=== PATIENT | male | born 1955 | race Caucasian/White ===

== ENCOUNTER → 2017-01-22 | Outpatient (CLI) | payer OTHER ==
[~2017-01-22] MED LIST: ALUMCHW2 PO; CARB200T PO; FEXO1TAB58 PO; MISC1CAP PO; MISC1CAP60 PO; MULTTAB58 PO; TRIF5TAB PO; VITATAB11 PO
[2017-01-22 17:24] LABS: BASO % 0.5 %; BASO ABS # 0.04 K/uL (0-0.2); COMPLETE YES; EOS % 1.6 %; HEMATOCRIT 39.9 % (42-52); IG% 0.5 %; LYMPH % 38.7 %; MEAN CELL VOLUME 95.7 fL (80-100); MEAN CORPUSCULAR HEMOGLOBIN 32.4 pg (25-34); MEAN CORPUSCULAR HGB CONC 33.8 g/dl (32-36); MEAN PLATELET VOLUME 8.5 fL (7.4-10.4); MONO % 6.9 %; NEUT % 51.8 %; PLATELET COUNT 330 K/uL (130-400); RED BLOOD COUNT 4.17 M/uL (4.7-6.1); WHITE BLOOD COUNT 7.49 K/uL (4.8-10.8)
[2017-01-22 17:42] LABS: ALB/GLOB RATIO 1.3 (0.9-2); ALKALINE PHOSPHATASE 91 U/L (45-117); ALT/SGPT 29 U/L (12-78); AST/SGOT 11 U/L (15-37); BLOOD UREA NITROGEN 21 mg/dl (7-18); BUN/CREATININE RATIO 20.5 (10-20); CALCIUM 8.8 mg/dl (8.5-10.1); CARBON DIOXIDE 28 mmol/L (21-32); CHLORIDE 99 mmol/L (98-107); GLUCOSE 98 mg/dl (70-99); POTASSIUM 4.6 mmol/L (3.5-5.1); SODIUM 134 mmol/L (136-145)
== END | disposition home or self-care (01) ==
LOC: C.LABBFT 12:47
PROVIDERS: ATTEND Psychiatry & Neurology Psychiatry
DX: F20.0 Paranoid schizophrenia (principal)

== ENCOUNTER → 2017-07-03 | Day surgery (SDC) | payer OTHER ==
[2017-05-21 12:28] VITALS: Ht 177.8 cm; Wt 119.5 kg
[~2017-07-03] VITALS: Ht 177.8 cm; Wt 119.5 kg
[~2017-07-03] MED LIST changes: +500ML BSS 0.3ML EPI 1:1000PF IRRIG ONE; +ACETAMINOPHEN 325 MG TAB PO PRN; +AMVISC PLUS 0.8ML SYRINGE INT OCU ONE; +ATROPINE SULFATE 0.1 MG/ML 5ML SYR IV PRN; +BSS FLUSH ONE; +CYCLOPENTOLATE HCL 1% OP SOLN PER DROP CHARGE OPL SCH; +EpHEDrine SULFATE INJ 50 MG/ML AMP IV PRN; +EpINEphrine INJ 1MG/ML AMP 1 MG/ML AMP ONE; +FENTANYL CITRATE INJ 50 MCG/1 ML 2 ML VIAL IV PRN; +GATIFLOXACIN OP SOLN PER DROP CHARGE OPL SCH; +KETOROLAC 0.5% OP SOLN PER DROP CHARGE OPL SCH; +LACTATED RINGER'S 1000ML 500 ML IV SCH; +LIDOCAINE 3.5% OPH GEL PER APPLICATION CHARGE ONE; +LIDOCAINE HCL 1% MPF 2 ML VIAL ONE; +MIDAZOLAM HCL 1 MG/ML 2ML VIAL ONE; +OCUCOAT 1 ML SOLN IO ONE; +ONDANSETRON INJ 2 MG/ML 2 ML VIAL IV PRN; +PHENYLEPHRINE HCL 2.5% OP SOLN PER DROP CHARGE OPL SCH; +POVIDONE-IODINE OP SOLN 30 ML BTL ONE; +PROPARACAINE 0.5% OP SOLN PER DROP CHARGE OPL SCH; +TOBRAMYCIN/DEXAMETHASONE OPH OINT PER APPLN CHARGE ONE; +TROPICAMIDE 1% OP SOLN PER DROP CHARGE OPL SCH
[2017-07-03] MEDS: PHENYLEPHRINE HCL 2.5% OP SOLN PER DROP CHARGE OPL SCH ×2 (07:07→07:12)
[2017-07-03] MEDS: TROPICAMIDE 1% OP SOLN PER DROP CHARGE OPL SCH ×2 (07:08→07:13)
[2017-07-03] MEDS: CYCLOPENTOLATE HCL 1% OP SOLN PER DROP CHARGE OPL SCH ×2 (07:09→07:14)
[2017-07-03] MEDS: KETOROLAC 0.5% OP SOLN PER DROP CHARGE OPL SCH ×2 (07:10→07:15)
[2017-07-03] MEDS: GATIFLOXACIN OP SOLN PER DROP CHARGE OPL SCH ×2 (07:11→07:25)
--- NOTE | 2017-07-03 07:28 | History & Physical Bridge - [place] ---
H&P Re-Evaluation Bridge Note: I have examined the patient, reviewed the History & Physical and in the interval since the performance of the History & Physical I have noted the following changes of clinical significance: Diagnosis: Left Cataract Procedure: Left Cataract Removal with Lens Implant No changes noted
--- NOTE | 2017-07-03 08:13 | Discharge Instructions-SurgCtr ---
Discharge Instructions Date of Service Jul 03, 2017. Visit Reason for Visit: Left Cataract Discharge Discharge Diagnosis / Problem: cataract Discharge Goals Goal(s): Improve function Activity Recommendations Activity Limitations: per Instructions/Follow-up section Anesthesia . Post Anesthesia Instructions: If you have had General Anesthesia or IV Sedation: * Do not drive today. * Resume driving when surgeon permits. * Do not make important decisions or sign legal documents today. * Call surgeon for: 1. Temperature elevations greater than 101 degrees F. 2. Uncontrollable pain. 3. Excessive bleeding. 4. Persistent nausea and vomiting. 5. Medication intolerance (nausea, vomiting or rash). * For nausea and vomiting use only clear liquids such as: tea, soda, bouillon until nausea subsides, then gradually increase diet as tolerated. * If you have any concerns or questions, call your surgeon's office. If physician is unavailable and it is an emergency, call 911 or go to the nearest emergency room. . Diet Recommendations Home Diet: resume previous diet Procedures Procedures Performed: Left Cataract Phacoemulsification With Intraocular Lens Implant Pending Studies Studies pending at discharge: no Medical Emergencies . Who to Call and When: Medical Emergencies: If at any time you feel your situation is an emergency, please call 911 immediately. . Non-Emergent Contact Non-Emergency issues call your: [employer] . . "Provider Documentation" section prepared by Mustapha Galeas. .
--- NOTE | 2017-07-03 08:14 | [facility] Operative Report ---
Operative Report Date of Service Jul 03, 2017. Operative Report 1. PREOPERATIVE DIAGNOSIS: Cataract of the left eye. 2. POSTOPERATIVE DIAGNOSIS: Same. 3. PROCEDURE: Phacoemulsification with intraocular lens implantation of the left eye. SURGEON: Dr. Mustapha Galeas. ANESTHESIA: Topical Lidocaine gel, 1% Non- Preserved intracameral Lidocaine, and monitored intravenous sedation. INDICATIONS FOR THE PROCEDURE: The patient is a 61 - year-old male with a history of cataract of the left eye causing significant visual impairment. The details of the proposed procedure were explained to the patient who asked appropriate questions and following discussion of all risks, benefits and alternatives agreed to have the procedure done. 4. OPERATION AND FINDINGS: DESCRIPTION OF PROCEDURE: After informed consent was obtained, the patient was brought to the Operating Room at the [facility]. The patient was placed in a supine position and then the left eye was prepped and draped in the usual sterile fashion for intraocular surgery. A drop of topical Lidocaine gel was placed in the operative eye. A wire lid speculum was then placed in the fornices. A corneal paracentesis was then created temporally. The Non-Preserved Lidocaine was then instilled into the anterior chamber. The anterior chamber was then pressurized with viscoelastic. A 2.0 mm clear corneal incision was then created temporally. A cystotome was inserted into the anterior chamber and used to create a tear in the anterior lens capsule. This capsular tear was then used to create a small flap and the flap was dragged in a counterclockwise direction in order to create a continuous curvilinear capsulorrhexis. Hydrodissection was accomplished with balanced salt solution. Phacoemulsification of the lens nucleus was then performed in a standard [id number] technique. The phaco time was 57 seconds with an average power of 30 %. The remaining cortical material was removed using irrigation aspiration. The capsular bag was then filled with viscoelastic. A B[employer]ch [employer] Lomb MI60L +21.0 diopters lens was then loaded into the injector and injected into the capsular bag. The remaining viscoelastic was removed with the irrigation aspiration handpiece. The wound was hydrated and then checked and found to be watertight. The intraocular pressure was checked and found to be adequate. The wire lid speculum was removed and the patient's face was cleaned and dried. TobraDex ointment was placed in the inferior fornix. The patient was discharged to the Recovery Room having tolerated the procedure well. There were no complications. The patient will be seen tomorrow in the office for follow-up. I attest to the content of the Intraoperative Record and any orders documented therein. Any exceptions are noted below.
[2017-07-03 08:15] VITALS: TEMP 36.5
[2017-07-03 08:39] VITALS: BP 172/90; PULSE 64; O2SAT 95
--- NOTE | 2017-07-03 08:42 | Anesthesia Progress Nt - [facility] ---
Anesthesia Post Op Note Date & Time Jul 03, 2017 at 08:42 Vital Signs Pain Intensity: 0 Vital Signs Past 12 Hours Date Time Temp Pulse Resp B/P (MAP) Pulse Ox O2 Delivery O2 Flow Rate FiO2 07/03/17 08:39 64 16 172/90 (117) 95 Room Air 07/03/17 08:15 36.5 63 20 174/82 (112) 94 Room Air 07/03/17 06:53 37 68 16 165/91 (115) 95 Room Air Notes Mental Status: alert / awake / arousable, participated in evaluation Pt Amnestic to Procedure: Yes Nausea / Vomiting: adequately controlled Pain: adequately controlled Airway Patency, RR, SpO2: stable & adequate BP & HR: stable & adequate Hydration State: stable & adequate Anesthetic Complications: no major complications apparent
== END | disposition home or self-care (01) ==
LOC: X.SURG 06:25
PROVIDERS: ATTEND Ophthalmology
DX: H26.9 Unspecified cataract (principal); E78.5 Hyperlipidemia, unspecified; J45.909 Unspecified asthma, uncomplicated; D64.9 Anemia, unspecified; Z79.899 Other long term (current) drug therapy

== ENCOUNTER → 2017-09-04 | Day surgery (SDC) | payer OTHER ==
[2017-08-07 12:18] VITALS: Ht 177.8 cm; Wt 119.5 kg
[~2017-09-04] VITALS: Ht 177.8 cm; Wt 119.5 kg
[~2017-09-04] MED LIST changes: -CYCLOPENTOLATE HCL 1% OP SOLN PER DROP CHARGE OPL SCH; -FENTANYL CITRATE INJ 50 MCG/1 ML 2 ML VIAL IV PRN; -GATIFLOXACIN OP SOLN PER DROP CHARGE OPL SCH; -KETOROLAC 0.5% OP SOLN PER DROP CHARGE OPL SCH; -ONDANSETRON INJ 2 MG/ML 2 ML VIAL IV PRN; +PHENYLEPHRINE HCL 10% OP SOLN PER DROP CHARGE OPR SCH; -PHENYLEPHRINE HCL 2.5% OP SOLN PER DROP CHARGE OPL SCH; -PROPARACAINE 0.5% OP SOLN PER DROP CHARGE OPL SCH; +PROPARACAINE 0.5% OP SOLN PER DROP CHARGE OPR SCH; -TROPICAMIDE 1% OP SOLN PER DROP CHARGE OPL SCH; +TRYPAN BLUE 0.15% FOR SURGI CENTER ONLY OP ONE
[2017-09-04] MEDS: PHENYLEPHRINE HCL 2.5% OP SOLN PER DROP CHARGE OPR SCH ×2 (08:10→08:15)
[2017-09-04] MEDS: TROPICAMIDE 1% OP SOLN PER DROP CHARGE OPR SCH ×2 (08:11→08:16)
[2017-09-04] MEDS: CYCLOPENTOLATE HCL 1% OP SOLN PER DROP CHARGE OPR SCH ×2 (08:12→08:17)
[2017-09-04] MEDS: KETOROLAC 0.5% OP SOLN PER DROP CHARGE OPR SCH ×2 (08:13→08:18)
[2017-09-04] MEDS: GATIFLOXACIN OP SOLN PER DROP CHARGE OPR SCH ×2 (08:14→08:24)
--- NOTE | 2017-09-04 08:44 | History & Physical Bridge - [place] ---
H&P Re-Evaluation Bridge Note: I have examined the patient, reviewed the History & Physical and in the interval since the performance of the History & Physical I have noted the following changes of clinical significance: No changes noted
--- NOTE | 2017-09-04 09:17 | Discharge Instructions-SurgCtr ---
Discharge Instructions Date of Service Sep 04, 2017. Visit Reason for Visit: Cataract Right Eye Discharge Discharge Diagnosis / Problem: cataract Discharge Goals Goal(s): Improve function Activity Recommendations Activity Limitations: per Instructions/Follow-up section Anesthesia . Post Anesthesia Instructions: If you have had General Anesthesia or IV Sedation: * Do not drive today. * Resume driving when surgeon permits. * Do not make important decisions or sign legal documents today. * Call surgeon for: 1. Temperature elevations greater than 101 degrees F. 2. Uncontrollable pain. 3. Excessive bleeding. 4. Persistent nausea and vomiting. 5. Medication intolerance (nausea, vomiting or rash). * For nausea and vomiting use only clear liquids such as: tea, soda, bouillon until nausea subsides, then gradually increase diet as tolerated. * If you have any concerns or questions, call your surgeon's office. If physician is unavailable and it is an emergency, call 911 or go to the nearest emergency room. . Diet Recommendations Home Diet: resume previous diet Procedures Procedures Performed: Right Cataract Phacoemulsification With Intraocular Lens Implant Pending Studies Studies pending at discharge: no Medical Emergencies . Who to Call and When: Medical Emergencies: If at any time you feel your situation is an emergency, please call 911 immediately. . Non-Emergent Contact Non-Emergency issues call your: [employer] . . "Provider Documentation" section prepared by Mustapha Galeas. .
[2017-09-04 09:18] VITALS: TEMP 36.9
--- NOTE | 2017-09-04 09:18 | [facility] Operative Report ---
Operative Report Date of Service Sep 04, 2017. Operative Report 1. PREOPERATIVE DIAGNOSIS: Cataract of the right eye. 2. POSTOPERATIVE DIAGNOSIS: Same. 3. PROCEDURE: Phacoemulsification with intraocular lens implantation of the right eye. SURGEON: Dr. Mustapha Galeas. ANESTHESIA: Topical Lidocaine gel, 1% Non- Preserved intracameral Lidocaine, and monitored intravenous sedation. INDICATIONS FOR THE PROCEDURE: The patient is a 61 - year-old male with a history of cataract of the right eye causing significant visual impairment. The details of the proposed procedure were explained to the patient who asked appropriate questions and following discussion of all risks, benefits and alternatives agreed to have the procedure done. 4. OPERATION AND FINDINGS: DESCRIPTION OF PROCEDURE: After informed consent was obtained, the patient was brought to the Operating Room at the [facility]. The patient was placed in a supine position and then the right eye was prepped and draped in the usual sterile fashion for intraocular surgery. A drop of topical Lidocaine gel was placed in the operative eye. A wire lid speculum was then placed in the fornices. A corneal paracentesis was then created temporally. The Non-Preserved Lidocaine was then instilled into the anterior chamber. The anterior chamber was then pressurized with viscoelastic. A 2.0 mm clear corneal incision was then created temporally. A cystotome was inserted into the anterior chamber and used to create a tear in the anterior lens capsule. This capsular tear was then used to create a small flap and the flap was dragged in a counterclockwise direction in order to create a continuous curvilinear capsulorrhexis. Hydrodissection was accomplished with balanced salt solution. Phacoemulsification of the lens nucleus was then performed in a standard [id number] technique. The phaco time was 34 seconds with an average power of 17 %. The remaining cortical material was removed using irrigation aspiration. The capsular bag was then filled with viscoelastic. A Bausch [employer] Lomb MI60L +22.0 diopters lens was then loaded into the injector and injected into the capsular bag. The remaining viscoelastic was removed with the irrigation aspiration handpiece. The wound was hydrated and then checked and found to be watertight. The intraocular pressure was checked and found to be adequate. The wire lid speculum was removed and the patient's face was cleaned and dried. TobraDex ointment was placed in the inferior fornix. The patient was discharged to the Recovery Room having tolerated the procedure well. There were no complications. The patient will be seen tomorrow in the office for follow-up. I attest to the content of the Intraoperative Record and any orders documented therein. Any exceptions are noted below.
--- NOTE | 2017-09-04 09:40 | Anesthesia Progress Nt - [facility] ---
Anesthesia Post Op Note Date & Time Sep 04, 2017 at 09:40 Vital Signs Pain Intensity: 0 Vital Signs Past 12 Hours Date Time Temp Pulse Resp B/P (MAP) Pulse Ox O2 Delivery O2 Flow Rate FiO2 09/04/17 09:18 36.9 64 18 178/97 (124) 97 Room Air 09/04/17 08:06 36.4 68 16 153/78 (103) 95 Room Air Notes Mental Status: alert / awake / arousable, participated in evaluation Pt Amnestic to Procedure: Yes Nausea / Vomiting: adequately controlled Pain: adequately controlled Airway Patency, RR, SpO2: stable & adequate BP & HR: stable & adequate Hydration State: stable & adequate Anesthetic Complications: no major complications apparent
[2017-09-04 09:46] VITALS: BP 181/88; PULSE 66; O2SAT 100
== END | disposition home or self-care (01) ==
LOC: X.SURG 07:22
PROVIDERS: ATTEND Ophthalmology
DX: H26.9 Unspecified cataract (principal); F20.9 Schizophrenia, unspecified; J44.9 Chronic obstructive pulmonary disease, unspecified; E66.9 Obesity, unspecified; K21.9 Gastro-esophageal reflux disease without esophagitis; N18.9 Chronic kidney disease, unspecified; I25.10 Atherosclerotic heart disease of native coronary artery without angina pectoris; I50.9 Heart failure, unspecified; I25.2 Old myocardial infarction

== ENCOUNTER → 2017-10-17 | Outpatient (CLI) | payer OTHER ==
[~2017-10-17] MED LIST changes: -500ML BSS 0.3ML EPI 1:1000PF IRRIG ONE; -ACETAMINOPHEN 325 MG TAB PO PRN; -AMVISC PLUS 0.8ML SYRINGE INT OCU ONE; -ATROPINE SULFATE 0.1 MG/ML 5ML SYR IV PRN; -BSS FLUSH ONE; -EpHEDrine SULFATE INJ 50 MG/ML AMP IV PRN; -EpINEphrine INJ 1MG/ML AMP 1 MG/ML AMP ONE; -LACTATED RINGER'S 1000ML 500 ML IV SCH; -LIDOCAINE 3.5% OPH GEL PER APPLICATION CHARGE ONE; -LIDOCAINE HCL 1% MPF 2 ML VIAL ONE; -MIDAZOLAM HCL 1 MG/ML 2ML VIAL ONE; -OCUCOAT 1 ML SOLN IO ONE; -PHENYLEPHRINE HCL 10% OP SOLN PER DROP CHARGE OPR SCH; -POVIDONE-IODINE OP SOLN 30 ML BTL ONE; -PROPARACAINE 0.5% OP SOLN PER DROP CHARGE OPR SCH; -TOBRAMYCIN/DEXAMETHASONE OPH OINT PER APPLN CHARGE ONE; -TRYPAN BLUE 0.15% FOR SURGI CENTER ONLY OP ONE
[2017-10-17 17:38] LABS: BASO % 0.8 %; BASO ABS # 0.06 K/uL (0-0.2); EOS % 2.6 %; EOS ABS # 0.19 K/uL (0-0.5); HEMATOCRIT 38.9 % (42-52); HEMOGLOBIN 13.5 g/dL (14.0-18.0); IG# 0.03 K/uL (0.00-0.02); LYMPH % 41.7 %; LYMPH ABS # 3.07 K/uL (1.2-3.4); MEAN CELL VOLUME 94.6 fL (80-100); MEAN CORPUSCULAR HEMOGLOBIN 32.8 pg (25-34); MEAN CORPUSCULAR HGB CONC 34.7 g/dl (32-36); MEAN PLATELET VOLUME 8.8 fL (7.4-10.4); MONO % 7.1 %; MONO ABS # 0.52 K/uL (0.11-0.59); NEUT % 47.4 %; NEUT ABS # 3.49 K/uL (1.4-6.5); PLATELET COUNT 313 K/uL (130-400); RED CELL DISTRIBUTION WIDTH CV 12.8 % (11.5-14.5); RED CELL DISTRIBUTION WIDTH SD 44.5 fL (36.4-46.3); WHITE BLOOD COUNT 7.36 K/uL (4.8-10.8)
[2017-10-17 17:59] LABS: ALBUMIN 3.7 gm/dl (3.4-5.0); ALKALINE PHOSPHATASE 87 U/L (45-117); ALT/SGPT 42 U/L (12-78); AST/SGOT 20 U/L (15-37); BLOOD UREA NITROGEN 16 mg/dl (7-18); CALCIUM 8.6 mg/dl (8.5-10.1); CARBON DIOXIDE 28 mmol/L (21-32); CREATININE 0.94 mg/dl (0.60-1.40); GLUCOSE 95 mg/dl (70-99); POTASSIUM 4.6 mmol/L (3.5-5.1); SODIUM 126 mmol/L (136-145); TOTAL PROTEIN 7.5 gm/dl (6.4-8.2)
[2017-10-17 18:06] LABS: CHOLESTEROL 153 mg/dl (0-200); LDL CHOLESTEROL CALCULATED 70 mg/dl
== END | disposition home or self-care (01) ==
LOC: C.LABBFT 13:27
PROVIDERS: ATTEND Internal Medicine
DX: Z11.59 Encounter for screening for other viral diseases (principal); E78.5 Hyperlipidemia, unspecified; D64.9 Anemia, unspecified; Z12.5 Encounter for screening for malignant neoplasm of prostate

== ENCOUNTER 2022-07-09 08:54 | Inpatient (IN) ==
[2022-07-09] MEDS ORDERED: PROPOFOL BOLUS FROM BAG IV PRN (09:09)
[2022-07-09] MEDS ORDERED: STAT IV Infusion **Titration per Protocol STA ×2 (09:09→14:10)
[2022-07-09] MEDS ORDERED: PROPOFOL IV EMULSION 10 MG/ML 100 ML VIAL IV ONE (09:11)
--- NOTE | 2022-07-09 09:12 | Emergency Department Note ---
Impression & Plan Acute respiratory failure with hypoxia and hypercapnia, Multifocal pneumonia, Obtundation, Acute hyponatremia, Severe sepsis ED Provider Note Name: JULI JEFFERSON Age: 66 Sex: M Arrives Via: Ambulance Informant: EMS ED Provider: Isak Collazo MD Chief Complaint: Respiratory distress Impression: As per impressions above Medical Decision Makin-year-old gentleman with vague past medical history appears to have hyperlipidemia and an unknown reason for being on carbamazepine. Arrives in respiratory failure and obtunded with poor respiratory effort. Patient unable to protect airway thus was intubated emergently. No difficulty with intubation and I will note there is no emesis in airway other than just a lot of secretions. Septic work-up initiated. He was sent for CT of the head which reveals no acute intracranial hemorrhage. He did get a CT of the chest which does show diffuse multifocal pneumonia. Sats mostly stable did drop slightly b efore coming back up. He did have an episode of hypotension which resolved with a small bolus of fluid. He was not given further fluids given the concern that he is actually fluid overloaded on examination. Labs returned with elevated white blood cell count, hyponatremia, hypochloremia. Does have an elevated troponin consistent with his severe hypoxia and respiratory failure prior to arrival. EKG without STEMI morphology. Neurologically he was obtunded on arrival. He had no focal neurologic deficits. He was not having any seizure activity on arrival. With the findings multifocal pneumonia I suspect he is septic due to this rather than other etiology at this time. I do not think get ting an LP would be indicated. He has a soft abdomen wall he was obtunded no clear evidence of intra-abdominal infection at this time. He was given cefepime IV empirically. His weight and concerns for fluid overload will get out MRSA swab rather than emergently starting Vanco. Hospitalist consulted for further management. Prior Medical Record and Triage/Nursing Notes reviewed by Me Additional history obtained from chart & EMS Differentials:Infection, hypoglycemia, electrolyte abnormalities, overdose, toxicologic, cardiac sources, intracerebral event, neurologic, trauma, as well as other pathologies. Sepsis Management: Patient with sepsis secondary to multifocal pneumonia. Episode of hypotension noted. He was given a 500 mL bolus IV fluids. He is in pulmonary edema thus further fluids were held in the setting of concern for congestive heart failure. Thus he was not given a 30/kg NSS fluid bolus. Repeat volume status exam. Performed by me. 11:15 AM on 07/09/22. Patient is well-hydrated his vital signs have stabilized with blood pressure 116/53, heart rate of 78 and an O2 sat of 97% on mechanical ventilation. He has good cap refill. At this time pressors are not indicated. 12:25pm 07/09/22. Evaluation of patient he has heart rate 71, SPO2 98% on ventilator and he has a blood pressure of 90/44. This is slowly trended down over the last half hour or so. He was given another 500 mL bolus of fluid. BP improving and bed available at ICU. Vital Signs: reviewed and remarkable for hypoxia on RA Interventions: NSS bolus 500mL IV, Cefepime 2gm IV, RSI meds, Propofol Labs:Reviewed and remarkable for elevated wbc, low sodium Imaging:CT of the head no acute findings as per radiologist. CT chest mul tifocal pneumonia. Chest x-ray ET tube in place bilateral congestive failure versus infiltrates. EKG:Per My Interpretation: Indication AMS/SOB: NSR with 1st av block 92 bpm, qtc 442. Nonspecific intraventricular block. Mild ST depressions anterior and nonspecific st abnormalities throughout. No Ectopy. No Ischemia. No previous fo comparison. Cardiac/Tele Monitoring: Cardiac Monitoring: An Order was placed for continuous cardiac monitoring. The monitor shows a rate of 90 with a normal sinus rhythm. Consults:Dr Tiffani RAMIREZ Hospitalist Plan: Disposition:Hospitalization. Condition: Poor History of Present Illness:66-year-old male arrives for evaluation of altered mental status. Patient with unclear past medical history though apparently is disabled and lives alone. He was found by his neighbors altered and unresponsive this morning. EMS was called. Oxygen saturation 60% on room air he had emesis/secretions all over his face and his chest. He was grunting to questions/commands. He was brought into the ER emergently. No medications prior to arrival. Unknown history. ROS: Unable to obtain due to altered mental status Past Medical History:Per chart review appears patient has history of hyper lipidemia, and is on carbamazepine unclear reason why Past Surgical History: Unable to obtain due to altered mental status Family History:Unable to obtain due to altered mental status Social History: unable to obtain due to altered mental status. Per chart he is a smoker. He is and he lives alone. Home Medications:unclear, in chart Carbamazepine Allergies:aspirin, penicillin per chart Vitals:Blood Pressure: 174/63, Pulse 95, RR 12, T 37.1C, O2 96% on NRB Physical Exam: GENERAL: Patient is severely unwell appearing and obtunded. EYES: No scleral icterus, unremarkable pupils. ENT: Large amount of secretions in oropharynx, mucous membranes moist, no nasal congestion. NECK: No masses appreciated, nomeningismus, trachea is midline. RESPIRATORY: Poor respiratory effort, gurgling respirations, poor breath sounds throughout CARDIOVASCULAR: Regular rate and rhythm.No murmurs, rubs, gallops appreciated. GASTROINTESTINAL: Abdomen soft, non-tender, no peritonitis.Bowel sounds positive.No masses appreciated. BACK: No midline tenderness, no CVA tenderness EXTREMITIES: Normal motion all extremities, no cyanosis, no edema. NEUROLOGIC: Obtunded, periodically looking vaguely around the room, grunts to questions, weakly moves arms no clear movement of legs. SKIN: Pale, mottled, cool skin GCS: 8 ED Course: Times/Reassessments: Many repeat evaluations throughout the patient's stay and prolonged bedside management Endotracheal Intubation Indication: respiratory failure The patient was being bagged by respiratory with BVM. Suction, airway equipment, RSI drugs, respiratory equipment, and appropriate personnel were prepared prior to the initiation of the procedure. A time out was taken. Induction was performed with etomidate/succinylcholine. After observing the clinical benefit of the medications, the airway was easily visualized utilizing a GlideScope #3 blade. A 7.5 size ETT tube was placed atraumatically to 25 cm using standard technique. The cuff inflated without signs of malfunction. There were bilateral breath sounds, positive colormetric change, no gastric sounds, a good capnography waveform, and post procedure pulse oximetry was 96%. Post intu bation sedation and paralysis was administered using propofol. There were no complications. Critical Care: I have personally spent 45 minutes of critical care time in the direct management of this patient. Acute respiratory failure requiring intubation & resuscitation. This was a life/limb threatening event. This 45 minutes is in excess of all separately billable procedures. Isak Collazo MD Past Med/Surg History Medical History (Updated 07/09/22 @ 17:41 by Isak Collazo MD) Hyperlipidemia Hypotension (arterial) Morbid obesity due to excess calories Surgical History S/P tooth extraction Family History Father Prostate cancer Mother Dementia Denies family history of Ovarian cancer Myocardial infarction Breast cancer Colorectal cancer Social History Smoking Status: Current every day smoker Age Started Using Tobacco: 25; packs per day: 0.5; Years Smoked: 39; Cigarettes Per Day: 6; Second Hand Exposure: No; Hx Alcohol Use: No Hx Substance Use: No Preferred Language: Luxembourgish Communication Ability: Effective Visual Impairment: No Limitations Hearing Ability: Normal 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 Beliefs That Will Affect Care: None marital status: / Current Living Situation: Alone Current Living Situation Comment: [facility] in [facility] current occupational status: disabled Feels Safe at Home: Yes Childhood Exposure to Second-Hand Smoke: Yes Dental Care, Regularly: No Physical Activity Frequency: Daily Physical Activity Frequency Comment: walks 60 minutes Seatbelt Use: always Sunscreen Use: No Assistive Devices: None Allergies Allergies Allergy/AdvReac Type Severity Reaction Status Date / Time aspirin Allergy Verified 11/05/20 13:55 Penicillins Allergy Verified 11/05/20 13:55 Home Meds Home Medications Medication Instructions Recorded Confirmed carbamazepine 200 mg tablet 200 mg PO BID 10/12/19 07/09/22 trifluoperazine 5 mg tablet 5 mg PO DAILY 10/12/19 07/09/22 glucosamine-chondroitin [Osteo PO 10/31/19 11/05/20 Bi-Flex] saw palmetto PO BID 10/31/19 11/05/20 coenzyme Q10 10 mg capsule (Co 10 mg PO BID 11/05/20 11/05/20 Q-10) dorzolamide 22.3 mg-timolol 6.8 07/09/22 mg/mL eye drops latanoprost 0.005 % eye drops drp 07/09/22 Previous Rx's Medication Instructions Recorded mupirocin 2 % topical ointment 1 appln topical .COMPLEX #30 grams 01/26/20 Results & Data (ED) Vital Signs Vital Signs - 24 hr 07/09/22 09:00 07/09/22 09:00 07/09/22 09:38 Pulse Rate 92 H Pulse Rate [Apical] 84 Respiratory Rate 13 18 Respiratory Effort / Characteristics Gasping/Agonal Gasping/Agonal Mechanically Ventilated Respiratory Depth Respiratory Pattern Blood Pressure 174/63 H Blood Pressure [Right Arm] Blood Pressure Mean 100 Blood Pressure Mean [Right Arm] Blood Pressure Position Lying Blood Pressure Position [Right Arm] Pulse Oximetry 97 86 L Oxygen Delivery Method Non-rebreather Mechanical Vent Oxygen Flow Rate 15 Fraction of Inspired Oxygen 70 SaO2/FiO2 Ratio 122 Sepsis Recent Fever Within 48 Hours No Sepsis New/Unexplained Change in Mental Status No Sepsis Action Taken by Nursing No Action Required End-Tidal CO2 07/09/22 09:45 07/09/22 10:19 07/09/22 10:16 Pulse Rate 104 H Pulse Rate [Apical] 75 Respiratory Rate 26 H 23 Respiratory Effort / Characteristics Mechanically Ventilated Respiratory Depth Respiratory Pattern Regular Blood Pressure Blood Pressure [Right Arm] 78/33 L 107/45 L Blood Pressure Mean Blood Pressure Mean [Right Arm] 48 65 Blood Pressure Position Blood Pressure Position [Right Arm] Lying Lying Pulse Oximetry 96 98 Oxygen Delivery Method Mechanical Vent Oxygen Flow Rate Fraction of Inspired Oxygen 70 70 SaO2/FiO2 Ratio 140 Sepsis Recent Fever Within 48 Hours Sepsis New/Unexplained Change in Mental Status Sepsis Action Taken by Nursing End-Tidal CO2 61 07/09/22 10:31 07/09/22 11:01 Pulse Rate Pulse Rate [Apical] 77 82 Respiratory Rate 23 24 Respiratory Effort / Characteristics Mechanically Ventilated Mechanically Ventilated Respiratory Depth Normal Respiratory Pattern Blood Pressure Blood Pressure [Right Arm] 117/46 L 116/53 L Blood Pressure Mean Blood Pressure Mean [Right Arm] 69 74 Blood Pressure Position Blood Pressure Position [Right Arm] Pulse Oximetry 98 99 Oxygen Delivery Method Mechanical Vent Mechanical Vent Oxygen Flow Rate Fraction of Inspired Oxygen 70 SaO2/FiO2 Ratio 140 Sepsis Recent Fever Within 48 Hours Sepsis New/Unexplained Change in Mental Status Sepsis Action Taken by Nursing End-Tidal CO2 Laboratory Data Result diagrams: 07/09/22 09:05 07/09/22 15:06 Lab Results 07/09/22 07/09/22 07/09/22 Range/Units 09:05 09:05 09:05 WBC 22.20 H (4.8-10.8) K/ul RBC 4.66 (4.63-6.08) M/uL Hgb 14.8 (14.0-18.0) g/dl Hct 41.1 (40.1-51.0) % MCV 88.2 (80.0-100.0) fL MCH 31.8 (25.0-34.0) pg MCHC 36.0 (32.0-36.0) g/dL RDW Std Deviation 42.4 (36.4-46.3) fL RDW Coeff of Pascual 13.1 (11.5-14.5) % Plt Count 302 (130-400) K/uL MPV 8.5 L (9.4-12.4) fL Immature Gran % (Auto) 1.0 % Neut % (Auto) 82.1 % Lymph % (Auto) 7.1 % [place] % (Auto) 9.3 % Eos % (Auto) 0.2 % Baso % (Auto) 0.3 % Neut # (Auto) 18.22 H (1.4-6.5) K/uL Lymph # (Auto) 1.58 (1.2-3.4) K/uL [place] # (Auto) 2.06 H (0.24-0.82) K/uL Eos # (Auto) 0.05 (0-0.50) K/uL Baso # (Auto) 0.06 (0-0.2) K/uL Immature Gran # (Auto) 0.23 H (0.00-0.02) K/uL PT 12.2 H (9.0-12.0) Seconds INR 1.2 H (0.9-1.1) Sodium 119 L* (136-145) mmol/L Potassium 3.7 (3.5-5.1) mmol/L Chloride 80 L (98-107) mmol/L Carbon Dioxide 31 (21-32) mmol/L Anion Gap 8 (3-11) BUN 20 (6-23) mg/dl Creatinine 1.39 (0.6-1.4) mg/dl Est Cr Clr Drug Dosing Not Reportable Est GFR ( Amer) 60.4 ml/min Est GFR (Non-Af Amer) 52.1 ml/min BUN/Creatinine Ratio 14.4 (10-20) Glucose 119 H (70-99(Fasting)) mg/dl Lactate (0.4-2.0) mmol/L Calcium 9.1 (8.5-10.1) mg/dl Magnesium 2.0 (1.7-2.4) mg/dl Total Bilirubin 1.1 H (0.2-1.0) mg/dl Direct Bilirubin 0.4 H (0-0.2) mg/dl AST 35 (13-39) U/L ALT 31 (7-52) U/L Alkaline Phosphatase 98 (34-104) U/L Troponin I High Sens 64.6 H* (0-20) pg/ml Total Protein 7.7 (6.0-8.3) gm/dl Albumin 4.1 (3.4-5.0) gm/dl Lipase 9 L (11-82) U/L Procalcitonin (0-0.5) ng/ml Urine Color Urine Appearance (Clear) Urine pH (4.5-7.5) Ur Specific [place] (1.000-1.030) Urine Protein (Negative) Urine Glucose (UA) (Negative) Urine Ketones (Negative) Urine Blood (Negative) Urine Nitrite (Negative) Urine Bilirubin (Negative) Urine Urobilinogen (Negative) Ur Leukocyte Esterase (Negative) Urine WBC (Auto) (0-5) /hpf Urine RBC (Auto) (0-4) /hpf U Hyaline Cast (Auto) (0-5) /lpf U Epithel Cells (Auto) (0-5) /lpf Urine Bacteria (Auto) (Negative) Urine Osmolality (500-800) mOsm/kg Ur Random Sodium mmol/L Nasal Screen MRSA (PCR) (Negative) Adenovirus (PCR) (NotDetected) B. pertussis DNA (PCR) (NotDetected) B.parapertussis DNA PCR (NotDetected) C. pneumoniae DNA (PCR) (NotDetected) Coronavirus OC43 (PCR) (NotDetected) Coronavirus HKU1 (PCR) (NotDetected) Coronavirus 229E (PCR) (NotDetected) SARS-CoV-2 (PCR) (NotDetected) Coronavirus NL63 (PCR) (NotDetected) Human Metapneumovir PCR (NotDetected) Influenza Type A (PCR) (NotDetected) Influenza Type B (PCR) (NotDetected) M. pneumoniae (PCR) (NotDetected) Parainfluenza 1 (PCR) (NotDetected) Parainfluenza 2 (PCR) (NotDetected) Parainfluenza 3 (PCR) (NotDetected) Parainfluenza 4 (PCR) (NotDetected) RSV (PCR) (NotDetected) Entero/Rhino (PCR) (NotDetected) 07/09/22 07/09/22 07/09/22 Range/Units 09:05 09:13 09:13 WBC (4.8-10.8) K/ul RBC (4.63-6.08) M/uL Hgb (14.0-18.0) g/dl Hct (40.1-51.0) % MCV (80.0-100.0) fL MCH (25.0-34.0) pg MCHC (32.0-36.0) g/dL RDW Std Deviation (36.4-46.3) fL RDW Coeff of Pascual (11.5-14.5) % Plt Count (130-400) K/uL MPV (9.4-12.4) fL Immature Gran % (Auto) % Neut % (Auto) % Lymph % (Auto) % [place] % (Auto) % Eos % (Auto) % Baso % (Auto) % Neut # (Auto) (1.4-6.5) K/uL Lymph # (Auto) (1.2-3.4) K/uL [place] # (Auto) (0.24-0.82) K/uL Eos # (Auto) (0-0.50) K/uL Baso # (Auto) (0-0.2) K/uL Immature Gran # (Auto) (0.00-0.02) K/uL PT (9.0-12.0) Seconds INR (0.9-1.1) Sodium (136-145) mmol/L Potassium (3.5-5.1) mmol/L Chloride (98-107) mmol/L Carbon Dioxide (21-32) mmol/L Anion Gap (3-11) BUN (6-23) mg/dl Creatinine (0.6-1.4) mg/dl Est Cr Clr Drug Dosing Est GFR ( Amer) ml/min Est GFR (Non-Af Amer) ml/min BUN/Creatinine Ratio (10-20) Glucose (70-99(Fasting)) mg/dl Lactate (0.4-2.0) mmol/L Calcium (8.5-10.1) mg/dl Magnesium (1.7-2.4) mg/dl Total Bilirubin (0.2-1.0) mg/dl Direct Bilirubin (0-0.2) mg/dl AST (13-39) U/L ALT (7-52) U/L Alkaline Phosphatase (34-104) U/L Troponin I High Sens (0-20) pg/ml Total Protein (6.0-8.3) gm/dl Albumin (3.4-5.0) gm/dl Lipase (11-82) U/L Procalcitonin 0.50 (0-0.5) ng/ml Urine Color Dark Yellow Urine Appearance Clear (Clear) Urine pH 6.5 (4.5-7.5) Ur Specific [place] 1.019 (1.000-1.030) Urine Protein 3+ H (Negative) Urine Glucose (UA) Trace H (Negative) Urine Ketones Trace H (Negative) Urine Blood Negative (Negative) Urine Nitrite Negative (Negative) Urine Bilirubin Negative (Negative) Urine Urobilinogen Positive H (Negative) Ur Leukocyte Esterase Negative (Negative) Urine WBC (Auto) 0 (0-5) /hpf Urine RBC (Auto) 0-4 (0-4) /hpf U Hyaline Cast (Auto) 1-5 (0-5) /lpf U Epithel Cells (Auto) 0-5 (0-5) /lpf Urine Bacteria (Auto) Negative (Negative) Urine Osmolality 518 (500-800) mOsm/kg Ur Random Sodium mmol/L Nasal Screen MRSA (PCR) (Negative) Adenovirus (PCR) (NotDetected) B. pertussis DNA (PCR) (NotDetected) B.parapertussis DNA PCR (NotDetected) C. pneumoniae DNA (PCR) (NotDetected) Coronavirus OC43 (PCR) (NotDetected) Coronavirus HKU1 (PCR) (NotDetected) Coronavirus 229E (PCR) (NotDetected) SARS-CoV-2 (PCR) (NotDetected) Coronavirus NL63 (PCR) (NotDetected) Human Metapneumovir PCR (NotDetected) Influenza Type A (PCR) (NotDetected) Influenza Type B (PCR) (NotDetected) M. pneumoniae (PCR) (NotDetected) Parainfluenza 1 (PCR) (NotDetected) Parainfluenza 2 (PCR) (NotDetected) Parainfluenza 3 (PCR) (NotDetected) Parainfluenza 4 (PCR) (NotDetected) RSV (PCR) (NotDetected) Entero/Rhino (PCR) (NotDetected) 07/09/22 07/09/22 07/09/22 Range/Units 09:13 09:36 10:20 WBC (4.8-10.8) K/ul RBC (4.63-6.08) M/uL Hgb (14.0-18.0) g/dl Hct (40.1-51.0) % MCV (80.0-100.0) fL MCH (25.0-34.0) pg MCHC (32.0-36.0) g/dL RDW Std Deviation (36.4-46.3) fL RDW Coeff of Pascual (11.5-14.5) % Plt Count (130-400) K/uL MPV (9.4-12.4) fL Immature Gran % (Auto) % Neut % (Auto) % Lymph % (Auto) % [place] % (Auto) % Eos % (Auto) % Baso % (Auto) % Neut # (Auto) (1.4-6.5) K/uL Lymph # (Auto) (1.2-3.4) K/uL [place] # (Auto) (0.24-0.82) K/uL Eos # (Auto) (0-0.50) K/uL Baso # (Auto) (0-0.2) K/uL Immature Gran # (Auto) (0.00-0.02) K/uL PT (9.0-12.0) Seconds INR (0.9-1.1) Sodium (136-145) mmol/L Potassium (3.5-5.1) mmol/L Chloride (98-107) mmol/L Carbon Dioxide (21-32) mmol/L Anion Gap (3-11) BUN (6-23) mg/dl Creatinine (0.6-1.4) mg/dl Est Cr Clr Drug Dosing Est GFR ( Amer) ml/min Est GFR (Non-Af Amer) ml/min BUN/Creatinine Ratio (10-20) Glucose (70-99(Fasting)) mg/dl Lactate 0.6 (0.4-2.0) mmol/L Calcium (8.5-10.1) mg/dl Magnesium (1.7-2.4) mg/dl Total Bilirubin (0.2-1.0) mg/dl Direct Bilirubin (0-0.2) mg/dl AST (13-39) U/L ALT (7-52) U/L Alkaline Phosphatase (34-104) U/L Troponin I High Sens (0-20) pg/ml Total Protein (6.0-8.3) gm/dl Albumin (3.4-5.0) gm/dl Lipase (11-82) U/L Procalcitonin (0-0.5) ng/ml Urine Color Urine Appearance (Clear) Urine pH (4.5-7.5) Ur Specific [place] (1.000-1.030) Urine Protein (Negative) Urine Glucose (UA) (Negative) Urine Ketones (Negative) Urine Blood (Negative) Urine Nitrite (Negative) Urine Bilirubin (Negative) Urine Urobilinogen (Negative) Ur Leukocyte Esterase (Negative) Urine WBC (Auto) (0-5) /hpf Urine RBC (Auto) (0-4) /hpf U Hyaline Cast (Auto) (0-5) /lpf U Epithel Cells (Auto) (0-5) /lpf Urine Bacteria (Auto) (Negative) Urine Osmolality (500-800) mOsm/kg Ur Random Sodium 26 mmol/L Nasal Screen MRSA (PCR) (Negative) Adenovirus (PCR) Not Detected (NotDetected) B. pertussis DNA (PCR) Not Detected (NotDetected) B.parapertussis DNA PCR Not Detected (NotDetected) C. pneumoniae DNA (PCR) Not Detected (NotDetected) Coronavirus OC43 (PCR) Not Detected (NotDetected) Coronavirus HKU1 (PCR) Not Detected (NotDetected) Coronavirus 229E (PCR) Not Detected (NotDetected) SARS-CoV-2 (PCR) Not Detected (NotDetected) Coronavirus NL63 (PCR) Not Detected (NotDetected) Human Metapneumovir PCR Not Detected (NotDetected) Influenza Type A (PCR) Not Detected (NotDetected) Influenza Type B (PCR) Not Detected (NotDetected) M. pneumoniae (PCR) Not Detected (NotDetected) Parainfluenza 1 (PCR) Not Detected (NotDetected) Parainfluenza 2 (PCR) Not Detected (NotDetected) Parainfluenza 3 (PCR) Not Detected (NotDetected) Parainfluenza 4 (PCR) Not Detected (NotDetected) RSV (PCR) Not Detected (NotDetected) Entero/Rhino (PCR) Not Detected (NotDetected) 07/09/22 Range/Units 10:25 WBC (4.8-10.8) K/ul RBC (4.63-6.08) M/uL Hgb (14.0-18.0) g/dl Hct (40.1-51.0) % MCV (80.0-100.0) fL MCH (25.0-34.0) pg MCHC (32.0-36.0) g/dL RDW Std Deviation (36.4-46.3) fL RDW Coeff of Pascual (11.5-14.5) % Plt Count (130-400) K/uL MPV (9.4-12.4) fL Immature Gran % (Auto) % Neut % (Auto) % Lymph % (Auto) % [place] % (Auto) % Eos % (Auto) % Baso % (Auto) % Neut # (Auto) (1.4-6.5) K/uL Lymph # (Auto) (1.2-3.4) K/uL [place] # (Auto) (0.24-0.82) K/uL Eos # (Auto) (0-0.50) K/uL Baso # (Auto) (0-0.2) K/uL Immature Gran # (Auto) (0.00-0.02) K/uL PT (9.0-12.0) Seconds INR (0.9-1.1) Sodium (136-145) mmol/L Potassium (3.5-5.1) mmol/L Chloride (98-107) mmol/L Carbon Dioxide (21-32) mmol/L Anion Gap (3-11) BUN (6-23) mg/dl Creatinine (0.6-1.4) mg/dl Est Cr Clr Drug Dosing Est GFR ( Amer) ml/min Est GFR (Non-Af Amer) ml/min BUN/Creatinine Ratio (10-20) Glucose (70-99(Fasting)) mg/dl Lactate (0.4-2.0) mmol/L Calcium (8.5-10.1) mg/dl Magnesium (1.7-2.4) mg/dl Total Bilirubin (0.2-1.0) mg/dl Direct Bilirubin (0-0.2) mg/dl AST (13-39) U/L ALT (7-52) U/L Alkaline Phosphatase (34-104) U/L Troponin I High Sens (0-20) pg/ml Total Protein (6.0-8.3) gm/dl Albumin (3.4-5.0) gm/dl Lipase (11-82) U/L Procalcitonin (0-0.5) ng/ml Urine Color Urine Appearance (Clear) Urine pH (4.5-7.5) Ur Specific [place] (1.000-1.030) Urine Protein (Negative) Urine Glucose (UA) (Negative) Urine Ketones (Negative) Urine Blood (Negative) Urine Nitrite (Negative) Urine Bilirubin (Negative) Urine Urobilinogen (Negative) Ur Leukocyte Esterase (Negative) Urine WBC (Auto) (0-5) /hpf Urine RBC (Auto) (0-4) /hpf U Hyaline Cast (Auto) (0-5) /lpf U Epithel Cells (Auto) (0-5) /lpf Urine Bacteria (Auto) (Negative) Urine Osmolality (500-800) mOsm/kg Ur Random Sodium mmol/L Nasal Screen MRSA (PCR) Negative (Negative) Adenovirus (PCR) (NotDetected) B. pertussis DNA (PCR) (NotDetected) B.parapertussis DNA PCR (NotDetected) C. pneumoniae DNA (PCR) (NotDetected) Coronavirus OC43 (PCR) (NotDetected) Coronavirus HKU1 (PCR) (NotDetected) Coronavirus 229E (PCR) (NotDetected) SARS-CoV-2 (PCR) (NotDetected) Coronavirus NL63 (PCR) (NotDetected) Human Metapneumovir PCR (NotDetected) Influenza Type A (PCR) (NotDetected) Influenza Type B (PCR) (NotDetected) M. pneumoniae (PCR) (NotDetected) Parainfluenza 1 (PCR) (NotDetected) Parainfluenza 2 (PCR) (NotDetected) Parainfluenza 3 (PCR) (NotDetected) Parainfluenza 4 (PCR) (NotDetected) RSV (PCR) (NotDetected) Entero/Rhino (PCR) (NotDetected) Administered Medications Enoxaparin Sodium (Enoxaparin Inj 40 Mg/0.4 Ml Syr) 40 mg SQ Q24H [facility] Stop: 08/08/22 13:44 Last Admin: 07/09/22 15:36 Dose: 40 mg Documented By: LEONIDAS Propofol (Diprivan) 1,000 mg in 100 mls @ 21.3 mls/hr IV .Q4H42M [facility]; Protocol Stop: 07/12/22 09:14 Last Admin: 07/09/22 13:15 Dose: 25 mcg/kg/min, 21.3 mls/hr Documented By: LEONIDAS Co-signed By: MEL Titration: 07/09/22 13:15 Dose: 20 mcg/kg/min, 17 mls/hr Documented By: LEONIDAS Co-signed By: MEL Admin: 07/09/22 09:14 Dose: 20 mcg/kg/min, 17 mls/hr Documented By: NA Co-signed By: WALLY Ceftriaxone Sodium 2,000 mg/ (Dextrose) 70 mls @ 100 mls/hr IV Q24H [facility]; Pr otocol Stop: 07/16/22 13:44 Last Infusion: 07/09/22 15:34 Dose: 0 mls/hr Documented By: Admin: 07/09/22 14:15 Dose: 100 mls/hr Documented By: LEONIDAS Midazolam HCl (Versed) 125 mg in 250 mls @ 2 mls/hr IV .Q96H [facility]; Protocol Stop: 08/08/22 14:14 Last Admin: 07/09/22 15:35 Dose: 1 mg/hr, 2 mls/hr Documented By: LEONIDAS Co-signed By: LIVE Fentanyl Citrate (Fentanyl Citrate) 2,500 mcg in 250 mls @ 2.5 mls/hr IV .Q96H [facility]; Protocol Stop: 07/23/22 14:14 Last Admin: 07/09/22 15:36 Dose: 25 mcg/hr, 2.5 mls/hr Documented By: LEONIDAS Co-signed By: LIVE Azithromycin 500 mg/ Sodium (Chloride) 255 mls @ 125 mls/hr IV TODAY@1545 ONE Stop: 07/09/22 17:47 Last Admin: 07/09/22 16:15 Dose: 125 mls/hr Documented By: LEONIDAS Lansoprazole (Lansoprazole 30 Mg Soltab) 30 mg NG QAM [facility] Stop: 08/08/22 13:44 Last Admin: 07/09/22 16:17 Dose: 30 mg Documented By: LEONIDAS Discontinued Medications Carbamazepine (Carbamazepine 200 Mg Tablet) 200 mg PO BID [facility] Stop: 08/08/22 13:44 Last Admin: 07/09/22 15:43 Dose: Not Given Documented By: LEONIDAS Sodium Chloride (Nss 1000ml) 500 mls @ 999 mls/hr IV .Q31M ONE Stop: 07/09/22 10:14 Last Infusion: 07/09/22 11:00 Dose: 0 mls/hr Documented By: Admin: 07/09/22 09:45 Dose: 999 mls/hr Documented By: DAVID Cefepime HCl (Maxipime) 2,000 mg in 20 mls @ 5 mls/min IV NOW STA Stop: 07/09/22 09:47 Last Admin: 07/09/22 10:14 Dose: 5 mls/min Documented By: DAVID Sodium Chloride (Nss 1000ml) 500 mls @ 999 mls/hr IV .Q31M ONE Stop: 07/09/22 12:53 Last Admin: 07/09/22 15:33 Dose: Not Given Documented By: LEONIDAS Azithromycin 500 mg/ Dextrose 255 mls @ 125 mls/hr IV ONE ONE Stop: 07/09/22 15:47 Last Admin: 07/09/22 14:15 Dose: 125 mls/hr Documented By: LEONIDAS Sodium Chloride (Hypertonic Saline 3%) 100 mls @ 600 mls/hr IV .Q10M ONE; Pr otocol Stop: 07/09/22 13:30 Last Infusion: 07/09/22 15:43 Dose: 0 mls/hr Documented By: LEONIDAS Co-signed By: DIANA Admin: 07/09/22 15:17 Dose: 600 mls/hr Documented By: LEONIDAS Co-signed By: LIVE Ioversol (Optiray 320 500ml) 120 ml IV ONCE ONE Stop: 07/09/22 10:01 Last Admin: 07/09/22 10:10 Dose: 120 ml Documented By: YUSEF Saavedra (Stat Iv Infusion Titration Per Protocol) 1 each N/A NOW STA Stop: 07/09/22 09:10 Last Admin: 07/09/22 10:14 Dose: Not Given Documented By: DAVID Saavedra (Patient's Height &/Or Weight Needed) 1 each N/A Q2H ELIZABETH Stop: 08/08/22 09:14 Last Admin: 07/09/22 11:50 Dose: Not Given Documented By: Admin: 07/09/22 09:16 Dose: 1 each Documented By: ADAN Propofol (Propofol Bolus From Bag) 20 mg IV Q5M PRN PRN Reason: Sedation Stop: 07/12/22 09:08 Last Admin: 07/09/22 09:20 Dose: 20 mg Documented By: DAVID Co-signed By: WALLY Propofol (Propofol Iv Emulsion 10 Mg/Ml 100 Ml Vial) Confirm Administered Dose 1,000 mg IV .STK-MED ONE Stop: 07/09/22 09:12 Last Admin: 07/09/22 09:14 Dose: 1,000 mg Documented By: ADAN Co-signed By: FALLON Imaging Data Radiologist's Impression: Head CT 07/09/22 09:09 CT head/brain wo con CLINICAL HISTORY: 66 years-old Male with AMS. Acutely altered mental status TECHNIQUE: Multiple axial CT images of the head were obtained without contrast. A dose lowering technique was utilized adhering to the principles of ALARA. COMPARISON: None. FINDINGS: No acute intracranial hemorrhage, midline shift, intracranial mass, hydrocephalus, territorial ischemia or abnormal extra-axial collection. Involutional changes. White matter hypodensities suggestive of chronic microvascular ischemic disease. Mildly motion degraded exam. The calvarium is intact. Mastoid air cells are clear. Secretions are noted within the nasal turbinates and nasopharyngeal airway with endotracheal tube. Unremarkable soft tissues. Prior bilateral lens repair. The paranasal sinuses, mastoid air cells, and middle ear cavities are clear. IMPRESSION: No acute intracranial abnormality. ACT 112: Negative or not required by law. The above report was generated using voice recognition software. It may contain grammatical, syntax or spelling errors. Electronically signed by: Lauri Galeana M.D. 07/09/2022 10:06 AM Chest X-Ray 07/09/22 09:10 XR chest 1V portable HISTORY: 66 years-old Male ams, intubation acutely altered mental status COMPARISON: 02/28/2011 TECHNIQUE: AP view of the chest FINDINGS: Endotracheal tube overlies the midline, 2.9 cm superior to the rocky. No pneumothorax. The heart is enlarged. Pulmonary vascular congestion with interstitial coarsening. Probable trace pleural effusions. Degenerative changes of the shoulders and spine. IMPRESSION: 1. Endotracheal tube overlies the midline, 2.9 cm superior to the rocky. 2. Cardiomegaly with pulmonary vascular congestion and interstitial coarsening suggestive of pulmonary edema versus interstitial pneumonitis. ACT 112: Negative or not required by law. The above report was generated using voice recognition software. It may contain grammatical, syntax or spelling errors. Electronically signed by: Lauri Galeana M.D. 07/09/2022 9:[address] 07/09/22 09:[address] WITH CONTRAST CT DOSE: 2494.39 mGy.cm HISTORY: Acutely altered mental status with respiratory failure AMS, respiratory failure TECHNIQUE: Multiaxial CT images of the chest were performed following the IV administration of 120 cc of Optiray. A dose lowering technique was utilized adhering to the principles of ALARA. COMPARISON: None. FINDINGS: Unremarkable thyroid. Endotracheal tube terminates 2.8 cm superior to the rocky. Heart is moderately enlarged. No pericardial effusion. Moderate coronary artery calcifications. Atherosclerosis of the aorta without aneurysm or dissection. Unremarkable pulmonary artery. Mediastinal and hilar adenopathy includes a 2.5 x 1.3 cm right paratracheal lymph node on image 86 and a 2.4 x 1.9 cm subcarinal lymph node. 1.5 cm right hilar lymph node. No pneumothorax, pleural effusion or overt pulmonary edema. Bronchial wall thickening with multifocal mucus plugging. Patchy multilobar distribution of groundglass and consolidative opacities with bronchovascular distribution of micronodules. No acute process of the imaged upper abdomen. Indeterminate 3.1 cm intermediate attenuating lesion of the superior pole left kidney with Hounsfield unit of 46. Indeterminate 1.9 cm hypodense lesion of the right hepatic lobe. Unremarkable soft tissues. No acute fracture. Degenerative changes of the s houlders and spine. IMPRESSION: 1. Endotracheal tube terminates 2.8 cm superior to the rocky. 2. Bronchial wall thickening with tracheobronchial secretions and mucous plugging. 3. Multilobar bibasilar predominant opacities are suggestive of multifocal pneumonia. Aspiration pneumonitis could appear similarly. 4. Mediastinal and hilar lymphadenopathy, likely reactive. 5. Partially imaged indeterminate lesion of the superior pole left kidney measuring 3.1 cm. Correlation with a nonemergent follow-up renal ultrasound recommended. ACT 112: Negative or not required by law. Electronically signed by: Lauri Galeana M.D. 07/09/2022 10:37 AM Discharge Plan Visit Data Chief Complaint: Respiratory Distress Stated Complaint: HYPOXIA, AMS, ED Provider: Isak Collazo Discharge Problem: Acute respiratory failure with hypoxia and hypercapnia, Multifocal pneumonia, Obtundation, Acute hyponatremia, Severe sepsis Patient Disposition: Admitted As Inpatient Discharge Instructions Interventions: ED Discharge Assessment Last Done: 07/09/22 13:02
[2022-07-09] MEDS: propofoL 1,000 MG/100 ML VIAL IV SCH ×3 (09:14→19:39)
[2022-07-09] MEDS: Patient's HEIGHT &/or WEIGHT Needed SCH ×4 (09:16→19:07)
[2022-07-09 09:25] LABS: Basophils # (auto) 0.06 K/uL (0-0.2); Basophils % (auto) 0.3 %; Eosinophils # (auto) 0.05 K/uL (0-0.50); Eosinophils % (auto) 0.2 %; Hematocrit (blood only) 41.1 % (40.1-51.0); Hemoglobin 14.8 g/dl (14.0-18.0); Immature Granulocytes # (auto) 0.23 K/uL (0.00-0.02); Lymphocytes # (auto) 1.58 K/uL (1.2-3.4); Lymphocytes % (auto) 7.1 %; Mean Corpuscular Hemoglobin 31.8 pg (25.0-34.0); Mean Corpuscular Volume 88.2 fL (80.0-100.0); Mean Platelet Volume 8.5 fL (9.4-12.4); Monocytes # (auto) 2.06 K/uL (0.24-0.82); Monocytes % (auto) 9.3 %; Neutrophils # (auto) 18.22 K/uL (1.4-6.5); Neutrophils % (auto) 82.1 %; Platelet Count 302 K/uL (130-400); RDW Coefficient of Variation 13.1 % (11.5-14.5); RDW Standard Deviation 42.4 fL (36.4-46.3); Red Blood Count 4.66 M/uL (4.63-6.08)
[2022-07-09 09:40] LABS: INR 1.2 (0.9-1.1); Prothrombin Time 12.2 Seconds (9.0-12.0)
[2022-07-09] MEDS ORDERED: CEFEPIME 2,000 MG/20 ML VIAL IV STA (09:44)
[2022-07-09] MEDS ORDERED: SODIUM CHLORIDE 0.9% 1000ML 500 ML IV ONE ×2 (09:44→12:23)
--- NOTE | 2022-07-09 09:45 | XRay Report ---
XR chest 1V portable HISTORY: 66 years-old Male ams, intubation acutely altered mental status COMPARISON: 02/28/2011 TECHNIQUE: AP view of the chest FINDINGS: Endotracheal tube overlies the midline, 2.9 cm superior to the rocky. No pneumothorax. The heart is enlarged. Pulmonary vascular congestion with interstitial coarsening. Probable trace pleural effusion s. Degenerative changes of the shoulders and spine. IMPRESSION: 1. Endotracheal tube overlies the midline, 2.9 cm superior to the rocky. 2. Cardiomegaly with pulmonary vascular congestion and interstitial coarsening suggestive of pulmonar y edema versus interstitial pneumonitis. ACT 112: Negative or not required by law. The above report was generated using voice recognition software. It may contain grammatical, syntax o r spelling errors. Electronically signed by: Lauri Galeana M.D. 07/09/2022 9:43 AM
[2022-07-09 09:48] LABS: Appearance Urine Clear (Clear); Bacteria Urine Automated Negative (Negative); Bilirubin Urine Negative (Negative); Blood Urine Negative (Negative); Color Urine Dark Yellow; Epithelial Cell Urine Auto 0-5 /lpf (0-5); Glucose Urine UA Trace (Negative); Ketones Urine Trace (Negative); Leukocyte Esterase Urine Negative (Negative); Nitrite Urine Negative (Negative); Protein Urine 3+ (Negative); RBC Urine Automated 0-4 /hpf (0-4); Specific Gravity Urine 1.019 (1.000-1.030); Urobilinogen Urine Positive (Negative); WBC Urine Automated 0 /hpf (0-5); pH Urine 6.5 (4.5-7.5)
[2022-07-09 09:52] LABS: Alanine Aminotransferase 31 U/L (7-52); Albumin Level 4.1 gm/dl (3.4-5.0); Alkaline Phosphatase 98 U/L (34-104); Anion Gap 8 (3-11); Aspartate Aminotransferase 35 U/L (13-39); BUN Creatinine Ratio 14.4 (10-20); Bilirubin Direct 0.4 mg/dl (0-0.2); Bilirubin,Total 1.1 mg/dl (0.2-1.0); Blood Urea Nitrogen 20 mg/dl (6-23); Calcium 9.1 mg/dl (8.5-10.1); Carbon Dioxide 31 mmol/L (21-32); Chloride 80 mmol/L (98-107); Est GFR (African American) 60.4 ml/min; Est GFR (Non-African American) 52.1 ml/min; Glucose 119 mg/dl (70-99(Fasting)); Lipase 9 U/L (11-82); Potassium 3.7 mmol/L (3.5-5.1); Sodium 119 mmol/L (136-145); Total Protein 7.7 gm/dl (6.0-8.3); Troponin I High Sensitivity 64.6 pg/ml (0-20)
[2022-07-09] MEDS ORDERED: OPTIRAY 320 500ml IV ONE (10:00)
--- NOTE | 2022-07-09 10:14 | CT Scan Report ---
CT head/brain wo con CLINICAL HISTORY: 66 years-old Male with AMS. Acutely altered mental status TECHNIQUE: Multiple axial CT images of the head were obtained without contrast. A dose lowering tech nique was utilized adhering to the principles of ALARA. COMPARISON: None. FINDINGS: No acute intracranial hemorrhage, midline shift, intracranial mass, hydrocephalus, territorial ischem ia or abnormal extra-axial collection. Involutional changes. White matter hypodensities suggestive of chronic microvascular ischemic disease. Mildly motion degraded exam. The calvarium is intact. Mastoid air cells are clear. Secretions are noted within the nasal turbinate s and nasopharyngeal airway with endotracheal tube. Unremarkable soft tissues. Prior bilateral lens r epair. The paranasal sinuses, mastoid air cells, and middle ear cavities are clear. IMPRESSION: No acute intracranial abnormality. ACT 112: Negative or not required by law. The above report was generated using voice recognition software. It may contain grammatical, syntax o r spelling errors. Electronically signed by: Lauri Galeana M.D. 07/09/2022 10:06 AM
--- NOTE | 2022-07-09 10:40 | CT Scan Report ---
CHEST CT WITH CONTRAST CT DOSE: 2494.39 mGy.cm HISTORY: Acutely altered mental status with respiratory failure AMS, respiratory failure TECHNIQUE: Multiaxial CT images of the chest were performed following the IV administration of 120 cc of Optiray. A dose lowering technique was utilized adhering to the principles of ALARA. COMPARISON: None. FINDINGS: Unremarkable thyroid. Endotracheal tube terminates 2.8 cm superior to the rocky. Heart is moderately enlarged. No pericardial effusion. Moderate coronary artery calcifications. Atherosclerosi s of the aorta without aneurysm or dissection. Unremarkable pulmonary artery. Mediastinal and hilar a denopathy includes a 2.5 x 1.3 cm right paratracheal lymph node on image 86 and a 2.4 x 1.9 cm subcar inal lymph node. 1.5 cm right hilar lymph node. No pneumothorax, pleural effusion or overt pulmonary edema. Bronchial wall thickening with multifocal mucus plugging. Patchy multilobar distribution of groundglass and consolidative opacities with bronc hovascular distribution of micronodules. No acute process of the imaged upper abdomen. Indeterminate 3.1 cm intermediate attenuating lesion of the superior pole left kidney with Hounsfield unit of 46. I ndeterminate 1.9 cm hypodense lesion of the right hepatic lobe. Unremarkable soft tissues. No acute f racture. Degenerative changes of the shoulders and spine. IMPRESSION: 1. Endotracheal tube terminates 2.8 cm superior to the rocky. 2. Bronchial wall thickening with tracheobronchial secretions and mucous plugging. 3. Multilobar bibasilar predominant opacities are suggestive of multifocal pneumonia. Aspiration pneu monitis could appear similarly. 4. Mediastinal and hilar lymphadenopathy, likely reactive. 5. Partially imaged indeterminate lesion of the superior pole left kidney measuring 3.1 cm. Correlati on with a nonemergent follow-up renal ultrasound recommended. ACT 112: Negative or not required by law. Electronically signed by: Lauri Galeana M.D. 07/09/2022 10:37 AM
[2022-07-09 11:25] LABS: Adenovirus PCR Not Detected (NotDetected); Bordetella parapertussis PCR Not Detected (NotDetected); Bordetella pertussis PCR Not Detected (NotDetected); Chlamydia pneumoniae PCR Not Detected (NotDetected); Coronavirus 229E PCR Not Detected (NotDetected); Coronavirus CoV-2 (COVID19)PCR Not Detected (NotDetected); Coronavirus HKU1 PCR Not Detected (NotDetected); Coronavirus NL63 PCR Not Detected (NotDetected); Coronavirus OC43PCR Not Detected (NotDetected); Human Metapneumovirus PCR Not Detected (NotDetected); Influenza A PCR Not Detected (NotDetected); Influenza B PCR Not Detected (NotDetected); Mycoplasma pneumoniae PCR Not Detected (NotDetected); Parainfluenza Virus 1 PCR Not Detected (NotDetected); Parainfluenza Virus 2 PCR Not Detected (NotDetected); Parainfluenza Virus 3 PCR Not Detected (NotDetected); Parainfluenza Virus 4 PCR Not Detected (NotDetected); Respiratory Syncytial VirusPCR Not Detected (NotDetected); Rhinovirus/Enterovirus PCR Not Detected (NotDetected)
--- NOTE | 2022-07-09 11:35 | History & Physical Report ---
Date of Service July 09, 2022 Assessment & Plan (1) Acute respiratory failure with hypoxia and hypercapnia: Plan: Patient was intubated in the emergency department and remains on assist control rate of 24 tidal volume 450+8 of PEEP and 70% FiO2 repeat ABG will be undertaken and hopefully we can do reduce his rate a little bit Patient has a smoking history he will be placed on DuoNeb inhaled medication Critical care pulmonary will be consulted (2) Multifocal pneumonia: Plan: Evidence of multifocal pneumonia seen on chest x-ray and CT scan. Patient will be placed on community-acquired pneumonia antibiotics of ceftriaxone and azithromycin his hyponatremia may imply this is an atypical infection. Sputum cultures and blood cultures are obtained Initial procalcitonin is negative we are awaiting the Sendoid results (3) Acute hyponatremia: Plan: Patient has a history of previous hyponatremia his current sodium is 119. He will be given a hypertonic saline bolus with repeat in 6 hours urine sodium and serum and urine osmolalities will be checked (4) Elevated troponin: Plan: Patient has troponin of 64.6. There is no acute ST or T wave changes on EKG. This is likely demand ischemia versus respiratory failure. We will trend his troponins. Plan Patient is on Tegretol and Stelazine antipsychotic. Is unclear whether the Tegretol was used for mood stabilization versus an antiseizure medications there is no notation in outpatient office visits that he has a seizure history subsequently we will check a Tegretol level and continue his Tegretol via his NG OG tube DVT prevention is Lovenox Attempt to call his family contact which is Dawood Lawton a message was left at [phone] on 07/19/2022 History of Present Illness Primary Care Provider: Benoit Anglin MD This is a 66-year-old male was brought to the emergency department for respiratory distress in the emergency department he initially was not in respiratory failure and required intubation due to hypercapnia and lethargy. When I saw the patient he was sedated with propofol, he was ventilated in assist-control rate of 24 volume of 450 PEEP of +8, 70% FiO2 Imaging suggests multifocal pneumonia currently bio fire is pending significant lab abnormalities include leukocytosis of 22 with a leftward shift and a sodium of 119. In addition he does have an elevated troponin Due to concerns for pulmonary vascular congestion on initial chest x-ray patient is not given typical volume resuscitation for sepsis was only given 500 mL of normal saline this is also likely beneficial given the patient's hyponatremia Allergies Allergy/AdvReac Type Severity Reaction Status Date / Time aspirin Allergy Verified 11/05/20 13:55 Penicillins Allergy Verified 11/05/20 13:55 Home Medications Medication Instructions Recorded Confirmed Type carbamazepine 200 mg tablet 200 mg PO BID 10/12/19 07/09/22 History trifluoperazine 5 mg tablet 5 mg PO DAILY 10/12/19 07/09/22 History glucosamine-chondroitin [Osteo PO 10/31/19 11/05/20 History Bi-Flex] saw palmetto PO BID 10/31/19 11/05/20 History mupirocin 2 % topical ointment 1 appln topical .COMPLEX #30 grams 01/26/20 11/05/20 Rx coenzyme Q10 10 mg capsule (Co 10 mg PO BID 11/05/20 11/05/20 History Q-10) dorzolamide 22.3 mg-timolol 6.8 07/09/22 History mg/mL eye drops latanoprost 0.005 % eye drops drp 07/09/22 History Past Med/Surg History Medical History Hyperlipidemia Surgical History S/P tooth extraction Family History Father Prostate cancer Mother Dementia Denies family history of Ovarian cancer Myocardial infarction Breast cancer Colorectal cancer Social History Smoking Status: Unknown if ever smoked Age Started Using Tobacco: 25; packs per day: 0.5; Years Smoked: 39; Cigarettes Per Day: 6; Second Hand Exposure: Yes; Hx Alcohol Use: No Hx Substance Use: No Visual Impairment: No Limitations Hearing Ability: Normal marital status: / Current Living Situation: Alone current occupational status: disabled Feels Safe at Home: Yes Childhood Exposure to Second-Hand Smoke: Yes Dental Care, Regularly: No Physical Activity Frequency: Daily Physical Activity Frequency Comment: walks 60 minutes Seatbelt Use: always Sunscreen Use: No Review of Systems Review of Systems: Unobtainable due to cognitive status Physical Exam Physical Exam: The patient appeared well nourished and normally developed. Reportedly the patient lives alone Vital signs as documented. Head exam is normocephalic atraumatic Neck is without JVD, thyromegaly, or carotid bruits. Lungs are clear to auscultation, equal breath sounds well ventilated Cardiac exam, Rhythm is regular.. No murmurs, rubs or gallops. Abdominal exam reveals normal bowel sounds, soft non tender, no masses Extremities are nonedematous and both pedal pulses are present Neurologic exam is sedate with propofol Skin is without bruises or rashes onychomycosis to toenails Psychologically patient is typically prescribed a daily antipsychotic is unknown known his baseline psychological state when conscious Results & Data Results & Data ([facility]) Vital Signs (Past 12 Hours) Vital Signs Pulse Pulse Resp BP BP Pulse Ox O2 Del Method 07/09/22 11:01 82 24 116/53 L 99 Mechanical Vent 07/09/22 10:31 77 23 117/46 L 98 Mechanical Vent 07/09/22 10:16 75 23 107/45 L 98 Mechanical Vent 07/09/22 10:19 104 H 26 H 96 07/09/22 09:45 78/33 L 07/09/22 09:38 84 18 86 L Mechanical Vent 07/09/22 09:00 92 H 13 174/63 H 97 Non-rebreather O2 Flow Rate FiO2 07/09/22 11:01 07/09/22 10:31 70 07/09/22 10:16 70 07/09/22 10:19 70 07/09/22 09:45 07/09/22 09:38 70 07/09/22 09:00 [address] 07/09/22 09:09 CT head/brain wo con CLINICAL HISTORY: 66 years-old Male with AMS. Acutely altered mental status TECHNIQUE: Multiple axial CT images of the head were obtained without contrast. A dose lowering technique was utilized adhering to the principles of ALARA. COMPARISON: None. FINDINGS: No acute intracranial hemorrhage, midline shift, intracranial mass, hydrocephalus, territorial ischemia or abnormal extra-axial collection. Involutional changes. White matter hypodensities suggestive of chronic microvascular ischemic disease. Mildly motion degraded exam. The calvarium is intact. Mastoid air cells are clear. Secretions are noted within the nasal turbinates and nasopharyngeal airway with endotracheal tube. Unremarkable soft tissues. Prior bilateral lens repair. The paranasal sinuses, mastoid air cells, and middle ear cavities are clear. IMPRESSION: No acute intracranial abnormality. ACT 112: Negative or not required by law. The above report was generated using voice recognition software. It may contain grammatical, syntax or spelling errors. Electronically signed by: Lauri Galeana M.D. 07/09/2022 10:06 AM Chest X-Ray 07/09/22 09:10 XR chest 1V portable HISTORY: 66 years-old Male ams, intubation acutely altered mental status COMPARISON: 02/28/2011 TECHNIQUE: AP view of the chest FINDINGS: Endotracheal tube overlies the midline, 2.9 cm superior to the rocky. No pneumothorax. The heart is enlarged. Pulmonary vascular congestion with interstitial coarsening. Probable trace pleural effusions. Degenerative changes of the shoulders and spine. IMPRESSION: 1. Endotracheal tube overlies the midline, 2.9 cm superior to the rocky. 2. Cardiomegaly with pulmonary vascular congestion and interstitial coarsening suggestive of pulmonary edema versus interstitial pneumonitis. ACT 112: Negative or not required by law. The above report was generated using voice recognition software. It may contain grammatical, syntax or spelling errors. Electronically signed by: Lauri Galeana M.D. 07/09/2022 9:[address] 07/09/22 09:[address] WITH CONTRAST CT DOSE: 2494.39 mGy.cm HISTORY: Acutely altered mental status with respiratory failure AMS, respiratory failure TECHNIQUE: Multiaxial CT images of the chest were performed following the IV administration of 120 cc of Optiray. A dose lowering technique was utilized adhering to the principles of ALARA. COMPARISON: None. FINDINGS: Unremarkable thyroid. Endotracheal tube terminates 2.8 cm superior to the rocky. Heart is moderately enlarged. No pericardial effusion. Moderate coronary artery calcifications. Atherosclerosis of the aorta without aneurysm or dissection. Unremarkable pulmonary artery. Mediastinal and hilar adenopathy includes a 2.5 x 1.3 cm right paratracheal lymph node on image 86 and a 2.4 x 1.9 cm subcarinal lymph node. 1.5 cm right hilar lymph node. No pneumothorax, pleural effusion or overt pulmonary edema. Bronchial wall thickening with multifocal mucus plugging. Patchy multilobar distribution of groundglass and consolidative opacities with bronchovascular distribution of micronodules. No acute process of the imaged upper abdomen. Indeterminate 3.1 cm intermediate attenuating lesion of the superior pole left kidney with Hounsfield unit of 46. Indeterminate 1.9 cm hypodense lesion of the right hepatic lobe. Unremarkable soft tissues. No acute fracture. Degenerative changes of the shoulders and spine. IMPRESSION: 1. Endotracheal tube terminates 2.8 cm superior to the rocky. 2. Bronchial wall thickening with tracheobronchial secretions and mucous plugging. 3. Multilobar bibasilar predominant opacities are suggestive of multifocal pneumonia. Aspiration pneumonitis could appear similarly. 4. Mediastinal and hilar lymphadenopathy, likely reactive. 5. Partially imaged indeterminate lesion of the superior pole left kidney measuring 3.1 cm. Correlation with a nonemergent follow-up renal ultrasound recommended. ACT 112: Negative or not required by law. Electronically signed by: Lauri Galeana M.D. 07/09/2022 10:37 AM Code Status & VTE Plan VTE Prophylaxis Plan VTE Prophylaxis will be ordered: Yes PG Care Time/CCT Total # of Minutes Spent Total Time Spent with Patient: Total time spent is greater than 50% in coordination of care (as documented) at patient's floor/unit and/or counseling patient: Coding Level of Care Code 44635 Initial Inpt Care Lvl 3 Diagnoses Acute respiratory failure with hypoxia and hypercapnia J96.01; J96.02 Multifocal pneumonia J18.9 Acute hyponatremia E87.1 Elevated troponin R77.8
[2022-07-09] MEDS ORDERED: ETOMIDATE 2 MG/ML 20 ML VIAL IV ONE (12:45)
[2022-07-09] MEDS ORDERED: SUCCINYLCHOLINE CHLORIDE 20 MG/ML 10 ML VIAL IV ONE (12:45)
[2022-07-09 13:19] LABS: iSTAT Allen Test Pass; iSTAT Art Bld Gas pCO2 Correct 50 mmHg (35-46); iSTAT Art Bld Gas pH Corrected 7.344 (7.35-7.45); iSTAT Arterial Blood Gas HCO3 27 meg/L (19-24); iSTAT Arterial Blood Gas pCO2 50 mmHg (35-46); iSTAT Arterial Blood Gas pH 7.34 (7.35-7.45); iSTAT Arterial Blood Gas pO2 64 mmHg (80-95); iSTAT Arterial Blood Gas pO2 C 64; iSTAT Carbon Dioxide 29 mmol/L (24-31); iSTAT FiO2 50 %; iSTAT Hematocrit 39 % (42-52); iSTAT Hemoglobin 13.3 g/dl (14.0-18.0); iSTAT Potassium 3.1 mmol/L (3.3-5.0); iSTAT Site L Radial; iSTAT Sodium 118 mmol/L (135-144)
[2022-07-09] MEDS ORDERED: SODIUM CHLORIDE 3 % 100 ML IV ONE (13:21)
[2022-07-09] MEDS ORDERED: ICU Protocol for HYPERglycemia PRN (13:21)
[2022-07-09] MEDS ORDERED: POLYETHYLENE (MIRALAX) 17 GM PACK PO PRN (13:21)
[2022-07-09] MEDS ORDERED: STAT IV STA (13:21)
--- NOTE | 2022-07-09 13:32 | Critical Care Consultation ---
Date of Consultation July 09, 2022 Assessment & Plan (1) Acute respiratory failure with hypoxia and hypercapnia: (2) Multifocal pneumonia: (3) Acute hyponatremia: (4) Morbid obesity due to excess calories: (5) Hypotension (arterial): Plan Neurologic: AMS likely secondary to acute hypercapnic respiratory failure. Will reassess tomorrow with a spontaneous awakening trial. Acute hyponatremia may also be playing a role. We will hold carbamazepine as this can cause hyponatremia. CT head without acute findings. Pulmonary: Presenting chest x-ray with signs of pulmonary edema. Subsequent CT chest with evidence of aspiration pneumonitis/pneumonia. Broad-spectrum antibiotics as above. Patient likely with acute on chronic hypoxemic and hypercapnic respiratory failure likely from MARIAJOSE and OHS. Continue lung protective ventilation strategy. SBT tomorrow. Would favor extubating patient to BiPAP. Cardiovascular: [id number] ultrasound reveals intact left ventricular function, likely diastolic dysfunction, no evidence of pericardial effusion. Minimal respiratory variation in the IVC. Troponin is mildly elevated we will continue to trend. EKG without signs of ischemic changes. Possible element of cor pulmonale given the MARIAJOSE/OHS picture. He is very sensitive to medications that negatively impact inotropy. We will transition sedation from propofol to Versed and fentanyl. I suspect the hypotension is likely sedation related and not necessarily from sep sis. Formal echo interpretation is pending. BNP pending as well. Gastrointestinal: NPO. OG tube in place. Continue PPI. T bili and direct bilirubin mildly elevated. Check ammonia level. Renal: Hold carbamazepine as noted above is also can cause hyponatremia. Patient receiving 3% hypertonic saline had a bolus of 100 mL. Recheck sodium. Aim to increase sodium levels 6 to 8 mEq in 24 hours. Patient likely has a mixed picture from SIADH related to medications/pneumonia and possibly an element of hypervolemic hyponatremia. Lactate on arrival was negative. We will repeat. Infectious disease: Urinalysis with signs of possible UTI. Treat empirically with cefepime and azithromycin. CT chest with findings of aspiration pneumonitis/pneumonia. Hematologic: No significant concerns. Endocrine: Hyperglycemia protocol per ICU pharmacist. TSH pending. F/E/N: Minimize free water intake. Lines and tubes: [address] and Baer catheter. ET tube placed 07/09/2022. VTE prophylaxis: Lovenox CODE STATUS: Full code Family at bedside: Not available at bedside Disposition: Remain in ICU I have personally spent 63 minutes of critical care time in the direct managemen t of this patient. This is a life/limb threatening event. This includes time spent evaluating patient, direct bedside care, chart review, placing orders, interpretation of diagnostic studies, discussion with consultants, patient, and family members, as well as other required patient management activities. This time is exclusive of all separately billable procedures, and teaching time and separate from and in addition to any other critical care service time. Thank you for allowing us to participate in the care of this patient. History of Present Illness Reason for Consultation: Acute hypercapnic respiratory failure Attending Physician: Fady Nixon MD History of Present Illness History is unobtainable from the patient as he is currently intubated and sedated. History is obtained from chart review and discussion with the hospitalist. Patient was brought to the ER due to increasing shortness of breath and required intubation for hypoxemia and hypercapnia. He had a chest x- ray which was completed and revealed bilateral interstitial infiltrates consistent with CHF. CT chest was obtained which demonstrated multifocal nodular opacities consistent with aspiration pneumonia/pneumonitis. Admitting labs and imaging were concerning for an elevated white count of 22,000, sodium of 119 and high-sensitivity troponin of 64.6. Procalcitonin was 0.50. The patient is currently on propofol, Rocephin, azithromycin and as needed albuterol. Repeat ABG demonstrates significant improvement in the hypercapnic respiratory failure as outlined in the medical record. Allergies Allergy/AdvReac Type Severity Reaction Status Date / Time aspirin Allergy Verified 11/05/20 13:55 Penicillins Allergy Verified 11/05/20 13:55 Home Medications Medication Instructions Recorded Confirmed Type carbamazepine 200 mg tablet 200 mg PO BID 10/12/19 07/09/22 History trifluoperazine 5 mg tablet 5 mg PO DAILY 10/12/19 07/09/22 History glucosamine-chondroitin [Osteo PO 10/31/19 11/05/20 History Bi-Flex] saw palmetto PO BID 10/31/19 11/05/20 History mupirocin 2 % topical ointment 1 appln topical .COMPLEX #30 grams 01/26/20 11/05/20 Rx coenzyme Q10 10 mg capsule (Co 10 mg PO BID 11/05/20 11/05/20 History Q-10) dorzolamide 22.3 mg-timolol 6.8 07/09/22 History mg/mL eye drops latanoprost 0.005 % eye drops drp 07/09/22 History Patient History Medical History (Updated 07/09/22 @ 14:22 by Antonio Lutz MD) Hyperlipidemia Hypotension (arterial) Morbid obesity due to excess calories Surgical History S/P tooth extraction Family History Father Prostate cancer Mother Dementia Denies family history of Ovarian cancer Myocardial infarction Breast cancer Colorectal cancer Social History Smoking Status: Unknown if ever smoked Age Started Using Tobacco: 25; packs per day: 0.5; Years Smoked: 39; Cigarettes Per Day: 6; Second Hand Exposure: Yes; Hx Alcohol Use: No Hx Substance Use: No Visual Impairment: No Limitations Hearing Ability: Normal marital status: / Current Living Situation: Alone current occupational status: disabled Feels Safe at Home: Yes Childhood Exposure to Second-Hand Smoke: Yes Dental Care, Regularly: No Physical Activity Frequency: Daily Physical Activity Frequency Comment: walks 60 minutes Seatbelt Use: always Sunscreen Use: No Review of Systems Review of Systems: Unobtainable due to endotracheal tube Physical Exam Physical Exam: Constitutional: Morbidly obese appearing male who is currently intubated and sedated. Eyes: Pupils are equal round and reactive to light. Conjunctivae are normal. Anicteric sclera. Ears nose, mouth and throat: Endotracheal tube in place. Neck: Trachea is midline. Visual inspection is normal. Respiratory: Coarse breath sounds on the ventilator. No wheeze. Cardiovascular: Regular rate and rhythm. No murmurs. No edema. Gastrointestinal: Normal bowel sounds, soft, nontender and nondistended. No hepatosplenomegaly noted. Musculoskeletal: All extremities intact. Unable to fully assess. Skin: No rashes, warm dry and intact. Neurologic: Unable to fully assess due to sedation Psychiatric: Unable to assess Results & Data Results & Data ([facility]) Vital Signs (Past 12 Hours) Vital Signs Temp Pulse Pulse Resp BP BP Pulse Ox 07/09/22 13:02 89/54 L 07/09/22 12:06 37.1 C 07/09/22 12:00 74 24 113/53 L 98 07/09/22 11:01 82 24 116/53 L 99 07/09/22 10:31 77 23 117/46 L 98 07/09/22 10:16 75 23 107/45 L 98 07/09/22 10:19 104 H 26 H 96 07/09/22 09:45 78/33 L 07/09/22 09:38 84 18 86 L 07/09/22 09:00 92 H 13 174/63 H 97 O2 Del Method O2 Flow Rate FiO2 07/09/22 13:02 Mechanical Vent 07/09/22 12:06 07/09/22 12:00 Mechanical Vent 60 07/09/22 11:01 Mechanical Vent 07/09/22 10:31 Mechanical Vent 70 07/09/22 10:16 Mechanical Vent 70 07/09/22 10:19 70 07/09/22 09:45 07/09/22 09:38 Mechanical Vent 70 07/09/22 09:00 Non-rebreather 15 Coding Level of Care Code Critical Care 1st 30-74 mins Diagnoses Acute respiratory failure with hypoxia and hypercapnia J96.01; J96.02 Multifocal pneumonia J18.9 Acute hyponatremia E87.1 Morbid obesity due to excess calories E66.01 Hypotension (arterial) I95.9
[2022-07-09] MEDS ORDERED: cefTRIAXone SODIUM 2,000 MG in DEXTROSE 5% 50 ML IV SCH (13:45)
[2022-07-09] MEDS ORDERED: carBAMazepine 200 MG TABLET PO SCH (13:45)
[2022-07-09] MEDS ORDERED: AZITHROMYCIN 500 MG in DEXTROSE 5% 250 ML IV ONE (13:45)
[2022-07-09] MEDS ORDERED: MIDAZOLAM HCL 125 MG/250 ML BAG IV SCH (14:15)
--- NOTE | 2022-07-09 15:01 | XCELERA ---
[id number]
[2022-07-09] MEDS: ENOXAPARIN INJ 40 MG/0.4 ML SYR SQ SCH (15:36)
[2022-07-09] MEDS: fentaNYL citrate 2,500 MCG/250 ML BAG IV SCH (15:36)
[2022-07-09] MEDS ORDERED: AZITHROMYCIN 500 MG in SODIUM CHLORIDE 0.9% 250 ML IV ONE (15:45)
[2022-07-09 15:56] LABS: Anion Gap 8 (3-11); BUN Creatinine Ratio 17.5 (10-20); Blood Urea Nitrogen 25 mg/dl (6-23); Carbon Dioxide 27 mmol/L (21-32); Chloride 84 mmol/L (98-107); Est GFR (African American) 58.3 ml/min; Est GFR (Non-African American) 50.3 ml/min; Glucose 100 mg/dl (70-99(Fasting)); Potassium 3.3 mmol/L (3.5-5.1); Sodium 119 mmol/L (136-145)
--- NOTE | 2022-07-09 16:01 | XRay Report ---
XR KUB/Abdomen 1 view CLINICAL HISTORY: OG tube placement TECHNIQUE: 1 view of the abdomen was obtained. Comparison: None available at the time of this dictation. FINDINGS: Enteric tube side-port and tip lies below the diaphragm. Degenerative changes are seen in the visuali zed skeleton. Partial visualization of gas distended loops of colon. IMPRESSION: Satisfactory position of enteric tube. ACT 112: Negative or not required by law. Electronically signed by: Titi Hampton M.D. 07/09/2022 4:00 PM
[2022-07-09] MEDS: LANSOPRAZOLE 30 MG SOLTAB NG SCH (16:17)
[2022-07-09] MEDS ORDERED: POTASSIUM CHLORIDE 20 MEQ/15 ML UDC PO STA (17:15)
[2022-07-09] MEDS ORDERED: ACETAMINOPHEN 325 MG TAB PO ONE (17:20)
[2022-07-09] MEDS ORDERED: Nursing to Pharmacy Communication SCH (19:30)
[2022-07-09] MEDS ORDERED: LACTATED RINGER'S 500 ML IV ONE (22:34)
[2022-07-09 22:53] LABS: A calco-baum cmplx NotReported Not Detected (NotDetected); Bact fragilis Not Reported Not Detected (NotDetected); C auris Not Reported Not Detected (NotDetected); Calbicans Not Reported Not Detected (NotDetected); Candida glabrata Not Reported Not Detected (NotDetected); Candida krusei Not Reported Not Detected (NotDetected); Cneoformans/gatti Not Reported Not Detected (NotDetected); Cparapsilosis Not Reported Not Detected (NotDetected); Ctropicalis Not Reported Not Detected (NotDetected); E cloacae compx Not Reported Not Detected (NotDetected); Efaecalis Not Reported Not Detected (NotDetected); Efaecium Not Reported Not Detected (NotDetected); Enterobacterales Not Reported Not Detected (NotDetected); Escherichia coli Not Reported Not Detected (NotDetected); H influenzae Not Reported Not Detected (NotDetected); K aerogenes Not Reported Not Detected (NotDetected); Koxytoca Not Reported Not Detected (NotDetected); Kpneumoniae grp Not Reported Not Detected (NotDetected); Lmonocyt Not Reported Not Detected (NotDetected); N meningitidis Not Reported Not Detected (NotDetected); P aeruginosa Not Reported Not Detected (NotDetected); Proteus spp Not Reported Not Detected (NotDetected); Salmonella spp Not Reported Not Detected (NotDetected); Smarcescens Not Reported Not Detected (NotDetected); Staph lugdunensis Not Reported Not Detected (NotDetected); Staphaureus Not Reported Not Detected (NotDetected); Staphepi Not Reported DETECTED (NotDetected); Staphylococcus epidermidis DETECTED (NotDetected); Staphylococcus spp. DETECTED (NotDetected); Stenmaltophilia Not Reported Not Detected (NotDetected); Strep agal(GrpB) Not Reported Not Detected (NotDetected); Strep pneum Not Reported Not Detected (NotDetected); Strep pyog (GrpA) Not Reported Not Detected (NotDetected); Strep spp Not Reported Not Detected (NotDetected); mecAC Resistant Gene Not Detected (NotDetected)
[2022-07-09 22:58] LABS: Staph spp. Not Reported DETECTED (NotDetected)
[2022-07-10 01:14] LABS: Troponin I High Sensitivity 55.5 pg/ml (0-20)
[2022-07-10 01:15] LABS: BUN Creatinine Ratio 18.3 (10-20); Calcium 8.3 mg/dl (8.5-10.1); Creatinine Clr Calc Pharmacy 71.8 ml/min; Est GFR (African American) 58.8 ml/min; Est GFR (Non-African American) 50.7 ml/min; Potassium 3.5 mmol/L (3.5-5.1)
[2022-07-10 05:55] LABS: Basophils # (auto) 0.06 K/uL (0-0.2); Basophils % (auto) 0.4 %; Eosinophils # (auto) 0.04 K/uL (0-0.50); Eosinophils % (auto) 0.3 %; Hematocrit (blood only) 37.9 % (40.1-51.0); Hemoglobin 13.7 g/dl (14.0-18.0); Immature Granulocytes # (auto) 0.21 K/uL (0.00-0.02); Immature Granulocytes % (auto) 1.4 %; Lymphocytes # (auto) 1.69 K/uL (1.2-3.4); Lymphocytes % (auto) 11.5 %; Mean Corpuscular Hemoglobin 31.6 pg (25.0-34.0); Mean Corpuscular Hgb Conc 36.1 g/dL (32.0-36.0); Mean Corpuscular Volume 87.5 fL (80.0-100.0); Mean Platelet Volume 8.8 fL (9.4-12.4); Monocytes # (auto) 1.42 K/uL (0.24-0.82); Monocytes % (auto) 9.7 %; Neutrophils # (auto) 11.26 K/uL (1.4-6.5); Neutrophils % (auto) 76.7 %; Platelet Count 256 K/uL (130-400); RDW Coefficient of Variation 13.1 % (11.5-14.5); RDW Standard Deviation 42.3 fL (36.4-46.3); Red Blood Count 4.33 M/uL (4.63-6.08); White Blood Count 14.68 K/ul (4.8-10.8)
[2022-07-10 06:29] LABS: Magnesium 1.9 mg/dl (1.7-2.4); Phosphorus 2.2 mg/dl (2.5-4.9)
[2022-07-10 07:03] LABS: BUN Creatinine Ratio 16.9 (10-20); Calcium 8.6 mg/dl (8.5-10.1); Creatinine Clr Calc Pharmacy 66.2 ml/min; Est GFR (African American) 53.3 ml/min; Potassium 3.4 mmol/L (3.5-5.1)
[2022-07-10] MEDS ORDERED: POTASSIUM CHLORIDE CRTAB 20 MEQ TABCR PO STA (07:24)
[2022-07-10] MEDS ORDERED: POTASSIUM CHLORIDE 20 MEQ/15 ML UDC PO STA (07:36)
--- NOTE | 2022-07-10 08:07 | Electrocardiogram Report ---
Test Reason : Blood Pressure : / mmHG Vent. Rate : 071 BPM Atrial Rate : 071 BPM P-R Int : 226 ms QRS Dur : 090 ms QT Int : 440 ms P-R-T Axes : 066 012 077 degrees QTc Int : 478 ms Sinus rhythm with 1st degree A-V block Otherwise normal ECG No previous ECGs available Confirmed by Tobi Davila ([id number]) on 07/10/2022 8:06:40 AM Referred By: REFERRED SELF Confirmed By:Tobi Davila
--- NOTE | 2022-07-10 08:15 | Electrocardiogram Report ---
Test Reason : Blood Pressure : / mmHG Vent. Rate : 073 BPM Atrial Rate : 073 BPM P-R Int : 218 ms QRS Dur : 092 ms QT Int : 430 ms P-R-T Axes : 067 -02 069 degrees QTc Int : 473 ms Poor data quality, interpretation may be adversely affected Sinus rhythm with 1st degree A-V block Incomplete right bundle branch block Minor Nonspecific ST abnormality Anterolateral leads Abnormal ECG When compared with ECG of 09-JUL-2022 19:56, Incomplete right bundle branch block now present Nonspecific ST abnormality Anterolateral leads now present Confirmed by Tobi Davila ([id number]) on 07/10/2022 8:15:10 AM Referred By: REFERRED SELF Confirmed By:Tobi Davila
[2022-07-10] MEDS: LANSOPRAZOLE 30 MG SOLTAB NG SCH (08:28)
[2022-07-10] MEDS: AZITHROMYCIN 500 MG in SODIUM CHLORIDE 0.9% 250 ML IV SCH (08:28)
[2022-07-10] MEDS ORDERED: AZITHROMYCIN 500 MG in DEXTROSE 5% 250 ML IV SCH (09:00)
[2022-07-10] MEDS: fentaNYL BOLUS from BAG IV PRN ×2 (09:22→13:30)
--- NOTE | 2022-07-10 09:34 | XRay Report ---
XR chest 1V portable HISTORY: Respiratory failure. intubation COMPARISON: Chest 07/09/2022. FINDINGS: Endotracheal tube terminates approximately 1.5 cm from the rocky. Nasogastric tube termina richa below the diaphragm. The tip is difficult to identify. No pneumothorax. There are low lung volume s. The heart remains enlarged. There is moderate to severe pulmonary edema, small bilateral pleural e ffusions, bibasilar densities. This has progressed in the interval. IMPRESSION: 1. The endotracheal tube terminates 1.5 cm from the rocky. 2. Moderate to severe pulmonary edema with bilateral pleural effusions/densities. This has progressed in the interval. ACT 112: Negative or not required by law. Electronically signed by: Dov Soliz M.D. 07/10/2022 9:32 AM
[2022-07-10] MEDS ORDERED: SODIUM PHOSPHATE 3 MMOL/1 ML INFUSION IV STA (10:33)
[2022-07-10] MEDS ORDERED: SODIUM PHOSPHATE 24 MMOL in SODIUM CHLORIDE 0.9% 500 ML IV ONE (10:45)
--- NOTE | 2022-07-10 11:19 | Critical Care Progress Note ---
Date of Service July 10, 2022 Assessment & Plan (1) Acute respiratory failure with hypoxia and hypercapnia: (2) Multifocal pneumonia: (3) Acute hyponatremia: (4) Morbid obesity due to excess calories: (5) Hypotension (arterial): Plan Neurologic: Patient is appropriate on spontaneous awakening trial and follows commands. Ammonia within normal limits. Pulmonary: Presenting chest x-ray with signs of pulmonary edema. Subsequent CT chest with evidence of aspiration pneumonitis/pneumonia. Continue broad-spectrum antibiotics. We will give a dose of Lasix given concern of pulmonary edema. Failed spontaneous breathing trial as RSBI was very high. Cardiovascular: Suspect an element of cor pulmonale. Echo reviewed. Hypertrophy of the left ventricle noted. LVEF adequate. IVC is mildly dilated. We will give a dose of 40 mg IV Lasix. BNP was elevated. Gastrointestinal: OG tube in place we will start tube feeds. Continue PPI. Repeat LFTs. Renal: Hold carbamazepine as noted above is also can cause hyponatremia. Patient receiving 3% hypertonic saline had a bolus of 100 mL. Recheck sodium. Aim to increase sodium levels 6 to 8 mEq in 24 hours. Patient likely has a mixed picture from SIADH related to medications/pneumonia and possibly an element of hypervolemic hyponatremia. Lactate on arrival was negative. We will repeat. Infectious disease: Urinalysis not indicative of infection. Blood cultures likely contaminated. Repeat blood cultures pending. Sputum cultures pending as well, but gram stain is negative. Suspect an element of aspiration pneumonitis. Continue empiric antibiotics. Hematologic: No significant concerns. Endocrine: Hyperglycemia protocol per ICU pharmacist. TSH normal. F/E/N: Minimize free water intake. Lines and tubes: [address] and Baer catheter. ET tube placed 07/09/2022. VTE prophylaxis: Lovenox CODE STATUS: Full code Family at bedside: Not available at bedside Disposition: Remain in ICU I have personally spent 52 minutes of critical care time in the direct management of this patient. This is a life/limb threatening event. This includes time spent evaluating patient, direct bedside care, chart review, placing orders, interpretation of diagnostic studies, discussion with consultants, patient, and family members, as well as other required patient management activities. This time is exclusive of all separately billable procedures, and teaching time and separate from and in addition to any other critical care service time. Thank you for allowing us to participate in the care of this patient. Admission and Anticipated Discharge Date Admission Date: July 09, 2022 Subjective Patient seen and examined. He is following commands off of sedation, however, he failed his spontaneous breathing trial as he was breathing rapidly and very shallow breathing. He is currently requiring minimal vent settings with an FiO2 of 30% and a PEEP of 5. Hemodynamics are adequate and he is not requiring vasopressors. Review of Systems Review of Systems: Unobtainable due to endotracheal tube Physical Exam Physical Exam: Constitutional: Morbidly obese appearing male who is currently intubated and sedated. Eyes: Pupils are equal round and reactive to light. Conjunctivae are normal. Anicteric sclera. Ears nose, mouth and throat: Endotracheal tube in place. Neck: Trachea is midline. Visual inspection is normal. Respiratory: Coarse breath sounds on the ventilator. No wheeze. Cardiovascular: Regular rate and rhythm. No murmurs. No edema. Gastrointestinal: Normal bowel sounds, soft, nontender and nondistended. No hepatosplenomegaly noted. Musculoskeletal: All extremities intact. Unable to fully assess. Skin: No rashes, warm dry and intact. Neurologic: Unable to fully assess due to sedation Psychiatric: Unable to assess Results & Data Results & Data ([facility]) Vital Signs (Past 12 Hours) Vital Signs Temp Pulse Resp BP Pulse Ox Pulse Ox O2 Del Method 07/10/22 09:00 37.2 C 07/10/22 10:00 37.3 C 71 18 98 07/10/22 10:00 150/69 H 07/10/22 09:00 37.2 C 72 36 H 95 07/10/22 09:00 140/69 07/10/22 08:00 37.2 C 70 21 95 07/10/22 08:00 128/67 07/10/22 07:00 37.3 C 69 18 96 07/10/22 07:00 122/71 07/10/22 10:29 Mechanical Vent 07/10/22 08:00 98 07/10/22 10:00 37.3 C 07/10/22 07:00 37.3 C 07/10/22 08:00 07/10/22 08:00 Mechanical Vent 07/10/22 08:11 70 20 95 07/10/22 07:00 70 07/10/22 03:30 76 23 96 07/10/22 04:10 07/10/22 02:00 37.7 C H 76 16 137/67 98 07/10/22 01:00 37.6 C H 77 16 146/75 H 98 07/10/22 00:00 07/10/22 00:00 71 07/10/22 00:00 37.6 C H 72 16 116/57 L 96 O2 Del Method FiO2 07/10/22 09:00 07/10/22 10:00 07/10/22 10:00 07/10/22 09:00 07/10/22 09:00 07/10/22 08:00 07/10/22 08:00 07/10/22 07:00 07/10/22 07:00 07/10/22 10:29 40 07/10/22 08:00 Mechanical Vent 07/10/22 10:00 07/10/22 07:00 07/10/22 08:00 40 07/10/22 08:00 07/10/22 08:11 40 07/10/22 07:00 07/10/22 03:30 40 07/10/22 04:10 40 07/10/22 02:00 07/10/22 01:00 07/10/22 00:00 40 07/10/22 00:00 07/10/22 00:00 Coding Level of Care Code Critical Care 1st 30-74 mins Diagnoses Acute respiratory failure with hypoxia and hypercapnia J96.01; J96.02 Multifocal pneumonia J18.9 Acute hyponatremia E87.1 Morbid obesity due to excess calories E66.01 Hypotension (arterial) I95.9 Time Spent (min) 53
[2022-07-10] MEDS ORDERED: FUROSEMIDE 40 MG/4 ML VIAL IV ONE (11:21)
[2022-07-10 11:48] LABS: iSTAT Arterial Blood Gas pCO2 104 mmHg (35-46); iSTAT Arterial Blood Gas pH 7.11 (7.35-7.45); iSTAT Arterial Blood Gas pO2 134 mmHg (80-95)
[2022-07-10 11:51] LABS: iSTAT Arterial Blood Gas HCO3 33 meg/L (19-24); iSTAT Carbon Dioxide 36 mmol/L (24-31); iSTAT Sample Type Arterial
[2022-07-10] MEDS: ALBUT/IPRATROP 3MG/0.5MG NEB 3 ML VIAL INH PRN (11:52)
[2022-07-10] MEDS: ENOXAPARIN INJ 40 MG/0.4 ML SYR SQ SCH (12:04)
[2022-07-10 12:26] LABS: iSTAT Allen Test Pass; iSTAT Art Bld Gas pCO2 Correct 42 mmHg (35-46); iSTAT Arterial Blood Gas HCO3 27 meg/L (19-24); iSTAT Arterial Blood Gas pCO2 41 mmHg (35-46); iSTAT Arterial Blood Gas pH 7.42 (7.35-7.45); iSTAT Arterial Blood Gas pO2 56 mmHg (80-95); iSTAT Arterial Blood Gas pO2 C 57; iSTAT Carbon Dioxide 28 mmol/L (24-31); iSTAT FiO2 30 %; iSTAT Hematocrit 39 % (42-52); iSTAT Hemoglobin 13.3 g/dl (14.0-18.0); iSTAT Potassium 3.7 mmol/L (3.3-5.0); iSTAT Site L Radial; iSTAT Sodium 123 mmol/L (135-144)
[2022-07-10 13:11] LABS: Albumin Level 3.2 gm/dl (3.4-5.0); Bilirubin Direct 0.3 mg/dl (0-0.2); Bilirubin,Total 0.8 mg/dl (0.2-1.0); Total Protein 6.2 gm/dl (6.0-8.3)
[2022-07-10] MEDS: TUBE FEEDING WATER FLUSH OG SCH ×3 (13:20→22:06)
--- NOTE | 2022-07-10 13:23 | Hospitalist Progress Note ---
Date of Service July 10, 2022 Assessment & Plan (1) Acute respiratory failure with hypoxia and hypercapnia: Plan: Appreciate ongoing critical care management of ventilator (2) Multifocal pneumonia: Plan: Evidence of multifocal pneumonia seen on chest x-ray and CT scan. Patient will be placed on community-acquired pneumonia antibiotics of ceftriaxone and azithromycin his hyponatremia may imply this is an atypical infection. Blood cultures as above Sputum culture - light normal [place]ol[place] Consider bronchoscopy Procalcitonin negative Biofire negative Coag neg staph in blood 1/2 (staph epidermidis on PCR) - unclear contaminant, repeat cultures pending (3) Acute hyponatremia: Plan: Appreciate ongoing critical care management of this Holding carbamazepine Suspected SIADH, appears to be hypervolemic and serial measurements being taken with Lasix 40mg IV given today TTE with mildly dilated IVC, otherwise quite unremakrable (4) Elevated troponin: Plan: Secondary to demand ischemia, ACS not suspected TTE relatively unremarkable with LVEF 65-70% and no regional wall abnormalities (5) Pulmonary edema: Plan: Suspect some of his CXR changes are pulmonary edema Monitor with Lasix given today TTE unremarkable as above UA with 3+ protein - will consider Protein/Cr ratio once patient off ventilator (6) Hepatitis C antibody test positive: Plan: Preliminary positive HCV RNA negative Plan Patient is on Tegretol and Stelazine antipsychotic. Is unclear whether the Tegretol was used for mood stabilization versus an antiseizure medications there is no notation in outpatient office visits that he has a seizure history. Carbamazepine level undetectable. VTE Prophylaxis - Lovenox 40mg SQ daily Admission and Anticipated Discharge Date Admission Date: July 09, 2022 Subjective Patient intubated therefore unable to get a good history. However not sedated and able to shake his head whether he is any pain. Tried using paper and pen to communicate but could only write the number 5 and unable to make out any other scribbles he did. Review of Systems Review of Systems: Unobtainable due to endotracheal tube Physical Exam Constitutional: well developed, well nourished and + mechanically ventilated; no acute distress Eyes: PERRL, conjunctivae normal, anicteric sclerae Respiratory: normal respiratory effort Auscultation: + rhonchi (bilateral anteriorly); breath sounds present (anteriorly), no diminished lung sounds and no wheezes Cardiovascular: Rate/Rhythm: regular rate and regular rhythm Heart Sounds: no murmur Extremities: normal capillary refill and + pedal edema (1+ b/l LE); no calf tenderness Gastrointestinal (Abdomen): Inspection/Auscultation: + hypoactive bowel sounds; abdomen not distended Percussion/Palpation: abdomen soft; abdomen nontender, no guarding and abdomen not rigid Skin: no rashes, warm and dry Neurologic: moves all extremities (reduced strength in b/l LE), awake and + confused Motor/Sensory: no pronator drift Psychiatric: Orientation: alert; + not oriented x 3 (unable to assess due to ventilated) Genitourinary: no CVA tenderness Results & Data Results & Data ([facility]) Vital Signs (Past 12 Hours) Vital Signs Temp Pulse Resp BP Pulse Ox Pulse Ox O2 Del Method 07/10/22 11:00 37.4 C 76 18 98 07/10/22 11:00 145/75 H 07/10/22 11:03 78 18 99 07/10/22 11:00 37.4 C 07/10/22 09:00 37.2 C 07/10/22 10:00 37.3 C 71 18 98 07/10/22 10:00 150/69 H 07/10/22 09:00 37.2 C 72 36 H 95 07/10/22 09:00 140/69 07/10/22 08:00 37.2 C 70 21 95 07/10/22 08:00 128/67 07/10/22 07:00 37.3 C 69 18 96 07/10/22 07:00 122/71 07/10/22 10:29 Mechanical Vent 07/10/22 08:00 98 07/10/22 10:00 37.3 C 07/10/22 07:00 37.3 C 07/10/22 08:00 07/10/22 08:00 Mechanical Vent 07/10/22 08:11 70 20 95 07/10/22 07:00 70 07/10/22 03:30 76 23 96 07/10/22 04:10 07/10/22 02:00 37.7 C H 76 16 137/67 98 O2 Del Method FiO2 07/10/22 11:00 07/10/22 11:00 07/10/22 11:03 40 07/10/22 11:00 07/10/22 09:00 07/10/22 10:00 07/10/22 10:00 07/10/22 09:00 07/10/22 09:00 07/10/22 08:00 07/10/22 08:00 07/10/22 07:00 07/10/22 07:00 07/10/22 10:29 40 07/10/22 08:00 Mechanical Vent 07/10/22 10:00 07/10/22 07:00 07/10/22 08:00 40 07/10/22 08:00 07/10/22 08:11 40 07/10/22 07:00 07/10/22 03:30 40 07/10/22 04:10 40 07/10/22 02:00 PG Care Time/CCT Total # of Minutes Spent Total Time Spent with Patient: Total time spent is greater than 50% in coordination of care (as documented) at patient's floor/unit and/or counseling patient: Coding Level of Care Code 64521 Subseq Hosp Care Lvl 3 Diagnoses Acute respiratory failure with hypoxia and hypercapnia J96.01; J96.02 Multifocal pneumonia J18.9 Acute hyponatremia E87.1 Elevated troponin R77.8 Pulmonary edema J81.1 Hepatitis C antibody test positive R76.8
[2022-07-10] MEDS: NOVASOURCE RENAL 2.0 CAL 1000ML BAG OG SCH (16:07)
[2022-07-11] MEDS: TUBE FEEDING WATER FLUSH OG SCH ×7 (01:54→23:50)
[2022-07-11] MEDS: ALBUT/IPRATROP 3MG/0.5MG NEB 3 ML VIAL INH PRN ×2 (05:44→11:41)
[2022-07-11 06:05] LABS: Basophils # (auto) 0.07 K/uL (0-0.2); Basophils % (auto) 0.5 %; Eosinophils # (auto) 0.21 K/uL (0-0.50); Eosinophils % (auto) 1.6 %; Hematocrit (blood only) 36.4 % (40.1-51.0); Immature Granulocytes # (auto) 0.33 K/uL (0.00-0.02); Immature Granulocytes % (auto) 2.5 %; Lymphocytes # (auto) 1.78 K/uL (1.2-3.4); Lymphocytes % (auto) 13.5 %; Mean Corpuscular Hemoglobin 31.6 pg (25.0-34.0); Mean Corpuscular Hgb Conc 35.7 g/dL (32.0-36.0); Mean Corpuscular Volume 88.3 fL (80.0-100.0); Mean Platelet Volume 8.8 fL (9.4-12.4); Monocytes % (auto) 7.6 %; Neutrophils % (auto) 74.3 %; Platelet Count 269 K/uL (130-400); RDW Coefficient of Variation 13.5 % (11.5-14.5); RDW Standard Deviation 43.8 fL (36.4-46.3); Red Blood Count 4.12 M/uL (4.63-6.08); White Blood Count 13.19 K/ul (4.8-10.8)
[2022-07-11 06:14] LABS: BUN Creatinine Ratio 22.7 (10-20); Calcium 8.5 mg/dl (8.5-10.1); Creatinine Clr Calc Pharmacy 78.9 ml/min; Est GFR (African American) 66.7 ml/min; Est GFR (Non-African American) 57.5 ml/min; Magnesium 1.9 mg/dl (1.7-2.4); Phosphorus 3.4 mg/dl (2.5-4.9); Potassium 3.8 mmol/L (3.5-5.1)
[2022-07-11] MEDS ORDERED: FUROSEMIDE 40 MG/4 ML VIAL IV ONE (07:33)
[2022-07-11] MEDS ORDERED: POTASSIUM CHLORIDE 20 MEQ/15 ML UDC PO STA (07:35)
--- NOTE | 2022-07-11 07:43 | Hospitalist Progress Note ---
Date of Service July 11, 2022 Assessment & Plan (1) Acute respiratory failure with hypoxia and hypercapnia: Plan: Appreciate ongoing critical care management of ventilator due to tachypnea we will wait another day to extubate. Low-grade temperature detected on 06/1822 (2) Multifocal pneumonia: Plan: Evidence of multifocal pneumonia seen on chest x-ray and CT scan. Patient will be placed on community-acquired pneumonia antibiotics of ceftriaxone and azithromycin his hyponatremia may imply this is an atypical infection. Sputum culture - light normal carolina Procalcitonin negative Biofire negative Coag neg staph in blood 09/25 (staph epidermidis on PCR) - unclear contaminant, repeat cultures negative to date (3) Acute hyponatremia: Plan: Appreciate ongoing critical care management of this this is overall improving towards his baseline Holding carbamazepine Suspected SIADH, appears to be hypervolemic and serial measurements being taken with Lasix 40mg IV given today TTE with mildly dilated IVC, otherwise quite unremakrable (4) Elevated troponin: Plan: Secondary to demand ischemia, ACS not suspected TTE relatively unremarkable with LVEF 65-70% and no regional wall abnormalities (5) Pulmonary edema: Plan: Suspect some of his CXR changes are pulmonary edema Monitor with Lasix administration TTE unremarkable as above UA with 3+ protein - will consider Protein/Cr ratio once patient off ventilator (6) Hepatitis C antibody test positive: Plan: Preliminary positive HCV RNA negative Plan Patient is on Tegretol and Stelazine antipsychotic. Is unclear whether the Tegretol was used for mood stabilization versus an antiseizure medications there is no notation in outpatient office visits that he has a seizure history. Carbamazepine level undetectable. carbamazepine held due to hyponatremia VTE Prophylaxis - Lovenox 40mg SQ daily Admission and Anticipated Discharge Date Admission Date: July 09, 2022 Subjective Patient alert and responsive although intubated he seems comfortable. He was tachypneic throughout the day and pulmonary critical care decided to reconsider extubation. He later in the afternoon had a low-grade temperature of 100.0 Review of Systems Review of Systems: Unobtainable due to endotracheal tube Patient seems comfortable but cannot participate in a in-depth review of systems however he shakes his head yes or no but having pain he does want the tube out he does not feel short of breath despite his tachypnea Physical Exam Physical Exam: The patient appeared comfortable though intubated and alert Vital signs as documented. Head exam is normocephalic atraumatic Neck is without JVD, thyromegaly, or carotid bruits. Lungs are coarse bilateral breath sounds and tachypnea Cardiac exam, Rhythm is regular.. Systolic ejection murmur is heard Abdominal exam reveals normal bowel sounds, soft non tender, no masses Extremities are nonedematous and both pedal pulses are present Neurologic exam is alert and oriented, no focal loss of strength or sensation Skin is without bruises or rashes Results & Data Results & Data ([facility]) Vital Signs (Past 12 Hours) Vital Signs Temp Pulse Resp BP Pulse Ox O2 Del Method FiO2 07/11/22 07:00 99.3 F 77 22 07/11/22 07:00 118/55 L 07/11/22 06:00 99.5 F 81 26 H 114/57 L 90 07/11/22 05:01 99.3 F 70 18 114/57 L 93 07/11/22 05:00 99.3 F 70 18 104/48 L 07/11/22 04:00 99.1 F 70 18 114/51 L 07/11/22 03:00 99.1 F 72 18 101/49 L 07/11/22 02:00 99.1 F 71 18 109/51 L 07/11/22 01:00 99.3 F 72 18 120/50 L 07/11/22 00:01 99.3 F 71 18 94 07/11/22 00:00 99.3 F 72 18 104/50 L 07/11/22 05:45 82 22 90 40 07/11/22 04:00 30 07/11/22 02:43 73 22 93 30 07/11/22 00:00 30 07/11/22 00:00 75 07/10/22 23:00 99.3 F 79 19 96 07/10/22 22:00 99.3 F 74 18 114/53 L 07/10/22 22:45 73 19 94 30 07/10/22 22:46 Mechanical Vent 30 07/10/22 21:00 99.0 F 70 18 121/55 L 07/10/22 20:00 99.1 F 75 19 113/53 L 92 07/10/22 20:50 30 07/10/22 19:44 75 25 H 93 30 PG Care Time/CCT Total # of Minutes Spent Total Time Spent with Patient: Total time spent is greater than 50% in coordination of care (as documented) at patient's floor/unit and/or counseling patient: Coding Level of Care Code 64613 Subseq Hosp Care Lvl 3 Diagnoses Acute respiratory failure with hypoxia and hypercapnia J96.01; J96.02 Multifocal pneumonia J18.9 Acute hyponatremia E87.1 Elevated troponin R77.8 Pulmonary edema J81.1 Hepatitis C antibody test positive R76.8
--- NOTE | 2022-07-11 08:00 | Critical Care Progress Note ---
Date of Service July 11, 2022 Assessment & Plan (1) Acute respiratory failure with hypoxia and hypercapnia: (2) Multifocal pneumonia: (3) Acute hyponatremia: (4) Morbid obesity due to excess calories: (5) Hypotension (arterial): (6) Acute diastolic CHF (congestive heart failure): Plan Neurologic: Off sedation. Follows commands. Pulmonary: Chest x-ray findings with persistent pulmonary edema. Likely an element of aspiration pneumonitis as well. Currently on spontaneous breathing trial, but respiratory rate remains high. We will give an additional 40 mg IV Lasix. Cardiovascular: Suspect an element of cor pulmonale. Echo reviewed. Hypertrophy of the left ventricle noted. LVEF adequate. IVC is mildly dilated. BNP was elevated. As needed IV diuresis. Likely acute diastolic CHF component. Gastrointestinal: Tube feeds currently on hold due to SVT. Continue PPI. LFTs unremarkable. Renal: Sodium levels improving. 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 Creatinine improved. Infectious disease: Initial blood cultures were positive for coag negative staph likely contaminant. Repeat blood cultures are negative thus far. Sputum cultures unremarkable. Urinalysis was unremarkable. Suspect an element of aspiration pneumonitis versus pneumonia. Hematologic: No significant concerns. Endocrine: Hyperglycemia protocol per ICU pharmacist. TSH normal. F/E/N: Minimize free water intake. Lines and tubes: [address] and Baer catheter. ET tube placed 07/09/2022. VTE prophylaxis: Lovenox CODE STATUS: Full code Family at bedside: Not available at bedside Disposition: Remain in ICU I have personally spent 46 minutes of critical care time in the direct management of this patient. This is a life/limb threatening event. This includes time spent evaluating patient, direct bedside care, chart review, placing orders , interpretation of diagnostic studies, discussion with consultants, patient, and family members, as well as other required patient management activities. This time is exclusive of all separately billable procedures, and teaching time and separate from and in addition to any other critical care service time. Thank you for allowing us to participate in the care of this patient. Admission and Anticipated Discharge Date Admission Date: July 09, 2022 Subjective Patient currently off sedation and tolerating spontaneous breathing trial. Respiratory rate still remains high in the mid to high 30s. Review of Systems Review of Systems: All systems reviewed & are unremarkable except as noted in HPI & below Physical Exam Constitutional: well developed, well nourished and + mechanically ventilated; no acute distress Eyes: PERRL, conjunctivae normal, anicteric sclerae Respiratory: normal respiratory effort Auscultation: + rhonchi (bilateral anteriorly); breath sounds present (anteriorly), no diminished lung sounds and no wheezes Cardiovascular: Rate/Rhythm: regular rate and regular rhythm Heart Sounds: no murmur Extremities: normal capillary refill and + pedal edema (1+ b/l LE); no calf tenderness Gastrointestinal (Abdomen): Inspection/Auscultation: + hypoactive bowel sounds; abdomen not distended Percussion/Palpation: abdomen soft; abdomen nontender, no guarding and abdomen not rigid Skin: no rashes, warm and dry Neurologic: moves all extremities (reduced strength in b/l LE) and awake Motor/Sensory: no pronator drift Psychiatric: Alert. Does not appear anxious. Genitourinary: no CVA tenderness Results & Data Results & Data ([facility]) Vital Signs (Past 12 Hours) Vital Signs Temp Pulse Resp BP Pulse Ox O2 Del Method FiO2 07/11/22 07:00 37.4 C 77 22 07/11/22 07:00 118/55 L 07/11/22 06:00 37.5 C 81 26 H 114/57 L 90 07/11/22 05:01 37.4 C 70 18 114/57 L 93 07/11/22 05:00 37.4 C 70 18 104/48 L 07/11/22 04:00 37.3 C 70 18 114/51 L 07/11/22 03:00 37.3 C 72 18 101/49 L 07/11/22 02:00 37.3 C 71 18 109/51 L 07/11/22 01:00 37.4 C 72 18 120/50 L 07/11/22 00:01 37.4 C 71 18 94 07/11/22 00:00 37.4 C 72 18 104/50 L 07/11/22 05:45 82 22 90 40 07/11/22 04:00 30 07/11/22 02:43 73 22 93 30 07/11/22 00:00 30 07/11/22 00:00 75 07/10/22 23:00 37.4 C 79 19 96 07/10/22 22:00 37.4 C 74 18 114/53 L 07/10/22 22:45 73 19 94 30 07/10/22 22:46 Mechanical Vent 30 07/10/22 21:00 37.2 C 70 18 121/55 L 07/10/22 20:00 37.3 C 75 19 113/53 L 92 07/10/22 20:50 30 Coding Level of Care Code Critical Care 1st 30-74 mins Diagnoses Acute respiratory failure with hypoxia and hypercapnia J96.01; J96.02 Multifocal pneumonia J18.9 Acute hyponatremia E87.1 Morbid obesity due to excess calories E66.01 Hypotension (arterial) I95.9 Acute diastolic CHF (congestive heart failure) I50.31 Time Spent (min) 46
[2022-07-11] MEDS: AZITHROMYCIN 500 MG in SODIUM CHLORIDE 0.9% 250 ML IV SCH (08:01)
[2022-07-11] MEDS: LANSOPRAZOLE 30 MG SOLTAB NG SCH (08:02)
--- NOTE | 2022-07-11 09:49 | XRay Report ---
XR chest 1V portable CLINICAL HISTORY: intubation TECHNIQUE: Single frontal radiograph of the chest was obtained. Comparison: Comparison is made to chest radiograph 07/10/2022 FINDINGS: Exam is limited by underpenetration. Lines and tubes are stable. Cardiomegaly is noted. There is prom inence and cephalization of the vasculature with Tamiko B lines seen. Redemonstration of bilateral pl eural effusions and likely lower lung predominant densities. IMPRESSION: Stable appearance of lines and tubes. Redemonstration of cardiomegaly, pulmonary edema bilateral effu sions, and bibasilar airspace opacities. ACT 112: Negative or not required by law. Electronically signed by: Titi Hampton M.D. 07/11/2022 9:48 AM
[2022-07-11] MEDS: fentaNYL BOLUS from BAG IV PRN ×2 (19:42→21:20)
[2022-07-11] MEDS: DORZOLAMIDE/TIMOLOL 22.3/6.8MG/ML 10 ML BTL OP SCH (20:53)
[2022-07-11] MEDS: LATANOPROST 0.005% OP SOLN 2.5 ML BTL OP SCH (20:53)
[2022-07-11] MEDS: NOVASOURCE RENAL 2.0 CAL 1000ML BAG OG SCH (20:54)
[2022-07-11] MEDS: ENOXAPARIN INJ 40 MG/0.4 ML SYR SQ SCH ×2 (20:54→21:17)
[2022-07-11] MEDS: fentaNYL citrate 2,500 MCG/250 ML BAG IV SCH (21:20)
[2022-07-12] MEDS: TUBE FEEDING WATER FLUSH OG SCH ×5 (04:52→20:26)
[2022-07-12 06:24] LABS: Basophils # (auto) 0.11 K/uL (0-0.2); Basophils % (auto) 1.1 %; Eosinophils # (auto) 0.28 K/uL (0-0.50); Eosinophils % (auto) 2.8 %; Hematocrit (blood only) 35.2 % (40.1-51.0); Hemoglobin 12.7 g/dl (14.0-18.0); Immature Granulocytes # (auto) 0.46 K/uL (0.00-0.02); Immature Granulocytes % (auto) 4.6 %; Lymphocytes # (auto) 1.48 K/uL (1.2-3.4); Lymphocytes % (auto) 14.9 %; Mean Corpuscular Hgb Conc 36.1 g/dL (32.0-36.0); Mean Corpuscular Volume 88.7 fL (80.0-100.0); Monocytes # (auto) 1.04 K/uL (0.24-0.82); Monocytes % (auto) 10.5 %; Neutrophils # (auto) 6.56 K/uL (1.4-6.5); Neutrophils % (auto) 66.1 %; Platelet Count 268 K/uL (130-400); RDW Coefficient of Variation 13.6 % (11.5-14.5); RDW Standard Deviation 44.2 fL (36.4-46.3); Red Blood Count 3.97 M/uL (4.63-6.08); White Blood Count 9.93 K/ul (4.8-10.8)
[2022-07-12 06:51] LABS: BUN Creatinine Ratio 28.2 (10-20); Calcium 8.5 mg/dl (8.5-10.1); Est GFR (African American) 74.3 ml/min; Est GFR (Non-African American) 64.1 ml/min; Potassium 3.7 mmol/L (3.5-5.1)
[2022-07-12] MEDS ORDERED: FUROSEMIDE 40 MG/4 ML VIAL IV ONE (09:06)
--- NOTE | 2022-07-12 09:06 | Critical Care Progress Note ---
Date of Service July 12, 2022 Assessment & Plan (1) Acute respiratory failure with hypoxia and hypercapnia: (2) Multifocal pneumonia: (3) Acute hyponatremia: (4) Morbid obesity due to excess calories: (5) Hypotension (arterial): (6) Acute diastolic CHF (congestive heart failure): Plan Neurologic: Off sedation. Follows commands. Pulmonary: Chest x-ray findings with persistent pulmonary edema. Likely an element of aspiration pneumonitis as well. We will proceed with bronchoscopy to help clear airways. Hopefully will be able to perform SBT and extubate today. Cardiovascular: Suspect an element of cor pulmonale. Echo reviewed. Hypertrophy of the left ventricle noted. LVEF adequate. IVC is mildly dilated. BNP was elevated. As needed IV diuresis. Likely acute diastolic CHF component. Gastrointestinal: Continue PPI. Renal: Sodium levels improving. 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 Creatinine improved. Infectious disease: Initial blood cultures were positive for coag negative staph likely contaminant. Repeat blood cultures are negative thus far. Sputum cultures growing Aspergillus species which is likely a colonizer. Urinalysis was unremarkable. Suspect an element of aspiration pneumonitis versus pneumonia. Hematologic: No significant concerns. Endocrine: Hyperglycemia protocol per ICU pharmacist. TSH normal. F/E/N: Minimize free water intake. Lines and tubes: [address] and Baer catheter. ET tube placed 07/09/2022. VTE prophylaxis: Lovenox CODE STATUS: Full code Family at bedside: Not available at bedside. Cousin updated over the phone and consent obtained regarding bronchoscopy. Disposition: Remain in ICU I have personally spent 44 minutes of critical care time in the direct management of this patient. This is a life/limb threatening event. This includes time spent evaluating patient, direct bedside care, chart review, placing orders, interpretation of diagnostic studies, discussion with consultants, patient, and family members, as well as other required patient management act ivities. This time is exclusive of all separately billable procedures, and teaching time and separate from and in addition to any other critical care service time. Thank you for allowing us to participate in the care of this patient. Admission and Anticipated Discharge Date Admission Date: July 09, 2022 Subjective No significant events overnight. Patient continues to have thick secretions which are being suctioned by RT. Discussed bronchoscopy with the patient's cousin over the phone. Understands the risks and benefits of bronchoscopy to help clear impacted mucus. We will proceed with bronchoscopy this morning with family members consent. Otherwise patient is hemodynamically stable. Currently on minimal vent settings. Review of Systems Review of Systems: All systems reviewed & are unremarkable except as noted in HPI & below Physical Exam Physical Exam: Constitutional: Morbidly obese appearing male who is currently intubated. Alert and following commands. Eyes: Pupils are equal round and reactive to light. Conjunctivae are normal. Anicteric sclera. Ears nose, mouth and throat: Endotracheal tube in place. Neck: Trachea is midline. Visual inspection is normal. Respiratory: Coarse breath sounds on the ventilator. No wheeze. Cardiovascular: Regular rate and rhythm. No murmurs. No edema. Gastrointestinal: Normal bowel sounds, soft, nontender and nondistended. No hepatosplenomegaly noted. Musculoskeletal: All extremities intact. Unable to fully assess. Skin: No rashes, warm dry and intact. Neurologic: No focal issues. Psychiatric: Alert and awake Results & Data Results & Data ([facility]) Vital Signs (Past 12 Hours) Vital Signs Temp Pulse Resp BP Pulse Ox O2 Del Method FiO2 07/12/22 07:15 65 18 93 30 07/12/22 06:00 37.2 C 63 18 126/72 93 Mechanical Vent 30 07/12/22 05:00 37.3 C 66 18 107/61 91 Mechanical Vent 30 07/12/22 04:00 37.3 C 67 18 153/91 H 95 Mechanical Vent 30 07/12/22 03:00 37.4 C 66 18 132/79 95 Mechanical Vent 30 07/12/22 04:00 30 07/12/22 03:20 66 18 95 30 07/12/22 02:00 37.5 C 65 18 137/78 94 Mechanical Vent 30 07/12/22 01:00 37.4 C 65 18 128/75 94 Mechanical Vent 30 07/12/22 00:01 37.4 C 68 16 140/78 96 07/11/22 23:00 37.3 C 62 16 142/78 H 94 07/11/22 22:00 130/72 07/12/22 00:00 30 07/11/22 23:35 60 07/11/22 23:01 61 18 96 30 07/11/22 22:00 37.3 C 63 16 130/72 95 Mechanical Vent 30 Coding Level of Care Code Critical Care 1st 30-74 mins Diagnoses Acute respiratory failure with hypoxia and hypercapnia J96.01; J96.02 Multifocal pneumonia J18.9 Acute hyponatremia E87.1 Morbid obesity due to excess calories E66.01 Hypotension (arterial) I95.9 Acute diastolic CHF (congestive heart failure) I50.31 Time Spent (min) 44
[2022-07-12] MEDS: fentaNYL BOLUS from BAG IV PRN ×3 (09:10→20:30)
--- NOTE | 2022-07-12 09:27 | Procedure Note ---
Supervising Physician Co-Signing Physician Notes PREOPERATIVE DIAGNOSIS: Aspiration pneumonia POSTOPERATIVE DIAGNOSIS: Aspiration pneumonia PROCEDURE PERFORMED: Flexible fiberoptic bronchoscopy with bronchial washings COMPLICATIONS: None. INDICATION: Clear out secretions and evaluate pneumonia further PROCEDURE: Unable to obtain consent from patient as he is currently sedated and on the ventilator. Consent was obtained from the patient's family member over the phone. Timeout performed prior to the procedure. Patient was hyperoxygenated while in the ventilator with 100% FiO2. Bronchoscope was inserted via endotracheal tube adapter. ET tube was observed approximately 3 cm above the rocky. Rocky appeared sharp. There were thick white secretions emanating from the left and right mainstem bronchus. Bilateral tracheobronchial tree inspection was performed with no obvious lesions seen. Washings were performed of the left mainstem bronchus with 20 mL of saline and approximately 40 mL of fluid was aspirated back. I then performed airway clearance of the bilateral bronchial tree. Patient tolerated the procedure w ell. The scope was withdrawn to the level of the rocky and no significant bleeding was seen. Scope was then completely withdrawn. Recommendations: Follow AFB cultures, fungal cultures, Aspergillus antigen, beta glucan and cell counts. [facility] [place] Procedure Codes (Charges) Pulmonary/Thoracic Procedure 1: Pulmonary and Thoracic: 72282 Dx bronchoscopy/wash
[2022-07-12 10:59] LABS: Eosinophil Body Fluid Man 0 %; Fluid Mono/Macrophage 4 %; Lymphocyte Body Fluid Man 6 %; Neutrophil Body Fluid Man 90 %
[2022-07-12] MEDS: ENOXAPARIN INJ 40 MG/0.4 ML SYR SQ SCH ×2 (11:04→20:26)
[2022-07-12] MEDS: LANSOPRAZOLE 30 MG SOLTAB NG SCH (11:04)
[2022-07-12] MEDS: AZITHROMYCIN 500 MG in SODIUM CHLORIDE 0.9% 250 ML IV SCH (11:05)
[2022-07-12] MEDS: DORZOLAMIDE/TIMOLOL 22.3/6.8MG/ML 10 ML BTL OP SCH ×2 (11:05→20:26)
[2022-07-12] MEDS: MIDAZOLAM BOLUS FROM BAG IV PRN (11:08)
[2022-07-12] MEDS: fentaNYL citrate 2,500 MCG/250 ML BAG IV SCH (11:24)
[2022-07-12] MEDS: NOVASOURCE RENAL 2.0 CAL 1000ML BAG OG SCH (17:49)
--- NOTE | 2022-07-12 18:41 | Hospitalist Progress Note ---
Date of Service July 12, 2022 Assessment & Plan (1) Acute respiratory failure with hypoxia and hypercapnia: Plan: Appreciate ongoing critical care management of ventilator low grade temp 07/11, fungus identified maybe felt to be contaminant improved after removal of copious secretions s (2) Multifocal pneumonia: Plan: Evidence of multifocal pneumonia seen on chest x-ray and CT scan. Patient remains on community-acquired pneumonia antibiotics of ceftriaxone and azithromycin his hyponatremia may imply this is an atypical infection. Sputum culture - light normal [place], light aspergillus at this point on endo suctioning felt to be contaminant Procalcitonin negative Biofire negative Coag neg staph in blood 09/25 (staph epidermidis on PCR) - unclear contaminant, repeat cultures negative to date (3) Acute hyponatremia: Plan: Appreciate ongoing critical care management of this this is overall improving towards his baseline Holding carbamazepine Suspected SIADH, appears to be hypervolemic and serial measurements being taken with Lasix 40mg IV given today TTE with mildly dilated IVC, otherwise quite unremakrable (4) Elevated troponin: Plan: Secondary to demand ischemia, ACS not suspected TTE relatively unremarkable with LVEF 65-70% and no regional wall abnormalities (5) Pulmonary edema: Plan: Suspect some of his CXR changes are pulmonary edema Monitor with Lasix administration TTE unremarkable as above UA with 3+ protein - will consider Protein/Cr ratio once patient off ventilator (6) Hepatitis C antibody test positive: Plan: Preliminary positive HCV RNA negative Plan Patient is on Tegretol and Stelazine antipsychotic. Is unclear whether the Tegretol was used for mood stabilization versus an antiseizure medications there is no notation in outpatient office visits that he has a seizure history. Carbamazepine level undetectable. carbamazepine held due to hyponatremia VTE Prophylaxis - Lovenox 40mg SQ daily Admission and Anticipated Discharge Date Admission Date: July 09, 2022 Subjective No significant events overnight. bronchoscopy helped clear impacted mucus. some concern for fungal presence on previous trach suction 07/09 aspergillus species Otherwise patient is hemodynamically stable. Currently on minimal vent settings., remains intubated Review of Systems Review of Systems: Patient seems comfortable but cannot participate in a in- depth review of systems due to sedation Physical Exam Physical Exam: The patient appeared comfortable though intubated Vital signs as documented. Head exam is normocephalic atraumatic Neck is without JVD, thyromegaly, or carotid bruits. Lungs are coarse bilateral breath sounds improved after bronchoscopy, less tachypneic Cardiac exam, Rhythm is regular.. Systolic ejection murmur is heard Abdominal exam reveals normal bowel sounds, soft non tender, no masses Extremities are nonedematous and both pedal pulses are present Neurologic exam is alert and oriented, no focal loss of strength or sensation Skin is without bruises or rashes Results & Data Results & Data ([facility]) Vital Signs (Past 12 Hours) Vital Signs Temp Pulse Resp BP Pulse Ox Pulse Ox O2 Del Method 07/12/22 18:00 98.8 F 70 32 H 167/85 H 95 Mechanical Vent 07/12/22 17:00 98.8 F 67 31 H 167/76 H 95 Mechanical Vent 07/12/22 16:00 98.8 F 69 32 H 145/75 H 94 Mechanical Vent 07/12/22 15:00 98.8 F 71 36 H 138/73 93 Mechanical Vent 07/12/22 14:00 98.8 F 73 30 H 165/83 H 96 Mechanical Vent 07/12/22 16:00 68 07/12/22 15:10 70 32 H 93 07/12/22 13:00 98.6 F 67 18 132/78 94 Mechanical Vent 07/12/22 12:30 98.8 F 68 18 138/80 94 07/12/22 13:10 94 07/12/22 12:00 98.6 F 69 18 136/75 93 Mechanical Vent 07/12/22 11:30 98.6 F 68 18 151/82 H 94 Mechanical Vent 07/12/22 11:00 98.4 F 67 18 134/72 93 Mechanical Vent 07/12/22 10:30 98.4 F 72 13 132/88 90 Mechanical Vent 07/12/22 10:00 98.6 F 72 18 115/69 93 Mechanical Vent 07/12/22 09:30 98.8 F 76 18 112/66 98 Mechanical Vent 07/12/22 09:20 99.0 F 76 18 143/85 H 94 Mechanical Vent 07/12/22 09:15 98.8 F 68 18 141/75 H 100 Mechanical Vent 07/12/22 09:14 98.8 F 68 18 100 Mechanical Vent 07/12/22 09:00 99.0 F 70 18 139/78 91 Mechanical Vent 07/12/22 08:00 99.1 F 65 18 123/68 93 Mechanical Vent 07/12/22 07:00 99.0 F 64 18 133/71 93 Mechanical Vent 07/12/22 06:45 99.0 F 66 18 120/68 93 Mechanical Vent 07/12/22 12:20 Mechanical Vent 07/12/22 12:00 07/12/22 08:00 07/12/22 10:14 64 07/12/22 10:03 73 18 93 07/12/22 07:15 65 18 93 O2 Del Method FiO2 07/12/22 18:00 40 07/12/22 17:00 40 07/12/22 16:00 40 07/12/22 15:00 40 07/12/22 14:00 40 07/12/22 16:00 07/12/22 15:10 40 07/12/22 13:00 40 07/12/22 12:30 07/12/22 13:10 Mechanical Vent 07/12/22 12:00 40 07/12/22 11:30 40 07/12/22 11:00 40 07/12/22 10:30 50 07/12/22 10:00 50 07/12/22 09:30 100 07/12/22 09:20 100 07/12/22 09:15 100 07/12/22 09:14 100 07/12/22 09:00 30 07/12/22 08:00 30 07/12/22 07:00 30 07/12/22 06:45 30 07/12/22 12:20 40 07/12/22 12:00 40 07/12/22 08:00 30 07/12/22 10:14 07/12/22 10:03 50 07/12/22 07:15 30 PG Care Time/CCT Total # of Minutes Spent Total Time Spent with Patient: Total time spent is greater than 50% in coordination of care (as documented) at patient's floor/unit and/or counseling patient: Coding Level of Care Code 04645 Subseq Hosp Care Lvl 3 Diagnoses Acute respiratory failure with hypoxia and hypercapnia J96.01; J96.02 Multifocal pneumonia J18.9 Acute hyponatremia E87.1 Elevated troponin R77.8 Pulmonary edema J81.1 Hepatitis C antibody test positive R76.8
[2022-07-12] MEDS: LATANOPROST 0.005% OP SOLN 2.5 ML BTL OP SCH (20:26)
[2022-07-13] MEDS: fentaNYL BOLUS from BAG IV PRN ×4 (01:30→06:00)
[2022-07-13] MEDS: MIDAZOLAM BOLUS FROM BAG IV PRN ×2 (01:30→03:00)
[2022-07-13] MEDS: TUBE FEEDING WATER FLUSH OG SCH ×3 (03:22→08:18)
[2022-07-13 06:27] LABS: BUN Creatinine Ratio 30.9 (10-20); Calcium 8.9 mg/dl (8.5-10.1); Creatinine Clr Calc Pharmacy 91.4 ml/min; Est GFR (African American) 80.1 ml/min; Est GFR (Non-African American) 69.1 ml/min; Potassium 3.7 mmol/L (3.5-5.1)
[2022-07-13] MEDS: LANSOPRAZOLE 30 MG SOLTAB NG SCH (08:19)
[2022-07-13] MEDS: ENOXAPARIN INJ 40 MG/0.4 ML SYR SQ SCH ×2 (08:46→20:59)
[2022-07-13] MEDS: DORZOLAMIDE/TIMOLOL 22.3/6.8MG/ML 10 ML BTL OP SCH ×2 (08:47→20:53)
[2022-07-13] MEDS: AZITHROMYCIN 500 MG in SODIUM CHLORIDE 0.9% 250 ML IV SCH (08:48)
[2022-07-13] MEDS ORDERED: hydrALAZINE HCL 20 MG/ML VIAL IV PRN (09:39)
[2022-07-13] MEDS ORDERED: FUROSEMIDE 40 MG TAB PO ONE (09:47)
--- NOTE | 2022-07-13 10:30 | Critical Care Progress Note ---
Date of Service July 13, 2022 Assessment & Plan (1) Acute respiratory failure with hypoxia and hypercapnia: (2) Multifocal pneumonia: (3) Acute hyponatremia: (4) Morbid obesity due to excess calories: (5) Hypotension (arterial): (6) Acute diastolic CHF (congestive heart failure): Plan Neurologic: No issues. Pulmonary: Sputum cultures with Aspergillus and haemophilus influenza. Patient responding well to antibiotics and diuresis. Status post bronchoscopy 07/12/2022. Patient extubated and tolerating nasal cannula. Cardiovascular: Suspect an element of cor pulmonale. Echo reviewed. Hypertrophy of the left ventricle noted. LVEF adequate. IVC is mildly dilated. BNP was elevated. As needed IV diuresis. Likely acute diastolic CHF component. Gastrointestinal: Continue PPI. Speech therapy. Renal: Sodium levels improving. 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 Creatinine improved. Infectious disease: Initial blood cultures were positive for coag negative staph likely contaminant. Repeat blood cultures are negative thus far. Sputum cultures growing Aspergillus species which is likely a colonizer. Urinalysis was unremarkable. Suspect an element of aspiration pneumonitis versus pneumonia. Hematologic: No significant concerns. Endocrine: Hyperglycemia protocol per ICU pharmacist. TSH normal. F/E/N: Minimize free water intake. Lines and tubes: [address] and Baer catheter. ET tube placed 07/09/2022. VTE prophylaxis: Lovenox CODE STATUS: Full code Family at bedside: Not available at bedside. Disposition: Patient can be downgraded to PCU status later today. Admission and Anticipated Discharge Date Admission Date: July 09, 2022 Subjective Patient passed a spontaneous breathing trial today and was extubated. He denies any complaint at present. Hemodynamically stable and actually admitted hypertensive. Oxygen saturations in the low 90s on 2 L. Review of Systems Review of Systems: All systems reviewed & are unremarkable except as noted in HPI & below Physical Exam Physical Exam: The patient appeared comfortable though intubated Vital signs as documented. Head exam is normocephalic atraumatic Neck is without JVD, thyromegaly, or carotid bruits. Lungs are coarse bilateral breath sounds improved after bronchoscopy, less tachypneic Cardiac exam, Rhythm is regular.. Systolic ejection murmur is heard Abdominal exam reveals normal bowel sounds, soft non tender, no masses Extremities are nonedematous and both pedal pulses are present Neurologic exam is alert and oriented, no focal loss of strength or sensation Skin is without bruises or rashes Results & Data Results & Data ([facility]) Vital Signs (Past 12 Hours) Vital Signs Temp Pulse Resp BP Pulse Ox O2 Del Method O2 Flow Rate 07/13/22 08:00 Mechanical Vent 07/13/22 08:39 36.8 C 77 36 H 91 Nasal Cannula 2 07/13/22 08:39 188/96 H 07/13/22 08:09 191/94 H 07/13/22 08:09 36.9 C 78 26 H 94 Oxymask 2 07/13/22 08:00 36.9 C 76 28 H 93 Mechanical Vent 07/13/22 07:00 36.9 C 66 18 96 07/13/22 08:31 77 27 H 95 07/13/22 07:52 73 07/13/22 06:00 37.0 C 73 22 149/92 H 98 Mechanical Vent 07/13/22 05:00 37.2 C 67 18 129/78 93 Mechanical Vent 07/13/22 04:00 37.2 C 63 18 142/78 H 96 Mechanical Vent 07/13/22 04:00 07/13/22 03:34 66 22 97 07/13/22 03:05 37.3 C 69 18 151/90 H 97 Mechanical Vent 07/13/22 02:00 37.2 C 63 18 127/79 96 Mechanical Vent 07/13/22 01:00 37.4 C 71 18 136/87 95 Mechanical Vent 07/13/22 00:00 37.5 C 71 19 140/81 97 Mechanical Vent 07/12/22 23:00 37.3 C 64 18 141/81 H 97 Mechanical Vent 07/13/22 00:00 07/13/22 00:00 68 07/12/22 23:12 65 18 97 FiO2 07/13/22 08:00 30 07/13/22 08:39 07/13/22 08:39 07/13/22 08:09 07/13/22 08:09 07/13/22 08:00 30 07/13/22 07:00 07/13/22 08:31 30 07/13/22 07:52 07/13/22 06:00 40 07/13/22 05:00 40 07/13/22 04:00 40 07/13/22 04:00 40 07/13/22 03:34 40 07/13/22 03:05 40 07/13/22 02:00 40 07/13/22 01:00 40 07/13/22 00:00 40 07/12/22 23:00 40 07/13/22 00:00 40 07/13/22 00:00 07/12/22 23:12 40 Coding Level of Care Code 57263 Subseq Hosp Care Lvl 3 Diagnoses Acute respiratory failure with hypoxia and hypercapnia J96.01; J96.02 Multifocal pneumonia J18.9 Acute hyponatremia E87.1 Morbid obesity due to excess calories E66.01 Hypotension (arterial) I95.9 Acute diastolic CHF (congestive heart failure) I50.31
[2022-07-13] MEDS: ACETAMINOPHEN 500 MG TAB PO PRN ×2 (12:19→20:51)
[2022-07-13] MEDS ORDERED: LABETALOL HCL IV 5 MG/ML 20ML IV STA (12:23)
[2022-07-13] MEDS ORDERED: carvediloL 6.25 MG TAB PO ONE (16:04)
--- NOTE | 2022-07-13 17:04 | Hospitalist Progress Note ---
Date of Service July 13, 2022 Assessment & Plan (1) Acute respiratory failure with hypoxia and hypercapnia: Plan: extubated and on tapering oxygen low grade temp 10/18, fungus identified maybe felt to be contaminant improved after removal of copious secretions s (2) Multifocal pneumonia: Plan: Evidence of multifocal pneumonia seen on chest x-ray and CT scan. Patient remains on community-acquired pneumonia antibiotics of ceftriaxone and azithromycin his hyponatremia may imply this is an atypical infection. Sputum culture - light normal [place], light aspergillus at this point on endo suctioning felt to be contaminant Procalcitonin negative Biofire negative Coag neg staph in blood 09/25 (staph epidermidis on PCR) - unclear contaminant, repeat cultures negative to date (3) Acute hyponatremia: Plan: Appreciate ongoing critical care management of this this is overall improving towards his baseline Holding carbamazepine Suspected SIADH, appears to be hypervolemic and serial measurements being taken with Lasix 40mg ordered daily TTE with mildly dilated IVC, otherwise quite unremarkable (4) Elevated troponin: Plan: Secondary to demand ischemia, ACS not suspected TTE relatively unremarkable with LVEF 65-70% and no regional wall abnormalities (5) Pulmonary edema: Plan: Suspect some of his CXR changes are pulmonary edema Monitor with Lasix administration TTE unremarkable as above UA with 3+ protein - will consider Protein/Cr ratio once patient off ventilator (6) Hepatitis C antibody test positive: Plan: Preliminary positive HCV RNA negative Plan Patient is on Tegretol and Stelazine antipsychotic. VTE Prophylaxis - Lovenox 40mg SQ daily Admission and Anticipated Discharge Date Admission Date: July 09, 2022 Subjective pt is extubated and doing well, shallow respirations, cough, and very deconditioined Review of Systems Review of Systems: Mild distress and fatigue no headache, no visual changes no speech or swallowing issues no chest pain, pressure or palpitations still with some shortness of breath, loose cough no abdominal pain, nausea or vomiting, diarrhea or constipation no dysuria, hematuria or frequency no focal joint pain or swelling no back pain, CVA tenderness or radicular pain no bruising, bleeding or rashes no focal signs of weakness or numbness or altered sensation Pt has unusual affect Physical Exam Physical Exam: The patient appeared comfortable though intubated Vital signs as documented. Head exam is normocephalic atraumatic Neck is without JVD, thyromegaly, or carotid bruits. Lungs are coarse bilateral breath sounds improved after bronchoscopy, less tachypneic Cardiac exam, Rhythm is regular.. Systolic ejection murmur is heard Abdominal exam reveals normal bowel sounds, soft non tender, no masses Extremities are nonedematous and both pedal pulses are present Neurologic exam is alert and oriented, no focal loss of strength or sensation Skin is without bruises or rashes Results & Data Results & Data ([facility] [place]) Vital Signs (Past 12 Hours) Vital Signs Temp Pulse Resp BP Pulse Ox Pulse Ox O2 Del Method 07/13/22 16:05 77 18 95 07/13/22 16:05 162/78 H 07/13/22 16:00 75 24 95 07/13/22 16:00 77 07/13/22 15:00 77 29 H 94 Nasal Cannula 07/13/22 15:00 148/76 H 07/13/22 14:00 78 29 H 07/13/22 14:00 179/85 H 07/13/22 13:00 97.7 F 75 35 H 94 Nasal Cannula 07/13/22 13:00 179/88 H 07/13/22 12:23 97.9 F 81 23 94 07/13/22 12:23 208/97 H 07/13/22 12:14 97.9 F 80 28 H 93 07/13/22 12:14 190/99 H 07/13/22 13:00 93 07/13/22 12:00 98.1 F 82 34 H 190/99 H 93 07/13/22 11:00 98.1 F 78 35 H 169/89 H 95 07/13/22 10:00 98.1 F 76 34 H 167/91 H 96 07/13/22 09:20 98.1 F 76 37 H 95 07/13/22 09:20 179/91 H 07/13/22 09:00 98.2 F 78 32 H 91 07/13/22 08:00 Mechanical Vent 07/13/22 08:39 98.2 F 77 36 H 91 Nasal Cannula 07/13/22 08:39 188/96 H 07/13/22 08:09 191/94 H 07/13/22 08:09 98.4 F 78 26 H 94 Oxymask 07/13/22 08:00 98.4 F 76 28 H 93 Mechanical Vent 10/20/22 07:00 98.4 F 66 18 96 07/13/22 08:31 77 27 H 95 07/13/22 07:52 73 07/13/22 06:00 98.6 F 73 22 149/92 H 98 Mechanical Vent O2 Del Method O2 Flow Rate FiO2 07/13/22 16:05 07/13/22 16:05 07/13/22 16:00 07/13/22 16:00 07/13/22 15:00 4 07/13/22 15:00 07/13/22 14:00 07/13/22 14:00 07/13/22 13:00 4 07/13/22 13:00 07/13/22 12:23 07/13/22 12:23 07/13/22 12:14 07/13/22 12:14 07/13/22 13:00 Nasal Cannula 07/13/22 12:00 07/13/22 11:00 07/13/22 10:00 07/13/22 09:20 07/13/22 09:20 07/13/22 09:00 07/13/22 08:00 30 07/13/22 08:39 2 07/13/22 08:39 07/13/22 08:09 07/13/22 08:09 2 07/13/22 08:00 30 07/13/22 07:00 07/13/22 08:31 30 07/13/22 07:52 07/13/22 06:00 40 PG Care Time/CCT Total # of Minutes Spent Total Time Spent with Patient: Total time spent is greater than 50% in coordination of care (as documented) at patient's floor/unit and/or counseling patient: Coding Level of Care Code 78142 Subseq Hosp Care Lvl 3 Diagnoses Acute respiratory failure with hypoxia and hypercapnia J96.01; J96.02 Multifocal pneumonia J18.9 Acute hyponatremia E87.1 Elevated troponin R77.8 Pulmonary edema J81.1 Hepatitis C antibody test positive R76.8
[2022-07-13] MEDS: LATANOPROST 0.005% OP SOLN 2.5 ML BTL OP SCH (20:52)
[2022-07-13] MEDS: carvediloL 6.25 MG TAB PO SCH (20:55)
[2022-07-14 08:19] LABS: Hematocrit (blood only) 38.9 % (40.1-51.0); Hemoglobin 13.3 g/dl (14.0-18.0); Mean Corpuscular Hgb Conc 34.2 g/dL (32.0-36.0); Mean Corpuscular Volume 90.7 fL (80.0-100.0); Mean Platelet Volume 8.7 fL (9.4-12.4); Platelet Count 274 K/uL (130-400); RDW Coefficient of Variation 13.6 % (11.5-14.5); RDW Standard Deviation 45.3 fL (36.4-46.3); Red Blood Count 4.29 M/uL (4.63-6.08); White Blood Count 11.37 K/ul (4.8-10.8)
[2022-07-14] MEDS: AZITHROMYCIN 500 MG in SODIUM CHLORIDE 0.9% 250 ML IV SCH (08:45)
[2022-07-14] MEDS ORDERED: ALUMINUM/MAGNESIUM SUSP 30 ML UDC PO PRN (08:54)
[2022-07-14 08:58] LABS: BUN Creatinine Ratio 30.2 (10-20); Creatinine Clr Calc Pharmacy 103.5 ml/min; Est GFR (African American) 94.4 ml/min; Est GFR (Non-African American) 81.5 ml/min; Potassium 3.8 mmol/L (3.5-5.1)
[2022-07-14] MEDS: FUROSEMIDE 40 MG TAB PO SCH (09:36)
[2022-07-14] MEDS: carvediloL 6.25 MG TAB PO SCH ×2 (09:36→21:18)
[2022-07-14] MEDS: FAMOTIDINE 20 MG TAB PO SCH ×2 (09:36→21:18)
[2022-07-14] MEDS: guaiFENesin 600 MG TABCR PO SCH ×2 (09:37→21:18)
[2022-07-14] MEDS: ENOXAPARIN INJ 40 MG/0.4 ML SYR SQ SCH ×2 (10:34→21:19)
[2022-07-14] MEDS: DORZOLAMIDE/TIMOLOL 22.3/6.8MG/ML 10 ML BTL OP SCH ×2 (10:35→21:17)
[2022-07-14] MEDS: TRIFLUOPERAZINE HCL 5 MG TABLET PO SCH (10:51)
--- NOTE | 2022-07-14 15:50 | Hospitalist Progress Note ---
Date of Service July 14, 2022 Assessment & Plan (1) Acute respiratory failure with hypoxia and hypercapnia: Plan: Still with some pneumonia symptoms remain on tapering oxygen No temperature since 1018 fungus identified maybe felt to be contaminant continue on Rocephin and azithromycin for community-acquired pneumonia complete 7 days Rocephin 5 days of Zithromax improved after removal of copious secretions at bronchoscopy Mucinex added (2) Multifocal pneumonia: Plan: Evidence of multifocal pneumonia seen on chest x-ray and CT scan. Patient remains on community-acquired pneumonia antibiotics of ceftriaxone and azithromycin his hyponatremia may imply this is an atypical infection. Sputum culture - light normal [place], light aspergillus at this point on endo suctioning felt to be contaminant Procalcitonin negative Biofire negative Coag neg staph in blood / (staph epidermidis on PCR) - unclear contaminant, repeat cultures negative to date (3) Acute hyponatremia: Plan: Suspected SIADH, appears to be hypervolemic and serial measurements being taken with Lasix 40mg ordered daily TTE with mildly dilated IVC, otherwise quite unremarkable (4) Elevated troponin: Plan: Secondary to demand ischemia, ACS not suspected TTE relatively unremarkable with LVEF 65-70% and no regional wall abnormalities Patient with some hypertension in the hospital started on carvedilol and scheduled furosemide blood pressures are more favorable at this time (5) Pulmonary edema: Plan: Suspect some of his CXR changes are pulmonary edema Monitor with Lasix administration TTE unremarkable as above UA with 3+ protein - (6) Hepatitis C antibody test positive: Plan: Preliminary positive HCV RNA negative Plan Patient is on Tegretol and Stelazine antipsychotic. VTE Prophylaxis - Lovenox 40mg SQ daily Admission and Anticipated Discharge Date Admission Date: July 09, 2022 Subjective Patient is doing well cleared for speech therapy diet. He does still have some minor shortness of breath and coughing. He is deconditioned and still requiring oxygen at 3 to 4 L nasal cannula Review of Systems 2 Review of Systems: Mild distress and fatigue no headache, no visual changes no speech or swallowing issues no chest pain, pressure or palpitations still with some shortness of breath, loose cough no abdominal pain, nausea or vomiting, diarrhea or constipation no dysuria, hematuria or frequency no focal joint pain or swelling no back pain, CVA tenderness or radicular pain no bruising, bleeding or rashes no focal signs of weakness or numbness or altered sensation Pt has unusual affect Physical Exam Physical Exam: The patient appeared comfortable though intubated Vital signs as documented. Head exam is normocephalic atraumatic Neck is without JVD, thyromegaly, or carotid bruits. Lungs are coarse bilateral breath sounds improved after bronchoscopy, less tachypneic Cardiac exam, Rhythm is regular.. Systolic ejection murmur is heard Abdominal exam reveals normal bowel sounds, soft non tender, no masses Extremities are nonedematous and both pedal pulses are present Neurologic exam is alert and oriented, no focal loss of strength or sensation Skin is without bruises or rashes Results & Data Results & Data ([facility]) Vital Signs (Past 12 Hours) Vital Signs Temp Pulse Pulse Resp BP BP Pulse Ox 07/14/22 15:24 64 07/14/22 12:00 98.2 F 79 18 139/77 98 07/14/22 08:19 98.2 F 76 18 149/67 H 07/14/22 07:42 68 07/14/22 04:08 97.7 F 67 20 159/82 H 98 O2 Del Method O2 Flow Rate 07/14/22 15:24 07/14/22 12:00 07/14/22 08:19 07/14/22 07:42 07/14/22 04:08 Nasal Cannula 3.5 PG Care Time/CCT Total # of Minutes Spent Total Time Spent with Patient: Total time spent is greater than 50% in coordination of care (as documented) at patient's floor/unit and/or counseling patient: Coding Level of Care Code 95586 Subseq Hosp Care Lvl 2 Diagnoses Acute respiratory failure with hypoxia and hypercapnia J96.01; J96.02 Multifocal pneumonia J18.9 Acute hyponatremia E87.1 Elevated troponin R77.8 Pulmonary edema J81.1 Hepatitis C antibody test positive R76.8
[2022-07-14] MEDS: LATANOPROST 0.005% OP SOLN 2.5 ML BTL OP SCH (21:17)
[2022-07-14] MEDS: ACETAMINOPHEN 500 MG TAB PO PRN (21:20)
[2022-07-15] MEDS: ENOXAPARIN INJ 40 MG/0.4 ML SYR SQ SCH ×2 (09:03→21:44)
[2022-07-15] MEDS: ACETAMINOPHEN 500 MG TAB PO PRN ×3 (09:13→21:47)
[2022-07-15] MEDS: carvediloL 6.25 MG TAB PO SCH (09:14)
[2022-07-15] MEDS: FUROSEMIDE 40 MG TAB PO SCH (09:14)
[2022-07-15] MEDS: guaiFENesin 600 MG TABCR PO SCH ×2 (09:14→21:44)
[2022-07-15] MEDS: FAMOTIDINE 20 MG TAB PO SCH ×2 (09:14→21:45)
[2022-07-15] MEDS: TRIFLUOPERAZINE HCL 5 MG TABLET PO SCH (09:14)
[2022-07-15] MEDS: DORZOLAMIDE/TIMOLOL 22.3/6.8MG/ML 10 ML BTL OP SCH ×2 (09:15→21:45)
[2022-07-15] MEDS: AZITHROMYCIN 500 MG in SODIUM CHLORIDE 0.9% 250 ML IV SCH (09:44)
--- NOTE | 2022-07-15 13:25 | Hospitalist Progress Note ---
Date of Service July 15, 2022 Assessment & Plan (1) Acute respiratory failure with hypoxia and hypercapnia: Plan: tapering oxygen fungus identified maybe felt to be contaminant continue on Rocephin and azithromycin for community-acquired pneumonia complete 7 days Rocephin 5 days of Zithromax improved after removal of copious secretions at bronchoscopy Mucinex added (2) Multifocal pneumonia: Plan: Evidence of multifocal pneumonia seen on chest x-ray and CT scan. Patient remains on community-acquired pneumonia antibiotics of ceftriaxone and azithromycin his hyponatremia may imply this is an atypical infection. Sputum culture - light normal [place], light aspergillus at this point on endo suctioning felt to be contaminant Procalcitonin negative Biofire negative Coag neg staph in blood / (staph epidermidis on PCR) - unclear contaminant, repeat cultures negative to date (3) Acute hyponatremia: Plan: Suspected SIADH, appears to be hypervolemic and serial measurements being taken with Lasix ordered daily as a new med, dose reduced 07/14 with lower bp TTE with mildly dilated IVC, otherwise quite unremarkable (4) Elevated troponin: Plan: Secondary to demand ischemia, ACS not suspected TTE relatively unremarkable with LVEF 65-70% and no regional wall abnormalities Patient with some hypertension in the hospital started on carvedilol and scheduled furosemide blood pressures are more favorable at this time (5) Hepatitis C antibody test positive: Plan: Preliminary positive HCV RNA negative Plan Patient is on Tegretol and Stelazine antipsychotic. VTE Prophylaxis - Lovenox 40mg SQ daily Pt is significantly deconditioned, max 2 person assist may need subacute rehab Admission and Anticipated Discharge Date Admission Date: July 09, 2022 Subjective Patient is doing well/ He is still requiring supplemental oxygen and has not been ambulatory. He does still have some minor shortness of breath and coughing. He is deconditioned. Review of Systems Review of Systems: Mild distress and fatigue no headache, no visual changes no speech or swallowing issues no chest pain, pressure or palpitations shortness of breath, loose cough no abdominal pain, nausea or vomiting, diarrhea or constipation no dysuria, hematuria or frequency no focal joint pain or swelling no back pain, CVA tenderness or radicular pain no bruising, bleeding or rashes no focal signs of weakness or numbness or altered sensation Pt has unusual affect Physical Exam Physical Exam: The patient appeared comfortable though intubated Vital signs as documented. Head exam is normocephalic atraumatic Neck is without JVD, thyromegaly, or carotid bruits. Lungs are coarse bilateral breath sounds improved after bronchoscopy, less tachypneic Cardiac exam, Rhythm is regular.. Systolic ejection murmur is heard Abdominal exam reveals normal bowel sounds, soft non tender, no masses Extremities are nonedematous and both pedal pulses are present Neurologic exam is alert and oriented, no focal loss of strength or sensation Skin is without bruises or rashes Results & Data Results & Data ([facility]) Vital Signs (Past 12 Hours) Vital Signs Temp Pulse Pulse Resp BP BP Pulse Ox 07/15/22 12:39 97.7 F 60 24 90/56 L 96 07/15/22 10:11 07/15/22 06:51 98.1 F 76 22 144/80 H 100 07/15/22 03:35 98.4 F 68 18 150/94 H 97 O2 Del Method O2 Flow Rate 07/15/22 12:39 07/15/22 10:11 Nasal Cannula 4 07/15/22 06:51 07/15/22 03:35 Nasal Cannula 4 PG Care Time/CCT Total # of Minutes Spent Total Time Spent with Patient: Total time spent is greater than 50% in coordination of care (as documented) at patient's floor/unit and/or counseling patient: Coding Level of Care Code 82262 Subseq Hosp Care Lvl 2 Diagnoses Acute respiratory failure with hypoxia and hypercapnia J96.01; J96.02 Multifocal pneumonia J18.9 Acute hyponatremia E87.1 Elevated troponin R77.8 Hepatitis C antibody test positive R76.8
[2022-07-15] MEDS: LATANOPROST 0.005% OP SOLN 2.5 ML BTL OP SCH (21:45)
[2022-07-16] MEDS: ACETAMINOPHEN 500 MG TAB PO PRN ×2 (06:26→14:59)
[2022-07-16] MEDS: AZITHROMYCIN 500 MG in SODIUM CHLORIDE 0.9% 250 ML IV SCH (09:14)
[2022-07-16] MEDS: FUROSEMIDE 20 MG TAB PO SCH (09:14)
[2022-07-16] MEDS: FAMOTIDINE 20 MG TAB PO SCH ×2 (09:14→19:33)
[2022-07-16] MEDS: ENOXAPARIN INJ 40 MG/0.4 ML SYR SQ SCH ×2 (09:14→19:37)
[2022-07-16] MEDS: TRIFLUOPERAZINE HCL 5 MG TABLET PO SCH (09:15)
[2022-07-16] MEDS: DORZOLAMIDE/TIMOLOL 22.3/6.8MG/ML 10 ML BTL OP SCH ×2 (09:15→19:34)
[2022-07-16] MEDS: guaiFENesin 600 MG TABCR PO SCH ×2 (09:15→19:33)
--- NOTE | 2022-07-16 13:33 | Hospitalist Progress Note ---
Date of Service July 16, 2022 Assessment & Plan (1) Acute respiratory failure with hypoxia and hypercapnia: Plan: tapering oxygen has been a challenge fungus identified maybe felt to be contaminant continue on Rocephin and azithromycin for community-acquired pneumonia complete 7 days Rocephin 5 days of Zithromax improved after removal of copious secretions at bronchoscopy Mucinex added (2) Multifocal pneumonia: Plan: Evidence of multifocal pneumonia seen on chest x-ray and CT scan. Patient remains on community-acquired pneumonia antibiotics of ceftriaxone and azithromycin his hyponatremia may imply this is an atypical infection. Sputum culture - light normal [place], light aspergillus at this point on endo suctioning felt to be contaminant Procalcitonin negative Biofire negative Coag neg staph in blood 09/25 (staph epidermidis on PCR) - unclear contaminant, repeat cultures negative to date (3) Acute hyponatremia: Plan: Suspected SIADH, appears to be hypervolemic and serial measurements being taken with Lasix ordered daily as a new med, dose reduced 07/14 with lower bp TTE with mildly dilated IVC, otherwise quite unremarkable (4) Elevated troponin: Plan: Secondary to demand ischemia, ACS not suspected TTE relatively unremarkable with LVEF 65-70% and no regional wall abnormalities Patient with some hypertension in the hospital started on carvedilol and scheduled furosemide blood pressures became low, carvedilol stopped pt improved (5) Hepatitis C antibody test positive: Plan: Preliminary positive HCV RNA negative Plan Patient is on Tegretol and Stelazine antipsychotic. VTE Prophylaxis - Lovenox 40mg SQ daily Pt is significantly deconditioned, max 2 person assist may need subacute rehab Admission and Anticipated Discharge Date Admission Date: July 09, 2022 Subjective Patient is doing well/ He is still requiring supplemental oxygen and has not been ambulatory. PT [email or web address] has him with a max assist. He does still have some minor shortness of breath and coughing. He is deconditioned. Review of Systems Review of Systems: Mild distress and fatigue no headache, no visual changes no speech or swallowing issues no chest pain, pressure or palpitations shortness of breath, loose cough no abdominal pain, nausea or vomiting, diarrhea or constipation no dysuria, hematuria or frequency no focal joint pain or swelling no back pain, CVA tenderness or radicular pain no bruising, bleeding or rashes no focal signs of weakness or numbness or altered sensation Pt has unusual affect Physical Exam Physical Exam: The patient appeared comfortable though intubated Vital signs as documented. Head exam is normocephalic atraumatic Neck is without JVD, thyromegaly, or carotid bruits. Lungs are coarse bilateral breath sounds improved after bronchoscopy, less tachypneic Cardiac exam, Rhythm is regular.. Systolic ejection murmur is heard Abdominal exam reveals normal bowel sounds, soft non tender, no masses Extremities are nonedematous and both pedal pulses are present Neurologic exam is alert and oriented, no focal loss of strength or sensation Skin is without bruises or rashes Results & Data Results & Data ([facility]) Vital Signs (Past 12 Hours) Vital Signs Temp Pulse Resp BP Pulse Ox O2 Del Method O2 Flow Rate 07/16/22 12:18 97.5 F L 71 20 144/78 H 99 07/16/22 08:00 Nasal Cannula 5 07/16/22 08:00 66 07/16/22 07:07 98.2 F 70 20 149/48 H 99 07/16/22 03:22 98.6 F 67 22 166/86 H 98 PG Care Time/CCT Total # of Minutes Spent Total Time Spent with Patient: Total time spent is greater than 50% in coordination of care (as documented) at patient's floor/unit and/or counseling patient: Coding Level of Care Code 55422 Subseq Hosp Care Lvl 2 Diagnoses Acute respiratory failure with hypoxia and hypercapnia J96.01; J96.02 Multifocal pneumonia J18.9 Acute hyponatremia E87.1 Elevated troponin R77.8 Hepatitis C antibody test positive R76.8
[2022-07-16] MEDS: LATANOPROST 0.005% OP SOLN 2.5 ML BTL OP SCH (19:47)
[2022-07-17] MEDS: ACETAMINOPHEN 500 MG TAB PO PRN ×2 (05:14→18:51)
[2022-07-17] MEDS: guaiFENesin 600 MG TABCR PO SCH ×2 (08:05→20:12)
[2022-07-17] MEDS: FUROSEMIDE 20 MG TAB PO SCH (08:06)
[2022-07-17] MEDS: TRIFLUOPERAZINE HCL 5 MG TABLET PO SCH (08:06)
[2022-07-17] MEDS: DORZOLAMIDE/TIMOLOL 22.3/6.8MG/ML 10 ML BTL OP SCH ×2 (08:06→20:12)
[2022-07-17] MEDS: FAMOTIDINE 20 MG TAB PO SCH ×2 (08:06→20:11)
[2022-07-17] MEDS: ENOXAPARIN INJ 40 MG/0.4 ML SYR SQ SCH ×2 (08:06→20:16)
--- NOTE | 2022-07-17 16:19 | Hospitalist Progress Note ---
Date of Service July 17, 2022 Assessment & Plan (1) Acute respiratory failure with hypoxia and hypercapnia: Plan: tapering oxygen has been a challenge fungus identified maybe felt to be contaminant continue on Rocephin and azithromycin for community-acquired pneumonia complete 7 days Rocephin 5 days of Zithromax improved after removal of copious secretions at bronchoscopy Mucinex added (2) Multifocal pneumonia: Plan: Evidence of multifocal pneumonia seen on chest x-ray and CT scan. Patient remains on community-acquired pneumonia antibiotics of ceftriaxone and azithromycin his hyponatremia may imply this is an atypical infection. Sputum culture - light normal [place], light aspergillus at this point on endo suctioning felt to be contaminant Procalcitonin negative Biofire negative Coag neg staph in blood 09/25 (staph epidermidis on PCR) - unclear contaminant, repeat cultures negative to date (3) Acute hyponatremia: Plan: Suspected SIADH, appears to be hypervolemic and serial measurements being taken with Lasix ordered daily as a new med, dose reduced 07/14 with lower bp TTE with mildly dilated IVC, otherwise quite unremarkable (4) Elevated troponin: Plan: Secondary to demand ischemia, ACS not suspected TTE relatively unremarkable with LVEF 65-70% and no regional wall abnormalities Patient with some hypertension in the hospital metoprolol and furosemide (5) Hepatitis C antibody test positive: Plan: Preliminary positive HCV RNA negative Plan Patient is on Tegretol and Stelazine antipsychotic. VTE Prophylaxis - Lovenox 40mg SQ daily Pt is significantly deconditioned, max 2 person assist may need subacute rehab Admission and Anticipated Discharge Date Admission Date: July 09, 2022 Subjective pt is stable with regard to pulmonary status but is still requiring oxygen. He is deconditioned and will need rehab of some kind, overall very anxious about his rent being paid Review of Systems Review of Systems: Mild distress and fatigue no headache, no visual changes no speech or swallowing issues no chest pain, pressure or palpitations shortness of breath, loose cough no abdominal pain, nausea or vomiting, diarrhea or constipation no dysuria, hematuria or frequency no focal joint pain or swelling no back pain, CVA tenderness or radicular pain no bruising, bleeding or rashes no focal signs of weakness or numbness or altered sensation Pt has unusual affect Physical Exam Physical Exam: The patient appeared comfortable though intubated Vital signs as documented. Head exam is normocephalic atraumatic Neck is without JVD, thyromegaly, or carotid bruits. Lungs are coarse bilateral breath sounds improved after bronchoscopy, less tachypneic Cardiac exam, Rhythm is regular.. Systolic ejection murmur is heard Abdominal exam reveals normal bowel sounds, soft non tender, no masses Extremities are nonedematous and both pedal pulses are present Neurologic exam is alert and oriented, no focal loss of strength or sensation Skin is without bruises or rashes Results & Data Results & Data ([facility]) Vital Signs (Past 12 Hours) Vital Signs Temp Pulse Resp BP Pulse Ox O2 Del Method O2 Flow Rate 07/17/22 15:06 75 07/17/22 12:27 98.6 F 62 18 183/86 H 97 07/17/22 09:41 Nasal Cannula 3 07/17/22 08:00 67 07/17/22 07:18 98.1 F 65 20 171/60 H 96 PG Care Time/CCT Total # of Minutes Spent Total Time Spent with Patient: Total time spent is greater than 50% in coordination of care (as documented) at patient's floor/unit and/or counseling patient: Coding Level of Care Code 74494 Subseq Hosp Care Lvl 2 Diagnoses Acute respiratory failure with hypoxia and hypercapnia J96.01; J96.02 Multifocal pneumonia J18.9 Acute hyponatremia E87.1 Elevated troponin R77.8 Hepatitis C antibody test positive R76.8
[2022-07-17] MEDS: LATANOPROST 0.005% OP SOLN 2.5 ML BTL OP SCH (20:13)
[2022-07-18] MEDS: ACETAMINOPHEN 500 MG TAB PO PRN ×3 (08:16→23:10)
[2022-07-18] MEDS: FUROSEMIDE 20 MG TAB PO SCH (08:18)
[2022-07-18] MEDS: FAMOTIDINE 20 MG TAB PO SCH ×2 (08:18→22:09)
[2022-07-18] MEDS: guaiFENesin 600 MG TABCR PO SCH ×2 (08:19→22:08)
[2022-07-18] MEDS: DORZOLAMIDE/TIMOLOL 22.3/6.8MG/ML 10 ML BTL OP SCH ×2 (08:22→22:09)
[2022-07-18 09:48] LABS: Basophils # (auto) 0.06 K/uL (0-0.2); Basophils % (auto) 0.8 %; Eosinophils # (auto) 0.33 K/uL (0-0.50); Eosinophils % (auto) 4.2 %; Hematocrit (blood only) 36.9 % (40.1-51.0); Hemoglobin 12.5 g/dl (14.0-18.0); Immature Granulocytes # (auto) 0.15 K/uL (0.00-0.02); Immature Granulocytes % (auto) 1.9 %; Lymphocytes # (auto) 1.13 K/uL (1.2-3.4); Lymphocytes % (auto) 14.4 %; Mean Corpuscular Hemoglobin 31.2 pg (25.0-34.0); Mean Corpuscular Hgb Conc 33.9 g/dL (32.0-36.0); Mean Platelet Volume 8.7 fL (9.4-12.4); Monocytes # (auto) 0.56 K/uL (0.24-0.82); Monocytes % (auto) 7.1 %; Neutrophils # (auto) 5.63 K/uL (1.4-6.5); Neutrophils % (auto) 71.6 %; Platelet Count 334 K/uL (130-400); RDW Coefficient of Variation 12.9 % (11.5-14.5); RDW Standard Deviation 43.5 fL (36.4-46.3); Red Blood Count 4.01 M/uL (4.63-6.08); White Blood Count 7.86 K/ul (4.8-10.8)
[2022-07-18 10:23] LABS: C Reactive Protein 2.65 mg/dl (0-0.5); Calcium 8.5 mg/dl (8.5-10.1); Creatinine Clr Calc Pharmacy 100.6 ml/min; Est GFR (African American) 89.9 ml/min; Est GFR (Non-African American) 77.5 ml/min; Magnesium 1.6 mg/dl (1.7-2.4); Potassium 3.5 mmol/L (3.5-5.1)
--- NOTE | 2022-07-18 12:03 | XRay Report ---
TWO VIEW CHEST CLINICAL HISTORY: Pneumonia. FINDINGS: AP and lateral chest radiographs are compared to study dated 07/11/2022. Correlation is mad e with chest CT dated 07/09/2022. Endotracheal and enteric tubes have been removed. The heart is enla rged noting atherosclerotic calcification of the thoracic aorta. There is pulmonary vascular congesti on. There are increasing bilateral airspace opacities. No large pleural effusion or pneumothorax is i dentified. The skeletal structures are osteopenic. The bony thorax appears intact. A compression defo rmity is noted in the upper lumbar region. IMPRESSION: 1. Cardiomegaly with pulmonary vascular congestion. 2. There are increasing bilateral airspace opacities as compared to 07/11/2022, which could represent progressive multifocal pneumonia. Superimposed pulmonary edema is not excluded. Clinical correlation will be required. 3. Endotracheal and enteric tubes have been removed. ACT 112: Negative or not required by law. Electronically signed by: Salomón Neff M.D. 07/18/2022 12:02 PM
[2022-07-18] MEDS ORDERED: predniSONE 20 MG TAB PO STA (14:37)
[2022-07-18] MEDS ORDERED: FEXOFENADINE 60 MG TAB PO ONE (14:37)
[2022-07-18] MEDS ORDERED: POTASSIUM CHLORIDE CRTAB 20 MEQ TABCR PO STA (14:37)
[2022-07-18] MEDS ORDERED: FUROSEMIDE INJ 20 MG/2 ML VIAL IV ONE (14:37)
--- NOTE | 2022-07-18 14:39 | Hospitalist Progress Note ---
Date of Service July 18, 2022 Assessment & Plan (1) Acute respiratory failure with hypoxia and hypercapnia: Plan: 2nd to multifocal b/l pneumonia. has completed full 7-day course of rocephin and 5-day course of zithromax. was intubated early in the admission and required ICU stay. now on NC O2 and slowly improving. cxr today - suspect pulmonary edema - will diurese. (2) Multifocal pneumonia: Plan: completed full course of rocephin/zithromax was intubated early in his stay; now weaning O2 via NC bronch culture with aspergillus felt to be colonization per pulmonary Procalcitonin negative Biofire negative Coag neg staph in blood 1/2 (staph epidermidis on PCR) - likely contaminant, repeat blood cultures were negative (3) Acute hyponatremia: Plan: marked improvement was 119 early in admission now ~130 SIADH? volume overload? 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 will give prednisone 40mg x 1 now along with shaun 60mg BID for itching re-eval tomorrow Plan Patient is on Tegretol and Stelazine antipsychotic. Schizoaffective d/o? needs placement for rehab Admission and Anticipated Discharge Date Admission Date: July 09, 2022 Subjective patient without any specific complaints he was shifting from topic to topic - often things that were unrelated to his admission he denied any dyspnea at rest some cough eating well does have a new itchy rash - started 1-2 days ago? Review of Systems Review of Systems: gen - no fevers, no chills cv - no chest pain pulm - continues with NC O2 requirement GI - no nausea/emesis - rosenberg still in place Physical Exam Physical Exam: gen - morbidly obese, NAD mouth - MMM neck - due to neck size difficulty to assess JVD heart - RRR, s1 s2, no murmur lungs - mild rales b/l with scattered wheeze b/l abd - soft NT ND BS+ ext - <1+ edema b/l, pulses 2+ b/l psych - flat affect skin - erythematous papules and macules over back, lower abdomen, upper legs = pruritic Results & Data Results & Data ([facility]) Vital Signs (Past 12 Hours) Vital Signs Temp Pulse Resp BP Pulse Ox O2 Del Method 07/18/22 07:40 36.8 C 69 16 166/84 H 95 Room Air Laboratory Results Laboratory Results - last 24 hr 07/18/22 07/18/22 09:24 09:24 WBC 7.86 RBC 4.01 L Hgb 12.5 L Hct 36.9 L MCV 92.0 MCH 31.2 MCHC 33.9 RDW Std Deviation 43.5 RDW Coeff of Pascual 12.9 Plt Count 334 MPV 8.7 L Immature Gran % (Auto) 1.9 Neut % (Auto) 71.6 Lymph % (Auto) 14.4 [place] % (Auto) 7.1 Eos % (Auto) 4.2 Baso % (Auto) 0.8 Neut # (Auto) 5.63 Lymph # (Auto) 1.13 L [place] # (Auto) 0.56 Eos # (Auto) 0.33 Baso # (Auto) 0.06 Immature Gran # (Auto) 0.15 H Sodium 130 L Potassium 3.5 Chloride 92 L Carbon Dioxide 31 Anion Gap 7 BUN 20 Creatinine 1.00 Est Cr Clr Drug Dosing 100.6 Est GFR ( Amer) 89.9 Est GFR (Non-Af Amer) 77.5 BUN/Creatinine Ratio 20.0 Glucose 150 H Calcium 8.5 Magnesium 1.6 L C-Reactive Protein 2.65 H PG Care Time/CCT Total # of Minutes Spent Total Time Spent with Patient: Total time spent is greater than 50% in coordination of care (as documented) at patient's floor/unit and/or counseling patient: Coding Level of Care Code 83685 Subseq Hosp Care Lvl 3 Diagnoses Acute respiratory failure with hypoxia and hypercapnia J96.01; J96.02 Multifocal pneumonia J18.9 Acute hyponatremia E87.1 Elevated troponin R77.8 Hepatitis C antibody test positive R76.8 Acute diastolic CHF (congestive heart failure) I50.31 Morbid obesity with BMI of 40.0-44.9, adult E66.01; Z68.41 DVT prophylaxis Z29.9 Rash R21
[2022-07-18] MEDS: ENOXAPARIN INJ 40 MG/0.4 ML SYR SQ SCH ×2 (17:00→22:06)
[2022-07-18] MEDS: MAGNESIUM SULFATE / D5W 1 GM/100 ML BAG IV SCH ×2 (17:03→19:28)
[2022-07-18] MEDS: TRIFLUOPERAZINE HCL 5 MG TABLET PO SCH (19:09)
[2022-07-18] MEDS: LATANOPROST 0.005% OP SOLN 2.5 ML BTL OP SCH (22:09)
[2022-07-18] MEDS: FEXOFENADINE 60 MG TAB PO SCH (22:10)
[2022-07-19 07:06] LABS: BUN Creatinine Ratio 19.8 (10-20); Calcium 8.6 mg/dl (8.5-10.1); Creatinine Clr Calc Pharmacy 104.8 ml/min; Est GFR (African American) 94.4 ml/min; Est GFR (Non-African American) 81.5 ml/min; Magnesium 1.9 mg/dl (1.7-2.4); Potassium 3.8 mmol/L (3.5-5.1)
[2022-07-19] MEDS ORDERED: POTASSIUM CHLORIDE CRTAB 20 MEQ TABCR PO STA (08:26)
[2022-07-19] MEDS ORDERED: FUROSEMIDE 40 MG/4 ML VIAL IV ONE (08:26)
[2022-07-19] MEDS: ACETAMINOPHEN 500 MG TAB PO PRN ×3 (08:56→21:38)
[2022-07-19] MEDS: guaiFENesin 600 MG TABCR PO SCH ×2 (08:59→20:39)
[2022-07-19] MEDS: DORZOLAMIDE/TIMOLOL 22.3/6.8MG/ML 10 ML BTL OP SCH ×2 (09:00→20:41)
[2022-07-19] MEDS: FEXOFENADINE 60 MG TAB PO SCH ×2 (09:01→20:42)
[2022-07-19] MEDS: TRIFLUOPERAZINE HCL 5 MG TABLET PO SCH (09:01)
[2022-07-19] MEDS: METOPROLOL TARTRATE 25 MG TAB PO SCH ×2 (10:52→20:38)
[2022-07-19] MEDS: FAMOTIDINE 20 MG TAB PO SCH ×2 (10:52→20:38)
[2022-07-19] MEDS: ENOXAPARIN INJ 40 MG/0.4 ML SYR SQ SCH ×2 (10:52→20:40)
[2022-07-19] MEDS ORDERED: predniSONE 20 MG TAB PO STA (13:44)
--- NOTE | 2022-07-19 19:20 | Hospitalist Progress Note ---
Date of Service July 19, 2022 Assessment & Plan (1) Acute respiratory failure with hypoxia and hypercapnia: Plan: 2nd to multifocal b/l pneumonia. may have element of acute diastolic CHF as well. has completed full 7-day course of rocephin and 5-day course of zithromax. was intubated early in the admission and required ICU stay. now on NC O2 and continues to improve. continue diuresis with IV lasix. (2) Multifocal pneumonia: Plan: completed full course of rocephin/zithromax was intubated early in his stay; now weaning O2 via NC bronch culture with aspergillus -- felt to be colonization per pulmonary Procalcitonin negative Biofire negative Coag neg staph in blood 1/2 (staph epidermidis on PCR) - likely contaminant, repeat blood cultures were negative clinically resolving/resolved (3) Acute hyponatremia: Plan: marked improvement was 119 early in admission now 133 today has improved with diuretics and fluid restriction during his stay give additional lasix today IV and repeat BMP am (4) Elevated troponin: Plan: Secondary to demand ischemia, ACS not suspected TTE relatively unremarkable with LVEF 65-70% and no regional wall abnormalities (5) Hepatitis C antibody test positive: Plan: Preliminary positive HCV RNA negative thus, ab is reflective of old, cleared infection (6) Acute diastolic CHF (congestive heart failure): Plan: lasix 40mg IV x 1 this am likely to need repeat lasix again in am if BMP is stable (7) Morbid obesity with BMI of 40.0-44.9, adult: Plan: BMI 43 (8) DVT prophylaxis: Plan: lovenox 40mg BID (9) Rash: Plan: suspected drug reaction based on appearance recent rocephin? other med? difficult to say because the rash wasn't noted until he was off the rocephin will give prednisone 40mg x 1 again today cont shaun 60mg BID for itching re-eval tomorrow to see if 1 final dose of prednisone is needed Plan Patient is on Tegretol and Stelazine antipsychotic. Schizoaffective d/o? needs placement for rehab d/c chet in am - has been in 10+ days Admission and Anticipated Discharge Date Admission Date: July 09, 2022 Subjective patient feels better today overall denies significant cough or dyspnea pruritis from rash is improved eating well no new complaints Review of Systems Review of Systems: gen - no fevers or chills cv - no cp pulm - no dyspnea at rest GI - no nausea/emesis skin - rash improved overnight Physical Exam Physical Exam: gen - morbidly obese, NAD mouth - MMM neck - due to neck size difficulty to assess JVD heart - RRR, s1 s2, no murmur lungs - mild rales b/l ; wheezes resolved today abd - soft NT ND BS+ ext - <1+ edema b/l, pulses 2+ b/l psych - flat affect skin - erythematous papules and macules over back, lower abdomen, upper legs -- all improved today, rash less conspicuous Results & Data Results & Data ([facility]) Vital Signs (Past 12 Hours) Vital Signs Temp Pulse Resp BP BP Pulse Ox O2 Del Method 07/19/22 16:06 37.0 C 67 20 168/95 H 97 Nasal Cannula 07/19/22 07:30 Nasal Cannula 07/19/22 07:48 36.6 C 80 20 172/76 H 96 Nasal Cannula O2 Flow Rate 07/19/22 16:06 2 07/19/22 07:30 2 07/19/22 07:48 2 Laboratory Results Laboratory Results - last 24 hr 07/19/22 05:48 Sodium 133 L Potassium 3.8 Chloride 94 L Carbon Dioxide 33 H Anion Gap 6 BUN 19 Creatinine 0.96 Est Cr Clr Drug Dosing 104.8 Est GFR ( Amer) 94.4 Est GFR (Non-Af Amer) 81.5 BUN/Creatinine Ratio 19.8 Glucose 94 Calcium 8.6 Magnesium 1.9 PG Care Time/CCT Total # of Minutes Spent Total Time Spent with Patient: Total time spent is greater than 50% in coordination of care (as documented) at patient's floor/unit and/or counseling patient: Coding Level of Care Code 34094 Subseq Hosp Care Lvl 2 Diagnoses Acute respiratory failure with hypoxia and hypercapnia J96.01; J96.02 Multifocal pneumonia J18.9 Acute hyponatremia E87.1 Elevated troponin R77.8 Hepatitis C antibody test positive R76.8 Acute diastolic CHF (congestive heart failure) I50.31 Morbid obesity with BMI of 40.0-44.9, adult E66.01; Z68.41 DVT prophylaxis Z29.9 Rash R21
[2022-07-19] MEDS: LATANOPROST 0.005% OP SOLN 2.5 ML BTL OP SCH (20:42)
[2022-07-19] MEDS: LIDOCAINE 5% 1 PATCH TD SCH (22:30)
[2022-07-20] MEDS: DORZOLAMIDE/TIMOLOL 22.3/6.8MG/ML 10 ML BTL OP SCH ×2 (08:23→20:55)
[2022-07-20 08:51] LABS: BUN Creatinine Ratio 21.5 (10-20); Creatinine Clr Calc Pharmacy 108.1 ml/min; Est GFR (African American) 98.1 ml/min; Est GFR (Non-African American) 84.6 ml/min; Magnesium 1.7 mg/dl (1.7-2.4); Potassium 4.1 mmol/L (3.5-5.1)
[2022-07-20] MEDS: guaiFENesin 600 MG TABCR PO SCH ×2 (09:15→20:52)
[2022-07-20] MEDS: METOPROLOL TARTRATE 25 MG TAB PO SCH ×2 (09:16→20:56)
[2022-07-20] MEDS: ENOXAPARIN INJ 40 MG/0.4 ML SYR SQ SCH ×2 (09:16→20:50)
[2022-07-20] MEDS: TRIFLUOPERAZINE HCL 5 MG TABLET PO SCH (09:17)
[2022-07-20] MEDS: FAMOTIDINE 20 MG TAB PO SCH ×2 (09:17→20:55)
[2022-07-20] MEDS: FEXOFENADINE 60 MG TAB PO SCH ×2 (09:17→20:55)
[2022-07-20] MEDS: LIDOCAINE 5% 1 PATCH TD SCH (09:18)
[2022-07-20] MEDS ORDERED: FUROSEMIDE 40 MG TAB PO ONE (10:30)
[2022-07-20] MEDS: levoFLOXacin 750 MG TAB PO SCH (11:31)
--- NOTE | 2022-07-20 15:02 | Hospitalist Progress Note ---
Date of Service July 20, 2022 Assessment & Plan (1) Acute respiratory failure with hypoxia and hypercapnia: Plan: 2nd to multifocal b/l pneumonia. may have element of acute diastolic CHF as well. has completed full 7-day course of rocephin and 5-day course of zithromax. was intubated early in the admission and required ICU stay. now on NC O2 and continues to improve. Will give additional course of levofloxacin and continue on oral Lasix therapy (2) Multifocal pneumonia: Plan: completed full course of rocephin/zithromax was intubated early in his stay; now weaning O2 via NC bronch culture with aspergillus -- felt to be colonization per pulmonary Procalcitonin negative Biofire negative Coag neg staph in blood 1/2 (staph epidermidis on PCR) - likely contaminant, repeat blood cultures were negative Improving but will complete 7 additional days of oral levofloxacin for multifocal pneumonia and persistent hypoxemia (3) Acute hyponatremia: Plan: marked improvement was 119 early in admission now 133 today has improved with diuretics and fluid restriction during his stay Follow BMP daily Lasix orally (4) Elevated troponin: Plan: Secondary to demand ischemia, ACS not suspected TTE relatively unremarkable with LVEF 65-70% and no regional wall abnormalities (5) Hepatitis C antibody test positive: Plan: Preliminary positive HCV RNA negative thus, ab is reflective of old, cleared infection (6) Acute diastolic CHF (congestive heart failure): Plan: Patient appears euvolemic although chest x-ray changes were concerning the 25th we will continue oral daily Lasix therapy (7) Morbid obesity with BMI of 40.0-44.9, adult: Plan: BMI 43 (8) DVT prophylaxis: Plan: lovenox 40mg BID (9) Rash: Plan: suspected drug reaction based on appearance recent rocephin? other med? difficult to say because the rash wasn't noted until he was off the rocephin will give prednisone cont shaun 60mg BID for itching Rash has resolved completely Plan Patient is on Tegretol and Stelazine antipsychotic. Schizoaffective d/o? needs placement for rehab d/c chet in am - has been in 10+ days Admission and Anticipated Discharge Date Admission Date: July 09, 2022 Subjective patient feels better overall denies significant cough or dyspnea eating well no new complaints Review of Systems Review of Systems: Mild distress and fatigue no headache, no visual changes no speech or swallowing issues no chest pain, pressure or palpitations shortness of breath, loose cough coarse breath sounds no abdominal pain, nausea or vomiting, diarrhea or constipation no dysuria, hematuria or frequency no focal joint pain or swelling no back pain, CVA tenderness or radicular pain no bruising, bleeding or rashes no focal signs of weakness or numbness or altered sensation Pt has unusual affect Physical Exam Physical Exam: The patient appeared comfortable though intubated Vital signs as documented. Head exam is normocephalic atraumatic Neck is without JVD, thyromegaly, or carotid bruits. Lungs are coarse bilateral breath sounds improved after bronchoscopy, less tachypneic Cardiac exam, Rhythm is regular.. Systolic ejection murmur is heard Abdominal exam reveals normal bowel sounds, soft non tender, no masses Extremities are nonedematous and both pedal pulses are present Neurologic exam is alert and oriented, no focal loss of strength or sensation Skin is without bruises or rashes Results & Data Results & Data ([facility]) Vital Signs (Past 12 Hours) Vital Signs Temp Pulse Resp BP Pulse Ox O2 Del Method O2 Flow Rate 07/20/22 08:34 Nasal Cannula 2 07/20/22 07:42 98.1 F 73 20 184/89 H 93 Nasal Cannula 1 PG Care Time/CCT Total # of Minutes Spent Total Time Spent with Patient: Total time spent is greater than 50% in coordination of care (as documented) at patient's floor/unit and/or counseling patient: Coding Level of Care Code 89010 Subseq Hosp Care Lvl 2 Diagnoses Acute respiratory failure with hypoxia and hypercapnia J96.01; J96.02 Multifocal pneumonia J18.9 Acute hyponatremia E87.1 Elevated troponin R77.8 Hepatitis C antibody test positive R76.8 Acute diastolic CHF (congestive heart failure) I50.31 Morbid obesity with BMI of 40.0-44.9, adult E66.01; Z68.41 DVT prophylaxis Z29.9 Rash R21
[2022-07-20] MEDS: ACETAMINOPHEN 500 MG TAB PO PRN (15:38)
[2022-07-20] MEDS: LATANOPROST 0.005% OP SOLN 2.5 ML BTL OP SCH (20:55)
[2022-07-21] MEDS: DORZOLAMIDE/TIMOLOL 22.3/6.8MG/ML 10 ML BTL OP SCH ×2 (08:40→20:21)
[2022-07-21] MEDS: ENOXAPARIN INJ 40 MG/0.4 ML SYR SQ SCH ×2 (08:41→20:21)
[2022-07-21] MEDS: LIDOCAINE 5% 1 PATCH TD SCH (08:41)
[2022-07-21] MEDS: FEXOFENADINE 60 MG TAB PO SCH ×2 (08:42→20:22)
[2022-07-21] MEDS: guaiFENesin 600 MG TABCR PO SCH ×2 (08:42→20:22)
[2022-07-21] MEDS: FUROSEMIDE 40 MG TAB PO SCH (08:42)
[2022-07-21] MEDS: METOPROLOL TARTRATE 25 MG TAB PO SCH ×2 (08:42→20:22)
[2022-07-21] MEDS: FAMOTIDINE 20 MG TAB PO SCH ×2 (08:43→20:22)
[2022-07-21] MEDS: TRIFLUOPERAZINE HCL 5 MG TABLET PO SCH (08:43)
[2022-07-21] MEDS: levoFLOXacin 750 MG TAB PO SCH (12:37)
--- NOTE | 2022-07-21 15:29 | Hospitalist Progress Note ---
Date of Service July 21, 2022 Assessment & Plan (1) Acute respiratory failure with hypoxia and hypercapnia: Plan: 2nd to multifocal b/l pneumonia. may have element of acute diastolic CHF as well. has completed full 7-day course of rocephin and 5-day course of zithromax. was intubated early in the admission and required ICU stay. now on NC O2 and continues to improve. Continue on additional course of levofloxacin and oral Lasix therapy (2) Multifocal pneumonia: Plan: completed full course of rocephin/zithromax was intubated early in his stay; now weaning O2 via NC bronch culture with aspergillus -- felt to be colonization per pulmonary Procalcitonin negative Biofire negative Coag neg staph in blood 1/2 (staph epidermidis on PCR) - likely contaminant, repeat blood cultures were negative Improving but will complete 7 additional days of oral levofloxacin for multifocal pneumonia and persistent hypoxemia (3) Acute hyponatremia: Plan: marked improvement was 119 early in admission most recently 132 has improved with diuretics and fluid restriction during his stay Follow BMP intermittentlly Lasix as above (4) Elevated troponin: Plan: Secondary to demand ischemia, ACS not suspected TTE relatively unremarkable with LVEF 65-70% and no regional wall abnormalities (5) Hepatitis C antibody test positive: Plan: Preliminary positive HCV RNA negative thus, ab is reflective of old, cleared infection (6) Acute diastolic CHF (congestive heart failure): Plan: Patient appears euvolemic although chest x-ray changes were concerning the 25th we will continue oral daily Lasix therapy (7) Morbid obesity with BMI of 40.0-44.9, adult: Plan: BMI 43 (8) DVT prophylaxis: Plan: lovenox 40mg BID (9) Rash: Plan: suspected drug reaction based on appearance recent rocephin? other med? difficult to say because the rash wasn't noted until he was off the rocephin prior course of prednisone cont shaun 60mg BID for itching Rash has resolved completely Plan Patient is on Tegretol and Stelazine antipsychotic. Schizoaffective d/o? Medically stable for discharge. Pending placement at this time. Will need psychiatry consult for [facility]. Admission and Anticipated Discharge Date Admission Date: July 09, 2022 Subjective No acute concerns or questions from patient. Awaiting placement at this time. Review of Systems Review of Systems: All systems reviewed & are unremarkable except as noted in Subjective Physical Exam Constitutional: WD/WN, vitals as above Neck: trachea midline, no thyromegaly Respiratory: normal respiratory effort, lungs clear to auscultation Cardiovascular: RRR, no murmur, no edema Psychiatric: A+Ox3, euthymic affect Results & Data Results & Data ([facility]) Vital Signs (Past 12 Hours) Vital Signs Temp Pulse Resp BP Pulse Ox O2 Del Method O2 Flow Rate 07/21/22 15:23 36.6 C 67 20 153/83 H 95 Nasal Cannula 2 07/21/22 07:34 36.2 C L 68 22 165/97 H 97 Nasal Cannula 2 PG Care Time/CCT Total # of Minutes Spent Total Time Spent with Patient: Total time spent is greater than 50% in coordination of care (as documented) at patient's floor/unit and/or counseling patient: Coding Level of Care Code 65737 Subseq Hosp Care Lvl 1 Diagnoses Acute respiratory failure with hypoxia and hypercapnia J96.01; J96.02 Multifocal pneumonia J18.9 Acute hyponatremia E87.1 Elevated troponin R77.8 Hepatitis C antibody test positive R76.8 Acute diastolic CHF (congestive heart failure) I50.31 Morbid obesity with BMI of 40.0-44.9, adult E66.01; Z68.41 DVT prophylaxis Z29.9 Rash R21
[2022-07-21] MEDS: LATANOPROST 0.005% OP SOLN 2.5 ML BTL OP SCH (20:21)
[2022-07-21] MEDS: LORazepam 0.5 MG TAB PO PRN (23:26)
[2022-07-22] MEDS: LIDOCAINE 5% 1 PATCH TD SCH (09:33)
[2022-07-22] MEDS: TRIFLUOPERAZINE HCL 5 MG TABLET PO SCH (09:34)
[2022-07-22] MEDS: ENOXAPARIN INJ 40 MG/0.4 ML SYR SQ SCH ×2 (09:34→20:39)
[2022-07-22] MEDS: guaiFENesin 600 MG TABCR PO SCH ×2 (09:34→20:40)
[2022-07-22] MEDS: FEXOFENADINE 60 MG TAB PO SCH ×2 (09:34→20:40)
[2022-07-22] MEDS: METOPROLOL TARTRATE 25 MG TAB PO SCH ×2 (09:34→20:46)
[2022-07-22] MEDS: DORZOLAMIDE/TIMOLOL 22.3/6.8MG/ML 10 ML BTL OP SCH ×2 (09:34→20:38)
[2022-07-22] MEDS: FAMOTIDINE 20 MG TAB PO SCH ×2 (09:34→20:39)
[2022-07-22] MEDS: levoFLOXacin 750 MG TAB PO SCH (10:21)
[2022-07-22] MEDS: FUROSEMIDE 40 MG TAB PO SCH (10:21)
--- NOTE | 2022-07-22 10:35 | Psychiatric Consultation ---
Date of Consultation July 22, 2022 Impression / Recommendations Impression 66 yo man with history of schizophrenia, has been apparently stable for many years via outpatient treatment on carbamazepine and Stelazine. He is psychiatrically stable for transfer to a snf facility for subacute rehab. There is no acute indication for inpatient psychiatric hospitalization as the patient is not suicidal or homicidal; there is no evidence of psychosis nor psychiatric symptoms interfering with their ability to care for their basic needs. Psychiatric follow-up care for this patient should include ongoing management of their medications. Cannot confirm last appointment as currently weekend but it appears he has been following with his PCP and in past at [facility] with Dr. Dominique. (1) Schizophrenia: Plan -Stable for transfer once placement identified Psych History Identifying Data 66 yo man with schizophrenia admitted medically with acute respiratory failure. Psychiatry consulted for evaluation of appropriateness of subacute rehab placement. Chief Complaint "I'm ok, just a little sleepy". History of Present Illness Fabian states his mood is stable. Denies any SI, HI, auditory hallucinations nor visual hallucinations nor delusions. Fully oriented and understands and agrees with plan for subacute rehab for ongoing PT. Recalls seeing Dr. Riley in past through [facility], cannot recall seeing Dr. Dominique, though per external med rec Dr. Dominique refilled his carbamazepine and stelazine through March 2022. He denies any prior suicide attempts. Had one prior inpt psych hospitalization in 1986. feels his medications work well and denies any side effects from these. Allergies Allergy/AdvReac Type Severity Reaction Status Date / Time aspirin Allergy Verified 11/05/20 13:55 Penicillins Allergy Verified 11/05/20 13:55 Home Medications Medication Instructions Recorded Confirmed Type carbamazepine 200 mg tablet mg PO BID 10/12/19 11/05/20 History trifluoperazine 5 mg tablet 5 mg PO DAILY 10/12/19 07/09/22 History glucosamine-chondroitin [Osteo PO 10/31/19 11/05/20 History Bi-Flex] saw palmetto PO BID 10/31/19 11/05/20 History mupirocin 2 % topical ointment 1 appln topical .COMPLEX #30 grams 01/26/20 11/05/20 Rx coenzyme Q10 10 mg capsule (Co 10 mg PO BID 11/05/20 11/05/20 History Q-10) dorzolamide 22.3 mg-timolol 6.8 07/09/22 History mg/mL eye drops latanoprost 0.005 % eye drops drp 07/09/22 History Personal History Beliefs That Will Affect Care: None Patient History Medical History (Updated 07/22/22 @ 14:01 by Tomasa House MD) Acute diastolic CHF (congestive heart failure) Hyperlipidemia Hypotension (arterial) Morbid obesity due to excess calories Schizophrenia Surgical History S/P tooth extraction Family History Father Prostate cancer Mother Dementia Denies family history of Ovarian cancer Myocardial infarction Breast cancer Colorectal cancer Social History Smoking Status: Current every day smoker Age Started Using Tobacco: 25; packs per day: 0.5; Years Smoked: 39; Cigarettes Per Day: 6; Second Hand Exposure: No; Hx Alcohol Use: No Hx Substance Use: No Preferred Language: Turkmen Communication Ability: Unable Communication Tools: Letter Board and Picture Board Visual Impairment: No Limitations Hearing Ability: Normal Operations 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 Assistant 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: Yes Beliefs That Will Affect Care: None marital status: Single Current Living Situation: Alone Current Living Situation Comment: [facility] in [facility] current occupational status: disabled Feels Safe at Home: Yes Childhood Exposure to Second-Hand Smoke: Yes Dental Care, Regularly: No Physical Activity Frequency: Daily Physical Activity Frequency Comment: walks 60 minutes Seatbelt Use: always Sunscreen Use: No Assistive Devices: None Physical Exam Psychiatric: Orientation: alert and oriented x 3 Apperance: appropriately dressed and appropriately groomed Eye Contact: good eye contact Motor Behavior: no abnormal motor movements Speech: normal rate/rhythm/volume of speech Affect: euthymic affect Mood: no depressed mood and no anxious mood Thought Process: linear/logical thought process Thought Content: reality based without delusions Suicidal Thoughts: denies suicidal thoughts Homicidal Thoughts: denies homicidal thoughts Hallucinations: no auditory hallucinations and no visual hallucinations Cognition: recent memory grossly intact, remote memory grossly intact, attention grossly intact and language grossly intact Estimated Intelligence: consistent with education level Insight: + limited insight Judgement: + fair judgement Vital Signs (Past 24 Hours): Last Vital Signs Temp 36.8 C 07/22/22 07:16 Pulse 73 07/22/22 07:16 Resp 20 07/22/22 07:16 BP 147/73 H 07/22/22 07:16 Pulse Ox 96 07/22/22 07:16 O2 Del Method 07/22/22 07:16 O2 Flow Rate 2 07/22/22 07:16 FiO2 30 07/13/22 08:31 Review of Systems All systems reviewed & are unremarkable except as noted in HPI & below Results & Data (PSY) Medications Administered Acetaminophen (Acetaminophen 500 Mg Tab) 1,000 mg PO Q6H PRN PRN Reason: Moderate Pain Stop: 08/12/22 09:38 Last Admin: 07/20/22 15:38 Dose: 1,000 mg Documented By: Admin: 07/19/22 21:38 Dose: 1,000 mg Documented By: Admin: 07/19/22 15:00 Dose: 1,000 mg Documented By: Admin: 07/19/22 08:56 Dose: 1,000 mg Documented By: Admin: 07/18/22 23:10 Dose: 1,000 mg Documented By: Admin: 07/18/22 17:16 Dose: 1,000 mg Documented By: Admin: 07/18/22 08:16 Dose: 1,000 mg Documented By: Admin: 07/17/22 18:51 Dose: 1,000 mg Documented By: Admin: 07/17/22 05:14 Dose: 1,000 mg Documented By: Admin: 07/16/22 14:59 Dose: 1,000 mg Documented By: Admin: 07/16/22 06:26 Dose: 1,000 mg Documented By: Admin: 07/15/22 21:47 Dose: 1,000 mg Documented By: Admin: 07/15/22 15:54 Dose: 1,000 mg Documented By: T Admin: 07/15/22 09:13 Dose: 1,000 mg Documented By: Admin: 07/14/22 21:20 Dose: 1,000 mg Documented By: Admin: 07/13/22 20:51 Dose: 1,000 mg Documented By: Admin: 07/13/22 12:19 Dose: 1,000 mg Documented By: [id number] Al Hydrox/Mg Hydrox/Simethicone (Aluminum/Magnesium Susp 30 Ml Udc) 30 ml PO Q6H PRN PRN Reason: Dyspepsia Stop: 08/13/22 08:53 Last Admin: 07/14/22 09:32 Dose: 30 ml Documented By: Albuterol (Albut/Ipratrop 3mg/0.5mg Neb 3 Ml Vial) 3 ml INH Q4R PRN PRN Reason: Dyspnea Stop: 08/08/22 13:20 Last Admin: 07/11/22 11:41 Dose: 3 ml Documented By: Admin: 07/11/22 05:44 Dose: 3 ml Documented By: Admin: 07/10/22 11:52 Dose: 3 ml Documented By: BINTA Carbamazepine (Carbamazepine 100 Mg Tabcr) 100 mg PO BID ELIZABETH Stop: 08/12/22 20:59 Last Admin: 07/22/22 09:34 Dose: 100 mg Documented By: Admin: 07/21/22 20:22 Dose: 100 mg Documented By: Admin: 07/21/22 08:42 Dose: 100 mg Documented By: Admin: 07/20/22 20:55 Dose: 100 mg Documented By: Admin: 07/20/22 09:15 Dose: 100 mg Documented By: Admin: 07/19/22 20:38 Dose: 100 mg Documented By: Admin: 07/19/22 08:59 Dose: 100 mg Documented By: Admin: 07/18/22 22:08 Dose: 100 mg Documented By: Admin: 07/18/22 08:17 Dose: 100 mg Documented By: Admin: 07/17/22 20:11 Dose: 100 mg Documented By: Admin: 07/17/22 08:05 Dose: 100 mg Documented By: Admin: 07/16/22 19:33 Dose: 100 mg Documented By: Admin: 07/16/22 09:14 Dose: 100 mg Documented By: Admin: 07/15/22 21:46 Dose: 100 mg Documented By: Admin: 07/15/22 09:14 Dose: 100 mg Documented By: Admin: 07/14/22 21:18 Dose: 100 mg Documented By: Admin: 07/14/22 09:36 Dose: 100 mg Documented By: Admin: 07/13/22 20:51 Dose: 100 mg Documented By: SHIKHA Dorzolamide/Timolol (Dorzolamide/Timolol 22.3/6.8mg/Ml 10 Ml Btl) 1 drops OP BID ELIZABETH Stop: 08/10/22 20:59 Last Admin: 07/22/22 09:34 Dose: 1 drops Documented By: Admin: 07/21/22 20:21 Dose: 1 drops Documented By: Admin: 07/21/22 08:40 Dose: 1 drops Documented By: Admin: 07/20/22 20:55 Dose: 1 drops Documented By: Admin: 07/20/22 08:23 Dose: 1 drops Documented By: Admin: 07/19/22 20:41 Dose: 1 drops Documented By: Admin: 07/19/22 09:00 Dose: 1 drops Documented By: Admin: 07/18/22 22:09 Dose: 1 drops Documented By: Admin: 07/18/22 08:22 Dose: 1 drops Documented By: Admin: 07/17/22 20:12 Dose: 1 drops Documented By: Admin: 07/17/22 08:06 Dose: 1 drops Documented By: Admin: 07/16/22 19:34 Dose: 1 drops Documented By: Admin: 07/16/22 09:15 Dose: 1 drops Documented By: Admin: 07/15/22 21:45 Dose: 1 drops Documented By: Admin: 07/15/22 09:15 Dose: 1 drops Documented By: Admin: 07/14/22 21:17 Dose: 1 drops Documented By: Admin: 07/14/22 10:35 Dose: 1 drops Documented By: Admin: 07/13/22 20:53 Dose: 1 drops Documented By: Admin: 07/13/22 08:47 Dose: 1 drops Documented By: [id number] Admin: 07/12/22 20:26 Dose: 1 drops Documented By: Admin: 07/12/22 11:05 Dose: 1 drops Documented By: Admin: 07/11/22 20:53 Dose: 1 drops Documented By: TG Enoxaparin Sodium (Enoxaparin Inj 40 Mg/0.4 Ml Syr) 40 mg SQ BID ELIZABETH Stop: 08/10/22 20:59 Last Admin: 07/22/22 09:34 Dose: 40 mg Documented By: Admin: 07/21/22 20:21 Dose: 40 mg Documented By: Admin: 07/21/22 08:41 Dose: 40 mg Documented By: Admin: 07/20/22 20:50 Dose: 40 mg Documented By: Admin: 07/20/22 09:16 Dose: 40 mg Documented By: Admin: 07/19/22 20:40 Dose: 40 mg Documented By: Admin: 07/19/22 10:52 Dose: 40 mg Documented By: Admin: 07/18/22 22:06 Dose: 40 mg Documented By: Admin: 07/18/22 17:00 Dose: 40 mg Documented By: Admin: 07/17/22 20:16 Dose: Not Given Documented By: Admin: 07/17/22 08:06 Dose: Not Given Documented By: Admin: 07/16/22 19:37 Dose: Not Given Documented By: Admin: 07/16/22 09:14 Dose: Not Given Documented By: Admin: 07/15/22 21:44 Dose: Not Given Documented By: Admin: 07/15/22 09:03 Dose: Not Given Documented By: Admin: 07/14/22 21:19 Dose: Not Given Documented By: Admin: 07/14/22 10:34 Dose: Not Given Documented By: Admin: 07/13/22 20:59 Dose: Not Given Documented By: Admin: 07/13/22 08:46 Dose: Not Given Documented By: [id number] Admin: 07/12/22 20:26 Dose: Not Given Documented By: Admin: 07/12/22 11:04 Dose: 40 mg Documented By: Admin: 07/11/22 21:17 Dose: Not Given Documented By: TG Famotidine (Famotidine 20 Mg Tab) 20 mg PO BID ELIZABETH Stop: 08/13/22 08:59 Last Admin: 07/22/22 09:34 Dose: 20 mg Documented By: Admin: 07/21/22 20:22 Dose: 20 mg Documented By: Admin: 07/21/22 08:43 Dose: 20 mg Documented By: Admin: 07/20/22 20:55 Dose: 20 mg Documented By: Admin: 07/20/22 09:17 Dose: 20 mg Documented By: Admin: 07/19/22 20:38 Dose: 20 mg Documented By: Admin: 07/19/22 10:52 Dose: 20 mg Documented By: Admin: 07/18/22 22:09 Dose: 20 mg Documented By: Admin: 07/18/22 08:18 Dose: 20 mg Documented By: Admin: 07/17/22 20:11 Dose: 20 mg Documented By: Admin: 07/17/22 08:06 Dose: 20 mg Documented By: Admin: 07/16/22 19:33 Dose: 20 mg Documented By: Admin: 07/16/22 09:14 Dose: 20 mg Documented By: Admin: 07/15/22 21:45 Dose: 20 mg Documented By: Admin: 07/15/22 09:14 Dose: 20 mg Documented By: Admin: 07/14/22 21:18 Dose: 20 mg Documented By: Admin: 07/14/22 09:36 Dose: 20 mg Documented By: Fexofenadine HCl (Fexofenadine 60 Mg Tab) 60 mg PO BID ELIZABETH Stop: 08/17/22 20:59 Last Admin: 07/22/22 09:34 Dose: 60 mg Documented By: Admin: 07/21/22 20:22 Dose: 60 mg Documented By: Admin: 07/21/22 08:42 Dose: 60 mg Documented By: Admin: 07/20/22 20:55 Dose: 60 mg Documented By: Admin: 07/20/22 09:17 Dose: 60 mg Documented By: Admin: 07/19/22 20:42 Dose: 60 mg Documented By: Admin: 07/19/22 09:01 Dose: 60 mg Documented By: Admin: 07/18/22 22:10 Dose: 60 mg Documented By: TRISTA Furosemide (Furosemide 40 Mg Tab) 40 mg PO QAM ELIZABETH Stop: 08/20/22 08:59 Last Admin: 07/22/22 10:21 Dose: 40 mg Documented By: Admin: 07/21/22 08:42 Dose: 40 mg Documented By: LINA Guaifenesin (Guaifenesin 600 Mg Tabcr) 1,200 mg PO Q12 ELIZABETH Stop: 08/13/22 08:59 Last Admin: 07/22/22 09:34 Dose: 1,200 mg Documented By: Admin: 07/21/22 20:22 Dose: 1,200 mg Documented By: Admin: 07/21/22 08:42 Dose: 1,200 mg Documented By: Admin: 07/20/22 20:52 Dose: 1,200 mg Documented By: Admin: 07/20/22 09:15 Dose: 1,200 mg Documented By: Admin: 07/19/22 20:39 Dose: 1,200 mg Documented By: Admin: 07/19/22 08:59 Dose: 1,200 mg Documented By: Admin: 07/18/22 22:08 Dose: 1,200 mg Documented By: Admin: 07/18/22 08:19 Dose: 1,200 mg Documented By: Admin: 07/17/22 20:12 Dose: 1,200 mg Documented By: Admin: 07/17/22 08:05 Dose: 1,200 mg Documented By: Admin: 07/16/22 19:33 Dose: 1,200 mg Documented By: Admin: 07/16/22 09:15 Dose: 1,200 mg Documented By: Admin: 07/15/22 21:44 Dose: 1,200 mg Documented By: Admin: 07/15/22 09:14 Dose: 1,200 mg Documented By: Admin: 07/14/22 21:18 Dose: 1,200 mg Documented By: Admin: 07/14/22 09:37 Dose: 1,200 mg Documented By: Hydralazine HCl (Hydralazine Hcl 20 Mg/Ml Vial) 10 mg IV Q8 PRN PRN Reason: sbp>185 or dbp>95 Stop: 08/12/22 09:38 Last Admin: 07/13/22 09:57 Dose: 10 mg Documented By: [id number] Latanoprost (Latanoprost 0.005% Op Soln 2.5 Ml Btl) 1 drops OP HS ELIZABETH Stop: 08/10/22 20:59 Last Admin: 07/21/22 20:21 Dose: 1 drops Documented By: Admin: 07/20/22 20:55 Dose: 1 drops Documented By: Admin: 07/19/22 20:42 Dose: 1 drops Documented By: Admin: 07/18/22 22:09 Dose: 1 drops Documented By: Admin: 07/17/22 20:13 Dose: 1 drops Documented By: Admin: 07/16/22 19:47 Dose: 1 drops Documented By: Admin: 07/15/22 21:45 Dose: 1 drops Documented By: Admin: 07/14/22 21:17 Dose: 1 drops Documented By: Admin: 07/13/22 20:52 Dose: 1 drops Documented By: Admin: 07/12/22 20:26 Dose: 1 drops Documented By: Admin: 07/11/22 20:53 Dose: 1 drops Documented By: TINA Levofloxacin (Levofloxacin 750 Mg Tab) 750 mg PO DAILY@1100 ELIZABETH Stop: 07/27/22 10:59 Last Admin: 07/22/22 10:21 Dose: 750 mg Documented By: Admin: 07/21/22 12:37 Dose: 750 mg Documented By: Admin: 07/20/22 11:31 Dose: 750 mg Documented By: LINA Lidocaine (Lidocaine 5% 1 Patch) 3 patch TD DAILY ELIZABETH Stop: 08/18/22 18:29 Last Admin: 07/22/22 09:33 Dose: 3 patch Documented By: Admin: 07/21/22 08:41 Dose: 3 patch Documented By: Admin: 07/20/22 09:18 Dose: 3 patch Documented By: Admin: 07/19/22 22:30 Dose: 3 patch Documented By: TRISTA Lorazepam (Lorazepam 0.5 Mg Tab) 0.5 mg PO Q6 PRN PRN Reason: Anxiety Stop: 08/16/22 16:17 Last Admin: 07/21/22 23:26 Dose: 0.5 mg Documented By: ROSINA Metoprolol Tartrate (Metoprolol Tartrate 25 Mg Tab) 25 mg PO BID ELIZABETH Stop: 08/18/22 09:44 Last Admin: 07/22/22 09:34 Dose: 25 mg Documented By: Admin: 07/21/22 20:22 Dose: 25 mg Documented By: Admin: 07/21/22 08:42 Dose: 25 mg Documented By: Admin: 07/20/22 20:56 Dose: 25 mg Documented By: Admin: 07/20/22 09:16 Dose: 25 mg Documented By: Admin: 07/19/22 20:38 Dose: 25 mg Documented By: Admin: 07/19/22 10:52 Dose: 25 mg Documented By: HAFSA Miscellaneous (Remove Lidoderm Patch) 1 each N/A DAILY@2100 [facility] Stop: 08/19/22 00:00 Last Admin: 07/21/22 20:22 Dose: Not Given Documented By: Admin: 07/20/22 20:57 Dose: 1 each Documented By: Admin: 07/20/22 05:45 Dose: 1 each Documented By: SUSHIL Trifluoperazine HCl (Trifluoperazine Hcl 5 Mg Tablet) 5 mg PO DAILY [facility] Stop: 08/13/22 08:59 Last Admin: 07/22/22 09:34 Dose: 5 mg Documented By: Admin: 07/21/22 08:43 Dose: 5 mg Documented By: Admin: 07/20/22 09:17 Dose: 5 mg Documented By: Admin: 07/19/22 09:01 Dose: 5 mg Documented By: Admin: 07/18/22 19:09 Dose: 5 mg Documented By: Admin: 07/17/22 08:06 Dose: 5 mg Documented By: Admin: 07/16/22 09:15 Dose: 5 mg Documented By: Admin: 07/15/22 09:14 Dose: 5 mg Documented By: Admin: 07/14/22 10:51 Dose: 5 mg Documented By: Coding Level of Care Code 53908 Inpt Consult Level 3 Diagnoses Schizophrenia F20.9
--- NOTE | 2022-07-22 14:04 | Hospitalist Progress Note ---
Date of Service July 22, 2022 Assessment & Plan (1) Acute respiratory failure with hypoxia and hypercapnia: Plan: 2nd to multifocal b/l pneumonia. may have element of acute diastolic CHF as well. has completed full 7-day course of rocephin and 5-day course of zithromax. was intubated early in the admission and required ICU stay. now on NC O2 and continues to improve. Continue on additional course of levofloxacin and oral Lasix therapy Medically stable for discharge pending placement (2) Multifocal pneumonia: Plan: completed full course of rocephin/zithromax was intubated early in his stay; now weaning O2 via NC bronch culture with aspergillus -- felt to be colonization per pulmonary Procalcitonin negative Biofire negative Coag neg staph in blood 1/2 (staph epidermidis on PCR) - likely contaminant, repeat blood cultures were negative Improving but will complete 7 additional days of oral levofloxacin for multifocal pneumonia and persistent hypoxemia (3) Acute hyponatremia: Plan: marked improvement was 119 early in admission most recently 132 has improved with diuretics and fluid restriction during his stay Follow BMP intermittently Lasix as above (4) Elevated troponin: Plan: Secondary to demand ischemia, ACS not suspected TTE relatively unremarkable with LVEF 65-70% and no regional wall abnormalities (5) Hepatitis C antibody test positive: Plan: Preliminary positive HCV RNA negative thus, ab is reflective of old, cleared infection (6) Acute diastolic CHF (congestive heart failure): Plan: Patient appears euvolemic although chest x-ray changes were concerning the 25th we will continue oral daily Lasix therapy Repeat labs tomorrow (7) Morbid obesity with BMI of 40.0-44.9, adult: Plan: BMI 43 (8) DVT prophylaxis: Plan: lovenox 40mg BID (9) Rash: Plan: suspected drug reaction based on appearance recent rocephin? other med? difficult to say because the rash wasn't noted until he was off the rocephin prior course of prednisone cont shaun 60mg BID for itching Rash has resolved completely Plan Patient is on Tegretol and Stelazine antipsychotic. Schizoaffective d/o? Medically stable for discharge. Pending placement at this time. Appreciate psychiatry consult. Admission and Anticipated Discharge Date Admission Date: July 09, 2022 Subjective No acute concerns or questions from patient. Awaiting placement at this time. Review of Systems Review of Systems: All systems reviewed & are unremarkable except as noted in Subjective Physical Exam Constitutional: WD/WN, vitals as above Respiratory: normal respiratory effort Auscultation: + diminished lung sounds (bibasal); breath sounds present and no wheezes Cardiovascular: Rate/Rhythm: regular rate and regular rhythm Heart Sounds: no murmur Extremities: normal capillary refill and + pedal edema (1+ b/l LE); no calf tenderness Gastrointestinal (Abdomen): Percussion/Palpation: abdomen soft; abdomen nontender, no guarding and abdomen not rigid Skin: no rashes, warm and dry Neurologic: moves all extremities and awake; not confused Psychiatric: A+Ox3, euthymic affect Genitourinary: no CVA tenderness Results & Data Results & Data ([facility]) Vital Signs (Past 12 Hours) Vital Signs Temp Pulse Resp BP Pulse Ox O2 Del Method O2 Flow Rate 07/22/22 08:15 Nasal Cannula 2 07/22/22 07:16 36.8 C 73 20 147/73 H 96 Nasal Cannula 2 PG Care Time/CCT Total # of Minutes Spent Total Time Spent with Patient: Total time spent is greater than 50% in coordination of care (as documented) at patient's floor/unit and/or counseling patient: Coding Level of Care Code 93923 Subseq Hosp Care Lvl 1 Diagnoses Acute respiratory failure with hypoxia and hypercapnia J96.01; J96.02 Multifocal pneumonia J18.9 Acute hyponatremia E87.1 Elevated troponin R77.8 Hepatitis C antibody test positive R76.8 Acute diastolic CHF (congestive heart failure) I50.31 Morbid obesity with BMI of 40.0-44.9, adult E66.01; Z68.41 DVT prophylaxis Z29.9 Rash R21
[2022-07-22] MEDS: LATANOPROST 0.005% OP SOLN 2.5 ML BTL OP SCH (20:41)
[2022-07-22] MEDS: ACETAMINOPHEN 500 MG TAB PO PRN (20:47)
[2022-07-23] MEDS: LORazepam 0.5 MG TAB PO PRN ×2 (01:38→22:14)
[2022-07-23 07:36] LABS: Calcium 8.8 mg/dl (8.5-10.1); Creatinine Clr Calc Pharmacy 100.6 ml/min; Est GFR (African American) 89.9 ml/min; Est GFR (Non-African American) 77.5 ml/min; Magnesium 1.8 mg/dl (1.7-2.4); Potassium 4.6 mmol/L (3.5-5.1)
[2022-07-23] MEDS: FAMOTIDINE 20 MG TAB PO SCH ×2 (08:16→21:32)
[2022-07-23] MEDS: FEXOFENADINE 60 MG TAB PO SCH (08:16)
[2022-07-23] MEDS: guaiFENesin 600 MG TABCR PO SCH ×2 (08:16→21:33)
[2022-07-23] MEDS: ENOXAPARIN INJ 40 MG/0.4 ML SYR SQ SCH ×2 (08:16→21:32)
[2022-07-23] MEDS: TRIFLUOPERAZINE HCL 5 MG TABLET PO SCH (08:16)
[2022-07-23] MEDS: METOPROLOL TARTRATE 25 MG TAB PO SCH ×2 (08:16→21:34)
[2022-07-23] MEDS: DORZOLAMIDE/TIMOLOL 22.3/6.8MG/ML 10 ML BTL OP SCH ×2 (08:17→21:31)
[2022-07-23] MEDS: LIDOCAINE 5% 1 PATCH TD SCH (08:17)
[2022-07-23] MEDS: FUROSEMIDE 40 MG TAB PO SCH (08:17)
--- NOTE | 2022-07-23 10:56 | XRay Report ---
XR chest 2V PA/lateral CLINICAL HISTORY: hypoxia COMPARISON STUDY: Chest radiograph July 18, 2022. Chest CT July 09, 2022. FINDINGS: There is no pneumothorax or pleural effusion. Cardiomegaly is unchanged. Interstitial thick ening and bilateral airspace opacities are similar to prior exam. There is no lobar consolidation. Th e appearance of the chest is unchanged. IMPRESSION: Cardiomegaly. No change in interstitial thickening and bilateral airspace opacities whic h could reflect pulmonary edema or multifocal pneumonia. ACT 112: Negative or not required by law. Electronically signed by: Theo Phan M.D. 07/23/2022 10:54 AM
[2022-07-23] MEDS: levoFLOXacin 750 MG TAB PO SCH (11:45)
[2022-07-23] MEDS: ACETAMINOPHEN 500 MG TAB PO PRN ×2 (11:46→21:40)
--- NOTE | 2022-07-23 19:27 | Hospitalist Progress Note ---
Date of Service July 23, 2022 Assessment & Plan (1) Acute respiratory failure with hypoxia and hypercapnia: Plan: 2nd to multifocal b/l pneumonia. may have element of acute diastolic CHF as well. has completed full 7-day course of rocephin and 5-day course of zithromax. was intubated early in the admission and required ICU stay. now on NC O2 and continues to improve. Continue on additional course of levofloxacin and oral Lasix therapy Medically stable for discharge pending placement (2) Multifocal pneumonia: Plan: completed full course of rocephin/zithromax was intubated early in his stay; now weaning O2 via NC bronch culture with aspergillus -- felt to be colonization per pulmonary Procalcitonin negative Biofire negative Coag neg staph in blood 1/2 (staph epidermidis on PCR) - likely contaminant, repeat blood cultures were negative Improving but will complete 7 additional days of oral levofloxacin for multifocal pneumonia and persistent hypoxemia (3) Acute hyponatremia: Plan: marked improvement was 119 early in admission Reduced back to 125 today. Suspect due to overdiuresis. Chest x-ray appears unchanged today therefore do not suspect it is edema left on his chest x-ray rather resolving pneumonia. We will hold his Lasix and repeat BMP daily. Likely will need to go on a smaller dose of Lasix on discharge. If not improving will consider full work-up with serum osmolality, urine osmolality and sodium. (4) Elevated troponin: Plan: Secondary to demand ischemia, ACS not suspected TTE relatively unremarkable with LVEF 65-70% and no regional wall abnormalities (5) Hepatitis C antibody test positive: Plan: Preliminary positive HCV RNA negative thus, ab is reflective of old, cleared infection (6) Acute diastolic CHF (congestive heart failure): Plan: Patient appears euvolemic on exam. Hyponatremia now appears to be due to hypovolemia however with Lasix being given. Holding Lasix as above. (7) Morbid obesity with BMI of 40.0-44.9, adult: Plan: BMI 43 (8) DVT prophylaxis: Plan: lovenox 40mg BID (9) Rash: Plan: suspected drug reaction based on appearance recent rocephin? other med? difficult to say because the rash wasn't noted until he was off the rocephin prior course of prednisone cont shaun 60mg BID -can now discontinue unless itching returns. Rash has resolved completely Plan Patient is on Tegretol and Stelazine antipsychotic. Schizoaffective d/o? Medically stable for discharge. Pending placement at this time. Appreciate psychiatry consult. Admission and Anticipated Discharge Date Admission Date: July 09, 2022 Subjective No acute concerns or questions from the patient. Sodium decreased to 125 mmol/L. He denies any nausea, vomiting, new gait instability, confusion, sei zures. Review of Systems Review of Systems: All systems reviewed & are unremarkable except as noted in Subjective Physical Exam Constitutional: WD/WN, vitals as above Neck: trachea midline, no thyromegaly Respiratory: normal respiratory effort Auscultation: + diminished lung sounds (bibasal); breath sounds present, no crackles, no rales, no rhonchi and no wheezes Cardiovascular: Rate/Rhythm: regular rate and regular rhythm Heart Sounds: no murmur Extremities: normal capillary refill and + pedal edema (1+ b/l LE); no calf tenderness Gastrointestinal (Abdomen): Inspection/Auscultation: + hypoactive bowel sounds; abdomen not distended Percussion/Palpation: abdomen soft; abdomen nontender, no guarding and abdomen not rigid Skin: no rashes, warm and dry Neurologic: moves all extremities and awake; not confused Motor/Sensory: no pronator drift Psychiatric: A+Ox3, euthymic affect Results & Data Results & Data ([facility]) Vital Signs (Past 12 Hours) Vital Signs Temp Pulse Resp BP Pulse Ox O2 Del Method 07/23/22 15:28 36.9 C 66 18 179/99 H 98 Room Air PG Care Time/CCT Total # of Minutes Spent Total Time Spent with Patient: Total time spent is greater than 50% in coordination of care (as documented) at patient's floor/unit and/or counseling patient: Coding Level of Care Code 66948 Subseq Hosp Care Lvl 2 Diagnoses Acute respiratory failure with hypoxia and hypercapnia J96.01; J96.02 Multifocal pneumonia J18.9 Acute hyponatremia E87.1 Elevated troponin R77.8 Hepatitis C antibody test positive R76.8 Acute diastolic CHF (congestive heart failure) I50.31 Morbid obesity with BMI of 40.0-44.9, adult E66.01; Z68.41 DVT prophylaxis Z29.9 Rash R21
[2022-07-23] MEDS: LATANOPROST 0.005% OP SOLN 2.5 ML BTL OP SCH (21:33)
[2022-07-23] MEDS: lisinopril 10 MG TAB PO SCH (21:40)
[2022-07-24 07:19] LABS: Basophils # (auto) 0.09 K/uL (0-0.2); Basophils % (auto) 1.1 %; Eosinophils # (auto) 0.36 K/uL (0-0.50); Eosinophils % (auto) 4.5 %; Hematocrit (blood only) 34.4 % (40.1-51.0); Immature Granulocytes # (auto) 0.21 K/uL (0.00-0.02); Immature Granulocytes % (auto) 2.6 %; Lymphocytes # (auto) 2.13 K/uL (1.2-3.4); Lymphocytes % (auto) 26.7 %; Mean Corpuscular Hemoglobin 31.4 pg (25.0-34.0); Mean Corpuscular Hgb Conc 34.9 g/dL (32.0-36.0); Mean Corpuscular Volume 90.1 fL (80.0-100.0); Mean Platelet Volume 8.5 fL (9.4-12.4); Monocytes # (auto) 0.86 K/uL (0.24-0.82); Monocytes % (auto) 10.8 %; Neutrophils # (auto) 4.33 K/uL (1.4-6.5); Neutrophils % (auto) 54.3 %; Platelet Count 568 K/uL (130-400); RDW Coefficient of Variation 13.1 % (11.5-14.5); RDW Standard Deviation 43.3 fL (36.4-46.3); Red Blood Count 3.82 M/uL (4.63-6.08); White Blood Count 7.98 K/ul (4.8-10.8)
[2022-07-24 08:15] LABS: BUN Creatinine Ratio 26.3 (10-20); Creatinine Clr Calc Pharmacy 88.2 ml/min; Est GFR (African American) 76.7 ml/min; Est GFR (Non-African American) 66.2 ml/min; Potassium 4.8 mmol/L (3.5-5.1)
[2022-07-24] MEDS: ENOXAPARIN INJ 40 MG/0.4 ML SYR SQ SCH ×2 (08:39→21:29)
[2022-07-24] MEDS: METOPROLOL TARTRATE 25 MG TAB PO SCH ×2 (08:39→21:30)
[2022-07-24] MEDS: lisinopril 10 MG TAB PO SCH (08:39)
[2022-07-24] MEDS: guaiFENesin 600 MG TABCR PO SCH ×2 (08:39→21:30)
[2022-07-24] MEDS: FAMOTIDINE 20 MG TAB PO SCH ×2 (08:39→21:29)
[2022-07-24] MEDS: TRIFLUOPERAZINE HCL 5 MG TABLET PO SCH (08:39)
[2022-07-24] MEDS: LIDOCAINE 5% 1 PATCH TD SCH (08:40)
[2022-07-24] MEDS: DORZOLAMIDE/TIMOLOL 22.3/6.8MG/ML 10 ML BTL OP SCH ×2 (08:40→21:28)
[2022-07-24] MEDS: levoFLOXacin 750 MG TAB PO SCH (11:42)
--- NOTE | 2022-07-24 12:03 | Hospitalist Progress Note ---
Date of Service July 24, 2022 Assessment & Plan (1) Acute respiratory failure with hypoxia and hypercapnia: Plan: 2nd to multifocal b/l pneumonia. may have element of acute diastolic CHF as well. has completed full 7-day course of Rocephin and 5-day course of Zithromax. was intubated early in the admission and required ICU stay. now on NC O2 and continues to improve. Continue on additional course of levofloxacin and oral Lasix therapy (currently on hold due to hyponatremia) Medically stable for discharge pending placement (2) Multifocal pneumonia: Plan: completed full course of rocephin/zithromax was intubated early in his stay; now weaning O2 via NC bronch culture with aspergillus -- felt to be colonization per pulmonary Procalcitonin negative Biofire negative Coag neg staph in blood 1/2 (staph epidermidis on PCR) - likely contaminant, repeat blood cultures were negative Improving but will complete 7 additional days of oral levofloxacin for multifocal pneumonia and persistent hypoxemia (3) Acute hyponatremia: Plan: marked improvement was 119 early in admission Improved to 127 today but he had already had his Lasix yesterday therefore no intervention was performed for this increase. We will have to wait until tomorrow to see if holding his Lasix will help. (4) Elevated troponin: Plan: Secondary to demand ischemia, ACS not suspected TTE relatively unremarkable with LVEF 65-70% and no regional wall abnormalities (5) Hepatitis C antibody test positive: Plan: Preliminary positive HCV RNA negative thus, ab is reflective of old, cleared infection (6) Acute diastolic CHF (congestive heart failure): Plan: Patient appears euvolemic on exam. Hyponatremia now appears to be due to hypovolemia however with Lasix being given. Holding Lasix as above. (7) Morbid obesity with BMI of 40.0-44.9, adult: Plan: BMI 43 (8) DVT prophylaxis: Plan: lovenox 40mg BID (9) Rash: Plan: suspected drug reaction based on appearance recent rocephin? other med? difficult to say because the rash wasn't noted until he was off the rocephin prior course of prednisone cont shaun 60mg BID -can now discontinue unless itching returns. Rash has resolved completely Plan Patient is on Tegretol and Stelazine antipsychotic. Schizoaffective d/o? Medically stable for discharge. Pending placement at this time. Appreciate psychiatry consult. Admission and Anticipated Discharge Date Admission Date: July 09, 2022 Subjective No acute concerns or questions from the patient. Sodium increased to 127 although no intervention was performed to enable this as he already had his Lasix dosing yesterday. We will have to wait until tomorrow to see what his sodium levels do of Lasix. He does report feeling mildly more short of breath today. No increased leg swelling. Review of Systems Review of Systems: All systems reviewed & are unremarkable except as noted in Subjective Physical Exam Constitutional: WD/WN, vitals as above Neck: trachea midline, no thyromegaly Respiratory: normal respiratory effort Auscultation: + diminished lung sounds (bibasal); breath sounds present, no crackles, no rales, no rhonchi and no wheezes Cardiovascular: Rate/Rhythm: regular rate and regular rhythm Heart Sounds: no murmur Extremities: normal capillary refill and + pedal edema (1+ b/l LE); no calf tenderness Skin: no rashes, warm and dry Neurologic: moves all extremities and awake; not confused Motor/Sensory: no pronator drift Psychiatric: A+Ox3, euthymic affect Results & Data Results & Data ([facility]) Vital Signs (Past 12 Hours) Vital Signs Temp Pulse Resp BP Pulse Ox O2 Del Method O2 Flow Rate 07/24/22 08:00 Nasal Cannula 2 07/24/22 07:23 36.4 C L 69 16 115/68 96 Nasal Cannula 2 PG Care Time/CCT Total # of Minutes Spent Total Time Spent with Patient: Total time spent is greater than 50% in coordination of care (as documented) at patient's floor/unit and/or counseling patient: Coding Level of Care Code 56627 Subseq Hosp Care Lvl 1 Diagnoses Acute respiratory failure with hypoxia and hypercapnia J96.01; J96.02 Multifocal pneumonia J18.9 Acute hyponatremia E87.1 Elevated troponin R77.8 Hepatitis C antibody test positive R76.8 Acute diastolic CHF (congestive heart failure) I50.31 Morbid obesity with BMI of 40.0-44.9, adult E66.01; Z68.41 DVT prophylaxis Z29.9 Rash R21
[2022-07-24 15:45] LABS: Legionella Culture Source L MAIN STEM
[2022-07-24] MEDS: LATANOPROST 0.005% OP SOLN 2.5 ML BTL OP SCH (21:30)
[2022-07-24] MEDS: ACETAMINOPHEN 500 MG TAB PO PRN (21:31)
[2022-07-24] MEDS: LORazepam 0.5 MG TAB PO PRN (22:55)
[2022-07-25] MEDS: LIDOCAINE 5% 1 PATCH TD SCH (07:53)
[2022-07-25] MEDS: ACETAMINOPHEN 500 MG TAB PO PRN ×2 (07:56→20:34)
[2022-07-25] MEDS: LORazepam 0.5 MG TAB PO PRN ×2 (07:57→21:17)
[2022-07-25] MEDS: guaiFENesin 600 MG TABCR PO SCH ×2 (07:59→20:04)
[2022-07-25] MEDS: lisinopril 10 MG TAB PO SCH (07:59)
[2022-07-25] MEDS: METOPROLOL TARTRATE 25 MG TAB PO SCH ×2 (08:02→20:04)
[2022-07-25] MEDS: FAMOTIDINE 20 MG TAB PO SCH ×2 (08:02→20:03)
[2022-07-25] MEDS: ENOXAPARIN INJ 40 MG/0.4 ML SYR SQ SCH ×2 (08:04→20:03)
[2022-07-25] MEDS: DORZOLAMIDE/TIMOLOL 22.3/6.8MG/ML 10 ML BTL OP SCH ×2 (08:05→20:03)
[2022-07-25 11:06] LABS: Anion Gap 6 (3-11); BUN Creatinine Ratio 23.7 (10-20); Blood Urea Nitrogen 27 mg/dl (6-23); Calcium 8.8 mg/dl (8.5-10.1); Carbon Dioxide 28 mmol/L (21-32); Chloride 91 mmol/L (98-107); Creatinine Clr Calc Pharmacy 88.2 ml/min; Est GFR (African American) 76.7 ml/min; Est GFR (Non-African American) 66.2 ml/min; Glucose 148 mg/dl (70-99(Fasting)); Sodium 125 mmol/L (136-145)
[2022-07-25] MEDS: TRIFLUOPERAZINE HCL 5 MG TABLET PO SCH (11:35)
[2022-07-25] MEDS: levoFLOXacin 750 MG TAB PO SCH (11:36)
--- NOTE | 2022-07-25 19:20 | Hospitalist Progress Note ---
Date of Service July 25, 2022 Assessment & Plan (1) Acute respiratory failure with hypoxia and hypercapnia: Plan: 2nd to multifocal b/l pneumonia. may have element of acute diastolic CHF as well. has completed full 7-day course of Rocephin and 5-day course of Zithromax. was intubated early in the admission and required ICU stay. now on NC O2 and continues to improve. Continue on additional course of levofloxacin and oral Lasix therapy (currently on hold due to hyponatremia) Medically stable for discharge pending placement (2) Multifocal pneumonia: Plan: completed full course of rocephin/zithromax was intubated early in his stay; now weaning O2 via NC bronch culture with aspergillus -- felt to be colonization per pulmonary Procalcitonin negative Biofire negative Coag neg staph in blood 09/25 (staph epidermidis on PCR) - likely contaminant, repeat blood cultures were negative Improving but will complete 7 additional days of oral levofloxacin for multifocal pneumonia and persistent hypoxemia (finishes course on 07/26) (3) Acute hyponatremia: Plan: marked improvement from admission and initially with diuresis was 119 on admission requiring hypertonic saline. Unclear why this remains stable but low at 125-127. Previous in the admission it was as high as 133. Serum osmolality low. Urine osmolality also low which is usually consistent with beer potomania/tea and toast diet. Possible cause of was although diuretics he was getting earlier on in the admission causing sodium wasting which is now not being picked up on urine tests as Lasix has been held for the last few days. Treatment for this would be salt tablets although I am reluctant to do this given his perceived need for significant Lasix earlier in the admission, need for intubation and chest x-ray without complete resolution. We will therefore continue to monitor sodium for now and continue to hold Lasix with the hope that his usual diet will increase the sodium over time. Could consider hypertonic saline if continues to drop. (4) Elevated troponin: Plan: Secondary to demand ischemia, ACS not suspected TTE relatively unremarkable with LVEF 65-70% and no regional wall abnormalities (5) Hepatitis C antibody test positive: Plan: Preliminary positive HCV RNA negative thus, ab is reflective of old, cleared infection (6) Acute diastolic CHF (congestive heart failure): Plan: Patient appears euvolemic on exam. Current hyponatremia appears more nutritional. Patient appears euvolemic on exam Holding Lasix as above. (7) Morbid obesity with BMI of 40.0-44.9, adult: Plan: BMI 43 (8) DVT prophylaxis: Plan: lovenox 40mg BID (9) Rash: Plan: suspected drug reaction based on appearance recent rocephin? other med? difficult to say because the rash wasn't noted until he was off the rocephin prior course of prednisone cont shaun 60mg BID -can now discontinue unless itching returns. Rash has resolved completely Plan Patient is on Tegretol and Stelazine antipsychotic. Schizoaffective d/o? Medically stable for discharge. Pending placement at this time. Appreciate psychiatry consult. Admission and Anticipated Discharge Date Admission Date: July 09, 2022 Subjective Patient reports no change in his shortness of breath. Intermittently gets worse and better throughout the day. No new nausea, vomiting, gait instability, confusion. Review of Systems Review of Systems: All systems reviewed & are unremarkable except as noted in Subjective Physical Exam Constitutional: WD/WN, vitals as above Respiratory: normal respiratory effort Auscultation: + diminished lung sounds (bibasal); breath sounds present, no crackles, no rales, no rhonchi and no wheezes Cardiovascular: Rate/Rhythm: regular rate and regular rhythm Heart Sounds: no murmur Extremities: normal capillary refill and + pedal edema (1+ b/l LE); no calf tenderness Gastrointestinal (Abdomen): Percussion/Palpation: abdomen soft; abdomen nontender, no guarding and abdomen not rigid Skin: no rashes, warm and dry Neurologic: moves all extremities and awake; not confused Psychiatric: A+Ox3, euthymic affect Results & Data Results & Data ([facility]) Vital Signs (Past 12 Hours) Vital Signs Temp Pulse Resp BP Pulse Ox O2 Del Method O2 Flow Rate 07/25/22 15:23 36.9 C 67 18 173/91 H 93 Nasal Cannula 2 07/25/22 07:30 Nasal Cannula 1.5 07/25/22 08:10 36.2 C L 67 18 125/71 92 Room Air PG Care Time/CCT Total # of Minutes Spent Total Time Spent with Patient: Total time spent is greater than 50% in coordination of care (as documented) at patient's floor/unit and/or counseling patient: Coding Level of Care Code 92999 Subseq Hosp Care Lvl 2 Diagnoses Acute respiratory failure with hypoxia and hypercapnia J96.01; J96.02 Multifocal pneumonia J18.9 Acute hyponatremia E87.1 Elevated troponin R77.8 Hepatitis C antibody test positive R76.8 Acute diastolic CHF (congestive heart failure) I50.31 Morbid obesity with BMI of 40.0-44.9, adult E66.01; Z68.41 DVT prophylaxis Z29.9 Rash R21
[2022-07-25] MEDS: LATANOPROST 0.005% OP SOLN 2.5 ML BTL OP SCH (20:04)
[2022-07-26] MEDS: LIDOCAINE 5% 1 PATCH TD SCH (08:23)
[2022-07-26] MEDS: ACETAMINOPHEN 500 MG TAB PO PRN ×2 (08:24→22:21)
[2022-07-26] MEDS: LORazepam 0.5 MG TAB PO PRN (08:25)
[2022-07-26] MEDS: guaiFENesin 600 MG TABCR PO SCH ×2 (08:26→21:55)
[2022-07-26] MEDS: METOPROLOL TARTRATE 25 MG TAB PO SCH ×2 (08:26→22:17)
[2022-07-26] MEDS: TRIFLUOPERAZINE HCL 5 MG TABLET PO SCH (08:26)
[2022-07-26] MEDS: FAMOTIDINE 20 MG TAB PO SCH ×2 (08:27→21:55)
[2022-07-26] MEDS: DORZOLAMIDE/TIMOLOL 22.3/6.8MG/ML 10 ML BTL OP SCH ×2 (08:28→21:55)
[2022-07-26] MEDS: ENOXAPARIN INJ 40 MG/0.4 ML SYR SQ SCH ×2 (08:29→21:55)
[2022-07-26 12:00] LABS: Basophils # (auto) 0.08 K/uL (0-0.2); Eosinophils % (auto) 3.6 %; Hematocrit (blood only) 33.2 % (40.1-51.0); Hemoglobin 11.2 g/dl (14.0-18.0); Immature Granulocytes # (auto) 0.22 K/uL (0.00-0.02); Immature Granulocytes % (auto) 2.6 %; Lymphocytes # (auto) 1.88 K/uL (1.2-3.4); Lymphocytes % (auto) 22.5 %; Mean Corpuscular Hemoglobin 31.3 pg (25.0-34.0); Mean Corpuscular Hgb Conc 33.7 g/dL (32.0-36.0); Mean Corpuscular Volume 92.7 fL (80.0-100.0); Mean Platelet Volume 8.7 fL (9.4-12.4); Monocytes # (auto) 0.88 K/uL (0.24-0.82); Monocytes % (auto) 10.5 %; Neutrophils # (auto) 5.01 K/uL (1.4-6.5); Neutrophils % (auto) 59.8 %; Platelet Count 559 K/uL (130-400); RDW Coefficient of Variation 13.3 % (11.5-14.5); RDW Standard Deviation 45.5 fL (36.4-46.3); Red Blood Count 3.58 M/uL (4.63-6.08); White Blood Count 8.37 K/ul (4.8-10.8)
[2022-07-26 12:23] LABS: Iron 85 mcg/dl (35-175); Total Iron Binding Cap Calc 286 mcg/dl (250-450); Transferrin (FE) Percent Satur 30 % (20-50); Unsaturated Iron Binding Cap 201 mcg/dl (155-355)
[2022-07-26 12:27] LABS: Albumin Globulin Ratio 1.3 (0.9-2); Albumin Level 3.5 gm/dl (3.4-5.0); BUN Creatinine Ratio 24.8 (10-20); Bilirubin,Total 0.3 mg/dl (0.2-1.0); Calcium 8.9 mg/dl (8.5-10.1); Creatinine Clr Calc Pharmacy 92.3 ml/min; Est GFR (Non-African American) 69.9 ml/min; Globulin 2.8 gm/dl (2.5-4.0); Potassium 4.5 mmol/L (3.5-5.1); Total Protein 6.3 gm/dl (6.0-8.3)
[2022-07-26 12:41] LABS: Ferritin 115.2 ng/ml (8-388)
[2022-07-26] MEDS: levoFLOXacin 750 MG TAB PO SCH (13:06)
--- NOTE | 2022-07-26 14:16 | Hospitalist Progress Note ---
Date of Service July 26, 2022 Assessment & Plan (1) Acute respiratory failure with hypoxia and hypercapnia: Plan: 2nd to multifocal b/l pneumonia. may have element of acute diastolic CHF as well. has completed full 7-day course of Rocephin and 5-day course of Zithromax. was intubated early in the admission and required ICU stay. now on NC O2 and stable but some tachypnea at rest or minimal exertion in bed. Last CXR 07/23 showed pulm edema With crackles on exam today -can now dc Levaquin -give lasix 40mg po x 1 now and reassess -continue supplemental O2 (2) Multifocal pneumonia: Plan: completed full course of rocephin/zithromax was intubated early in his stay; now weaning O2 via NC bronch culture with aspergillus -- felt to be colonization per pulmonary also with Haemophilus influenzae which was teated with rocephin Procalcitonin negative Biofire negative Coag neg staph in blood 09/25 (staph epidermidis on PCR) - likely contaminant, repeat blood cultures were negative Improving but will complete 7 additional days of oral levofloxacin for multifocal pneumonia and persistent hypoxemia (finishes course on 07/26) follow CXR in AM (3) Acute hyponatremia: Plan: marked improvement from admission and initially with hypertonic saline and then subsequent diuresis went from 113 up to 133 has chronic hyponatremia in past with baseline around 128 ECHO 07/09 shows dilated IVC, preserved EF Ur Na+ 24, Ur Osm was 500s, then down to 169 but still consistent with excessive ADH---> with hypervolemia now, suspect acute on chronic diastolic CHF on top o f chronic SIADH Lasix was then stopped and continues to go lower seems volume overloaded on exam now -give lasix 40mg po once now -fluid restrict to 1200mL/day -check BMP this evening and again in the AM -if Na+ 125 or higher, can discharge with close follow up -check weight (4) Elevated troponin: Plan: Secondary to demand ischemia, ACS not suspected TTE relatively unremarkable with LVEF 65-70% and no regional wall abnormalities (5) Hepatitis C antibody test positive: Plan: Preliminary positive HCV RNA negative thus, ab is reflective of old, cleared infection (6) Acute diastolic CHF (congestive heart failure): Plan: as above, acute on chronic HFpEF giving more lasix today check weight (7) Morbid obesity with BMI of 40.0-44.9, adult: Plan: BMI 43 (8) Rash: Plan: suspected drug reaction based on appearance recent rocephin? other med? difficult to say because the rash wasn't noted until he was off the rocephin prior course of prednisone cont shaun 60mg BID -can now discontinue unless itching returns. Rash has resolved completely (9) Schizophrenia: Plan: Patient is on Tegretol and Stelazine antipsychotic. Appreciate psychiatry consult. stable, no acute issues (10) DVT prophylaxis: Plan: lovenox 40mg BID Plan Dispo-accepted at [facility], discharge tomorrow if sodium improved Admission and Anticipated Discharge Date Admission Date: July 09, 2022 Subjective Pt reports his usual SOB, otherwise no complaints. Wants to know how long he'll be at rehab. Review of Systems Review of Systems: All systems reviewed & are unremarkable except as noted in HPI & below Physical Exam Constitutional: WD/WN, vitals as above Eyes: + anicteric sclerae Neck: trachea midline, no thyromegaly Respiratory: + grunting; no cough Auscultation: + crackles (bases); no rhonchi and no wheezes Cardiovascular: Rate/Rhythm: regular rate and regular rhythm Heart Sounds: no murmur Extremities: + edema (trace edema legs bilat) Chest (Breasts): Chest: normal inspection of chest Gastrointestinal (Abdomen): normal bowel sounds, soft, nontender, no hepatosplenomegaly Musculoskeletal: Extremities: extremities normal to inspection; no cyanosis and no clubbing Skin: no rashes, warm and dry Neurologic: moves all extremities and awake; no focal motor deficits Psychiatric: Orientation: alert, oriented to person, oriented to place and cooperative Apperance: + disheveled Eye Contact: + fair eye contact Results & Data Results & Data ([facility]) Vital Signs (Past 12 Hours) Vital Signs Temp Pulse Resp BP Pulse Ox O2 Del Method O2 Flow Rate 07/26/22 07:18 36.4 C L 66 18 159/78 H 92 Nasal Cannula 2 Laboratory Results 07/26/22 11:30 07/26/22 11:30 PG Care Time/CCT Total # of Minutes Spent Total Time Spent with Patient: Total time spent is greater than 50% in coordination of care (as documented) at patient's floor/unit and/or counseling patient: Coding Level of Care Code 62196 Subseq Hosp Care Lvl 2 Diagnoses Acute respiratory failure with hypoxia and hypercapnia J96.01; J96.02 Multifocal pneumonia J18.9 Acute hyponatremia E87.1 Elevated troponin R77.8 Hepatitis C antibody test positive R76.8 Acute diastolic CHF (congestive heart failure) I50.31 Morbid obesity with BMI of 40.0-44.9, adult E66.01; Z68.41 Rash R21 Schizophrenia F20.9 DVT prophylaxis Z29.9
[2022-07-26] MEDS ORDERED: FUROSEMIDE 40 MG TAB PO ONE (14:30)
[2022-07-26 20:49] LABS: BUN Creatinine Ratio 26.4 (10-20); Calcium 9.1 mg/dl (8.5-10.1); Creatinine Clr Calc Pharmacy 80.5 ml/min; Est GFR (African American) 68.6 ml/min; Est GFR (Non-African American) 59.2 ml/min; Potassium 4.7 mmol/L (3.5-5.1)
[2022-07-26] MEDS: LATANOPROST 0.005% OP SOLN 2.5 ML BTL OP SCH (21:55)
[2022-07-27] MEDS ORDERED: LORazepam 0.5 MG TAB PO STA (01:22)
--- NOTE | 2022-07-27 07:18 | XRay Report ---
XR chest 1V portable CLINICAL HISTORY: Follow-up pulmonary edema. COMPARISON STUDY: Chest radiograph July 23, 2022. Chest CT July 09, 2022. FINDINGS: Cardiomegaly is unchanged. There is no pneumothorax. Possible trace right pleural effusion. Mediastinal contours are stable. Interstitial thickening bilateral opacities have slightly improved. IMPRESSION: Cardiomegaly. Slight improvement in interstitial thickening and bilateral airspace opaci ties which could reflect pulmonary edema or an infectious process. ACT 112: Negative or not required by law. Electronically signed by: Theo Phan M.D. 07/27/2022 7:17 AM
[2022-07-27] MEDS: TRIFLUOPERAZINE HCL 5 MG TABLET PO SCH (08:14)
[2022-07-27] MEDS: ENOXAPARIN INJ 40 MG/0.4 ML SYR SQ SCH (08:15)
[2022-07-27] MEDS: guaiFENesin 600 MG TABCR PO SCH (08:15)
[2022-07-27] MEDS: METOPROLOL TARTRATE 25 MG TAB PO SCH (08:15)
[2022-07-27] MEDS: FAMOTIDINE 20 MG TAB PO SCH (08:15)
[2022-07-27] MEDS: DORZOLAMIDE/TIMOLOL 22.3/6.8MG/ML 10 ML BTL OP SCH (08:16)
[2022-07-27] MEDS: LIDOCAINE 5% 1 PATCH TD SCH (08:17)
[2022-07-27] MEDS ORDERED: FUROSEMIDE 40 MG TAB PO SCH (09:00)
[2022-07-27 09:39] LABS: BUN Creatinine Ratio 25.2 (10-20); Calcium 9.1 mg/dl (8.5-10.1); Creatinine Clr Calc Pharmacy 97.6 ml/min; Est GFR (African American) 86.7 ml/min; Est GFR (Non-African American) 74.8 ml/min; Potassium 4.5 mmol/L (3.5-5.1)
--- NOTE | 2022-07-27 13:59 | Discharge Summary ---
Date of Service July 27, 2022 Admission HPI Per Admitting Provider This is a 66-year-old male was brought to the emergency department for respiratory distress in the emergency department he initially was not in respiratory failure and required intubation due to hypercapnia and lethargy. When I saw the patient he was sedated with propofol, he was ventilated in assist-control rate of 24 volume of 450 PEEP of +8, 70% FiO2 Imaging suggests multifocal pneumonia currently bio fire is pending significant lab abnormalities include leukocytosis of 22 with a leftward shift and a sodium of 119. In addition he does have an elevated troponin Due to concerns for pulmonary vascular congestion on initial chest x-ray patient is not given typical volume resuscitation for sepsis was only given 500 mL of normal saline this is also likely beneficial given the patient's hyponatremia Principal Diagnosis Pneumonia, respiratory failure requiring mechanical ventilation Hyponatremia acute on chronic diastolic CHF Discharge Exam Constitutional WD/WN, vitals as above Eyes + anicteric sclerae Neck trachea midline, no thyromegaly Respiratory + grunting; no cough Auscultation: + crackles (bases); no rhonchi and no wheezes Cardiovascular Rate/Rhythm: regular rate and regular rhythm Heart Sounds: no murmur Extremities: + edema (trace edema legs bilat) Chest (Breasts) Chest: normal inspection of chest Gastrointestinal (Abdomen) normal bowel sounds, soft, nontender, no hepatosplenomegaly Musculoskeletal Extremities: extremities normal to inspection; no cyanosis and no clubbing Skin no rashes, warm and dry Neurologic moves all extremities and awake; no focal motor deficits Psychiatric Orientation: alert, oriented to person, oriented to place and cooperative Apperance: + disheveled Eye Contact: + fair eye contact Discharge Data Allergies Allergy/AdvReac Type Severity Reaction Status Date / Time aspirin Allergy Verified 11/05/20 13:55 Penicillins Allergy Verified 11/05/20 13:55 Consultations 07/09/22 10:49 ED Decision to Admit Stat 07/09/22 13:21 Consult Habilitation Specialist Routine 07/21/22 14:15 Consult Psychiatry Routine Ordered Studies 07/09/22 09:09 CT head/brain wo con Stat 07/09/22 09:53 CT chest diagnostic w con Stat Hospital Course (1) Acute respiratory failure with hypoxia and hypercapnia: 2nd to multifocal b/l pneumonia. may have element of acute diastolic CHF as well. has completed full 7-day course of Rocephin and 5-day course of Zithromax. was intubated early in the admission and required ICU stay. now on NC O2 and stable but some tachypnea at rest or minimal exertion in bed. Last CXR 07/23 showed pulm edema With crackles on exam and given lasix po and had improvement with dyspnea on 07/26, CXR improved but still with some pulm edema -finished all abx -continue lasix 20mg po daily on discharge -continue supplemental O2 -follow CXR in 1-2 weeks (2) Multifocal pneumonia: completed full course of rocephin/zithromax was intubated early in his stay; now weaning O2 via NC bronch culture with aspergillus -- felt to be colonization per pulmonary also with Haemophilus influenzae which was teated with rocephin Procalcitonin negative Biofire negative Coag neg staph in blood 09/25 (staph epidermidis on PCR) - likely contaminant, repeat blood cultures were negative Improving and completed 7 additional days of oral levofloxacin for multifocal pneumonia and persistent hypoxemia (finishes course on 07/26) follow CXR in 2 weeks (3) Acute hyponatremia: marked improvement from admission and initially with hypertonic saline and then subsequent diuresis went from 113 up to 133 has chronic hyponatremia in past with baseline around 128 ECHO 07/09 shows dilated IVC, preserved EF Ur Na+ 24, Ur Osm was 500s, then down to 169 but still consistent with excessive ADH---> with hypervolemia now, suspect acute on chronic diastolic CHF on top o f chronic SIADH Lasix was then stopped and continues to go lower seems volume overloaded on exam now -give lasix 40mg po once now and now Na+ up to 126 -fluid restrict to 1200mL/day -check BMP in 2-3 days at [facility] -may need to adjust dose of lasix based on volume status and sodium level (4) Elevated troponin: Secondary to demand ischemia, ACS not suspected TTE relatively unremarkable with LVEF 65-70% and no regional wall abnormalities (5) Hepatitis C antibody test positive: Preliminary positive HCV RNA negative thus, ab is reflective of old, cleared infection (6) Acute diastolic CHF (congestive heart failure): as above, acute on chronic HFpEF improving, weigh tdown continue lasix 20mg daily on discharge (7) Morbid obesity with BMI of 40.0-44.9, adult: BMI 43 (8) Rash: suspected drug reaction based on appearance recent rocephin? other med? difficult to say because the rash wasn't noted until he was off the rocephin prior course of prednisone Rash has resolved completely (9) Schizophrenia: Patient is on Tegretol and Stelazine antipsychotic. Appreciate psychiatry consult. stable, no acute issues (10) DVT prophylaxis: lovenox 40mg BID Plan Dispo-accepted at [facility], discharge today Total Time Total Time Spent Total Time Spent (In Minutes): 35 min Discharge Plan Discharge Items Patient Disposition: Transfer Long Term Fac Reason For Visit: RESPIRATORY FAILURE, PNEUMONIA Discharge Diagnosis: Pneumonia, respiratory failure, hyponatremia Condition on Discharge: Fair Activity: As commented below Lifting: Gradually increase as tolerated Bathing: No limitations Exercise/Sports: Gradually increase as tolerated Weightbearing: Full weightbearing Non-emergency contact: Primary Care Provider Call non-emergency contact if: you have any medication questions and your symptoms worsen Follow-up/Referrals: Benoit Anglin III, MD [Primary Care Provider] - Diet: Regular Addtl Attending Provider Instructions: Please check a BMP in 2-3 days to follow up on the sodium level. Continue the low dose lasix 20mg daily for now. You have completed all antibiotics for your pneumonia. Pending Studies at Discharge: No Stand-Alone Forms: My [facility] Skilled Items Patient informed of condition?: Yes DNR: No Discharge Level of Care: Skilled Communicable Disease: No Discharge Prognosis: Improving Lines: None Urinary Catheter: No Medications and DC Order Prescriptions: New carbamazepine [Tegretol XR] 100 mg Tablet Extended Release 12 Hr 100 mg PO BID Qty: 60 0RF metoprolol tartrate 25 mg Tablet 25 mg PO BID Qty: 60 0RF furosemide 20 mg tablet 20 mg PO DAILY Qty: 30 0RF dorzolamide-timolol 22.3-6.8 mg/mL Drops 1 drp ophthalmic (eye) BID Qty: 10 0RF latanoprost 0.005 % Drops 1 drp ophthalmic (eye) HS Qty: 2.5 0RF famotidine 20 mg Tablet 20 mg PO BID Qty: 60 0RF lidocaine 5 % Adhesive Patch,Medicated 3 patch transdermal DAILY Qty: 15 0RF guaifenesin [Mucinex] 600 mg Tablet Extended Release 12hr 1,200 mg PO Q12 Qty: 60 0RF Continued mupirocin 2 % ointment 1 appln TOP .COMPLEX Qty: 30 5RF Rx Instructions: 1 applic TOP to affected area on face TID ; saw palmetto PO BID glucosamine-chondroitin PO coenzyme Q10 [Co Q-10] 10 mg capsule 10 mg PO BID trifluoperazine 5 mg tablet 5 mg PO DAILY Qty: 30 0RF Discontinued carbamazepine 200 mg tablet PO BID latanoprost 0.005 % drops dorzolamide-timolol 22.3-6.8 mg/mL drops Discharge Orders: Discharge Order (Routine); Ordered 07/27/22 Ordered By: Kera Griffiths Admission Data Admit Date/Time: 07/09/22 11:16 Attending Provider: Kera Griffiths Admit Provider: Fady Nixon Primary Care Provider: Benoit Anglin III Other Providers: Fady Nixon ; Antonio Lutz ; [facility] ; [facility] ; Tomasa House ; Vanessa Nazario ; Lili Clemente Coding Level of Care Code D/C DAY MANAGEMENT >30 MINS Diagnoses Acute respiratory failure with hypoxia and hypercapnia J96.01; J96.02 Multifocal pneumonia J18.9 Acute hyponatremia E87.1 Elevated troponin R77.8 Hepatitis C antibody test positive R76.8 Acute diastolic CHF (congestive heart failure) I50.31 Morbid obesity with BMI of 40.0-44.9, adult E66.01; Z68.41 Rash R21 Schizophrenia F20.9 DVT prophylaxis Z29.9
== END 2022-07-27 16:14 | DRG 208 ==
LOC: ED 08:54 → SUATTDRO 11:16 → 1E 11:16 → 2S 07-13 18:40 → 4W 07-15 05:50 → 3N 07-17 18:27

== ENCOUNTER 2024-04-02 09:37 | Inpatient (IN) ==
--- NOTE | 2024-04-02 10:12 | Emergency Department Note ---
Impression & Plan Respiratory failure, CHF (congestive heart failure), Weakness, Respiratory acidosis ED Provider Note NAME: JULI JEFFERSON AGE: 68 SEX: M : 1955 ARRIVES VIA: Ambulance INFORMANT: [Patient][EMS] ED PROVIDER(S): [Salomón Johnson MD] CHIEF COMPLAINT: Shortness of breath, weakness HISTORY OF PRESENT ILLNESS: The patient is a 68-year-old male who has noticed increasing weakness for a few days. Today, he could barely stand. The weakness is bilateral. He has not really noticed an increase in his shortness of breath, he is chronically short of breath and usually wears about 3 L of oxygen. The patient denies any fever, any increased cough. There has been no abdominal pain, chest pain or sore throat. He has not had urinary complaints. He did have diarrhea yesterday. The patient is a poor historian. PMHx/PSHx/Social Hx: See Below PHYSICAL EXAM: GENERAL: Patient is in no acute distress. HEENT: No acute trauma, normocephalic atraumatic, mucous membranes dry, no nasal congestion. NECK: No stridor, no adenopathy, no meningismus, trachea is midline. LUNGS: Clear to auscultation bilaterally when listening anterior, no wheeze, no rhonchi, breath sounds equal. HEART: Without murmurs gallops or rubs, regular rate and rhythm. Heart tones are distant ABDOMEN: Soft, nontender, no peritonitis. Obese. EXTREMITIES: No cyanosis, full range of motion of all the joints without pain or difficulty. The patient does have dirty feet. There is some mild bilateral pedal edema. NEUROLOGIC: Oriented x 3, no acute motor or sensory deficits, no focal weakness. Seems slightly sleepy. SKIN: No jaundice, no diaphoresis. DIFFERENTIAL DIAGNOSIS: Bronchitis or pneumonia, dehydration, electrolyte imbalance, anemia, bacteremia or sepsis, CO2 retention, among others. EMERGENCY DEPARTMENT PROCEDURES: MEDICAL DECISION MAKING: There is a mild leukocytosis, this could be consistent with infection or the stress of his situation. There was a mild anemia with a hemoglobin of 13.8. There was a normal platelet count. No coagulopathy. VBG did show findings of respiratory acidosis. pCO2 was 80. No electrolyte abnormality in need of emergent correction. Lactic acid level was not elevated making sepsis less likely. No worrisome liver enzyme elevation. BNP was elevated consistent with fluid overload. Chest film does suggest CHF. ECG shows a sinus rhythm, no obvious ischemia. Cardiac enzyme testing x 1 is not consistent with acute cardiac injury. Respiratory bio fire was negative. On exam, the patient was obese, he seemed tired and weak. He was a poor historian. The patient had a [place] catheter placed and received IV Lasix, 80 mg. He was eventually placed on BiPAP to help with his respiratory acidosis. The patient is tolerating his BiPAP. He is arousable. He will need a hospital stay for his respiratory acidosis and CHF. In the past, he has required intubation for respiratory failure/acidosis. Patient is currently maintaining his airway and is not in need of ventilator support. I did speak with the patient at length, I spoke with case management. The on-call hospitalist was consulted. Prior/Outside records/notes reviewed: Today's EMS notes describing his presentation and transport to this hospital. ECG per my interpretation: Indication was weakness. The ECG shows a sinus rhythm with a first-degree AV block. The rate is 71. There is no ST elevation, there are no PVCs. The QTc is 423. Continuous Cardiac Monitoring per my interpretation: An order was placed for continuous cardiac monitoring. The monitor shows a rate of 73 with sinus rhythm with a first-degree block. Imaging/x-ray results per my interpretation: Chest x-ray shows what appears to be cardiomegaly and CHF, no focal infiltrate. Chronic Medical/Social conditions affecting care: Obesity, chronic O2 use. Living alone. Care/Management discussed with: Case management, the on-call hospitalist. Level of care consideration(s): After review of the information above and other included data: --I believe the patient requires escalation of care to admission Critical Care Note: I have personally spent 45 minutes of critical care time in the direct management of this patient. This includes bedside care, interpretation of diagnostic studies, and testing, discussion with consultants, patient, and family members, and other required patient management activities. This 45 minutes is in excess of all separately billable procedures. DISPOSITION: Admission Past Med/Surg History Problem List (Updated 04/02/24 @ 14:53 by Salomón Johnson MD) Respiratory acidosis (Acute) Weakness (Acute) CHF (congestive heart failure) (Acute) Respiratory failure (Acute) Acute heart failure with preserved ejection fraction Acute on chronic respiratory failure with hypoxia and hypercapnia Acute respiratory failure with hypoxia and hypercapnia Class 3 severe obesity due to excess calories with serious comorbidity and body mass index (BMI) of 45.0 to 49.9 in adult Elevated IgE level Obesity hypoventilation syndrome Excessive daytime sleepiness History of behavioral and mental health problems Abnormal CT scan, chest Aspergillus fumigatus Dyspnea Chronic respiratory failure with hypoxia and hypercapnia Prediabetes Schizophrenia Morbid obesity with BMI of 40.0-44.9, adult Hepatitis C antibody test positive Morbid obesity due to excess calories Medical History Pulmonary edema Severe sepsis Elevated troponin Acute hyponatremia Multifocal pneumonia Hyperlipidemia Encounter for health maintenance examination in adult Surgical History S/P tooth extraction Family History Father Prostate cancer Mother Dementia Denies family history of Ovarian cancer Myocardial infarction Breast cancer Colorectal cancer Social History Smoking Status: Former smoker Tobacco Type: Cigarettes Age Started Using Tobacco: 25; packs per day: 0.5; Second Hand Exposure: No; Do You Dip or Chew Tobacco: No; Hx Alcohol Use: No Hx Substance Use: No Preferred Language: Citizen Of [place] Communication Ability: Unable Communication Ability Comment: vision problems Communication Tools: Letter Board and Picture Board Visual Impairment: No Limitations Hearing Ability: Normal 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 Received Required: Yes Beliefs That Will Affect Care: None marital status: Single Current Living Situation: Alone Current Living Situation Comment: [facility] in [facility] current occupational status: disabled Feels Safe at Home: Yes Childhood Exposure to Second-Hand Smoke: Yes Diet: regular caffeine: Yes Dental Care, Regularly: No Physical Activity Frequency: Other Physical Activity Frequency Comment: walks Seatbelt Use: always Sunscreen Use: No Assistive Devices: Glasses, Oxygen - Continuous and Walker Allergies Allergies Allergy/AdvReac Type Severity Reaction Status Date / Time aspirin Allergy Verified 07/17/23 13:26 Penicillins Allergy Verified 07/17/23 13:26 Home Meds Home Medications Medication Instructions Recorded Confirmed coenzyme Q10 10 mg capsule (Co 10 mg PO BID 11/05/20 04/02/24 Q-10) glucosamine-chondroitin 250 mg-200 2 tab PO DAILY 04/02/24 04/02/24 mg tablet (Osteo Bi-Flex) saw palmetto 500 mg capsule 500 mg PO DAILY 04/02/24 04/02/24 Previous Rx's Medication Instructions Recorded dorzolamide 22.3 mg-timolol 6.8 1 drp ophthalmic (eye) BID #10 mL 07/27/22 mg/mL eye drops fexofenadine 60 mg-pseudoephedrine 1 tab PO BID PRN nasal congestion 07/27/22 ER 120 mg tablet,ext.release,12 hr #60 tabs (Janet-D 12 Hour) latanoprost 0.005 % eye drops 1 drp ophthalmic (eye) HS #2.5 mL 07/27/22 metoprolol tartrate 25 mg tablet 25 mg PO BID 90 days #180 tabs 03/12/23 Portable Oxygen #1 ea 05/14/23 trifluoperazine 5 mg tablet 5 mg PO DAILY #90 tabs 07/18/23 furosemide 40 mg tablet 80 mg (2 x 40 mg) PO QAM 90 days 08/03/23 #180 tabs carbamazepine 100 mg 100 mg PO BID 90 days #180 tabs 02/28/24 tablet,extended release,12 hr (Tegretol XR) Results & Data (ED) Vital Signs Vital Signs - 24 hr 04/02/24 09:28 04/02/24 09:44 04/02/24 09:55 Temperature 37.3 C Temperature Source Oral Pulse Rate 78 68 73 Pulse Rate from SpO2 Sensor Pulse Rhythm Regular Regular Pulse Strength Weak Respiratory Rate 26 H 26 H Respiratory Effort / Characteristics Spontaneous Accessory Muscle Use Gasping/Agonal Labored Respiratory Depth Normal Respiratory Pattern Regular Blood Pressure 159/83 H Blood Pressure Mean 108 Blood Pressure Position Sitting Pulse Oximetry 95 97 Oxygen Delivery Method Non-rebreather Nasal Cannula Oxygen Flow Rate 15 3 Fraction of Inspired Oxygen Sepsis Recent Fever Within 48 Hours Yes Sepsis New/Unexplained Change in Mental Status No Sepsis Action Taken by Nursing No Action Required Oxygen Flow Rate - Titration Pulse Oximetry Post Tiitration 04/02/24 09:56 04/02/24 09:56 04/02/24 10:00 Temperature Temperature Source Pulse Rate 71 Pulse Rate from SpO2 Sensor 73 Pulse Rhythm Pulse Strength Respiratory Rate 26 H Respiratory Effort / Characteristics Respiratory Depth Respiratory Pattern Blood Pressure 139/79 139/79 Blood Pressure Mean 86 86 Blood Pressure Position Pulse Oximetry 92 Oxygen Delivery Method Nasal Cannula Oxygen Flow Rate 6 Fraction of Inspired Oxygen Sepsis Recent Fever Within 48 Hours Sepsis New/Unexplained Change in Mental Status Sepsis Action Taken by Nursing Oxygen Flow Rate - Titration Pulse Oximetry Post Tiitration 04/02/24 10:06 04/02/24 10:18 04/02/24 10:18 Temperature Temperature Source Pulse Rate 61 Pulse Rate from SpO2 Sensor 64 Pulse Rhythm Pulse Strength Respiratory Rate 24 Respiratory Effort / Characteristics Labored Respiratory Depth Shallow Respiratory Pattern Tachypnea Blood Pressure Blood Pressure Mean Blood Pressure Position Pulse Oximetry 98 91 Oxygen Delivery Method Nasal Cannula Non-rebreather Nasal Cannula Oxygen Flow Rate 3 15 6 Fraction of Inspired Oxygen Sepsis Recent Fever Within 48 Hours Sepsis New/Unexplained Change in Mental Status Sepsis Action Taken by Nursing Oxygen Flow Rate - Titration 6 Pulse Oximetry Post Tiitration 92 04/02/24 10:34 04/02/24 10:39 04/02/24 10:45 Temperature Temperature Source Pulse Rate 67 68 Pulse Rate from SpO2 Sensor 64 64 Pulse Rhythm Pulse Strength Respiratory Rate 25 H 22 Respiratory Effort / Characteristics Respiratory Depth Respiratory Pattern Blood Pressure 177/85 H Blood Pressure Mean 132 Blood Pressure Position Pulse Oximetry 90 89 L Oxygen Delivery Method Oxygen Flow Rate Fraction of Inspired Oxygen Sepsis Recent Fever Within 48 Hours Sepsis New/Unexplained Change in Mental Status Sepsis Action Taken by Nursing Oxygen Flow Rate - Titration Pulse Oximetry Post Tiitration 04/02/24 10:57 04/02/24 11:00 04/02/24 11:00 Temperature Temperature Source Pulse Rate 70 Pulse Rate from SpO2 Sensor 70 Pulse Rhythm Pulse Strength Respiratory Rate 30 H Respiratory Effort / Characteristics Respiratory Depth Respiratory Pattern Blood Pressure 190/93 H 190/93 H Blood Pressure Mean 135 135 Blood Pressure Position Pulse Oximetry 96 Oxygen Delivery Method Oxygen Flow Rate Fraction of Inspired Oxygen Sepsis Recent Fever Within 48 Hours Sepsis New/Unexplained Change in Mental Status Sepsis Action Taken by Nursing Oxygen Flow Rate - Titration Pulse Oximetry Post Tiitration 04/02/24 11:03 04/02/24 11:21 04/02/24 11:29 Temperature Temperature Source Pulse Rate 69 68 73 Pulse Rate from SpO2 Sensor 70 71 Pulse Rhythm Pulse Strength Respiratory Rate 38 H 33 H 27 H Respiratory Effort / Characteristics Spontaneous Respiratory Depth Normal Respiratory Pattern Regular Blood Pressure Blood Pressure Mean Blood Pressure Position Pulse Oximetry 97 97 99 Oxygen Delivery Method Oxygen Flow Rate Fraction of Inspired Oxygen 100 Sepsis Recent Fever Within 48 Hours Sepsis New/Unexplained Change in Mental Status Sepsis Action Taken by Nursing Oxygen Flow Rate - Titration Pulse Oximetry Post Tiitration 04/02/24 11:30 04/02/24 11:30 04/02/24 12:03 Temperature Temperature Source Pulse Rate 72 Pulse Rate from SpO2 Sensor 72 Pulse Rhythm Pulse Strength Respiratory Rate 31 H Respiratory Effort / Characteristics Respiratory Depth Respiratory Pattern Blood Pressure 174/102 H 174/102 H Blood Pressure Mean 115 115 Blood Pressure Position Pulse Oximetry 96 Oxygen Delivery Method Oxygen Flow Rate Fraction of Inspired Oxygen Sepsis Recent Fever Within 48 Hours Sepsis New/Unexplained Change in Mental Status Sepsis Action Taken by Nursing Oxygen Flow Rate - Titration Pulse Oximetry Post Tiitration 04/02/24 12:12 04/02/24 12:14 04/02/24 12:14 Temperature Temperature Source Pulse Rate 75 Pulse Rate from SpO2 Sensor 73 Pulse Rhythm Pulse Strength Respiratory Rate 28 H Respiratory Effort / Characteristics Respiratory Depth Respiratory Pattern Blood Pressure 168/86 H 168/86 H Blood Pressure Mean 110 110 Blood Pressure Position Pulse Oximetry 98 Oxygen Delivery Method Oxygen Flow Rate Fraction of Inspired Oxygen Sepsis Recent Fever Within 48 Hours Sepsis New/Unexplained Change in Mental Status Sepsis Action Taken by Nursing Oxygen Flow Rate - Titration Pulse Oximetry Post Tiitration 04/02/24 12:15 04/02/24 12:24 04/02/24 12:31 Temperature Temperature Source Pulse Rate 62 72 Pulse Rate from SpO2 Sensor 61 70 Pulse Rhythm Pulse Strength Respiratory Rate 25 H 28 H Respiratory Effort / Characteristics Respiratory Depth Respiratory Pattern Blood Pressure 156/89 H Blood Pressure Mean 104 Blood Pressure Position Pulse Oximetry 98 97 Oxygen Delivery Method Oxygen Flow Rate Fraction of Inspired Oxygen Sepsis Recent Fever Within 48 Hours Sepsis New/Unexplained Change in Mental Status Sepsis Action Taken by Nursing Oxygen Flow Rate - Titration Pulse Oximetry Post Tiitration 04/02/24 12:36 04/02/24 12:45 04/02/24 13:01 Temperature Temperature Source Pulse Rate 61 72 Pulse Rate from SpO2 Sensor 62 68 Pulse Rhythm Pulse Strength Respiratory Rate 29 H 33 H Respiratory Effort / Characteristics Respiratory Depth Respiratory Pattern Blood Pressure 174/95 H Blood Pressure Mean 127 Blood Pressure Position Pulse Oximetry 96 89 L Oxygen Delivery Method Oxygen Flow Rate Fraction of Inspired Oxygen Sepsis Recent Fever Within 48 Hours Sepsis New/Unexplained Change in Mental Status Sepsis Action Taken by Nursing Oxygen Flow Rate - Titration Pulse Oximetry Post Tiitration 04/02/24 13:01 04/02/24 13:03 04/02/24 13:30 Temperature Temperature Source Pulse Rate 69 Pulse Rate from SpO2 Sensor 69 Pulse Rhythm Pulse Strength Respiratory Rate 33 H Respiratory Effort / Characteristics Respiratory Depth Respiratory Pattern Blood Pressure 174/95 H 164/84 H Blood Pressure Mean 127 108 Blood Pressure Position Pulse Oximetry 91 Oxygen Delivery Method Oxygen Flow Rate Fraction of Inspired Oxygen Sepsis Recent Fever Within 48 Hours Sepsis New/Unexplained Change in Mental Status Sepsis Action Taken by Nursing Oxygen Flow Rate - Titration Pulse Oximetry Post Tiitration 04/02/24 13:30 04/02/24 13:30 04/02/24 13:51 Temperature Temperature Source Pulse Rate 67 73 Pulse Rate from SpO2 Sensor 68 73 Pulse Rhythm Pulse Strength Respiratory Rate 30 H 25 H Respiratory Effort / Characteristics Respiratory Depth Respiratory Pattern Blood Pressure 164/84 H Blood Pressure Mean 108 Blood Pressure Position Pulse Oximetry 92 94 Oxygen Delivery Method Oxygen Flow Rate Fraction of Inspired Oxygen Sepsis Recent Fever Within 48 Hours Sepsis New/Unexplained Change in Mental Status Sepsis Action Taken by Nursing Oxygen Flow Rate - Titration Pulse Oximetry Post Tiitration 04/02/24 14:01 04/02/24 14:01 04/02/24 14:03 Temperature Temperature Source Pulse Rate 72 Pulse Rate from SpO2 Sensor 71 Pulse Rhythm Pulse Strength Respiratory Rate 27 H Respiratory Effort / Characteristics Respiratory Depth Respiratory Pattern Blood Pressure 158/115 H 158/115 H Blood Pressure Mean 117 117 Blood Pressure Position Pulse Oximetry 93 Oxygen Delivery Method Oxygen Flow Rate Fraction of Inspired Oxygen Sepsis Recent Fever Within 48 Hours Sepsis New/Unexplained Change in Mental Status Sepsis Action Taken by Nursing Oxygen Flow Rate - Titration Pulse Oximetry Post Tiitration 04/02/24 14:09 Temperature Temperature Source Pulse Rate 69 Pulse Rate from SpO2 Sensor Pulse Rhythm Pulse Strength Respiratory Rate Respiratory Effort / Characteristics Respiratory Depth Respiratory Pattern Blood Pressure Blood Pressure Mean Blood Pressure Position Pulse Oximetry Oxygen Delivery Method Oxygen Flow Rate Fraction of Inspired Oxygen Sepsis Recent Fever Within 48 Hours Sepsis New/Unexplained Change in Mental Status Sepsis Action Taken by Nursing Oxygen Flow Rate - Titration Pulse Oximetry Post Tiitration Home Medications Current Medication List: was personally reviewed by me Laboratory Data Attestation: I reviewed the patient's lab results. 04/02/24 10:38 04/02/24 10:38 Lab Results 04/02/24 04/02/24 04/02/24 Range/Units 10:05 10:38 11:54 WBC 11.18 H (4.8-10.8) K/ul RBC 4.60 L (4.70-6.10) M/uL Hgb 13.8 L (14.0-18.0) g/dl Hct 42.8 (42.0-52.0) % MCV 93.0 (80.0-100.0) fL MCH 30.0 (25.0-34.0) pg MCHC 32.2 (32.0-36.0) g/dL RDW Std Deviation 49.1 H (36.4-46.3) fL RDW Coeff of Pascual 14.5 (11.5-14.5) % Plt Count 304 (130-400) K/uL MPV 8.8 L (9.4-12.4) fL Immature Gran % (Auto) 1.6 % Neut % (Auto) 66.9 % Lymph % (Auto) 21.9 % [place] % (Auto) 6.9 % Eos % (Auto) 2.1 % Baso % (Auto) 0.6 % Neut # (Auto) 7.47 H (1.40-6.50) K/uL Lymph # (Auto) 2.45 (1.20-3.40) K/uL [place] # (Auto) 0.77 H (0.11-0.59) K/uL Eos # (Auto) 0.24 (0.00-0.50) K/uL Baso # (Auto) 0.07 (0.00-0.20) K/uL Immature Gran # (Auto) 0.18 (0.01-0.20) K/uL PT 10.9 (9.0-12.0) Seconds INR 1.0 (0.9-1.1) APTT 26 (21-31) Seconds PTT Ratio 1.0 ABG pH (7.35-7.45) ABG pCO2 (35-46) mmHg ABG pO2 (80-95) mmHg ABG HCO3 (19-24) mmol/L ABG O2 Saturation (90-95) % ABG Base Excess (-9-1.8) mEq/L José Test (Pos) VBG pH Cancelled 7.24 L VBG pCO2 Cancelled 80 H VBG pO2 Cancelled 45 VBG HCO3 Cancelled 34 VBG O2 Saturation Cancelled 63.0 VBG Base Excess Cancelled 4.2 Barometric Pressure Cancelled Oxygen Given Sodium 132 L (136-145) mmol/L Potassium 4.9 (3.5-5.1) mmol/L Chloride 95 L (98-107) mmol/L Carbon Dioxide 32 (21-32) mmol/L Anion Gap 5 (3-11) BUN 43 H (6-23) mg/dl Creatinine 1.29 (0.6-1.4) mg/dl Est Cr Clr Drug Dosing 78.9 ml/min Est GFR ( Amer) 65.1 ml/min Est GFR (Non-Af Amer) 56.2 ml/min BUN/Creatinine Ratio 33.3 H (10-20) Glucose 108 H (70-99(Fasting)) mg/dl Lactate Cancelled 0.9 Calcium 9.3 (8.6-10.3) mg/dl Magnesium 2.2 (1.7-2.4) mg/dl Total Bilirubin 0.3 (0.2-1.0) mg/dl AST 20 (13-39) U/L ALT 22 (7-52) U/L Alkaline Phosphatase 85 (34-104) U/L Troponin I High Sens 15.0 (0-20) pg/ml B-Natriuretic Peptide 271 H (0-100) pg/ml Total Protein 7.8 (6.0-8.3) gm/dl Albumin 4.2 (3.4-5.0) gm/dl Globulin 3.6 (2.5-4.0) gm/dl Albumin/Globulin Ratio 1.2 (0.9-2) Procalcitonin 0.06 (0-0.5) ng/ml Adenovirus (PCR) Not Detected (NotDetected) B. pertussis DNA (PCR) Not Detected (NotDetected) B.parapertussis DNA PCR Not Detected (NotDetected) C. pneumoniae DNA (PCR) Not Detected (NotDetected) Coronavirus OC43 (PCR) Not Detected (NotDetected) Coronavirus HKU1 (PCR) Not Detected (NotDetected) Coronavirus 229E (PCR) Not Detected (NotDetected) SARS-CoV-2 (PCR) Not Detected (NotDetected) Coronavirus NL63 (PCR) Not Detected (NotDetected) Human Metapneumovir PCR Not Detected (NotDetected) Influenza Type A (PCR) Not Detected (NotDetected) Influenza Type B (PCR) Not Detected (NotDetected) M. pneumoniae (PCR) Not Detected (NotDetected) Parainfluenza 1 (PCR) Not Detected (NotDetected) Parainfluenza 2 (PCR) Not Detected (NotDetected) Parainfluenza 3 (PCR) Not Detected (NotDetected) Parainfluenza 4 (PCR) Not Detected (NotDetected) RSV (PCR) Not Detected (NotDetected) Entero/Rhino (PCR) Not Detected (NotDetected) 04/02/24 Range/Units 12:59 WBC (4.8-10.8) K/ul RBC (4.70-6.10) M/uL Hgb (14.0-18.0) g/dl Hct (42.0-52.0) % MCV (80.0-100.0) fL MCH (25.0-34.0) pg MCHC (32.0-36.0) g/dL RDW Std Deviation (36.4-46.3) fL RDW Coeff of Pascual (11.5-14.5) % Plt Count (130-400) K/uL MPV (9.4-12.4) fL Immature Gran % (Auto) % Neut % (Auto) % Lymph % (Auto) % [place] % (Auto) % Eos % (Auto) % Baso % (Auto) % Neut # (Auto) (1.40-6.50) K/uL Lymph # (Auto) (1.20-3.40) K/uL [place] # (Auto) (0.11-0.59) K/uL Eos # (Auto) (0.00-0.50) K/uL Baso # (Auto) (0.00-0.20) K/uL Immature Gran # (Auto) (0.01-0.20) K/uL PT (9.0-12.0) Seconds INR (0.9-1.1) APTT (21-31) Seconds PTT Ratio ABG pH 7.34 L (7.35-7.45) ABG pCO2 62 H (35-46) mmHg ABG pO2 68 L (80-95) mmHg ABG HCO3 33 H (19-24) mmol/L ABG O2 Saturation 93.8 (90-95) % ABG Base Excess 5.6 H (-9-1.8) mEq/L José Test Pos (Pos) VBG pH VBG pCO2 VBG pO2 VBG HCO3 VBG O2 Saturation VBG Base Excess Barometric Pressure Oxygen Given BIPAP 28% Sodium (136-145) mmol/L Potassium (3.5-5.1) mmol/L Chloride (98-107) mmol/L Carbon Dioxide (21-32) mmol/L Anion Gap (3-11) BUN (6-23) mg/dl Creatinine (0.6-1.4) mg/dl Est Cr Clr Drug Dosing ml/min Est GFR ( Amer) ml/min Est GFR (Non-Af Amer) ml/min BUN/Creatinine Ratio (10-20) Glucose (70-99(Fasting)) mg/dl Lactate Calcium (8.6-10.3) mg/dl Magnesium (1.7-2.4) mg/dl Total Bilirubin (0.2-1.0) mg/dl AST (13-39) U/L ALT (7-52) U/L Alkaline Phosphatase (34-104) U/L Troponin I High Sens (0-20) pg/ml B-Natriuretic Peptide (0-100) pg/ml Total Protein (6.0-8.3) gm/dl Albumin (3.4-5.0) gm/dl Globulin (2.5-4.0) gm/dl Albumin/Globulin Ratio (0.9-2) Procalcitonin (0-0.5) ng/ml Adenovirus (PCR) (NotDetected) B. pertussis DNA (PCR) (NotDetected) B.parapertussis DNA PCR (NotDetected) C. pneumoniae DNA (PCR) (NotDetected) Coronavirus OC43 (PCR) (NotDetected) Coronavirus HKU1 (PCR) (NotDetected) Coronavirus 229E (PCR) (NotDetected) SARS-CoV-2 (PCR) (NotDetected) Coronavirus NL63 (PCR) (NotDetected) Human Metapneumovir PCR (NotDetected) Influenza Type A (PCR) (NotDetected) Influenza Type B (PCR) (NotDetected) M. pneumoniae (PCR) (NotDetected) Parainfluenza 1 (PCR) (NotDetected) Parainfluenza 2 (PCR) (NotDetected) Parainfluenza 3 (PCR) (NotDetected) Parainfluenza 4 (PCR) (NotDetected) RSV (PCR) (NotDetected) Entero/Rhino (PCR) (NotDetected) Administered Medications Discontinued Medications Furosemide (Furosemide 40 Mg/4 Ml Vial) 80 mg IV ONE ONE Stop: 04/02/24 11:09 Last Admin: 04/02/24 11:35 Dose: 80 mg Documented By: TNK Imaging Data Radiologist's Impression: Chest X-Ray 04/02/24 00:00 XR chest 1V portable HISTORY: 68 years-old Male DYSPNEA acute shortness of breath COMPARISON: 11/28/2022 TECHNIQUE: AP view of the chest FINDINGS: Cardiac silhouette is enlarged. Chronic interstitial lung disease progressively worsened mixed interstitial and alveolar opacities. No pneumothorax. Small pleural effusions with bibasilar densities. Bones appear grossly intact. IMPRESSION: 1. Cardiomegaly with suggestion of pulmonary edema. 2. Chronic interstitial lung disease. 3. Small pleural effusions. ACT 112: Negative or not required by law. The above report was generated using voice recognition software. It may contain grammatical, syntax or spelling errors. Electronically signed by: Lauri Galeana M.D. 04/02/2024 10:42 AM Discharge Plan Visit Data Chief Complaint: Shortness of Breath/Dyspnea Stated Complaint: SOB ED Provider: Salomón Johnson Discharge Problem: Respiratory failure, CHF (congestive heart failure), Weakness, Respiratory acidosis Patient Disposition: Admitted As Inpatient Condition: Serious Forms Stand Alone Forms: My Submitnet Prescriptions Prescriptions: No Action metoprolol tartrate 25 mg tablet 25 mg PO BID 90 Days Qty: 180 3RF trifluoperazine 5 mg tablet 5 mg PO DAILY Qty: 90 3RF furosemide 40 mg tablet 80 mg PO QAM 90 Days Qty: 180 3RF carbamazepine [Tegretol XR] 100 mg tablet extended release 12 hr 100 mg PO BID 90 Days Qty: 180 3RF coenzyme Q10 [Co Q-10] 10 mg capsule 10 mg PO BID Rx Instructions: Unable to verify OTC meds at this date/time (DME) Portable Oxygen Misc See Rx Instructions .Route Qty: 1 0RF Rx Instructions: 3 LPM dorzolamide-timolol 22.3-6.8 mg/mL Drops 1 drp ophthalmic (eye) BID Qty: 10 0RF latanoprost 0.005 % Drops 1 drp ophthalmic (eye) HS Qty: 2.5 0RF fexofenadine-pseudoephedrine [Janet-D 12 Hour] 60-120 mg tablet extended release 12 hr 1 tab PO BID PRN (Reason: nasal congestion) Qty: 60 0RF Rx Instructions: Unable to verify OTC meds at this date/time saw palmetto 500 mg Capsule 500 mg PO DAILY Rx Instructions: Unable to verify OTC meds at this date/time glucosamine-chondroitin [Osteo Bi-Flex] 250-200 mg Tablet 2 tab PO DAILY Rx Instructions: Unable to verify OTC meds at this date/time Referrals Referrals: Gentry Esparza DO [Primary Care Provider] - Discharge Problem: Respiratory failure Qualifiers: Chronicity: acute on chronic Respiratory failure complication: hypercapnia Q ualified Code(s): J96.22 - Acute and chronic respiratory failure with hypercapnia CHF (congestive heart failure) Qualifiers: Heart failure type: unspecified Heart failure chronicity: acute Qualified Code(s): I50.9 - Heart failure, unspecified
--- NOTE | 2024-04-02 10:44 | XRay Report ---
XR chest 1V portable HISTORY: 68 years-old Male DYSPNEA acute shortness of breath COMPARISON: 11/28/2022 TECHNIQUE: AP view of the chest FINDINGS: Cardiac silhouette is enlarged. Chronic interstitial lung disease progressively worsened mixed inters titial and alveolar opacities. No pneumothorax. Small pleural effusions with bibasilar densities. Bon es appear grossly intact. IMPRESSION: 1. Cardiomegaly with suggestion of pulmonary edema. 2. Chronic interstitial lung disease. 3. Small pleural effusions. ACT 112: Negative or not required by law. The above report was generated using voice recognition software. It may contain grammatical, syntax o r spelling errors. Electronically signed by: Lauri Galeana M.D. 04/02/2024 10:42 AM
[2024-04-02 11:13] LABS: Adenovirus PCR Not Detected (NotDetected); Bordetella parapertussis PCR Not Detected (NotDetected); Bordetella pertussis PCR Not Detected (NotDetected); Chlamydia pneumoniae PCR Not Detected (NotDetected); Coronavirus 229E PCR Not Detected (NotDetected); Coronavirus CoV-2 (COVID19)PCR Not Detected (NotDetected); Coronavirus HKU1 PCR Not Detected (NotDetected); Coronavirus NL63 PCR Not Detected (NotDetected); Coronavirus OC43PCR Not Detected (NotDetected); Human Metapneumovirus PCR Not Detected (NotDetected); Influenza A PCR Not Detected (NotDetected); Influenza B PCR Not Detected (NotDetected); Mycoplasma pneumoniae PCR Not Detected (NotDetected); Parainfluenza Virus 1 PCR Not Detected (NotDetected); Parainfluenza Virus 2 PCR Not Detected (NotDetected); Parainfluenza Virus 3 PCR Not Detected (NotDetected); Parainfluenza Virus 4 PCR Not Detected (NotDetected); Respiratory Syncytial VirusPCR Not Detected (NotDetected); Rhinovirus/Enterovirus PCR Not Detected (NotDetected)
[2024-04-02] MEDS: FUROSEMIDE 40 MG/4 ML VIAL IV ONE (11:35)
[2024-04-02 11:50] LABS: Basophils # (auto) 0.07 K/uL (0.00-0.20); Basophils % (auto) 0.6 %; Eosinophils # (auto) 0.24 K/uL (0.00-0.50); Eosinophils % (auto) 2.1 %; Hematocrit (blood only) 42.8 % (42.0-52.0); Hemoglobin 13.8 g/dl (14.0-18.0); Immature Granulocytes # (auto) 0.18 K/uL (0.01-0.20); Immature Granulocytes % (auto) 1.6 %; Lymphocytes # (auto) 2.45 K/uL (1.20-3.40); Lymphocytes % (auto) 21.9 %; Mean Corpuscular Hgb Conc 32.2 g/dL (32.0-36.0); Mean Platelet Volume 8.8 fL (9.4-12.4); Monocytes # (auto) 0.77 K/uL (0.11-0.59); Monocytes % (auto) 6.9 %; Neutrophils # (auto) 7.47 K/uL (1.40-6.50); Neutrophils % (auto) 66.9 %; Platelet Count 304 K/uL (130-400); RDW Coefficient of Variation 14.5 % (11.5-14.5); RDW Standard Deviation 49.1 fL (36.4-46.3); White Blood Count 11.18 K/ul (4.8-10.8)
[2024-04-02 12:01] LABS: Albumin Globulin Ratio 1.2 (0.9-2); Albumin Level 4.2 gm/dl (3.4-5.0); BUN Creatinine Ratio 33.3 (10-20); Bilirubin,Total 0.3 mg/dl (0.2-1.0); Calcium 9.3 mg/dl (8.6-10.3); Creatinine Clr Calc Pharmacy 78.9 ml/min; Est GFR (African American) 65.1 ml/min; Est GFR (Non-African American) 56.2 ml/min; Globulin 3.6 gm/dl (2.5-4.0); Magnesium 2.2 mg/dl (1.7-2.4); Potassium 4.9 mmol/L (3.5-5.1); Total Protein 7.8 gm/dl (6.0-8.3)
[2024-04-02 12:02] LABS: Base Excess VBG 4.2 mEq/L; HCO3 VBG 34 mmol/L; PCO2 VBG 80 mmHg (38-50); PO2 VBG 45 mmHg; pH VBG 7.24 (7.36-7.41)
[2024-04-02 12:10] LABS: Partial Thromboplastin Time 26 Seconds (21-31); Prothrombin Time 10.9 Seconds (9.0-12.0)
--- NOTE | 2024-04-02 12:27 | History & Physical Report ---
Date of Service April 02, 2024 Assessment & Plan (1) Acute on chronic respiratory failure with hypoxia and hypercapnia: Plan: Admit to the PCU on tele and pulse oximetry Currently stable on BiPAP Stat ABG ordered prior to admission shows a pH of 7.34, pCO2 of 62, and pO2 of [address] At [address] will place the patient on the PCU with close monitoring moving forward, case was discussed with the ICU. If further clinical decline we will reach back out to them for assessment Presented to the ED via EMS with complaints of fatigue and shortness of breath Required BiPAP on arrival Chest x-ray shows pulmonary edema with small bilateral pleural effusions VBG pH of 7.24, pCO2 80, pO2 of 45 Suspect his acute on chronic respiratory failure is multifactorial including CO2 retention from obesity hypoventilation syndrome and acute heart failure exacerbation due to noncompliance with medications and diet No signs of consolidation on chest x-ray to suspect pneumonia, Pro-Jerry is within normal limits Status post 80 mg IV Lasix in the ED, we will continue with 80 IV twice daily for now Patient noted to have 340 cc of urinary retention despite condom cath placement in the ED, will have nurses place Bare catheter now Monitor intake/output every 6 hours, daily weight Will obtain stat ABG for further evaluation N.p.o. while on BiPAP SQ heparin for DVT prophylaxis AM CBC, CMP, mag, PT/INR (2) Acute heart failure with preserved ejection fraction: Plan: Patient appears volume overloaded on exam with chest x-ray showing pulmonary edema and small bilateral pleural effusions Suspect this is due to noncompliance with home furosemide and low-sodium/fluid restricted diet, see last primary care note for further details Continue twice daily IV Lasix until respiratory status is stable can then transition to p.o. Will obtain updated echo as last was in 2021 (3) Schizophrenia: Plan: Patient has a well-documented history of noncompliance with medication and diet when his schizophrenia is not well-controlled Currently fatigued with poor insight to his acute clinical status, will need to continue cognitive assessments after his pCO2 normalizes as this could be causing significant confusion on arrival May need psychiatry consult prior to discharge if possible inpatient psychiatric treatment as needed Case management consult has been placed to assist with discharge plans Plan The patient was discussed with Dr. Tay at the time of the admission History of Present Illness Chief Complaint: Generalized weakness, acute on chronic hypoxic respiratory failure Primary Care Provider: Gentry Esparza DO Fabian (Forrest) is a 68-year-old male with a past medical history significant for chronic respiratory failure with hypoxia and hypercapnia (on chronic 3 L nasal cannula), schizophrenia causing recurrent medical noncompliance, morbid obesity, prediabetes, hepatitis C, and obesity hypoventilation syndrome who presented to the [facility] ED on 04/02/2024 via EMS with complaints of worsening shortness of breath and generalized weakness. Patient was placed on nonrebreather at 15 L/min in route. On arrival to the ED he was noted to be hypoxic with SpO2 of 81% on room air, tachypneic at 26, and otherwise stable. Labs were significant for a leukocytosis of 11 with left shift of 7, VBG pH of 7.24, pCO2 of 80, pO2 of 45, high-sensitivity troponin within normal limits, BNP of 271 (appears near previous values), and full respiratory BioFire negative. Chest x-ray was read as cardiomegaly with suggestion of pulmonary edema. Chronic interstitial lung disease. And small bilateral pleural effusions. Prior to admission the patient was given 80 mL grams of IV Lasix. The patient was initially placed on 6 L nasal cannula at the time of the ED arrival but was subsequently transitioned to BiPAP with IPAP of 15, EPAP of 5, rate of 16, and FiO2 of 100%. Patient was sitting in bed and appears to be in mild respiratory distress while on BiPAP as he is tachypneic and appears very fatigued. It takes shouting and sternal rub for the patient to wake. He is alert and oriented, when asked he states he does feel as though his work of breathing is getting harder. I asked if he has been taking his home medicines including his furosemide, he tells me he does not remember which one that is. I then ask if he has been limiting his sodium and fluid intake, at first he did not respond. Then responded "I eat what I am supposed to". I discussed with him that I am concerned with his increased work of breathing despite being on BiPAP and have asked the ED to talk to the ICU as he may require intubation. He responded with "I do not need that". At this time I am concerned that the patient does not have good insight into his acute illness and may not have the ability to make medical decisions at this time. When asked if he would want CPR in the event of cardiac arrest he did state that he would want this. He is unable to tell me why he would not want intubation if he were to go into further respiratory failure. He then tells me that he needed to urinate, I explained to him that he currently has an external catheter in place and can go but he appears too confused to understand this at this time. I discussed with the ED physician that the patient should first be evaluated by the ICU staff as he is high risk for further respiratory failure and need for intubation. The patient has a history of difficult intubation due to his morbid obesity. Please refer to Dr. Tay's attestation for any changes to the treatment plan Allergies Allergy/AdvReac Type Severity Reaction Status Date / Time aspirin Allergy Verified 07/17/23 13:26 Penicillins Allergy Verified 07/17/23 13:26 Home Medications Medication Instructions Recorded Confirmed Type coenzyme Q10 10 mg capsule (Co 10 mg PO BID 11/05/20 04/02/24 History Q-10) dorzolamide 22.3 mg-timolol 6.8 1 drp ophthalmic (eye) BID #10 mL 07/27/22 04/02/24 Rx mg/mL eye drops fexofenadine 60 mg-pseudoephedrine 1 tab PO BID PRN nasal congestion 07/27/22 04/02/24 Rx ER 120 mg tablet,ext.release,12 hr #60 tabs (Janet-D 12 Hour) latanoprost 0.005 % eye drops 1 drp ophthalmic (eye) HS #2.5 mL 07/27/22 04/02/24 Rx metoprolol tartrate 25 mg tablet 25 mg PO BID 90 days #180 tabs 03/12/23 04/02/24 Rx Portable Oxygen #1 ea 05/14/23 07/17/23 Rx trifluoperazine 5 mg tablet 5 mg PO DAILY #90 tabs 07/18/23 04/02/24 Rx furosemide 40 mg tablet 80 mg (2 x 40 mg) PO QAM 90 days 08/03/23 04/02/24 Rx #180 tabs carbamazepine 100 mg 100 mg PO BID 90 days #180 tabs 02/28/24 04/02/24 Rx tablet,extended release,12 hr (Tegretol XR) glucosamine-chondroitin 250 mg-200 2 tab PO DAILY 04/02/24 04/02/24 History mg tablet (Osteo Bi-Flex) saw palmetto 500 mg capsule 500 mg PO DAILY 04/02/24 04/02/24 History Past Med/Surg History Problem List (Updated 04/10/24 @ 08:53 by Ankit Gonzalez MD) Pneumonia Acute metabolic encephalopathy ALEXIS (acute kidney injury) Respiratory acidosis (Acute) Weakness (Acute) CHF (congestive heart failure) (Acute) Respiratory failure (Acute) Acute heart failure with preserved ejection fraction Acute on chronic respiratory failure with hypoxia and hypercapnia Acute respiratory failure with hypoxia and hypercapnia Class 3 severe obesity due to excess calories with serious comorbidity and body mass index (BMI) of 45.0 to 49.9 in adult Elevated IgE level Obesity hypoventilation syndrome Excessive daytime sleepiness History of behavioral and mental health problems Abnormal CT scan, chest Aspergillus fumigatus Dyspnea Chronic respiratory failure with hypoxia and hypercapnia Prediabetes Schizophrenia Morbid obesity with BMI of 40.0-44.9, adult Hepatitis C antibody test positive Morbid obesity due to excess calories Medical History Pulmonary edema Severe sepsis Elevated troponin Acute hyponatremia Multifocal pneumonia Hyperlipidemia Encounter for health maintenance examination in adult Surgical History S/P tooth extraction Family History Father Prostate cancer Mother Dementia Denies family history of Ovarian cancer Myocardial infarction Breast cancer Colorectal cancer Social History Smoking Status: Former smoker Tobacco Type: Cigarettes Age Started Using Tobacco: 25; packs per day: 0.5; Second Hand Exposure: No; Do You Dip or Chew Tobacco: No; Hx Alcohol Use: No Hx Substance Use: No Preferred Language: [place] Islander Communication Ability: Effective Communication Ability Comment: vision problems Communication Tools: Letter Board and Picture Board Visual Impairment: No Limitations Hearing Ability: Normal Ocean Lifeguard Specialist Required: No Beliefs That Will Affect Care: None marital status: Single Current Living Situation: Alone Current Living Situation Comment: [facility]RE[facility] current occupational status: disabled Feels Safe at Home: Yes Childhood Exposure to Second-Hand Smoke: Yes Diet: regular caffeine: Yes Dental Care, Regularly: No Physical Activity Frequency: Other Physical Activity Frequency Comment: walks Seatbelt Use: always Sunscreen Use: No Assistive Devices: Cane and Walker Physical Exam Physical Exam: Physical Exam: General: Fatigued, stated age, very poor hygiene, acutely ill-appearing HEENT: Normocephalic, atraumatic, no scleral icterus, pupils around round, symmetrical, and reactive to light, bipap mask currently in place without signs of air leak, trachea midline, no thyromegaly Chest/Pulm: Patient appears in mild-moderate respiratory distress with tachypnea, inability to speak in complete sentences, and intermittent grunting, symmetrical chest expansion, decreased breath sounds in the BL lower lung hernández with expiratory wheezing in the BL upper/mid lung hernández Cardiac: RRR, no murmurs noted Abdomen: Negative for ascites and bruising, normoactive bowel sounds, soft, non-tender to palpation throughout Musculoskeletal: Symmetrical and without signs of acute trauma, upper and lower extremities with full ROM, no atrophy, spasticity, or flaccidity Extremities: Radial, dorsalis pedis, and posterior tibial pulses are intact and symmetrical, 1-2+ edema noted in the BL LE's Skin: Patient with dried feces on the BL LE's/feet, skin on the BL lower extremities appears consistent with venous stasis Neuro: Fatigued and wakes with yelling name and sternal rub, delayed responses to orientation questions, patient is Alert and oriented to person, place, month, year, no focal defects, , no tremors noted Psych: Fatigued/lethargic, flat affect, poor insight into his acute clinical status Results & Data Results & Data Vital Signs (Past 12 Hours) Vital Signs Temp Pulse Resp BP Pulse Ox O2 Del Method O2 Flow Rate 04/02/24 12:03 72 31 H 96 04/02/24 11:30 174/102 H 04/02/24 11:30 174/102 H 04/02/24 11:29 73 27 H 99 04/02/24 11:21 68 33 H 97 04/02/24 11:03 69 38 H 97 04/02/24 11:00 190/93 H 04/02/24 11:00 190/93 H 04/02/24 10:57 70 30 H 96 04/02/24 10:45 68 22 89 L 04/02/24 10:39 67 25 H 90 04/02/24 10:34 177/85 H 04/02/24 10:18 61 24 91 Nasal Cannula 6 04/02/24 10:18 98 Non-rebreather 15 04/02/24 10:06 Nasal Cannula 3 04/02/24 10:00 71 26 H 92 Nasal Cannula 6 04/02/24 09:56 139/79 04/02/24 09:56 139/79 04/02/24 09:55 73 04/02/24 09:44 68 26 H 97 Nasal Cannula 3 04/02/24 09:28 37.3 C 78 26 H 159/83 H 95 Non-rebreather 15 FiO2 04/02/24 12:03 04/02/24 11:30 04/02/24 11:30 04/02/24 11:29 100 04/02/24 11:21 04/02/24 11:03 04/02/24 11:00 04/02/24 11:00 04/02/24 10:57 04/02/24 10:45 04/02/24 10:39 04/02/24 10:34 04/02/24 10:18 04/02/24 10:18 04/02/24 10:06 04/02/24 10:00 04/02/24 09:56 04/02/24 09:56 04/02/24 09:55 04/02/24 09:44 04/02/24 09:28 Laboratory Results Abnormal lab results 04/02/24 04/02/24 Range/Units 10:38 11:54 WBC 11.18 H (4.8-10.8) K/ul RBC 4.60 L (4.70-6.10) M/uL Hgb 13.8 L (14.0-18.0) g/dl RDW Std Deviation 49.1 H (36.4-46.3) fL MPV 8.8 L (9.4-12.4) fL Neut # (Auto) 7.47 H (1.40-6.50) K/uL Blair # (Auto) 0.77 H (0.11-0.59) K/uL VBG pH 7.24 L (7.36-7.41) VBG pCO2 80 H (38-50) mmHg Sodium 132 L (136-145) mmol/L Chloride 95 L (98-107) mmol/L BUN 43 H (6-23) mg/dl BUN/Creatinine Ratio 33.3 H (10-20) Glucose 108 H (70-99(Fasting)) mg/dl B-Natriuretic Peptide 271 H (0-100) pg/ml Diagnostic Findings Chest X-Ray 04/02/24 00:00 XR chest 1V portable HISTORY: 68 years-old Male DYSPNEA acute shortness of breath COMPARISON: 11/28/2022 TECHNIQUE: AP view of the chest FINDINGS: Cardiac silhouette is enlarged. Chronic interstitial lung disease progressively worsened mixed interstitial and alveolar opacities. No pneumothorax. Small pleu ral effusions with bibasilar densities. Bones appear grossly intact. IMPRESSION: 1. Cardiomegaly with suggestion of pulmonary edema. 2. Chronic interstitial lung disease. 3. Small pleural effusions. ACT 112: Negative or not required by law. The above report was generated using voice recognition software. It may contain grammatical, syntax or spelling errors. Electronically signed by: Lauri Galeana M.D. 04/02/2024 10:42 AM ECG Additional Comments: Sinus rhythm with 1st degree A-V block Otherwise normal ECG When compared with ECG of 10-JUL-2022 06:18, No significant change was found Code Status & VTE Plan Code Status Full code Supervising Physician Co-Signing Physician Notes I personally saw and examined the patient. I verified all holloway points and agree with Chucho Moore PA-C with the following exceptions and/or additions: 68 year old male presents to the ER with shortness of breath and generalized weakness. Unable to get much history from the patient when seen due to respiratory distress. O/E Alert to person only, HS RRR, no murmurs, Reduced breath sounds throughout, no crackles or wheezing, Abdo SNT, b/l pedal edema A/P Acute on chronic respiratory failure with hypoxia and hypercapnia - discussed with ICU due to concern he could tire and need difficult intubation overnight. Planning on managing on PCU initially. BiPAP continuous at least until tomorrow morning and NPO Acute HFpEF - strict I&Os, daily weights, Lasix 80mg IV BID PG Care Time/CCT Total # of Minutes Spent Total Time Spent with Patient: Total time spent is greater than 50% in coordination of care (as documented) at patient's floor/unit and/or counseling patient: C[place] [address] INT INP/OBS CARE MIN Patient Type Established Medical Decision Making High Complexity Diagnoses Acute on chronic respiratory failure with hypoxia and hypercapnia J96.21; J96.22 Acute heart failure with preserved ejection fraction I50.31 Schizophrenia F20.9
--- NOTE | 2024-04-02 12:52 | Electrocardiogram Report ---
Test Reason : Blood Pressure : / mmHG Vent. Rate : 071 BPM Atrial Rate : 071 BPM P-R Int : 218 ms QRS Dur : 086 ms QT Int : 390 ms P-R-T Axes : 040 015 062 degrees QTc Int : 423 ms Sinus rhythm with 1st degree A-V block Otherwise normal ECG When compared with ECG of 10-JUL-2022 06:18, No significant change was found Confirmed by Isaak Archibald ([id number]) on 04/02/2024 12:52:14 PM Referred By: REFERRED SELF Confirmed By:Adam Archibald
[2024-04-02 13:12] LABS: Allen Test Pos (Pos); Base Excess ABG 5.6 mEq/L (-9-1.8); HCO3 ABG 33 mmol/L (19-24); Oxygen Saturation ABG 93.8 % (90-95); PCO2 ABG 62 mmHg (35-46); PO2 ABG 68 mmHg (80-95); pH ABG 7.34 (7.35-7.45)
[2024-04-02 14:58] LABS: Appearance Urine Clear (Clear); Bilirubin Urine Negative (Negative); Blood Urine Negative (Negative); Color Urine Yellow; Glucose Urine UA Negative (Negative); Ketones Urine Negative (Negative); Leukocyte Esterase Urine Negative (Negative); Nitrite Urine Negative (Negative); Protein Urine Negative (Negative); Specific Gravity Urine 1.008 (1.000-1.030); Urobilinogen Urine Negative (Negative); pH Urine 5.5 (4.5-7.5)
[2024-04-02] MEDS: ICU Protocol for HYPERglycemia SCH (16:12)
[2024-04-02] MEDS: HEPARIN SOD 5,000 UNIT/0.5 ML VIAL SQ SCH (17:02)
[2024-04-02 19:31] LABS: Base Excess ABG 7.2 mEq/L (-9-1.8); HCO3 ABG 36 mmol/L (19-24); Oxygen Saturation ABG 98.4 % (90-95); PCO2 ABG 74 mmHg (35-46); PO2 ABG 114 mmHg (80-95)
[2024-04-02] MEDS ORDERED: GLUCOSE 10 TAB/TUBE PO PRN (20:08)
[2024-04-02] MEDS ORDERED: DEXTROSE 50% 50 ML SYRINGE IV PRN (20:08)
[2024-04-02] MEDS ORDERED: GLUCAGON FOR INJ 1 MG VIAL SQ PRN (20:08)
[2024-04-02] MEDS ORDERED: CARBOHYDRATES FOR HYPOGLYCEMIA PO PRN (20:08)
[2024-04-02] MEDS ORDERED: GLUCOSE 40% GEL 15 GM TUBE PO PRN (20:08)
[2024-04-02] MEDS: FUROSEMIDE 40 MG/4 ML VIAL IV SCH (20:23)
[2024-04-02 20:37] LABS: Allen Test Pos (Pos)
[2024-04-02] MEDS: METOPROLOL TARTRATE 25 MG TAB PO SCH (22:04)
[2024-04-02] MEDS: DORZOLAMIDE/TIMOLOL 22.3/6.8MG/ML 10 ML BTL OP SCH (22:32)
[2024-04-02] MEDS: carBAMazepine XR 100 MG TABCR PO SCH (22:33)
[2024-04-02 22:39] LABS: HCO3 ABG 35 mmol/L (19-24); Oxygen Saturation ABG 98.6 % (90-95); PCO2 ABG 65 mmHg (35-46); PO2 ABG 89 mmHg (80-95); pH ABG 7.34 (7.35-7.45)
[2024-04-02 23:03] LABS: Allen Test Pos (Pos)
[2024-04-03 06:16] LABS: Base Excess ABG 10.7 mEq/L (-9-1.8); HCO3 ABG 39 mmol/L (19-24); PCO2 ABG 65 mmHg (35-46); PO2 ABG 79 mmHg (80-95); pH ABG 7.38 (7.35-7.45)
[2024-04-03 06:30] LABS: Allen Test Pos (Pos)
[2024-04-03 07:58] LABS: A calco-baum cmplx NotReported Not Detected (NotDetected); Bact fragilis Not Reported Not Detected (NotDetected); Blood Culture Id Panel See PCR Comment (NotDetected); C auris Not Reported Not Detected (NotDetected); Calbicans Not Reported Not Detected (NotDetected); Candida glabrata Not Reported Not Detected (NotDetected); Candida krusei Not Reported Not Detected (NotDetected); Cneoformans/gatti Not Reported Not Detected (NotDetected); Cparapsilosis Not Reported Not Detected (NotDetected); E cloacae compx Not Reported Not Detected (NotDetected); Efaecalis Not Reported Not Detected (NotDetected); Efaecium Not Reported Not Detected (NotDetected); Enterobacterales Not Reported Not Detected (NotDetected); Escherichia coli Not Reported Not Detected (NotDetected); H influenzae Not Reported Not Detected (NotDetected); K aerogenes Not Reported Not Detected (NotDetected); Koxytoca Not Reported Not Detected (NotDetected); Kpneumoniae grp Not Reported Not Detected (NotDetected); Lmonocyt Not Reported Not Detected (NotDetected); N meningitidis Not Reported Not Detected (NotDetected); P aeruginosa Not Reported Not Detected (NotDetected); Proteus spp Not Reported Not Detected (NotDetected); Salmonella spp Not Reported Not Detected (NotDetected); Staph lugdunensis Not Reported Not Detected (NotDetected); Staph spp. Not Reported DETECTED (NotDetected); Staphaureus Not Reported Not Detected (NotDetected); Staphepi Not Reported Not Detected (NotDetected); Stenmaltophilia Not Reported Not Detected (NotDetected); Strep agal(GrpB) Not Reported Not Detected (NotDetected); Strep pneum Not Reported Not Detected (NotDetected); Strep pyog (GrpA) Not Reported Not Detected (NotDetected); Strep spp Not Reported Not Detected (NotDetected)
[2024-04-03] MEDS: TRIFLUOPERAZINE HCL 5 MG TABLET PO SCH (08:25)
[2024-04-03 10:12] LABS: Staphylococcus spp. DETECTED (NotDetected)
[2024-04-03] MEDS: FUROSEMIDE 40 MG/4 ML VIAL IV SCH (16:19)
--- NOTE | 2024-04-03 17:48 | Hospitalist Progress Note ---
Date of Service April 03, 2024 Assessment & Plan (1) Acute on chronic respiratory failure with hypoxia and hypercapnia: Plan: 68-year-old man with schizophrenia poor medication adherence chronic heart failure and interstitial lung disease based on chest CT 12/2022 admitted with acute on chronic respiratory failure with hypoxia and hypercapnia caused by acute on chronic heart failure we confirmed that he does have 3L home oxygen however he does not have a prescription for CPAP or BiPAP at home. last TTE was 06/2022 and he had normal EF and LVH at that time he did improve in the first 24 hours of admission with continuous BiPAP and IV diuretics - remains volume overloaded continue IV furosemide 80 twice daily. a.m. BMP and mag. Torsemide will be better oral diuretic since longer acting (wrt noncompliance) - transition noninvasive ventilation to as needed, a.m. VBG - highly likely to have MARIAJOSE/OHS and some component of chronic hypercarbia, O2 sat goal 88-92%, consider referral for sleep apnea testing but seems unlikely to be able to comply with this - underlying interstitial lung disease but does not appear to be in a flare or have pulmonary infection at this time - TTE pending (2) Acute heart failure with preserved ejection fraction: Plan: -see above, not recently taking his meds including diuretics -TTE - P -diuresis, continue metoprolol (3) Schizophrenia: Plan: - chronic schizophrenia historically well controlled on these meds. No evidence of decompensation. Hx of only one prior inpatient psychiatric admission in 1986. Continue trifluoperazine and carbamazepime Plan ILD - reviewed pulmonary clinic note by Dr. Lutz 02/23/23 - mild ILD on chest CT thought related to previous smoking and occupational exposures, negative Rheum workup, elevated IgE evaluated by Allergy not related to asthma. PFTs restrictive. Refused sleep study because he stated he would not wear CPAP or Bipap. Morbid obesity BMI 45 Mild hypervolemic hyponatremia - AM BMP Lives alone and a nephew brings his meals. Relies on frozen dinners thus high salt. Has trouble with medication and dietary compliance because of his schizophrenia and potentially some underlying cognitive impairment. Discussed with care coordination today. We will see how he does with acute treatment. Perhaps home health could fill weekly medisets. Simple regimen with AM dosing will also be helpful. Admission and Anticipated Discharge Date Admission Date: April 02, 2024 Subjective Mr. Black is eating lunch in his room he is a very poor historian however seems that his shortness of breath has improved certainly his hypoxia has improved since yesterday he has had a large urine output almost 4 L negative and down 5 or 6 kg since ED presentation. He is urinating a lot. He does not have any chest pain or abdominal pain. He does not seem to notice his leg edema. appears that potentially an outpatient heel painter prompted his visit to the ED based on his ill appearance with respect to his breathing. he has not been taking his medications at least for a few days. he says that he mixes them up and he does not know what they are all for Physical Exam 2 Physical Exam: PHYSICAL EXAMINATION Last 24h vital signs reviewed, see documentation in flowsheet General: comfortable appearing, no distress, sitting up in chair eating broccoli. disheveled appearing HEENT: Normocephalic, atraumatic, pupils round and equal, sclerae anicteric, no conjunctival injection, moist mucus membranes Lungs: Normal respiratory effort. bibasilar crackles no wheezing lung sounds diminished throughout Heart: distant Regular rate and rhythm, no murmurs. No JVD Abdomen: Soft, nontender, nondistended. Bowel sounds present. Extremities: Warm, dry, well-perfused. 3+ lower extremity edema. Neuro: Alert and oriented x hospital and basic situation, very limited historian, face symmetric, moves 4 extremities well, slight asterixis Psych: flat affect poor eye contact, slightly odd behavior Results & Data Results & Data Vital Signs (Past 12 Hours) Vital Signs Temp Pulse Pulse Resp BP Pulse Ox O2 Del Method 04/03/24 14:58 36.5 C 72 18 109/66 91 Nasal Cannula 04/03/24 11:29 Nasal Cannula 04/03/24 11:19 36.6 C 63 18 142/77 H 94 Nasal Cannula 04/03/24 06:50 65 31 H 96 04/03/24 06:49 36.9 C 57 L 20 103/63 94 BiPAP O2 Flow Rate FiO2 04/03/24 14:58 4 04/03/24 11:29 4 04/03/24 11:19 4 04/03/24 06:50 40 04/03/24 06:49 Laboratory Results 04/02/24 10:38 04/02/24 10:38 Diagnostic Findings Chest X-Ray 04/02/24 00:00 XR chest 1V portable HISTORY: 68 years-old Male DYSPNEA acute shortness of breath COMPARISON: 11/28/2022 TECHNIQUE: AP view of the chest FINDINGS: Cardiac silhouette is enlarged. Chronic interstitial lung disease progressively worsened mixed interstitial and alveolar opacities. No pneumothorax. Small pleural effusions with bibasilar densities. Bones appear grossly intact. IMPRESSION: 1. Cardiomegaly with suggestion of pulmonary edema. 2. Chronic interstitial lung disease. 3. Small pleural effusions. ACT 112: Negative or not required by law. The above report was generated using voice recognition software. It may contain grammatical, syntax or spelling errors. Electronically signed by: Lauri Galeana M.D. 04/02/2024 10:42 AM PG Care Time/CCT Total # of Minutes Spent Total Time Spent with Patient: Total time spent is greater than 50% in coordination of care (as documented) at patient's floor/unit and/or counseling patient: Coding Level of Care Code 48162 SUB INP/OBS CARE 3/50MIN Diagnoses Acute on chronic respiratory failure with hypoxia and hypercapnia J96.21; J96.22 Acute heart failure with preserved ejection fraction I50.31 Schizophrenia F20.9
--- NOTE | 2024-04-03 19:34 | XCELERA ---
[id number] \\[email or web address]\[id number]
[2024-04-03] MEDS: ACETAMINOPHEN 500 MG TAB PO PRN (20:09)
[2024-04-04 06:58] LABS: Hematocrit (blood only) 40.5 % (42.0-52.0); Hemoglobin 13.1 g/dl (14.0-18.0); Mean Corpuscular Hemoglobin 30.5 pg (25.0-34.0); Mean Corpuscular Hgb Conc 32.3 g/dL (32.0-36.0); Mean Corpuscular Volume 94.2 fL (80.0-100.0); Mean Platelet Volume 8.7 fL (9.4-12.4); Platelet Count 263 K/uL (130-400); RDW Coefficient of Variation 14.2 % (11.5-14.5); RDW Standard Deviation 48.9 fL (36.4-46.3); White Blood Count 11.31 K/ul (4.8-10.8)
[2024-04-04 07:27] LABS: BUN Creatinine Ratio 31.9 (10-20); Calcium 8.3 mg/dl (8.6-10.3); Creatinine Clr Calc Pharmacy 60.2 ml/min; Est GFR (Non-African American) 41.4 ml/min; Potassium 4.9 mmol/L (3.5-5.1)
[2024-04-04 08:40] LABS: Base Excess VBG 12.1 mEq/L; HCO3 VBG 42 mmol/L; Oxygen Saturation VBG 63.4 %; PCO2 VBG 79 mmHg (38-50); PO2 VBG 39 mmHg; pH VBG 7.33 (7.36-7.41)
[2024-04-04] MEDS: TORSEMIDE 20 MG TAB PO SCH (10:36)
[2024-04-04] MEDS: ENOXAPARIN INJ 30 MG/0.3 ML SYR SQ SCH (10:36)
--- NOTE | 2024-04-04 17:35 | Hospitalist Progress Note ---
Date of Service April 04, 2024 Assessment & Plan (1) Acute on chronic respiratory failure with hypoxia and hypercapnia: Plan: 68-year-old man with schizophrenia poor medication adherence chronic heart failure and interstitial lung disease based on chest CT 12/2022 admitted with acute on chronic respiratory failure with hypoxia and hypercapnia caused by acute on chronic diastolic heart failure, ILD, MARIAJOSE/OHS we confirmed that he does have 3L home oxygen however he does not have a prescription for CPAP or BiPAP at home. last TTE was 06/2022 and he had normal EF and LVH at that time he did improve in the first 24 hours of admission with continuous BiPAP and IV diuretics - diuresed with lasix 80 mg IV bid. This AM BUN/Cr has increased and BNP has normalized. Exam difficult to assess. Hypoxia improved. Change to torsemide 40 mg qAM and monitor response. - vbg this AM - remains hypercarbic 7.33//39. Continue bipap at night and whenever he will permit it. - highly likely to have MARIAJOSE/OHS and some component of chronic hypercarbia, O2 sat goal 88-92%, discussed referral for sleep apnea testing but he refused states cannot tolerate masks - underlying interstitial lung disease but does not appear to be in a flare or have pulmonary infection at this time - TTE reviewed - Normal LV EF 60-65%, grade 1 diastolic dysfunction, normal RV, no valvular disease (2) Acute heart failure with preserved ejection fraction: Plan: -see above, not recently taking his meds including diuretics -diuresis, continue metoprolol (3) Schizophrenia: Plan: - chronic schizophrenia historically well controlled on these meds. No evidence of decompensation. Hx of only one prior inpatient psychiatric admission in 1986. - no hallucinations, no SI/HI Continue trifluoperazine and carbamazepime Plan ILD - reviewed pulmonary clinic note by Dr. Lutz 02/23/23 - mild ILD on chest CT thought related to previous smoking and occupational exposures, negative Rheum workup, elevated IgE evaluated by Allergy not related to asthma. PFTs restrictive. Refused sleep study because he stated he would not wear CPAP or Bipap. Morbid obesity BMI 45 Mild hypervolemic hyponatremia - AM BMP Lives alone and a nephew brings his meals. Relies on frozen dinners thus high salt. Has trouble with medication and dietary compliance because of his schizophrenia and potentially some underlying cognitive impairment. We will see how he does with acute treatment. Perhaps home health could fill weekly medisets. Simple regimen with AM dosing will also be helpful. PT/OT gerhard ordered Admission and Anticipated Discharge Date Admission Date: April 02, 2024 Subjective says he can't wear a CPAP or Bipap at home because he can't sleep with a mask has never perceived dyspnea this admission. no chest pain. edema improved. hypoxia improved. no hallucinations, no SI Physical Exam 2 Physical Exam: PHYSICAL EXAMINATION Last 24h vital signs reviewed, see documentation in flowsheet General: comfortable appearing, no distress, sitting up in bed HEENT: Normocephalic, atraumatic, pupils round and equal, sclerae anicteric, no conjunctival injection, moist mucus membranes Lungs: Normal respiratory effort. bibasilar crackles unchanged no wheezing lung sounds diminished throughout Heart: distant Regular rate and rhythm, no murmurs. cannot see neck vv Abdomen: Soft, nontender, nondistended. Bowel sounds present. Extremities: Warm, dry, well-perfused. 2+ lower extremity edema. Neuro: Alert and oriented x hospital and basic situation, very limited historian, face symmetric, moves 4 extremities well, slight asterixis Psych: flat affect poor eye contact, slightly odd behavior, poor insight/judgment, no hallucinations and no SI/HI Results & Data Results & Data Vital Signs (Past 12 Hours) Vital Signs Temp Pulse Pulse Resp BP Pulse Ox O2 Del Method 04/04/24 16:26 Nasal Cannula 04/04/24 16:26 69 04/04/24 15:02 36.6 C 72 18 130/72 95 Nasal Cannula 04/04/24 11:35 36.6 C 61 18 118/69 98 Nasal Cannula 04/04/24 09:49 Nasal Cannula 04/04/24 07:53 36.7 C 57 L 18 123/71 98 Nasal Cannula, BiPAP O2 Flow Rate 04/04/24 16:26 3 04/04/24 16:26 04/04/24 15:02 6 04/04/24 11:35 6 04/04/24 09:49 3 04/04/24 07:53 6 Laboratory Results 04/04/24 06:35 04/04/24 06:35 PG Care Time/CCT Total # of Minutes Spent Total Time Spent with Patient: Total time spent is greater than 50% in coordination of care (as documented) at patient's floor/unit and/or counseling patient: Coding Level of Care Code 20801 SUB INP/OBS CARE 50MIN Diagnoses Acute on chronic respiratory failure with hypoxia and hypercapnia J96.21; J96.22 Acute heart failure with preserved ejection fraction I50.31 Schizophrenia F20.9
[2024-04-05 07:51] LABS: Anion Gap 3 (3-11); BUN Creatinine Ratio 36.6 (10-20); Blood Urea Nitrogen 52 mg/dl (6-23); Calcium 8.3 mg/dl (8.6-10.3); Carbon Dioxide 40 mmol/L (21-32); Chloride 93 mmol/L (98-107); Creatinine Clr Calc Pharmacy 69.3 ml/min; Glucose 96 mg/dl (70-99(Fasting)); Sodium 136 mmol/L (136-145)
[2024-04-05] MEDS: TORSEMIDE 20 MG TAB PO SCH (09:03)
[2024-04-05] MEDS: acetaZOLAMIDE 250 MG TAB PO SCH (09:12)
--- NOTE | 2024-04-05 12:54 | Hospitalist Progress Note ---
Date of Service April 05, 2024 Assessment & Plan (1) Acute on chronic respiratory failure with hypoxia and hypercapnia: Plan: 68-year-old man with schizophrenia poor medication adherence chronic heart failure and interstitial lung disease based on chest CT 12/2022 admitted with acute on chronic respiratory failure with hypoxia and hypercapnia caused by acute on chronic diastolic heart failure, ILD, untreated MARIAJOSE/OHS we confirmed that he does have 3L home oxygen however he does not have a prescription for CPAP or BiPAP at home. last TTE was 06/2022 and he had normal EF and LVH at that time updated TTE this admission: Normal LV EF 60-65%, grade 1 diastolic dysfunction, normal RV, no valvular disease he did improve in the first 24 hours of admission with continuous BiPAP and IV diuretics. subsequently has refused Bipap and refuses sleep study as he has in the past. - diuresed with lasix 80 mg IV bid through AM of 04/04. Euvolemic. Continue torsemide and added diamox to see whether this will stimulate his respiratory drive. Remains hypercarbic. - underlying interstitial lung disease but does not appear to be in a flare or have pulmonary infection at this time - discontinue rosenberg - AM BMP - PT/OT (2) Acute heart failure with preserved ejection fraction: Plan: -see above, not recently taking his meds including diuretics -diuretics as above -changed metoprolol to succinate for once a day dosing, dose decrease because BP is low and has been bradycardic (3) Schizophrenia: Plan: - chronic schizophrenia historically well controlled on these meds. No evidence of decompensation. Hx of only one prior inpatient psychiatric admission in 1986. - no hallucinations, no SI/HI Continue trifluoperazine and carbamazepime Plan ILD - reviewed pulmonary clinic note by Dr. Lutz 02/23/23 - mild ILD on chest CT thought related to previous smoking and occupational exposures, negative Rheum workup, elevated IgE evaluated by Allergy not related to asthma. PFTs restrictive. Refused sleep study because he stated he would not wear CPAP or Bipap. Morbid obesity BMI 45 Mild hypervolemic hyponatremia - resolved with diuresis Lives alone and a nephew brings his meals. Relies on frozen dinners thus high salt. Has trouble with medication and dietary compliance because of his schizophrenia and potentially some underlying cognitive impairment. We will see how he does with acute treatment. Perhaps home health could fill weekly medisets. Simple regimen with AM dosing will also be helpful. PT/OT gerhard ordered Admission and Anticipated Discharge Date Admission Date: April 02, 2024 Subjective We had a discussion about his respiratory failure, that alf Bipap is the necessary treatment, and that he could go into a coma or if CO2 continued rising. He continues to refuse sleep study or NIV. Refused Bipap overnight. Denies any shortness of breath. Leg edema has resolved. Physical Exam 2 Physical Exam: PHYSICAL EXAMINATION Last 24h vital signs reviewed, see documentation in flowsheet General: awake and lying in bed HEENT: Normocephalic, atraumatic, pupils round and equal, sclerae anicteric, no conjunctival injection, moist mucus membranes Lungs: Normal respiratory effort. breath sounds diminished throughout, no crackles or wheezing Heart: distant Regular rate and rhythm, no murmurs. cannot see neck vv Abdomen: Soft, nontender, nondistended. Bowel sounds present. Extremities: Warm, dry, well-perfused. lower extremity edema has resolved. Neuro: Alert and oriented x hospital and basic situation, very limited historian, face symmetric, moves 4 extremities well, slight asterixis Psych: flat affect poor eye contact, slightly odd behavior, poor insight/judgment, no hallucinations and no SI/HI Results & Data Results & Data Vital Signs (Past 12 Hours) Vital Signs Temp Pulse Pulse Resp BP BP Pulse Ox 04/05/24 11:18 36.7 C 55 L 23 100/58 L 89 L 04/05/24 07:45 04/05/24 07:06 36.5 C 62 22 124/72 92 04/05/24 07:00 61 04/05/24 02:25 36.7 C 58 L 18 118/68 90 O2 Del Method O2 Flow Rate 04/05/24 11:18 Nasal Cannula 4 04/05/24 07:45 Nasal Cannula 3 04/05/24 07:06 Nasal Cannula 6 04/05/24 07:00 04/05/24 02:25 Nasal Cannula 6.0 Laboratory Results 04/04/24 06:35 04/05/24 10:41 PG Care Time/CCT Total # of Minutes Spent Total Time Spent with Patient: Total time spent is greater than 50% in coordination of care (as documented) at patient's floor/unit and/or counseling patient: Coding Level of Care Code 15879 SUB INP/OBS CARE 2/35MIN Diagnoses Acute on chronic respiratory failure with hypoxia and hypercapnia J96.21; J96.22 Acute heart failure with preserved ejection fraction I50.31 Schizophrenia F20.9
[2024-04-06 07:26] LABS: BUN Creatinine Ratio 34.4 (10-20); Blood Urea Nitrogen 52 mg/dl (6-23); Calcium 8.5 mg/dl (8.6-10.3); Carbon Dioxide 36 mmol/L (21-32); Chloride 93 mmol/L (98-107); Est GFR (African American) 53.8 ml/min; Est GFR (Non-African American) 46.5 ml/min; Glucose 101 mg/dl (70-99(Fasting))
[2024-04-06] MEDS: METOPROLOL SUCC 25MG EXT REL TAB PO SCH (08:17)
[2024-04-06 08:18] LABS: Potassium 4.3 mmol/L (3.5-5.1)
--- NOTE | 2024-04-06 10:29 | Hospitalist Progress Note ---
Date of Service April 06, 2024 Assessment & Plan (1) Acute on chronic respiratory failure with hypoxia and hypercapnia: Plan: 68-year-old man with schizophrenia poor medication adherence chronic heart failure and interstitial lung disease based on chest CT 12/2022 admitted with acute on chronic respiratory failure with hypoxia and hypercapnia caused by acute on chronic diastolic heart failure, ILD, untreated MARIAJOSE/OHS we confirmed that he does have 3L home oxygen however he does not have a prescription for CPAP or BiPAP at home. last TTE was 06/2022 and he had normal EF and LVH at that time updated TTE this admission: Normal LV EF 60-65%, grade 1 diastolic dysfunction, normal RV, no valvular disease he did improve in the first 24 hours of admission with continuous BiPAP and IV diuretics. subsequently has refused Bipap and refuses sleep study as he has in the past. - diuresed with lasix 80 mg IV bid through AM of 04/04. Euvolemic. increase diamox and decrease torsemide. see whether this will stimulate his respiratory drive. Remains hypercarbic but CO2 improved on chem panel. - underlying interstitial lung disease but does not appear to be in a flare or have pulmonary infection at this time - AM BMP - PT/OT still pending (2) Acute heart failure with preserved ejection fraction: Plan: -see above, not recently taking his meds including diuretics -diuretics as above -changed metoprolol to succinate for once a day dosing, dose decrease because BP is low and has been bradycardic -appears compensated at this time (3) Schizophrenia: Plan: - chronic schizophrenia historically well controlled on these meds. No evidence of decompensation. Hx of only one prior inpatient psychiatric admission in 1986. - no hallucinations, no SI/HI Continue trifluoperazine and carbamazepime Plan ILD - reviewed pulmonary clinic note by Dr. Lutz 02/23/23 - mild ILD on chest CT thought related to previous smoking and occupational exposures, negative Rheum workup, elevated IgE evaluated by Allergy not related to asthma. PFTs restrictive. Refused sleep study because he stated he would not wear CPAP or Bipap. Morbid obesity BMI 45 Mild hypervolemic hyponatremia - resolved with diuresis Lives alone and a nephew brings his meals. Relies on frozen dinners thus high salt. Has trouble with medication and dietary compliance because of his schizophrenia and potentially some underlying cognitive impairment. We will see how he does with acute treatment. Perhaps home health could fill weekly medisets. Simple regimen with AM dosing will also be helpful. PT/OT gerhard ordered Admission and Anticipated Discharge Date Admission Date: April 02, 2024 Subjective sleeping and a bit groggy when I woke him up supp O2 near baseline 3-4L now and edema resolved no dyspnea Physical Exam 2 Physical Exam: PHYSICAL EXAMINATION Last 24h vital signs reviewed, see documentation in flowsheet General: aleeping aroused to voice HEENT: Normocephalic, atraumatic, pupils round and equal, sclerae anicteric, no conjunctival injection, moist mucus membranes Lungs: Normal respiratory effort. ctab diminished throughout Heart: distant Regular rate and rhythm, no murmurs. cannot see neck vv Abdomen: Soft, nontender, nondistended. Protuberant Bowel sounds present. Extremities: Warm, dry, well-perfused. No edema Neuro: Alert and oriented x hospital and breathing problem, very limited historian, face symmetric, moves 4 extremities well, +asterixis Psych: flat affect poor eye contact, slightly odd behavior, poor insight/judgment, no hallucinations and no SI/HI Results & Data Results & Data Vital Signs (Past 12 Hours) Vital Signs Temp Pulse Pulse Resp BP BP Pulse Ox 04/06/24 07:38 04/06/24 07:32 36.5 C 65 18 106/67 90 04/06/24 06:00 86 04/06/24 03:15 36.6 C 61 18 133/78 94 04/06/24 01:36 61 04/05/24 23:14 36.6 C 63 18 117/65 90 O2 Del Method O2 Flow Rate 04/06/24 07:38 Nasal Cannula 3 04/06/24 07:32 Nasal Cannula 4 04/06/24 06:00 04/06/24 03:15 Nasal Cannula 4.0 04/06/24 01:36 04/05/24 23:14 Nasal Cannula 6.0 Laboratory Results 04/04/24 06:35 04/06/24 07:31 PG Care Time/CCT Total # of Minutes Spent Total Time Spent with Patient: Total time spent is greater than 50% in coordination of care (as documented) at patient's floor/unit and/or counseling patient: Coding Level of Care Code 77439 SUB INP/OBS CARE 2/35MIN Diagnoses Acute on chronic respiratory failure with hypoxia and hypercapnia J96.21; J96.22 Acute heart failure with preserved ejection fraction I50.31 Schizophrenia F20.9
[2024-04-06 16:33] LABS: Base Excess VBG 8.3 mEq/L; HCO3 VBG 36 mmol/L; Oxygen Saturation VBG 87.4 %; PCO2 VBG 66 mmHg (38-50); PO2 VBG 55 mmHg; pH VBG 7.35 (7.36-7.41)
[2024-04-07 07:30] LABS: BUN Creatinine Ratio 33.1 (10-20); Blood Urea Nitrogen 58 mg/dl (6-23); Carbon Dioxide 37 mmol/L (21-32); Chloride 93 mmol/L (98-107); Creatinine Clr Calc Pharmacy 56.2 ml/min; Est GFR (Non-African American) 38.9 ml/min; Glucose 105 mg/dl (70-99(Fasting))
[2024-04-07 09:03] LABS: Potassium 4.3 mmol/L (3.5-5.1)
[2024-04-07] MEDS: TORSEMIDE 10 MG TAB PO SCH (09:04)
[2024-04-07] MEDS: acetaZOLAMIDE 250 MG TAB PO SCH (09:07)
--- NOTE | 2024-04-07 15:04 | Hospitalist Progress Note ---
Date of Service April 07, 2024 Assessment & Plan (1) Acute on chronic respiratory failure with hypoxia and hypercapnia: Plan: 68-year-old man with schizophrenia poor medication adherence chronic heart failure and interstitial lung disease based on chest CT 12/2022 admitted with acute on chronic respiratory failure with hypoxia and hypercapnia caused by acute on chronic diastolic heart failure, ILD, untreated MARIAJOSE/OHS we confirmed that he does have 3L home oxygen however he does not have a prescription for CPAP or BiPAP at home. last TTE was 06/2022 and he had normal EF and LVH at that time updated TTE this admission: Normal LV EF 60-65%, grade 1 diastolic dysfunction, normal RV, no valvular disease he did improve in the first 24 hours of admission with continuous BiPAP and IV diuretics. subsequently has refused Bipap and refuses sleep study as he has in the past. - diuresed with lasix 80 mg IV bid through AM of 04/04. Euvolemic. continue trial of diamox. see whether this will stimulate his respiratory drive and handle his volume status. May also need small dose of torsemide/furosemide on top of that but currently held since euvolemic and BUN/Cr increased - 58/1.75. K 4.3, Na nearly normal - remains hypercarbic but vbg improved 04/06. There is chronic component to this. - underlying interstitial lung disease but does not appear to be in a flare or have pulmonary infection at this time - AM BMP - PT/OT rec rehab, he is willing to go back to [facility] (2) Acute heart failure with preserved ejection fraction: Plan: -see above, not recently taking his meds including diuretics -diuretics as above -changed metoprolol to succinate for once a day dosing, dose decreased because BP was low/bradycardic -appears compensated at this time (3) Schizophrenia: Plan: - chronic schizophrenia historically well controlled on these meds. No evidence of decompensation. Hx of only one prior inpatient psychiatric admission in 1986. - no hallucinations, no SI/HI Continue trifluoperazine and carbamazepime Plan ILD - reviewed pulmonary clinic note by Dr. Lutz 02/23/23 - mild ILD on chest CT thought related to previous smoking and occupational exposures, negative Rheum workup, elevated IgE evaluated by Allergy not related to asthma. PFTs restrictive. Refused sleep study because he stated he would not wear CPAP or Bipap. Morbid obesity BMI 45 Mild hypervolemic hyponatremia - resolved with diuresis Lives alone and a nephew brings his meals. Relies on frozen dinners thus high salt. Has trouble with medication and dietary compliance because of his schizophrenia and potentially some underlying cognitive impairment. Discussed goals of care with him today especially wrt intubation. He really wasn't able to communicate his wishes. He has a brother but they are not in close contact. Admission and Anticipated Discharge Date Admission Date: April 02, 2024 Subjective breathing is the same and he doesn't perceive dyspnea, no cough has been 90% on 3-4L which is near his baseline hypoxia edema has resolved Physical Exam 2 Physical Exam: PHYSICAL EXAMINATION Last 24h vital signs reviewed, see documentation in flowsheet General: awake in bed HEENT: Normocephalic, atraumatic, pupils round and equal, sclerae anicteric, no conjunctival injection, moist mucus membranes Lungs: Normal respiratory effort. clear anteriorly and posteriorly, diminished throughout Heart: distant Regular rate and rhythm, no murmurs. cannot see neck vv Abdomen: Soft, nontender, nondistended. Protuberant Bowel sounds present. Extremities: Warm, dry, well-perfused. No edema Neuro: Alert and oriented x hospital and basic situation, face symmetric, moves 4 extremities well, +asterixis Psych: flat affect poor eye contact, slightly odd behavior, poor insight/judgment, no hallucinations and no SI/HI Results & Data Results & Data Vital Signs (Past 12 Hours) Vital Signs Temp Pulse Pulse Resp BP Pulse Ox O2 Del Method 04/07/24 11:57 36.8 C 62 19 111/68 90 Nasal Cannula 04/07/24 08:00 Nasal Cannula 04/07/24 07:43 36.7 C 67 22 123/74 95 Nasal Cannula 04/07/24 06:00 60 O2 Flow Rate 04/07/24 11:57 4 04/07/24 08:00 3 04/07/24 07:43 5 04/07/24 06:00 Laboratory Results 04/04/24 06:35 04/07/24 08:22 PG Care Time/CCT Total # of Minutes Spent Total Time Spent with Patient: Total time spent is greater than 50% in coordination of care (as documented) at patient's floor/unit and/or counseling patient: Coding Level of Care Code 38598 SUB INP/OBS CARE 2/35MIN Diagnoses Acute on chronic respiratory failure with hypoxia and hypercapnia J96.21; J96.22 Acute heart failure with preserved ejection fraction I50.31 Schizophrenia F20.9
[2024-04-08 09:37] LABS: BUN Creatinine Ratio 38.6 (10-20); Calcium 8.6 mg/dl (8.6-10.3); Creatinine Clr Calc Pharmacy 62.3 ml/min; Potassium 3.8 mmol/L (3.5-5.1)
[2024-04-08 09:53] LABS: Thyroid Stimulating Hormone 0.551 uIu/ml (0.300-4.500)
--- NOTE | 2024-04-08 17:53 | Hospitalist Progress Note ---
Date of Service April 08, 2024 Assessment & Plan (1) Acute on chronic respiratory failure with hypoxia and hypercapnia: Plan: acute component - acute/chronic diastolic CHF, ?ILD flare chronic components - ILD, OHS/MARIAJOSE on 3 L NC O2 at home continuously required 24 hours of continuous BiPAP early in admission for his acute component and hypercapnia per documentation has refused BiPAP since then received IV diuretics up until 04/04 now on diamox due to contraction alkalosis it is not clear to me based on his exam alone whether he is euvolemic thus, will obtain CTA chest to r/o PE, r/o infectious causes, check status of ILD, r/o pulm edema, etc (2) Acute heart failure with preserved ejection fraction: Plan: improved per Dr Clifton see #1 above cont meto succ diamox lasix/bumex on hold (3) Schizophrenia: Plan: Hx of only one prior inpatient psychiatric admission in 1986. no hallucinations, no SI/HI Continue trifluoperazine and carbamazepime Check tegretol level while here (4) ALEXIS (acute kidney injury): Plan: 2nd to over-diuresis improving recheck BMP am (5) Obesity hypoventilation syndrome: Plan: refusing BIPAP unfortunately much like the past (6) Acute metabolic encephalopathy: Plan: 2nd to hypercapnia but even with improved CO2 levels he remains very sleepy check ammonia level check TSH consider head imaging Plan ILD - reviewed pulmonary clinic note by Dr. Lutz 02/23/23 - mild ILD on chest CT thought related to previous smoking and occupational exposures, negative Rheum workup, elevated IgE evaluated by Allergy not related to asthma. PFTs restrictive. Refused sleep study because he stated he would not wear CPAP or Bipap. Morbid obesity BMI 45 Mild hyponatremia - resolved with diuresis Lives alone and a nephew brings his meals. Relies on frozen dinners thus high salt. Has trouble with medication and dietary compliance because of his schizophrenia and potentially some underlying cognitive impairment. DVT proph - lovenox 30mg BID cont PT/OT as tolerated dispo - ultimately [facility] Admission and Anticipated Discharge Date Admission Date: April 02, 2024 Subjective patient unable to provide any significant history only thing he stated was that he was having a hard time breathing in the same conversation thought he states it is "the same" as it always is during the visit he was coughing, but then told "oh no I haven't been coughing" tele overnight wnl appetite - per nursing flowsheets - >50% of meals Review of Systems Review of Systems: Unobtainable due to cognitive status +stool earlier today Physical Exam Physical Exam: gen - obese, very sleepy, coughing, irregular breathing pattern neck - no obvious JVD mouth - MMM heart - RRR, s1 s2 lungs - diffuse fine rales bases b/l, extending 1/2 way up back; rales anteriorly on right as well abd - soft NT ND BS+ ext - no edema, pulses 2+ b/l psych - oriented to person only, very sleepy Results & Data Results & Data Vital Signs (Past 12 Hours) Vital Signs Temp Pulse Pulse Resp BP Pulse Ox O2 Del Method 04/08/24 15:25 36.6 C 60 19 135/76 95 Nasal Cannula 04/08/24 14:44 58 L 04/08/24 11:31 36.4 C L 60 22 111/69 98 Nasal Cannula 04/08/24 08:14 66 04/08/24 08:00 Nasal Cannula 04/08/24 07:33 36.8 C 65 21 134/79 90 Nasal Cannula O2 Flow Rate 04/08/24 15:25 3 04/08/24 14:44 04/08/24 11:31 3 04/08/24 08:14 04/08/24 08:00 3 04/08/24 07:33 3 Laboratory Results Laboratory Results - last 24 hr 04/08/24 04/08/24 09:03 15:42 Sodium 135 L Potassium 3.8 Chloride 95 L Carbon Dioxide 35 H Anion Gap 5 BUN 61 H Creatinine 1.58 H Est Cr Clr Drug Dosing 62.3 Est GFR ( Amer) 51.0 Est GFR (Non-Af Amer) 44.0 BUN/Creatinine Ratio 38.6 H Glucose 192 H Calcium 8.6 Ammonia 43.0 TSH 0.551 PG Care Time/CCT Total # of Minutes Spent Total Time Spent with Patient: Total time spent is greater than 50% in coordination of care (as documented) at patient's floor/unit and/or counseling patient: Coding Level of Care Code 42593 SUB INP/OBS CARE 3/50MIN Diagnoses Acute on chronic respiratory failure with hypoxia and hypercapnia J96.21; J96.22 Acute heart failure with preserved ejection fraction I50.31 Schizophrenia F20.9 ALEXIS (acute kidney injury) N17.9 Obesity hypoventilation syndrome E66.2 Acute metabolic encephalopathy G93.41
[2024-04-08] MEDS: OPTIRAY 320 125ml IV ONE (20:40)
--- NOTE | 2024-04-08 23:55 | CT Scan Report ---
Exam(s): CTA CHEST IV Amt: 119 ML OPTIRAY 320 EXAM: CT Angiography Chest With Intravenous Contrast CLINICAL HISTORY: Reason for exam: resp failure, ILD, hypoxia. TECHNIQUE: Axial computed tomographic angiography images of the chest with intravenous contrast. CTDI is 75.89 mGy and DLP is 879.04 mGy-cm. Automated exposure control was utilized for the study. A dose lowering technique was utilized adhering to the principles of ALARA. MIP reconstructed images were created and reviewed. COMPARISON: No relevant prior studies available. FINDINGS: Pulmonary arteries: Unremarkable. No acute pulmonary embolism. Aorta: Atherosclerotic changes of the aorta. No thoracic aortic aneurysm. Lungs: Dependent airspace consolidations, concerning for multilobar pneumonia. This preferentially involves the lower lung hernández and RIGHT upper lobe. Pleural space: Unremarkable. No significant effusion. No pneumothorax. Heart: Cardiomegaly. No significant pericardial effusion. No evidence of RV dysfunction. Bones/joints: Degenerative changes of the spine. No acute fracture. No dislocation. Soft tissues: Unremarkable. Lymph nodes: Unremarkable. No enlarged lymph nodes. IMPRESSION: 1. No acute pulmonary embolism. 2. Dependent airspace consolidations, concerning for multilobar pneumonia. This preferentially involves the lower lung hernández and RIGHT upper lobe. Electronically signed by: Onofre Meredith MD 04/08/24 23:54 PM
[2024-04-09 07:36] LABS: BUN Creatinine Ratio 39.6 (10-20); C Reactive Protein 1.69 mg/dl (0-0.5); Creatinine Clr Calc Pharmacy 70.8 ml/min; Est GFR (African American) 59.5 ml/min; Est GFR (Non-African American) 51.3 ml/min; Potassium 4.3 mmol/L (3.5-5.1)
[2024-04-09 07:55] LABS: Estimated Average Glucose 146 mg/dl; Hemoglobin A1C 6.7 % (4.5-5.6)
[2024-04-09] MEDS: levoFLOXacin 750 MG TAB PO ONE (09:02)
--- NOTE | 2024-04-09 11:46 | Hospitalist Progress Note ---
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 (2) Acute on chronic respiratory failure with hypoxia and hypercapnia: Plan: acute component - acute/chronic diastolic CHF, ?ILD flare, + pneumonia as seen on CT chest last pm chronic components - ILD, OHS/MARIAJOSE on 3 L NC O2 at home continuously required 24 hours of continuous BiPAP early in admission for his acute component and hypercapnia per documentation has refused BiPAP since then received IV diuretics up until 04/04 then was on diamox due to contraction alkalosis stopped diamox BMP is stable today; will give lasix 40mg x 1 now to keep net negative (normally takes 80mg of lasix po daily at home) I consulted Dr Lutz from pulmonary for any additional recommendations for his complex pulmonary history (3) Acute heart failure with preserved ejection fraction: Plan: improving volume status cont meto succ stop diamox give lasix 40mg IV x 1 this am re-eval tomorrow for ongoing IV diuresis (4) Schizophrenia: Plan: Hx of only one prior inpatient psychiatric admission in 1986. no hallucinations, no SI/HI Continue trifluoperazine and carbamazepime Check tegretol level this am (5) ALEXIS (acute kidney injury): Plan: 2nd to over-diuresis improving / resolved recheck BMP am (6) Obesity hypoventilation syndrome: Plan: refusing BIPAP unfortunately much like the past (7) Acute metabolic encephalopathy: Plan: 2nd to hypercapnia but even with improved CO2 levels he remains very sleepy checked ammonia level - wnl checked TSH - wnl consider head imaging Plan ILD - reviewed pulmonary clinic note by Dr. Lutz 02/23/23 - mild ILD on chest CT thought related to previous smoking and occupational exposures, negative Rheum workup, elevated IgE evaluated by Allergy not related to asthma. PFTs restrictive. Refused sleep study because he stated he would not wear CPAP or Bipap. Formal pulm consult with Dr Lutz today - appreciate his assistance Morbid obesity BMI 45 Mild hyponatremia - resolved with diuresis Lives alone and a nephew brings his meals. Relies on frozen dinners thus high salt. Has trouble with medication and dietary compliance because of his schizophrenia and potentially some underlying cognitive impairment. Thus, to be placed at [facility] DVT proph - lovenox 30mg BID cont PT/OT as tolerated dispo - ultimately [facility] updated Mr Lawton, his cousin, by phone this evening Admission and Anticipated Discharge Date Admission Date: April 02, 2024 Subjective patient was being tended to by nursing staff during the visit he was visibly orthopneic and dyspneic with any activity he again states his breathing "is same as yesterday" denies cough unable to provide additional meaningful history eating well per nursing flowsheets tele stable overnight +stool yesterday I spoke with the pt's cousin - Dawood Lawton - this evening by phone he reports that Fabian has been declining over the last year more dyspneic with activity more sedentary, often not coming out of his apartment he used to go to a restaurant near his apartment but stopped doing that recently Review of Systems Review of Systems: Unobtainable due to cognitive status Physical Exam Physical Exam: gen - obese, mild respiratory distress with any movement in bed, awake, alert neck - no obvious JVD mouth - MMM heart - RRR, s1 s2, heart tones distant; no obvious murmur lungs - diffuse fine rales bases b/l, extending 1/[address] way up back - no change from yesterday; mild tachypnea, grunting, pursed lip breathing with any activity in the bed abd - soft NT ND BS+ ext - no edema, pulses 2+ b/l Results & Data Results & Data Vital Signs (Past 12 Hours) Vital Signs Temp Pulse Pulse Resp BP Pulse Ox O2 Del Method 04/09/24 11:22 36.5 C 54 L 24 124/75 89 L Nasal Cannula 04/09/24 08:51 Nasal Cannula 04/09/24 08:30 58 L 04/09/24 07:46 36.6 C 61 24 118/65 88 L Nasal Cannula 04/09/24 02:41 37.3 C 69 20 140/67 95 Nasal Cannula 04/08/24 23:54 63 O2 Flow Rate 04/09/24 11:22 3 04/09/24 08:51 3 04/09/24 08:30 04/09/24 07:46 3 04/09/24 02:41 04/08/24 23:54 Laboratory Results Laboratory Results - last 24 hr 04/08/24 04/09/24 04/09/24 15:42 06:23 06:36 Sodium 136 Potassium 4.3 Chloride 96 L Carbon Dioxide 34 H Anion Gap 6 BUN 55 H Creatinine 1.39 Est Cr Clr Drug Dosing 70.8 Est GFR ( Amer) 59.5 Est GFR (Non-Af Amer) 51.3 BUN/Creatinine Ratio 39.6 H Glucose 106 H Estimat Average Glucose 146 Hemoglobin A1c 6.7 H Calcium 9.0 Ammonia 43.0 C-Reactive Protein 1.69 H Carbamazepine Pending Diagnostic Findings Chest CTA 04/08/24 17:51 Exam(s): CTA CHEST IV Amt: 119 ML OPTIRAY 320 EXAM: CT Angiography Chest With Intravenous Contrast CLINICAL HISTORY: Reason for exam: resp failure, ILD, hypoxia. TECHNIQUE: Axial computed tomographic angiography images of the chest with intravenous contrast. CTDI is 75.89 mGy and DLP is 879.04 mGy-cm. Automated exposure control was utilized for the study. A dose lowering technique was utilized adhering to the principles of ALARA. MIP reconstructed images were created and reviewed. COMPARISON: No relevant prior studies available. FINDINGS: Pulmonary arteries: Unremarkable. No acute pulmonary embolism. Aorta: Atherosclerotic changes of the aorta. No thoracic aortic aneurysm. Lungs: Dependent airspace consolidations, concerning for multilobar pneumonia. This preferentially involves the lower lung hernández and RIGHT upper lobe. Pleural space: Unremarkable. No significant effusion. No pneumothorax. Heart: Cardiomegaly. No significant pericardial effusion. No evidence of RV dysfunction. Bones/joints: Degenerative changes of the spine. No acute fracture. No dislocation. Soft tissues: Unremarkable. Lymph nodes: Unremarkable. No enlarged lymph nodes. IMPRESSION: 1. No acute pulmonary embolism. 2. Dependent airspace consolidations, concerning for multilobar pneumonia. This preferentially involves the lower lung hernández and RIGHT upper lobe. Electronically signed by: Onofre Meredith MD 04/08/24 23:54 PM PG Care Time/CCT Total # of Minutes Spent Total Time Spent with Patient: Total time spent is greater than 50% in coordination of care (as documented) at patient's floor/unit and/or counseling patient: Coding Level of Care Code 20068 SUB INP/OBS CARE 3/50MIN Diagnoses Pneumonia J18.9 Acute on chronic respiratory failure with hypoxia and hypercapnia J96.21; J96.22 Acute heart failure with preserved ejection fraction I50.31 Schizophrenia F20.9 ALEXIS (acute kidney injury) N17.9 Obesity hypoventilation syndrome E66.2 Acute metabolic encephalopathy G93.41
[2024-04-09] MEDS: FUROSEMIDE 40 MG/4 ML VIAL IV ONE (12:32)
--- NOTE | 2024-04-09 12:46 | Pulmonary Consultation ---
Date of Consultation April 09, 2024 Assessment & Plan (1) Pneumonia: Suspect patient has a component of chronic aspiration pneumonitis and would recommend speech therapy consult. Agree with Levaquin for total of 7 days. Follow QTc. (2) Respiratory acidosis: Patient noncompliant with NIV. Consider psychiatry consult to help with capacity evaluation. (3) Obesity hypoventilation syndrome: As above. (4) Aspiration pneumonitis: Recommend speech therapy consult as noted previously. (Order placed) Plan Will check on the patient as needed. Thank you for the consult. Please call with questions. History of Present Illness Reason for Consultation: Pneumonia Attending Physician: Ankit Gonzalez MD History of Present Illness 68-year-old male with a past medical history of chronic hypoxemic and hypercapni c respiratory failure who was admitted to the hospital 04/02/2024 due to shortness of breath. I was contacted by the hospitalist service yesterday due to an abnormal CT chest and ongoing hypoxemia. Patient uses 3 L of oxygen at baseline and is currently now using 3 L of oxygen. Patient apparently has been refusing noninvasive ventilation and has a history of MARIAJOSE and OHS. He has been diuresed this hospitalization. . Patient had a CTA of his chest 04/08/2024 which revealed dependent bibasilar pneumonia, right greater than left. Concern for possible aspiration. Upon my review there also appears to be a significant component of tracheobronchomalacia and a right upper lobe infiltrate. There may be areas of honeycombing in the lingula although difficult to determine in acute setting. Patient was started on Levaquin 04/09/2024. Patient was previously vented in 2021 and has sputum cultures which revealed Aspergillus and haemophilus influenza A. Patient denies any overt shortness of breath, cough, fevers or chills at rest. He notes that his activity level is low. Allergies Allergy/AdvReac Type Severity Reaction Status Date / Time aspirin Allergy Verified 07/17/23 13:26 Penicillins Allergy Verified 07/17/23 13:26 Home Medications Medication Instructions Recorded Confirmed Type coenzyme Q10 10 mg capsule (Co 10 mg PO BID 11/05/20 04/02/24 History Q-10) dorzolamide 22.3 mg-timolol 6.8 1 drp ophthalmic (eye) BID #10 mL 07/27/22 04/02/24 Rx mg/mL eye drops fexofenadine 60 mg-pseudoephedrine 1 tab PO BID PRN nasal congestion 07/27/22 04/02/24 Rx ER 120 mg tablet,ext.release,12 hr #60 tabs (Janet-D 12 Hour) latanoprost 0.005 % eye drops 1 drp ophthalmic (eye) HS #2.5 mL 07/27/22 04/02/24 Rx metoprolol tartrate 25 mg tablet 25 mg PO BID 90 days #180 tabs 03/12/23 04/02/24 Rx Portable Oxygen #1 ea 05/14/23 07/17/23 Rx trifluoperazine 5 mg tablet 5 mg PO DAILY #90 tabs 07/18/23 04/02/24 Rx furosemide 40 mg tablet 80 mg (2 x 40 mg) PO QAM 90 days 08/03/23 04/02/24 Rx #180 tabs carbamazepine 100 mg 100 mg PO BID 90 days #180 tabs 02/28/24 04/02/24 Rx tablet,extended release,12 hr (Tegretol XR) glucosamine-chondroitin 250 mg-200 2 tab PO DAILY 04/02/24 04/02/24 History mg tablet (Osteo Bi-Flex) saw palmetto 500 mg capsule 500 mg PO DAILY 04/02/24 04/02/24 History Patient History Medical History Pulmonary edema Severe sepsis Elevated troponin Acute hyponatremia Multifocal pneumonia Hyperlipidemia Encounter for health maintenance examination in adult Surgical History S/P tooth extraction Family History Father Prostate cancer Mother Dementia Denies family history of Ovarian cancer Myocardial infarction Breast cancer Colorectal cancer Social History Smoking Status: Former smoker Tobacco Type: Cigarettes Age Started Using Tobacco: 25; packs per day: 0.5; Second Hand Exposure: No; Do You Dip or Chew Tobacco: No; Hx Alcohol Use: No Hx Substance Use: No Preferred Language: Greenlandic Communication Ability: Effective Communication Ability Comment: vision problems Communication Tools: Letter Board and Picture Board Visual Impairment: No Limitations Hearing Ability: Normal Health And Physical Education Teacher Required: No Beliefs That Will Affect Care: None marital status: Single Current Living Situation: Alone Current Living Situation Comment: ISREAL current occupational status: disabled Feels Safe at Home: Yes Childhood Exposure to Second-Hand Smoke: Yes Diet: regular caffeine: Yes Dental Care, Regularly: No Physical Activity Frequency: Other Physical Activity Frequency Comment: walks Seatbelt Use: always Sunscreen Use: No Assistive Devices: Cane and Walker Review of Systems Review of Systems: All systems reviewed & are unremarkable except as noted in HPI & below Physical Exam Physical Exam: Constitutional: Patient appears to be of their stated age. Morbidly obese appearing male in no apparent distress. Eyes: Pupils are equal round and reactive to light. Conjunctivae are normal. Anicteric sclera. Ears nose, mouth and throat: Mallampati class 3. Normal posterior oropharynx. Uvula is midline. Neck: Trachea is midline. Visual inspection is normal. Respiratory: Coarse lung sounds bilaterally with crackles at the bases. Cardiovascular: Regular rate and rhythm. No murmurs. No edema. Gastrointestinal: Normal bowel sounds, soft, nontender and nondistended. No hepatosplenomegaly noted. Musculoskeletal: No cyanosis. Patient is able to move all extremities. Strength is 5 out of 5 in the upper and lower extremities. Skin: No rashes, warm dry and intact. Neurologic: No obvious focal neurological deficits seen. Psychiatric: Alert and oriented x3 with a euthymic affect. Results & Data Results & Data Vital Signs (Past 12 Hours) Vital Signs Temp Pulse Pulse Resp BP Pulse Ox O2 Del Method 04/09/24 11:22 36.5 C 54 L 24 124/75 89 L Nasal Cannula 04/09/24 08:51 Nasal Cannula 04/09/24 08:30 58 L 04/09/24 07:46 36.6 C 61 24 118/65 88 L Nasal Cannula 04/09/24 02:41 37.3 C 69 20 140/67 95 Nasal Cannula O2 Flow Rate 04/09/24 11:22 3 04/09/24 08:51 3 04/09/24 08:30 04/09/24 07:46 3 04/09/24 02:41 PG Care Time/CCT Total # of Minutes Spent Total Time Spent with Patient: Total time spent is greater than 50% in coordination of care (as documented) at patient's floor/unit and/or counseling patient: Coding Level of Care Code 44535 INT INP/OBS CARE MIN Diagnoses Pneumonia J18.9 Respiratory acidosis E87.29 Obesity hypoventilation syndrome E66.2 Aspiration pneumonitis J69.0
[2024-04-10 07:05] LABS: BUN Creatinine Ratio 38.7 (10-20); Calcium 8.7 mg/dl (8.6-10.3); Creatinine Clr Calc Pharmacy 71.8 ml/min; Est GFR (African American) 60.6 ml/min; Est GFR (Non-African American) 52.3 ml/min; Magnesium 2.1 mg/dl (1.7-2.4); Potassium 3.9 mmol/L (3.5-5.1)
[2024-04-10] MEDS: FUROSEMIDE 40 MG/4 ML VIAL IV ONE (09:16)
[2024-04-10] MEDS: levoFLOXacin 750 MG TAB PO SCH (10:13)
--- NOTE | 2024-04-10 18:18 | Hospitalist Progress Note ---
Date of Service April 10, 2024 Assessment & Plan (1) Pneumonia: Plan: b/l, multifocal on CT chest last pm no PE seen underlying ILD seen day #2 of 7 levaquin 750mg daily defer on MRSA coverage as [employer] swab was negative (2) Acute on chronic respiratory failure with hypoxia and hypercapnia: Plan: acute component - acute/chronic diastolic CHF and pneumonia as seen on CT chest chronic components - ILD, OHS/MARIAJOSE on 3 L NC O2 at home continuously required 24 hours of continuous BiPAP early in admission for his acute component and hypercapnia per documentation has refused BiPAP since then received IV diuretics up until 04/04 then was on diamox due to contraction alkalosis BMP has returned to normal will give another dose of IV lasix today appreciate pulmonary consult from Dr Lutz; he advises swallow eval to ensure he is not chronically aspirating (3) Acute heart failure with preserved ejection fraction: Plan: decompensation likely just about resolved cont meto succ give lasix 40mg IV x 1 this am again re-eval tomorrow for ongoing IV diuresis (4) Schizophrenia: Plan: Hx of only one prior inpatient psychiatric admission in 1986. no hallucinations, no SI/HI Continue trifluoperazine and carbamazepime Tegretol level 4 (normal) (5) ALEXIS (acute kidney injury): Plan: 2nd to over-diuresis resolved (6) Obesity hypoventilation syndrome: Plan: refusing BIPAP unfortunately much like the past candidate for provigil to treat his excessive daytime sleepiness and untreated, severe MARIAJOSE?? (7) Acute metabolic encephalopathy: Plan: 2nd to hypercapnia but even with improved CO2 levels he remains very sleepy checked ammonia level - wnl checked TSH - wnl consider provigil Plan ILD - reviewed pulmonary clinic note by Dr. Lutz 02/23/23 - mild ILD on chest CT thought related to previous smoking and occupational exposures, negative Rheum workup, elevated IgE evaluated by Allergy not related to asthma. PFTs restrictive. Refused sleep study because he stated he would not wear CPAP or Bipap. Formal pulm consult with Dr Lutz appreciated. Morbid obesity BMI 45 Mild hyponatremia - resolved with diuresis Lives alone and a nephew brings his meals. Relies on frozen dinners thus high salt. Has trouble with medication and dietary compliance because of his schizophrenia and potentially some underlying cognitive impairment. Thus, to be placed at [facility] DVT proph - lovenox 30mg BID cont PT/OT as tolerated dispo - ultimately [facility] updated Mr Lawton, his cousin, by phone yesterday evening Admission and Anticipated Discharge Date Admission Date: April 02, 2024 Subjective no events overnight patient about the same today no new complaints denies any dyspnea or cough just c/o being tired Review of Systems Review of Systems: cv - mild orthopnea; no chest pain pulm - ongoing baseline dyspnea GI - no abd pain or nausea or emesis Physical Exam Physical Exam: gen - obese, no respiratory distress today, NAD neck - no obvious JVD mouth - MMM heart - RRR, s1 s2, heart tones distant; no murmur lungs - fine, dry rales bases b/l, extending 1/[address] up back - improved abd - soft NT ND BS+ ext - no edema, pulses 2+ b/l neuro - mild tardive dyskinetic movements of mouth/lips Results & Data Results & Data Vital Signs (Past 12 Hours) Vital Signs Temp Pulse Pulse Resp BP Pulse Ox O2 Del Method 04/10/24 16:24 36.3 C L 65 20 135/76 94 Nasal Cannula 04/10/24 15:15 60 04/10/24 11:14 Nasal Cannula 04/10/24 10:53 36.5 C 54 L 20 86/53 L 93 Nasal Cannula 04/10/24 07:47 36.3 C L 58 L 20 100/60 91 Nasal Cannula 04/10/24 07:25 58 L O2 Flow Rate 04/10/24 16:24 3.0 04/10/24 15:15 04/10/24 11:14 3 04/10/24 10:53 3.0 04/10/24 07:47 3.0 04/10/24 07:25 Laboratory Results Laboratory Results - last 24 hr 04/09/24 04/10/24 06:23 06:01 Sodium 134 L Potassium 3.9 Chloride 96 L Carbon Dioxide 30 Anion Gap 8 BUN 53 H Creatinine 1.37 Est Cr Clr Drug Dosing 71.8 Est GFR ( Amer) 60.6 Est GFR (Non-Af Amer) 52.3 BUN/Creatinine Ratio 38.7 H Glucose 105 H Calcium 8.7 Magnesium 2.1 Carbamazepine 4.0 PG Care Time/CCT Total # of Minutes Spent Total Time Spent with Patient: Total time spent is greater than 50% in coordination of care (as documented) at patient's floor/unit and/or counseling patient: Coding Level of Care Code 17762 SUB INP/OBS CARE 235MIN Diagnoses Pneumonia J18.9 Acute on chronic respiratory failure with hypoxia and hypercapnia J96.21; J96.22 Acute heart failure with preserved ejection fraction I50.31 Schizophrenia F20.9 ALEXIS (acute kidney injury) N17.9 Obesity hypoventilation syndrome E66.2 Acute metabolic encephalopathy G93.41
--- NOTE | 2024-04-11 12:55 | Fluoroscopy Report ---
MODIFIED BARIUM SWALLOW CLINICAL HISTORY: suspect chronic aspiration COMPARISON STUDY: None. FLUOROSCOPY TIME: 1.31 minutes. Ka, r: 13.7 mGy. TECHNIQUE: A modified barium swallow was performed in conjunction with Speech Pathology. The patient ingested varying consistencies of barium containing material. Video fluoroscopy was performed. FINDINGS: No tracheal aspiration was identified with thin liquids, nectar thick liquids, pudding or c ookie and pudding consistencies. Epiglottic inversion was normal. Laryngeal elevation was normal. Swa llowing mechanism was intact. IMPRESSION: 1. Intact swallowing mechanism. No tracheal aspiration. 2. Full recommendations by Speech pathology to follow. ACT 112: Negative or not required by law. Electronically signed by: Theo Phan M.D. 04/11/2024 10:47 AM
[2024-04-11] MEDS: modafiniL 100 MG TAB PO ONE (16:57)
--- NOTE | 2024-04-11 18:45 | Hospitalist Progress Note ---
Date of Service April 11, 2024 Assessment & Plan (1) Pneumonia: Plan: b/l, multifocal on CT chest last pm no PE seen underlying ILD seen day #3 of 7 levaquin 750mg daily defer on MRSA coverage as [employer] swab was negative (2) Acute on chronic respiratory failure with hypoxia and hypercapnia: Plan: acute component - acute/chronic diastolic CHF and pneumonia as seen on CT chest chronic components - ILD, OHS/MARIAJOSE on 3 L NC O2 at home continuously required 24 hours of continuous BiPAP early in admission for his acute component and hypercapnia per documentation has refused BiPAP since then received IV diuretics up until 04/04 then was on diamox due to contraction alkalosis defer on diuretics today - looks euvolemic appreciate pulmonary consult from Dr Lutz; he advised swallow eval to ensure he is not chronically aspirating -- video swallow NEGATIVE for aspiration (3) Acute heart failure with preserved ejection fraction: Plan: decompensation resolved cont meto succ defer on IV lasix today likely resume chronic PO lasix dose tomorrow pending am labs (4) Schizophrenia: Plan: Hx of only one prior inpatient psychiatric admission in 1986. no hallucinations, no SI/HI Continue trifluoperazine and carbamazepime Tegretol level 4 (normal) (5) ALEXIS (acute kidney injury): Plan: 2nd to over-diuresis resolved (6) Obesity hypoventilation syndrome: Plan: refusing BIPAP unfortunately he has refused BIPAP during prior admissions and during office visits I spoke with on-call psychiatry - no contraindication to use provogil will start provogil 100mg daily and observe overnight for side effects hopefully this will help daytime sleepiness (7) Acute metabolic encephalopathy: Plan: 2nd to hypercapnia but even with improved CO2 levels he remains very sleepy checked ammonia level - wnl checked TSH - wnl starting provigil 100mg daily Plan ILD - reviewed pulmonary clinic note by Dr. Lutz 02/23/23 - mild ILD on chest CT thought related to previous smoking and occupational exposures, negative Rheum workup, elevated IgE evaluated by Allergy not related to asthma. PFTs restrictive. Refused sleep study because he stated he would not wear CPAP or Bipap. Formal pulm consult with Dr Lutz appreciated. Morbid obesity BMI 45 Mild hyponatremia - resolved with diuresis Lives alone and a nephew brings his meals. Relies on frozen dinners thus high salt. Has trouble with medication and dietary compliance because of his schizophrenia and potentially some underlying cognitive impairment. Thus, to be placed at [facility] DVT proph - lovenox 30mg BID cont PT/OT as tolerated dispo - ultimately [facility] - hopefully tomorrow 04/12 updated Mr Lawton, his cousin, by phone this week Admission and Anticipated Discharge Date Admission Date: April 02, 2024 Subjective no events no new complaints still sleeping a lot denies any pulmonary complaints eating well tele - periods of sinus yahir when he sleeps Review of Systems Review of Systems: cv - no cp pulm - no dyspnea or cough GI - no abd pain Physical Exam Physical Exam: gen - obese, no respiratory distress, NAD neck - no obvious JVD mouth - MMM heart - RRR, s1 s2, heart tones distant; no murmur lungs - fine, dry rales bases b/l - improved; not as prominent; no distress abd - soft NT ND BS+ ext - no edema, pulses 2+ b/l neuro - mild tardive dyskinetic movements of mouth/lips Results & Data Results & Data Vital Signs (Past 12 Hours) Vital Signs Temp Pulse Pulse Resp BP Pulse Ox O2 Del Method 04/11/24 16:57 93 04/11/24 16:06 36.4 C L 60 18 144/82 H Nasal Cannula 04/11/24 13:02 56 L O2 Del Method O2 Flow Rate O2 Flow Rate 04/11/24 16:57 Nasal Cannula 3 04/11/24 16:06 3 04/11/24 13:02 Laboratory Results VBG: pH 7.3; pCO2 of 69; base excess 5.3 BMP: Na 132, K 4, bicarb 33, BUN 45, Cr 1.44 PG Care Time/CCT Total # of Minutes Spent Total Time Spent with Patient: Total time spent is greater than 50% in coordination of care (as documented) at patient's floor/unit and/or counseling patient: Coding Level of Care Code 33785 SUB INP/OBS CARE 2/35MIN Diagnoses Pneumonia J18.9 Acute on chronic respiratory failure with hypoxia and hypercapnia J96.21; J96.22 Acute heart failure with preserved ejection fraction I50.31 Schizophrenia F20.9 ALEXIS (acute kidney injury) N17.9 Obesity hypoventilation syndrome E66.2 Acute metabolic encephalopathy G93.41
[2024-04-11 18:57] LABS: Albumin Globulin Ratio 1.1 (0.9-2); Albumin Level 3.6 gm/dl (3.4-5.0); BUN Creatinine Ratio 31.9 (10-20); Bilirubin,Total 0.3 mg/dl (0.2-1.0); Calcium 8.9 mg/dl (8.6-10.3); Creatinine Clr Calc Pharmacy 68.3 ml/min; Est GFR (Non-African American) 49.2 ml/min; Globulin 3.3 gm/dl (2.5-4.0); Total Protein 6.9 gm/dl (6.0-8.3)
[2024-04-11 18:58] LABS: Base Excess VBG 5.3 mEq/L; HCO3 VBG 34 mmol/L; Oxygen Saturation VBG < 60.0 %; PCO2 VBG 69 mmHg (38-50); PO2 VBG 24 mmHg
[2024-04-12 06:56] LABS: Hematocrit (blood only) 39.4 % (42.0-52.0); Mean Corpuscular Hemoglobin 30.4 pg (25.0-34.0); Mean Corpuscular Volume 92.1 fL (80.0-100.0); Mean Platelet Volume 9.6 fL (9.4-12.4); Platelet Count 246 K/uL (130-400); RDW Coefficient of Variation 13.2 % (11.5-14.5); RDW Standard Deviation 44.5 fL (36.4-46.3); Red Blood Count 4.28 M/uL (4.70-6.10)
[2024-04-12] MEDS: modafiniL 100 MG TAB PO SCH (09:07)
[2024-04-12 10:06] LABS: Calcium 8.6 mg/dl (8.6-10.3); Potassium 3.9 mmol/L (3.5-5.1)
[2024-04-12 10:12] LABS: BUN Creatinine Ratio 31.9 (10-20); Creatinine Clr Calc Pharmacy 72.8 ml/min; Est GFR (African American) 61.6 ml/min; Est GFR (Non-African American) 53.2 ml/min
--- NOTE | 2024-04-12 12:58 | Discharge Summary ---
Date of Service April 12, 2024 Admission HPI Per Admitting Provider Fabian Calles) is a 68-year-old male with a past medical history significant for chronic respiratory failure with hypoxia and hypercapnia (on chronic 3 L nasal cannula), schizophrenia causing recurrent medical noncompliance, morbid obesity, prediabetes, hepatitis C, and obesity hypoventilation syndrome who presented to the [facility] ED on 04/02/2024 via EMS with complaints of worsening shortness of breath and generalized weakness. Patient was placed on nonrebreather at 15 L/min in route. On arrival to the ED he was noted to be hypoxic with SpO2 of 81% on room air, tachypneic at 26, and otherwis e stable. Labs were significant for a leukocytosis of 11 with left shift of 7, VBG pH of 7.24, pCO2 of 80, pO2 of 45, high-sensitivity troponin within normal limits, BNP of 271 (appears near previous values), and full respiratory BioFire negative. Chest x-ray was read as cardiomegaly with suggestion of pulmonary edema. Chronic interstitial lung disease. And small bilateral pleural effusions. Prior to admission the patient was given 80 mL grams of IV Lasix. The patient was initially placed on 6 L nasal cannula at the time of the ED arrival but was subsequently transitioned to BiPAP with IPAP of 15, EPAP of 5, rate of 16, and FiO2 of 100%. Patient was sitting in bed and appears to be in mild respiratory distress while on BiPAP as he is tachypneic and appears very fatigued. It takes shouting and sternal rub for the patient to wake. He is alert and oriented, when asked he states he does feel as though his work of breathing is getting harder. I asked if he has been taking his home medicines including his furosemide, he tells me he does not remember which one that is. I then ask if he has been limiting his sodium and fluid intake, at first he did not respond. Then responded "I eat what I am supposed to". I discussed with him that I am concerned with his increased work of breathing despite being on BiPAP and have asked the ED to talk to the ICU as he may require intubation. He responded with "I do not need that". At this time I am concerned that the patient does not have good insight into his acute illness and may not have the ability to make medical decisions at this time. When asked if he would want CPR in the event of cardiac arrest he did state that he would want this. He is unable to tell me why he would not want intubation if he were to go into further respiratory failure. He then tells me that he needed to urinate, I explained to him that he currently has an external catheter in place and can go but he appears too confused to understand this at this time. I discussed with the ED physician that the patient should first be evaluated by the ICU staff as he is high risk for further respiratory failure and need for intubation. The patient has a history of difficult intubation due to his morbid obesity. Please refer to Dr. Tay's attestation for any changes to the treatment plan Discharge Exam gen - obese, no respiratory distress, NAD neck - no obvious JVD mouth - MMM heart - RRR, s1 s2, heart tones distant; no murmur lungs - fine, dry rales bases b/l - improved; not as prominent; no distress abd - soft NT ND BS+ ext - no edema, pulses 2+ b/l neuro - mild tardive dyskinetic movements of mouth/lips Discharge Data Allergies Allergy/AdvReac Type Severity Reaction Status Date / Time aspirin Allergy Verified 07/17/23 13:26 Penicillins Allergy Verified 07/17/23 13:26 Consultations 04/02/24 12:14 ED Decision to Admit Stat 04/09/24 11:45 Consult Pulmonology Routine Ordered Studies 04/08/24 17:51 CT angio chest PE protocol Routine 04/11/24 10:00 FL video swallow Routine Hospital Course (1) Pneumonia: b/l, multifocal on CT chest last pm no PE seen underlying ILD seen day #3 of 7 levaquin 750mg daily defer on MRSA coverage as [employer] swab was negative (2) Acute on chronic respiratory failure with hypoxia and hypercapnia: acute component - acute/chronic diastolic CHF and pneumonia as seen on CT chest chronic components - ILD, OHS/MARIAJOSE on 3 L NC O2 at home continuously required 24 hours of continuous BiPAP early in admission for his acute component and hypercapnia per documentation has refused BiPAP since then received IV diuretics up until 04/04 then was on diamox due to contraction alkalosis defer on diuretics today - looks euvolemic appreciate pulmonary consult from Dr Lutz; he advised swallow eval to ensure he is not chronically aspirating -- video swallow NEGATIVE for aspiration (3) Acute heart failure with preserved ejection fraction: decompensation resolved cont meto succ defer on IV lasix today likely resume chronic PO lasix dose tomorrow pending am labs (4) Schizophrenia: Hx of only one prior inpatient psychiatric admission in 1986. no hallucinations, no SI/HI Continue trifluoperazine and carbamazepime Tegretol level 4 (normal) (5) ALEXIS (acute kidney injury): 2nd to over-diuresis resolved (6) Obesity hypoventilation syndrome: refusing BIPAP unfortunately he has refused BIPAP during prior admissions and during office visits I spoke with on-call psychiatry - no contraindication to use provogil will start provogil 100mg daily and observe overnight for side effects hopefully this will help daytime sleepiness (7) Acute metabolic encephalopathy: 2nd to hypercapnia but even with improved CO2 levels he remains very sleepy checked ammonia level - wnl checked TSH - wnl starting provigil 100mg daily Plan ILD - reviewed pulmonary clinic note by Dr. Lutz 02/23/23 - mild ILD on chest CT thought related to previous smoking and occupational exposures, negative Rheum workup, elevated IgE evaluated by Allergy not related to asthma. PFTs restrictive. Refused sleep study because he stated he would not wear CPAP or Bipap. Formal pulm consult with Dr Lutz appreciated. Morbid obesity BMI 45 Mild hyponatremia - resolved with diuresis Lives alone and a nephew brings his meals. Relies on frozen dinners thus high salt. Has trouble with medication and dietary compliance because of his schizophrenia and potentially some underlying cognitive impairment. Thus, to be placed at [facility] DVT proph - lovenox 30mg BID cont PT/OT as tolerated dispo - ultimately [facility] - hopefully tomorrow 04/12 updated Mr Lawton, his cousin, by phone this week Discharge Plan Discharge Items Patient Disposition: Transfer Snf Fac Reason For Visit: ACUTE ON CHRONIC HYPOXIC RESP FAILURE, CHF, HYPERC Discharge Diagnosis: 1. acute/chronic hypoxic & hypercapnic respiratory failure 2. acute/chronic diastolic CHF 3. interstitial lung disease 4. suspected pneumonia 5. obesity hypoventilation syndrome 6. severe obstructive sleep apnea 7. morbid obesity BMI 44 8. schizophrenia 9. hyponatremia - discharge Na level 132 10. excessive daytime sleepiness - 2nd to untreated MARIAJOSE; cannot rule out narcolepsy 11. mild type 2 diabetes - hba1c 6.7% - diet control at this time Activity: Resume your previous activity Non-emergency contact: Primary Care Provider Call non-emergency contact if: you have any medication questions, your symptoms worsen and you have a fever Follow-up/Referrals: Antonio Lutz MD [Physician] - (3-4 weeks - recheck of ILD, MARIAJOSE, abnormal chest CT. ) Gentry Esparza, DO [Primary Care Provider] - Diet: Carb Consistent or DM2 and Low Sodium (2gm) Fluids: 2000ml (8 cups) Addtl Attending Provider Instructions: 1. daily standing scale weights each morning; notify caregivers non medical of any weight gain of more than 3 pounds in 1-2 days. 2. NC O2 3 liters continuously. 3. BIPAP at bedtime and with naps -- 11/05. Blend 3 liters of O2 in with BIPAP. Please use NASAL PILLOWS IF POSSIBLE (patient likely to refuse BIPAP with a full face mask, but is willing to try it with NASAL PILLOWS). 4. BMP and magnesium level in 4 days for stability; results to caregivers non medical. 5. f/u [facility] - Dr Ravi Lutz - 3-4 weeks. 6. patient should see psychiatry for ongoing management of long-standing schizophrenia. Schizophrenia has been well-controlled chronically. 7. check BSGs each morning and at bedtime. It was our pleasure to care for Mr Black! Pending Studies at Discharge: No Stand-Alone Forms: My [facility] Skilled Items Patient informed of condition?: Yes DNR: No Discharge Level of Care: Skilled Communicable Disease: No Discharge Prognosis: Stable Lines: None Urinary Catheter: No Medications and DC Order Prescriptions: New acetaminophen [Tylenol Extra Strength] 500 mg Tablet 1,000 mg PO Q8H PRN (Reason: fever or pain) Qty: 30 0RF Rx Instructions: max 3000mg in 24 hours metoprolol succinate 25 mg Tablet Extended Release 24 Hr 25 mg PO QAM Qty: 30 5RF levofloxacin 750 mg Tablet 750 mg PO DAILY@1100 3 Days Qty: 3 0RF Rx Instructions: first dose on 04/13/24. modafinil 100 mg Tablet 100 mg PO DAILY Qty: 30 2RF potassium chloride 20 mEq tablet extended release 20 meq PO QAM Qty: 30 2RF Rx Instructions: start 04/13/24. Continued trifluoperazine 5 mg tablet 5 mg PO DAILY Qty: 90 3RF carbamazepine [Tegretol XR] 100 mg tablet extended release 12 hr 100 mg PO BID 90 Days Qty: 180 3RF coenzyme Q10 [Co Q-10] 10 mg capsule 10 mg PO BID Rx Instructions: Unable to verify OTC meds at this date/time (DME) Portable Oxygen Misc See Rx Instructions .Route Qty: 1 0RF Rx Instructions: 3 LPM dorzolamide-timolol 22.3-6.8 mg/mL Drops 1 drp ophthalmic (eye) BID Qty: 10 0RF latanoprost 0.005 % Drops 1 drp ophthalmic (eye) HS Qty: 2.5 0RF saw palmetto 500 mg Capsule 500 mg PO DAILY Rx Instructions: Unable to verify OTC meds at this date/time glucosamine-chondroitin [Osteo Bi-Flex] 250-200 mg Tablet 2 tab PO DAILY Rx Instructions: Unable to verify OTC meds at this date/time furosemide 40 mg tablet 80 mg PO QAM 90 Days Qty: 180 3RF Rx Instructions: start 04/13/24. Discontinued metoprolol tartrate 25 mg tablet 25 mg PO BID 90 Days Qty: 180 3RF fexofenadine-pseudoephedrine [Janet-D 12 Hour] 60-120 mg tablet extended release 12 hr 1 tab PO BID PRN (Reason: nasal congestion) Qty: 60 0RF Rx Instructions: Unable to verify OTC meds at this date/time Discharge Orders: Discharge Order (Routine); Ordered 04/12/24 Ordered By: Ankit Magaña/Other Patient Handouts: A1C, Exercise: Why Fitness Matters, Diabetes: Meal Planning Admission Data Admit Date/Time: 04/02/24 13:00 Attending Provider: Ankit Gonzalez Admit Provider: Ankit Tay Primary Care Provider: Gentry Esparza Other Providers: Ankit Tay; Antonio Lutz Other Interventions: Discharge Summary Assessment (RN) Last Done: 04/12/24 12:42 Coding Diagnoses Pneumonia J18.9 Acute on chronic respiratory failure with hypoxia and hypercapnia J96.21; J96.22 Acute heart failure with preserved ejection fraction I50.31 Schizophrenia F20.9 ALEXIS (acute kidney injury) N17.9 Obesity hypoventilation syndrome E66.2 Acute metabolic encephalopathy G93.41
== END 2024-04-12 13:19 | DRG 291 ==
LOC: ED 09:37 → 2S 13:00 → SUATTDRO 13:00 → 2S 15:11

== ENCOUNTER 2024-06-29 23:13 | Inpatient (IN) ==
[2024-06-29 23:50] LABS: Base Excess VBG -6.2 mEq/L; HCO3 VBG 24 mmol/L; Oxygen Saturation VBG 98.6 %; PCO2 VBG 71 mmHg (38-50); PO2 VBG 110 mmHg; pH VBG 7.14 (7.36-7.41)
[2024-06-29 23:59] LABS: Basophils # (auto) 0.04 K/uL (0.00-0.20); Basophils % (auto) 0.3 %; Hematocrit (blood only) 37.3 % (42.0-52.0); Hemoglobin 11.6 g/dl (14.0-18.0); Immature Granulocytes # (auto) 0.17 K/uL (0.01-0.20); Immature Granulocytes % (auto) 1.1 %; Lymphocytes % (auto) 9.3 %; Mean Corpuscular Hemoglobin 30.1 pg (25.0-34.0); Mean Corpuscular Hgb Conc 31.1 g/dL (32.0-36.0); Mean Corpuscular Volume 96.6 fL (80.0-100.0); Mean Platelet Volume 10.3 fL (9.4-12.4); Monocytes # (auto) 0.78 K/uL (0.11-0.59); Monocytes % (auto) 5.2 %; Neutrophils # (auto) 12.68 K/uL (1.40-6.50); Neutrophils % (auto) 84.1 %; Platelet Count 205 K/uL (130-400); RDW Coefficient of Variation 15.7 % (11.5-14.5); RDW Standard Deviation 55.6 fL (36.4-46.3); Red Blood Count 3.86 M/uL (4.70-6.10); White Blood Count 15.07 K/ul (4.8-10.8)
--- NOTE | 2024-06-30 00:01 | Emergency Department Note ---
Impression & Plan Multifocal pneumonia, Acute respiratory failure with hypoxia and hypercarbia, Acute and chronic respiratory failure, Obtunded ED Provider Note NAME: JULI JEFFERSON AGE: 68 SEX: M : 1955 ARRIVES VIA: Ambulance INFORMANT: Patient, ED PROVIDER(S): Glendy Matute MD CHIEF COMPLAINT: Shortness of breath, lethargic HPI: This is a 68-year-old male presenting for shortness of breath, lethargy. Patient reportedly has a new cough of the past 2 days, increased shortness of breath. He is somewhat fatigued here. Answer some questions but does stare off into space otherwise. He is otherwise not able to talk much history. He reports no pain. No reported nausea or vomiting. ROS: Unable to assess PHYSICAL EXAMINATION: General: Tachypnea, significant elevated BMI Head: Normocephalic and atraumatic Eyes: Normal inspection, extraocular muscles intact Ear, nose, throat: Normal external exam Neck: Normal range of motion Respiratory: Rhonchi in the upper lungs, unable to assess posterior lung sounds due to habitus and weakness Cardiovascular: Regular rate/rhythm, no murmur GI: soft, nontender, no guarding or rebound Extremities: nontender, moves all extremities Neuro: Awake, sleepy but arousable, moves all extremities, no focal deficits, symmetric faces Skin: Warm, dry, and intact MEDICAL DECISION MAKING: This is a 68-year-old male presenting for shortness of breath, lethargy. Patient is fairly fatigued here, breathing around 40 times a minute. With patient somewhat confused demeanor, suspect some component of acute on chronic hypercarbia. Will place on CPAP for both oxygenation as patient is currently on a nonrebreather as well as read on the CO2. Patient does appear to have a new cough concerning for CHF versus pneumonia. Patient is from a intermediate which has had some upper respiratory infections. -Currently patient has a normal blood pressure, will refrain from fluid resuscitation as he has a long history of CHF, pulmonary edema. -Bloodwork is reviewed showing leukocytosis to 15. Hemoglobin is 11.6. Otherwise VBG does reveal acidosis and hypercarbia, 7.1/71. -Electrolytes reveal elevated potassium at 5.6. His creatinine is significant elevated at 3, this is a significant change from baseline -Patient troponin significant elevated at 214 with a BNP of 1054. -Patient did appear fairly ill, he is still fairly lethargic but on BiPAP with rates in the 40s. -Chest x-ray at Independently interpreted by me reveals cardiomegaly with likely pulmonary edema but otherwise difficult to assess -Will order CT of the chest due to the difficult interpret chest CT. -CT confirms multifocal pneumonia. IV ceftriaxone and doxycycline ordered. -Will admit patient to hospitalist service. -While hospital service was admitting patient, patient was fairly unresponsive, significantly worse than my previous evaluation. At this time decision made to intubate. -Patient has complete intended at this time, needing airway protection. Endotracheal Intubation Indication: airway protection The patient was on 100% oxygen via NRB prior to the procedure. Suction, airway equipment, RSI drugs, respiratory equipment, and appropriate personnel were prepared prior to the initiation of the procedure. A time out was taken. Induction was performed with succinylcholine/etomidate. After observing the clinical benefit of the medications, the airway was easily visualized utilizing a video laryngoscopy. A 8.0 size ETT tube was placed atraumatically to 23 cm using standard technique. The cuff inflated without signs of malfunction. There were bilateral breath sounds, positive colormetric change, no gastric sounds, a good capnography waveform, and post procedure pulse oximetry was 99%. Post intubation sedation and paralysis was administered using propofol. There were no complications. Critical Care Note: I have personally spent 64 minutes of critical care time in the direct management of this patient. This includes bedside care, interpretation of diagnostic studies, and testing, discussion with consultants, patient, and family members, and other required patient management activities. This 64 minutes is in excess of all separately billable procedures. Differential diagnosis: Pneumonia, CHF, COPD, hypercarbia ER treatment provided: See below Diagnostics interpreted by me: ECG: ECG independently interpreted by me with normal sinus rhythm, rate of 66, normal axis, first-degree AV block, a clear right bundle branch block, normal QTc, no ST segment elevations consistent with STEMI criteria Cardiac Monitoring: An order was placed for continuous cardiac monitoring. The monitor shows a rate of 67 with sinus rhythm. Laboratory studies: As stated above and show below. Imaging studies: See below. Past Med/Surg History Problem List (Updated 06/30/24 @ 06:05 by Glendy Matute MD) Obtunded (Acute) Acute and chronic respiratory failure (Acute) Acute respiratory failure with hypoxia and hypercarbia (Acute) Multifocal pneumonia (Acute) Acute on chronic heart failure Hypercarbia Respiratory failure requiring intubation Aspiration pneumonitis Pneumonia Acute metabolic encephalopathy ALEXIS (acute kidney injury) Respiratory acidosis (Acute) Weakness (Acute) CHF (congestive heart failure) (Acute) Respiratory failure (Acute) Acute heart failure with preserved ejection fraction Acute on chronic respiratory failure with hypoxia and hypercapnia Acute respiratory failure with hypoxia and hypercapnia Class 3 severe obesity due to excess calories with serious comorbidity and body mass index (BMI) of 45.0 to 49.9 in adult Elevated IgE level Obesity hypoventilation syndrome Excessive daytime sleepiness History of behavioral and mental health problems Abnormal CT scan, chest Aspergillus fumigatus Dyspnea Chronic respiratory failure with hypoxia and hypercapnia Prediabetes Morbid obesity with BMI of 40.0-44.9, adult Hepatitis C antibody test positive Morbid obesity due to excess calories Medical History Schizophrenia Pulmonary edema Severe sepsis Elevated troponin Acute hyponatremia Multifocal pneumonia Hyperlipidemia Encounter for health maintenance examination in adult Surgical History S/P tooth extraction Family History Father Prostate cancer Mother Dementia Denies family history of Ovarian cancer Myocardial infarction Breast cancer Colorectal cancer Social History Smoking Status: Former smoker Tobacco Type: Cigarettes Age Started Using Tobacco: 25; packs per day: 0.5; Smoking End Date: 30-40 years ago; Second Hand Exposure: No; Do You Dip or Chew Tobacco: No; Hx Alcohol Use: No Hx Substance Use: No Preferred Language: Mosotho Communication Ability: Effective Communication Ability Comment: vision problems Communication Tools: Letter Board and Picture Board Visual Impairment: No Limitations Hearing Ability: Normal Gun Number Required: No Beliefs That Will Affect Care: None marital status: Single Current Living Situation: Residential Current Living Situation Comment: [facility] current occupational status: disabled Feels Safe at Home: Yes Safety Concerns: Feels Safe At This Time Childhood Exposure to Second-Hand Smoke: Yes Diet: regular caffeine: Yes Dental Care, Regularly: No Physical Activity Frequency: Other Physical Activity Frequency Comment: walks Seatbelt Use: always Sunscreen Use: No Assistive Devices: Walker Allergies Allergies Allergy/AdvReac Type Severity Reaction Status Date / Time aspirin Allergy Verified 07/17/23 13:26 Penicillins Allergy Verified 07/17/23 13:26 Home Meds Home Medications Medication Instructions Recorded Confirmed coenzyme Q10 10 mg capsule (Co 10 mg PO BID 11/05/20 06/30/24 Q-10) glucosamine-chondroitin 250 mg-200 2 tab PO DAILY 04/02/24 04/02/24 mg tablet (Osteo Bi-Flex) saw palmetto 500 mg capsule 500 mg PO DAILY 04/02/24 04/02/24 Milk of Magnesia 30 ml PO Q OTHER DAY PRN 06/30/24 06/30/24 constipation acetaminophen 500 mg tablet 1,000 mg PO Q8H PRN fever or pain 06/30/24 06/30/24 (Tylenol Extra Strength) furosemide 40 mg tablet 60 mg PO QAM 06/30/24 06/30/24 gabapentin 100 mg PO HS 06/30/24 06/30/24 ipratropium-albuterol 3 ml Q4 PRN wheezing 06/30/24 06/30/24 modafinil 100 mg PO DAILY PRN somnolence 06/30/24 06/30/24 omeprazole 20 mg PO HS 06/30/24 06/30/24 oxycodone 5 mg PO DAILY 06/30/24 06/30/24 potassium chloride 20 meq PO DAILY 06/30/24 06/30/24 prednisone 40 mg PO DAILY sob/congestion 06/30/24 06/30/24 trifluoperazine 5 mg tablet 5 mg PO DAILY 06/30/24 Previous Rx's Medication Instructions Recorded dorzolamide 22.3 mg-timolol 6.8 1 drp ophthalmic (eye) BID #10 mL 07/27/22 mg/mL eye drops latanoprost 0.005 % eye drops 1 drp ophthalmic (eye) HS #2.5 mL 07/27/22 Portable Oxygen #1 ea 05/14/23 trifluoperazine 5 mg tablet 5 mg PO DAILY #90 tabs 07/18/23 carbamazepine 100 mg 100 mg PO BID 90 days #180 tabs 02/28/24 tablet,extended release,12 hr (Tegretol XR) metoprolol succinate 25 mg 25 mg PO QAM #30 tabs 04/12/24 tablet,extended release 24 hr modafinil 100 mg tablet 100 mg PO DAILY #30 tabs 04/12/24 potassium chloride 20 mEq 20 meq PO QAM #30 tabs 04/12/24 tablet,extended release Results & Data (ED) Vital Signs Vital Signs - 24 hr 06/29/24 23:06 06/29/24 23:20 06/29/24 23:20 Temperature 36.6 C Temperature Source Oral Pulse Rate 65 Pulse Rate from SpO2 Sensor Pulse Rhythm Regular Pulse Strength Normal Respiratory Rate 38 H Respiratory Effort / Characteristics Short of Breath Short of Breath Respiratory Depth Deep Deep Respiratory Pattern Tachypnea Tachypnea Blood Pressure 139/63 Blood Pressure Mean 88 Blood Pressure Position Lying Pulse Oximetry 98 Oxygen Delivery Method Non-rebreather Non-rebreather Non-rebreather Oxygen Flow Rate 15 15 15 Fraction of Inspired Oxygen Sepsis Recent Fever Within 48 Hours No Sepsis New/Unexplained Change in Mental Status No Sepsis Action Taken by Nursing No Action Required 06/29/24 23:24 06/29/24 23:38 06/29/24 23:45 Temperature Temperature Source Pulse Rate 75 Pulse Rate from SpO2 Sensor 65 Pulse Rhythm Pulse Strength Respiratory Rate 38 H Respiratory Effort / Characteristics Respiratory Depth Respiratory Pattern Blood Pressure 122/83 Blood Pressure Mean 88 Blood Pressure Position Pulse Oximetry 15 L 96 Oxygen Delivery Method Non-rebreather BiPAP Oxygen Flow Rate Fraction of Inspired Oxygen Sepsis Recent Fever Within 48 Hours Sepsis New/Unexplained Change in Mental Status Sepsis Action Taken by Nursing 06/29/24 23:52 06/30/24 00:15 06/30/24 00:30 Temperature Temperature Source Pulse Rate 64 Pulse Rate from SpO2 Sensor Pulse Rhythm Pulse Strength Respiratory Rate 40 H Respiratory Effort / Characteristics Spontaneous Respiratory Depth Normal Respiratory Pattern Regular Blood Pressure 118/75 117/76 Blood Pressure Mean 90 94 Blood Pressure Position Pulse Oximetry 96 92 Oxygen Delivery Method BiPAP Oxygen Flow Rate Fraction of Inspired Oxygen 40 Sepsis Recent Fever Within 48 Hours Sepsis New/Unexplained Change in Mental Status Sepsis Action Taken by Nursing 06/30/24 01:30 06/30/24 01:45 06/30/24 02:02 Temperature Temperature Source Pulse Rate 53 L 56 L Pulse Rate from SpO2 Sensor 55 L Pulse Rhythm Pulse Strength Respiratory Rate 48 H 27 H Respiratory Effort / Characteristics Respiratory Depth Respiratory Pattern Blood Pressure 106/65 172/99 H Blood Pressure Mean 81 124 Blood Pressure Position Pulse Oximetry 93 95 Oxygen Delivery Method BiPAP Oxygen Flow Rate Fraction of Inspired Oxygen Sepsis Recent Fever Within 48 Hours Sepsis New/Unexplained Change in Mental Status Sepsis Action Taken by Nursing 06/30/24 02:02 Temperature Temperature Source Pulse Rate Pulse Rate from SpO2 Sensor Pulse Rhythm Pulse Strength Respiratory Rate Respiratory Effort / Characteristics Respiratory Depth Respiratory Pattern Blood Pressure 172/99 H Blood Pressure Mean 124 Blood Pressure Position Pulse Oximetry Oxygen Delivery Method Oxygen Flow Rate Fraction of Inspired Oxygen Sepsis Recent Fever Within 48 Hours Sepsis New/Unexplained Change in Mental Status Sepsis Action Taken by Nursing Laboratory Data 06/29/24 23:37 06/29/24 23:37 Lab Results 06/29/24 06/29/24 06/30/24 Range/Units 23:37 23:44 01:27 WBC 15.07 H (4.8-10.8) K/ul RBC 3.86 L (4.70-6.10) M/uL Hgb 11.6 L (14.0-18.0) g/dl Hct 37.3 L (42.0-52.0) % MCV 96.6 (80.0-100.0) fL MCH 30.1 (25.0-34.0) pg MCHC 31.1 L (32.0-36.0) g/dL RDW Std Deviation 55.6 H (36.4-46.3) fL RDW Coeff of Pascual 15.7 H (11.5-14.5) % Plt Count 205 (130-400) K/uL MPV 10.3 (9.4-12.4) fL Immature Gran % (Auto) 1.1 % Neut % (Auto) 84.1 % Lymph % (Auto) 9.3 % Bullock % (Auto) 5.2 % Eos % (Auto) 0.0 % Baso % (Auto) 0.3 % Neut # (Auto) 12.68 H (1.40-6.50) K/uL Lymph # (Auto) 1.40 (1.20-3.40) K/uL Bullock # (Auto) 0.78 H (0.11-0.59) K/uL Eos # (Auto) 0.00 (0.00-0.50) K/uL Baso # (Auto) 0.04 (0.00-0.20) K/uL Immature Gran # (Auto) 0.17 (0.01-0.20) K/uL VBG pH 7.14 L (7.36-7.41) VBG pCO2 71 H (38-50) mmHg VBG pO2 110 mmHg VBG HCO3 24 mmol/L VBG O2 Saturation 98.6 % VBG Base Excess -6.2 mEq/L Sodium 136 (136-145) mmol/L Potassium 5.6 H (3.5-5.1) mmol/L Chloride 101 (98-107) mmol/L Carbon Dioxide 24 (21-32) mmol/L Anion Gap 11 (3-11) BUN 83 H (6-23) mg/dl Creatinine 3.00 H (0.6-1.4) mg/dl Est Cr Clr Drug Dosing 32.9 ml/min eGFR 21.80 BUN/Creatinine Ratio 27.7 H (10-20) Glucose 156 H (70-99(Fasting)) mg/dl Calcium 8.7 (8.6-10.3) mg/dl Phosphorus 7.1 H (2.5-4.9) mg/dl Magnesium 2.6 H (1.7-2.4) mg/dl Total Bilirubin 0.3 (0.2-1.0) mg/dl AST 24 (13-39) U/L ALT 23 (7-52) U/L Alkaline Phosphatase 85 (34-104) U/L Troponin I High Sens 214.5 H* 76.8 H* D (0-20) pg/ml B-Natriuretic Peptide 1054 H (0-100) pg/ml Total Protein 7.6 (6.0-8.3) gm/dl Albumin 3.4 (3.4-5.0) gm/dl Globulin 4.2 H (2.5-4.0) gm/dl Albumin/Globulin Ratio 0.8 L (0.9-2) Procalcitonin Adenovirus (PCR) Not Detected (NotDetected) B. pertussis DNA (PCR) Not Detected (NotDetected) B.parapertussis DNA PCR Not Detected (NotDetected) C. pneumoniae DNA (PCR) Not Detected (NotDetected) Coronavirus OC43 (PCR) Not Detected (NotDetected) Coronavirus HKU1 (PCR) Not Detected (NotDetected) Coronavirus 229E (PCR) Not Detected (NotDetected) SARS-CoV-2 (PCR) Not Detected (NotDetected) Coronavirus NL63 (PCR) Not Detected (NotDetected) Human Metapneumovir PCR Not Detected (NotDetected) Influenza Type A (PCR) Not Detected (NotDetected) Influenza Type B (PCR) Not Detected (NotDetected) M. pneumoniae (PCR) Not Detected (NotDetected) Parainfluenza 1 (PCR) Not Detected (NotDetected) Parainfluenza 2 (PCR) Not Detected (NotDetected) Parainfluenza 3 (PCR) Not Detected (NotDetected) Parainfluenza 4 (PCR) Not Detected (NotDetected) RSV (PCR) Not Detected (NotDetected) Entero/Rhino (PCR) Not Detected (NotDetected) 06/30/24 Range/Units 01:30 WBC (4.8-10.8) K/ul RBC (4.70-6.10) M/uL Hgb (14.0-18.0) g/dl Hct (42.0-52.0) % MCV (80.0-100.0) fL MCH (25.0-34.0) pg MCHC (32.0-36.0) g/dL RDW Std Deviation (36.4-46.3) fL RDW Coeff of Pascual (11.5-14.5) % Plt Count (130-400) K/uL MPV (9.4-12.4) fL Immature Gran % (Auto) % Neut % (Auto) % Lymph % (Auto) % Bullock % (Auto) % Eos % (Auto) % Baso % (Auto) % Neut # (Auto) (1.40-6.50) K/uL Lymph # (Auto) (1.20-3.40) K/uL Bullock # (Auto) (0.11-0.59) K/uL Eos # (Auto) (0.00-0.50) K/uL Baso # (Auto) (0.00-0.20) K/uL Immature Gran # (Auto) (0.01-0.20) K/uL VBG pH 7.16 L (7.36-7.41) VBG pCO2 69 H (38-50) mmHg VBG pO2 76 mmHg VBG HCO3 25 mmol/L VBG O2 Saturation 96.7 % VBG Base Excess -5.4 mEq/L Sodium (136-145) mmol/L Potassium (3.5-5.1) mmol/L Chloride (98-107) mmol/L Carbon Dioxide (21-32) mmol/L Anion Gap (3-11) BUN (6-23) mg/dl Creatinine (0.6-1.4) mg/dl Est Cr Clr Drug Dosing ml/min eGFR BUN/Creatinine Ratio (10-20) Glucose (70-99(Fasting)) mg/dl Calcium (8.6-10.3) mg/dl Phosphorus (2.5-4.9) mg/dl Magnesium (1.7-2.4) mg/dl Total Bilirubin (0.2-1.0) mg/dl AST (13-39) U/L ALT (7-52) U/L Alkaline Phosphatase (34-104) U/L Troponin I High Sens (0-20) pg/ml B-Natriuretic Peptide (0-100) pg/ml Total Protein (6.0-8.3) gm/dl Albumin (3.4-5.0) gm/dl Globulin (2.5-4.0) gm/dl Albumin/Globulin Ratio (0.9-2) Procalcitonin Cancelled Adenovirus (PCR) (NotDetected) B. pertussis DNA (PCR) (NotDetected) B.parapertussis DNA PCR (NotDetected) C. pneumoniae DNA (PCR) (NotDetected) Coronavirus OC43 (PCR) (NotDetected) Coronavirus HKU1 (PCR) (NotDetected) Coronavirus 229E (PCR) (NotDetected) SARS-CoV-2 (PCR) (NotDetected) Coronavirus NL63 (PCR) (NotDetected) Human Metapneumovir PCR (NotDetected) Influenza Type A (PCR) (NotDetected) Influenza Type B (PCR) (NotDetected) M. pneumoniae (PCR) (NotDetected) Parainfluenza 1 (PCR) (NotDetected) Parainfluenza 2 (PCR) (NotDetected) Parainfluenza 3 (PCR) (NotDetected) Parainfluenza 4 (PCR) (NotDetected) RSV (PCR) (NotDetected) Entero/Rhino (PCR) (NotDetected) Administered Medications Fentanyl Citrate (Fentanyl Citrate) 2,500 mcg in 250 mls @ 5 mls/hr IV .Q50H [facility]; Protocol Stop: 07/14/24 02:14 Last Titration: 06/30/24 04:45 Dose: 50 mcg/hr, 5 mls/hr Documented By: JT Co-signed By: SKS Titration: 06/30/24 03:29 Dose: 75 mcg/hr, 7.5 mls/hr Documented By: JT Co-signed By: [id number] Titration: 06/30/24 02:22 Dose: 50 mcg/hr, 5 mls/hr Documented By: BREEZY Co-signed By: IVANIA Admin: 06/30/24 02:15 Dose: 25 mcg/hr, 2.5 mls/hr Documented By: BREEZY Co-signed By: IVANIA Propofol (Diprivan) 1,000 mg in 100 mls @ 16.896 mls/hr IV .Q5H56M [facility]; Protocol Stop: 07/03/24 02:14 Last Admin: 06/30/24 05:00 Dose: 20 mcg/kg/min, 16.9 mls/hr Documented By: JT Co-signed By: ESG Titration: 06/30/24 05:00 Dose: Infused Documented By: JT Co-signed By: ESG Titration: 06/30/24 04:52 Dose: 20 mcg/kg/min, 16.9 mls/hr Documented By: Titration: 06/30/24 04:45 Dose: 23.67 mcg/kg/min, 20 mls/hr Documented By: Titration: 06/30/24 02:22 Dose: 41.43 mcg/kg/min, 35 mls/hr Documented By: Admin: 06/30/24 02:19 Dose: 28.41 mcg/kg/min, 24 mls/hr Documented By: BREEZY Co-signed By: IVANIA Ceftriaxone Sodium (Rocephin) 2,000 mg in 50 mls @ 100 mls/hr IV Q24H [facility] Stop: 07/02/24 04:59 Last Infusion: 06/30/24 05:46 Dose: Infused Documented By: Admin: 06/30/24 04:48 Dose: 100 mls/hr Documented By: SHEILA Discontinued Medications Fentanyl Citrate (Fentanyl Citrate 2,500 Mcg/250 Ml Bag) Confirm Administered Dose 2,500 mcg IV .STK-MED ONE Stop: 06/30/24 02:10 Last Admin: 06/30/24 02:20 Dose: Not Given Documented By: BREEZY Furosemide (Furosemide 40 Mg/4 Ml Vial) 60 mg IV ONE ONE Stop: 06/30/24 03:30 Last Admin: 06/30/24 04:17 Dose: 60 mg Documented By: SHEILA Ceftriaxone Sodium (Rocephin) 2,000 mg in 50 mls @ 100 mls/hr IV NOW STA Stop: 06/30/24 01:35 Last Infusion: 06/30/24 01:37 Dose: Infused Documented By: Admin: 06/30/24 01:11 Dose: 100 mls/hr Documented By: IVANIA Doxycycline Hyclate 100 mg/ (Dextrose) 100 mls @ 50 mls/hr IV Q12H [facility] Stop: 07/02/24 01:14 Last Infusion: 06/30/24 03:31 Dose: Infused Documented By: Admin: 06/30/24 01:26 Dose: 50 mls/hr Documented By: IVANIA Miscellaneous (Rapid Sequence Induction Bag) Confirm Administered Dose 1 each N/A .STK-MED ONE Stop: 06/30/24 01:54 Last Admin: 06/30/24 02:21 Dose: Not Given Documented By: BREEZY Propofol (Propofol Iv Emulsion 10 Mg/Ml 100 Ml Vial) Confirm Administered Dose 1,000 mg IV .STK-MED ONE Stop: 06/30/24 02:02 Last Admin: 06/30/24 02:20 Dose: Not Given Documented By: BREEZY Sodium Bicarbonate (Sodium Bicarb 8.4% Inj 50 Meq/50 Ml Syr) Confirm Administered Dose 100 meq IV .STK-MED ONE Stop: 06/30/24 01:56 Last Admin: 06/30/24 02:03 Dose: 100 meq Documented By: BREEZY Imaging Data Radiologist's Impression: Chest CT 06/30/24 00:24 Exam(s): CT CHEST Without Contrast EXAM: CT Chest Without Intravenous Contrast CLINICAL HISTORY: Reason for exam: PNA vs CHF. TECHNIQUE: Axial computed tomography images of the chest without intravenous contrast. CTDI is 38.96 mGy and DLP is 1282.42 mGy-cm. Automated exposure control was utilized for the study. A dose lowering technique was utilized adhering to the principles of ALARA. COMPARISON: 01/19/2023 FINDINGS: Lungs: Diffuse bilateral interstitial infiltrates extending and involving the right upper, middle and lower lobes and left lower lobe. No effusions. No mass. Pleural space: Unremarkable. No pneumothorax. No significant effusion. Heart: Unremarkable. No cardiomegaly. No significant pericardial effusion. No significant coronary artery calcifications. Bones/joints: Unremarkable. No acute fracture. No dislocation. Soft tissues: Unremarkable. Vasculature: Unremarkable. No thoracic aortic aneurysm. Lymph nodes: Unremarkable. No enlarged lymph nodes. IMPRESSION: Multifocal pneumonia Electronically signed by: Boby Amor MD 06/30/24 01:10 AM Discharge Plan Visit Data Chief Complaint: Shortness of Breath/Dyspnea Stated Complaint: SOB ED Provider: Glendy Matute Discharge Problem: Multifocal pneumonia, Acute respiratory failure with hypoxia and hypercarbia, Acute and chronic respiratory failure, Obtunded Patient Disposition: Admitted As Inpatient Discharge Instructions Interventions: ED Discharge Assessment Last Done: 06/30/24 02:37
[2024-06-30 00:13] LABS: Albumin Globulin Ratio 0.8 (0.9-2); Albumin Level 3.4 gm/dl (3.4-5.0); BUN Creatinine Ratio 27.7 (10-20); Bilirubin,Total 0.3 mg/dl (0.2-1.0); Calcium 8.7 mg/dl (8.6-10.3); Creatinine Clr Calc Pharmacy 32.9 ml/min; Globulin 4.2 gm/dl (2.5-4.0); Potassium 5.6 mmol/L (3.5-5.1); Total Protein 7.6 gm/dl (6.0-8.3)
[2024-06-30 00:25] LABS: Troponin I High Sensitivity 214.5 pg/ml (0-20)
[2024-06-30 00:43] LABS: Adenovirus PCR Not Detected (NotDetected); Bordetella parapertussis PCR Not Detected (NotDetected); Bordetella pertussis PCR Not Detected (NotDetected); Chlamydia pneumoniae PCR Not Detected (NotDetected); Coronavirus 229E PCR Not Detected (NotDetected); Coronavirus CoV-2 (COVID19)PCR Not Detected (NotDetected); Coronavirus HKU1 PCR Not Detected (NotDetected); Coronavirus NL63 PCR Not Detected (NotDetected); Coronavirus OC43PCR Not Detected (NotDetected); Human Metapneumovirus PCR Not Detected (NotDetected); Influenza A PCR Not Detected (NotDetected); Influenza B PCR Not Detected (NotDetected); Mycoplasma pneumoniae PCR Not Detected (NotDetected); Parainfluenza Virus 1 PCR Not Detected (NotDetected); Parainfluenza Virus 2 PCR Not Detected (NotDetected); Parainfluenza Virus 3 PCR Not Detected (NotDetected); Parainfluenza Virus 4 PCR Not Detected (NotDetected); Respiratory Syncytial VirusPCR Not Detected (NotDetected); Rhinovirus/Enterovirus PCR Not Detected (NotDetected)
[2024-06-30] MEDS: cefTRIAXone SODIUM 2,000 MG/50 ML BAG IV STA (01:11)
--- NOTE | 2024-06-30 01:11 | CT Scan Report ---
Exam(s): CT CHEST Without Contrast EXAM: CT Chest Without Intravenous Contrast CLINICAL HISTORY: Reason for exam: PNA vs CHF. TECHNIQUE: Axial computed tomography images of the chest without intravenous contrast. CTDI is 38.96 mGy and DLP is 1282.42 mGy-cm. Automated exposure control was utilized for the study. A dose lowering technique was utilized adhering to the principles of ALARA. COMPARISON: 01/19/2023 FINDINGS: Lungs: Diffuse bilateral interstitial infiltrates extending and involving the right upper, middle and lower lobes and left lower lobe. No effusions. No mass. Pleural space: Unremarkable. No pneumothorax. No significant effusion. Heart: Unremarkable. No cardiomegaly. No significant pericardial effusion. No significant coronary artery calcifications. Bones/joints: Unremarkable. No acute fracture. No dislocation. Soft tissues: Unremarkable. Vasculature: Unremarkable. No thoracic aortic aneurysm. Lymph nodes: Unremarkable. No enlarged lymph nodes. IMPRESSION: Multifocal pneumonia Electronically signed by: Boby Amor MD 06/30/24 01:10 AM
[2024-06-30] MEDS: DOXYCYCLINE HYCLATE 100 MG in DEXTROSE 5% MINI-B 100 ML IV SCH ×2 (01:26→14:00)
[2024-06-30 01:40] LABS: Base Excess VBG -5.4 mEq/L; HCO3 VBG 25 mmol/L; Oxygen Saturation VBG 96.7 %; PCO2 VBG 69 mmHg (38-50); PO2 VBG 76 mmHg; pH VBG 7.16 (7.36-7.41)
[2024-06-30 02:02] LABS: Magnesium 2.6 mg/dl (1.7-2.4); Phosphorus 7.1 mg/dl (2.5-4.9)
[2024-06-30] MEDS: SODIUM BICARB 8.4% INJ 50 MEQ/50 ML SYR IV ONE (02:03)
[2024-06-30] MEDS ORDERED: STAT IV Infusion **Titration per Protocol STA (02:03)
[2024-06-30] MEDS ORDERED: PROPOFOL BOLUS FROM BAG IV PRN (02:03)
[2024-06-30] MEDS ORDERED: fentaNYL BOLUS from BAG IV PRN (02:03)
[2024-06-30 02:10] LABS: Troponin I High Sensitivity 76.8 pg/ml (0-20)
[2024-06-30] MEDS: fentaNYL citrate 2,500 MCG/250 ML BAG IV SCH (02:15)
[2024-06-30] MEDS: propofoL 1,000 MG/100 ML VIAL IV SCH (02:19)
[2024-06-30] MEDS: PROPOFOL IV EMULSION 10 MG/ML 100 ML VIAL IV ONE (02:20)
[2024-06-30] MEDS: fentaNYL citrate 2,500 MCG/250 ML BAG IV ONE (02:20)
[2024-06-30] MEDS: RAPID SEQUENCE INDUCTION BAG ONE (02:21)
--- NOTE | 2024-06-30 02:29 | Critical Care Consultation ---
Date of Consultation June 30, 2024 Assessment & Plan (1) Respiratory failure requiring intubation: (2) Hypercarbia: (3) Acute on chronic heart failure: (4) ALEXIS (acute kidney injury): (5) Respiratory acidosis: (6) Class 3 severe obesity due to excess calories with serious comorbidity and body mass index (BMI) of 45.0 to 49.9 in adult: Plan Reason Critically Ill: 68 YOM with morbid obesity COPD, and HfpEF- required emergent intubation in the ER for hypercarbic respiratory failure. Neuro - Sedation for mechanical ventilation, hx of schizophrenia CAM ICU: FABRICE - Sedation goal ALEX -2 - Propofol and Fentanyl infusions - Convert Tegratol XR to scheduled dosing down OGT - Daily awakenings - Urine tox screen to rule out other causes for his stuporous - Hold his modafinil while sedated Cardiac - HfpEF acute on chronic exacerbation, elevated HsCTNI - BNP 1054 which is markedly increased from previous- 60 mg Lasix now (0400- administered) - Continue to diurese as renal indices as well as blood pressure support - ECG without acute STEMI changes - Elevated HsCTNI- likely demand type II from mismatch - Continue supportive care Respiratory - Acute on Chronic hypercarbic respiratory failure requiring intubation and mechanical ventilation - Failed NIPPV with no change in PH or CO2- now stuporous requiring intubation - Vent- 7ml/kg RR 24 adjust PEEP and FIO2 to keep SPo2 >92%- Check ABG 20 minutes after adequate ventilation - Continue JOHN nebulizers as needed - Can't exclude possibility of pneumonia- see ID below - Respiratory Biofire negative for viruses that are tested for - Doubt PE at this time as was not hypoxic and minimal o2 settings, as well as able to easily reverse CO2 on ventilator GI - Morbid Obesity, GERD - Continue PPI- IV - Weight loss would be recommended to prevent penitentiary morbidity complications RENAL/LYTES - ARF on CKD, hyperkalemia, respiratory acidosis - ARF likely pre-renal from CHF exacerbation - Carson placed producing urine - diurese now if related to HF then this should improve- diurese later in af ternoon based on output- goal 750-1L negative - Hyperkalemia should improve with diuresing and correction of acidosis - Acidosis- respiratory - corrected with ventilation - No acute needs - Carson catheter while intubated ENDO - DMII - ICU hyperglycemic protocol HEME - NO acute needs - See ID section below ID- - Elevated WBC, variable CXR, reported cough however no sputum noted, oxygen requirement minimal - will empirically continue Rocephin and Doxy- if MRSA nares negative can DC the Doxy - can't exclude pneumonia however at this time favoring fluid vs infection - follow clinical course LINES/IV ACCESS - PIV x3, Carson, OGT, ETT, Continue use of these lines DVT PROPHYLAXIS - SCDS, Heparin 7500 sub q q8 DISPO: ICU while intubated and sedated Supervising Physician Co-Signing Physician Notes I saw and evaluated the patient with TERESITA Lake, and agree with findings and plan as documented in the note. CT chest 06/30/2024 personally reviewed: Patchy opacities appreciated bilaterally especially in the lower lobes Cardiomegaly Insignificant mediastinal lymphadenopathy Patient seems to have chronic interstitial changes, appreciated especially in the lower lobes as well as right middle lobe. Autoimmune workup has been negative 12/11/2022 At the time of examination patient was not in any respiratory distress. He was breathing with the vent He was on propofol 20 and fentanyl 50. He was RASS -1 Constitutional: No acute distress HEENT: EOMI, PERRLA Respiratory system: Decreased air entry bilaterally, no wheeze, rhonchi, positive crackles bilateral lower lobes CVS: S1-S2 positive, no murmurs or gallops Abdomen: Soft, nontender, nondistended, positive bowel sounds x4 Extremities: +2 pulses bilaterally radialis/ dorsalis pedis, no cyanosis, no edema Neuro: RASS -1, following commands Psych: Normal mood and affect G/U: Positive Carson --Prophylaxis VTE: Heparin GI: Pantoprazole Lines: Peripheral Diet: Tube feeds Plan: In/out: -716, urine output 1125 ABG 7.33/50/28 on PEEP of 8, 50% Patient seems to have underlying ILD with possible CPFE. BNP of 1000, patient creatinine is also going up, I will give the patient Bumex 2 mg now Patient has a drop in hemoglobin as well. Monitor H&H. Continue with antibiotics for total of 5 days, follow-up sputum culture Creatinine is getting worse. Will need to keep a close eye on it. I have personally spent 58 minutes of critical care time in the direct management of this patient. This is a life/limb threatening event. This includes time spent evaluating patient, direct bedside care, chart review, placing orders, interpretation of diagnostic studies, discussion with consultants, patient, and family members, as well as other required patient management activities. This time is exclusive of all separately billable procedures, and teaching time and separate from and in addition to any other critical care service time. Please note the above document was generated using voice recognition software. It may contain grammatical, syntax or spelling errors. History of Present Illness Reason for Consultation: Hypercarbic Respiratory failure requiring emergent intubation Requesting Physician: Natalia Lee D.O Attending Physician: Natalia Lee D.O. History of Present Illness 68 YOM with medical history of: COPD, HFpEF, Schizophrenia, Morbid Obesity. Patient came to the EMD from [facility] for concerns of lethargy and dyspnea with new cough. Patient arrived to the EMD apparently short of breath and confused, he was placed on BiPAP, CXR was obtained, VBG was obtained. He had routine labs drawn to include BNP, labs were notable for WBC 15, PH 7.1 CO2 71, BNP of 1054, and HsCTNI of 76.8. He was given Doxycyline and Rocephin. Hospitalist was consulted for admission. I was notified upon hospitalist assessment of patient worsening encephalopathy and remaind with PH 7.16 CO2 69 and plan for intubation in the EMD. Records reviewed and imaging reviewed. I presented to the ER to assist with monitoring and resuscitation. Patient received 2 amps BiCarb prior to intubation. He will be transferred to the ICU to continue to manage his respiratory failure which at this time appears more heart failure related than infectious, however difficult to eval with body habitus and CXR. Hopeful to wean from mechanical ventilation within next 24-48 hours. CODE: FULL Allergies Allergy/AdvReac Type Severity Reaction Status Date / Time aspirin Allergy Verified 07/17/23 13:26 Penicillins Allergy Verified 07/17/23 13:26 Home Medications Medication Instructions Recorded Confirmed Type coenzyme Q10 10 mg capsule (Co 10 mg PO BID 11/05/20 06/30/24 History Q-10) dorzolamide 22.3 mg-timolol 6.8 1 drp ophthalmic (eye) BID #10 mL 07/27/22 06/30/24 Rx mg/mL eye drops latanoprost 0.005 % eye drops 1 drp ophthalmic (eye) HS #2.5 mL 07/27/22 06/30/24 Rx Portable Oxygen #1 ea 05/14/23 07/17/23 Rx trifluoperazine 5 mg tablet 5 mg PO DAILY #90 tabs 07/18/23 04/02/24 Rx carbamazepine 100 mg 100 mg PO BID 90 days #180 tabs 02/28/24 06/30/24 Rx tablet,extended release,12 hr (Tegretol XR) glucosamine-chondroitin 250 mg-200 2 tab PO DAILY 04/02/24 04/02/24 History mg tablet (Osteo Bi-Flex) saw palmetto 500 mg capsule 500 mg PO DAILY 04/02/24 04/02/24 History metoprolol succinate 25 mg 25 mg PO QAM #30 tabs 04/12/24 06/30/24 Rx tablet,extended release 24 hr modafinil 100 mg tablet 100 mg PO DAILY #30 tabs 04/12/24 Rx potassium chloride 20 mEq 20 meq PO QAM #30 tabs 04/12/24 Rx tablet,extended release Milk of Magnesia 30 ml PO Q OTHER DAY PRN 06/30/24 06/30/24 History constipation acetaminophen 500 mg tablet 1,000 mg PO Q8H PRN fever or pain 06/30/24 06/30/24 History (Tylenol Extra Strength) furosemide 40 mg tablet 60 mg PO QAM 06/30/24 06/30/24 History gabapentin 100 mg PO HS 06/30/24 06/30/24 History ipratropium-albuterol 3 ml Q4 PRN wheezing 06/30/24 06/30/24 History modafinil 100 mg PO DAILY PRN somnolence 06/30/24 06/30/24 History omeprazole 20 mg PO HS 06/30/24 06/30/24 History oxycodone 5 mg PO DAILY 06/30/24 06/30/24 History potassium chloride 20 meq PO DAILY 06/30/24 06/30/24 History prednisone 40 mg PO DAILY sob/congestion 06/30/24 06/30/24 History trifluoperazine 5 mg tablet 5 mg PO DAILY 06/30/24 History Patient History Medical History Schizophrenia Pulmonary edema Severe sepsis Elevated troponin Acute hyponatremia Multifocal pneumonia Hyperlipidemia Encounter for health maintenance examination in adult Surgical History S/P tooth extraction Family History Father Prostate cancer Mother Dementia Denies family history of Ovarian cancer Myocardial infarction Breast cancer Colorectal cancer Social History Smoking Status: Former smoker Tobacco Type: Cigarettes Age Started Using Tobacco: 25; packs per day: 0.5; Smoking End Date: 30-40 years ago; Second Hand Exposure: No; Do You Dip or Chew Tobacco: No; Hx Alcohol Use: No Hx Substance Use: No Preferred Language: Barbadian Communication Ability: Effective Communication Ability Comment: vision problems Communication Tools: Letter Board and Picture Board Visual Impairment: No Limitations Hearing Ability: Normal Epic Professional Required: No Beliefs That Will Affect Care: None marital status: Single Current Living Situation: [facility] Current Living Situation Comment: [facility] current occupational status: disabled Feels Safe at Home: Yes Safety Concerns: Feels Safe At This Time Childhood Exposure to Second-Hand Smoke: Yes Diet: regular caffeine: Yes Dental Care, Regularly: No Physical Activity Frequency: Other Physical Activity Frequency Comment: walks Seatbelt Use: always Sunscreen Use: No Assistive Devices: Walker Review of Systems Review of Systems: fabrice secondary to encephalopathy/stuporous Physical Exam Physical Exam: PHYSICAL EXAM: General: slumped over stuporous Head: Normocephalic, atraumatic ENT: PERRLA, EOMI, no pharyngeal exudate, mucous membranes moist Neuro: Sedated and intubated, did start to move extremities once co2 corrected Chest: minimal chest rise and fall- improved with increase in support and intubation, scattered crackles throughout Cardiac: Regular rate and rhythm, telemetry reviewed- SR- SB no ectopy, skin warm dry, cap refill <3 seconds, peripheral pulses +2 no JVD, S1 S2 GI: NABS x 4 quadrants, soft morbidly obese, : Carson to gravity Extremities: Normal inspection, no peripheral edema or erythema, calfs nontender to palpation Psych: Normal mood and affect Results & Data Results & Data Vital Signs (Past 12 Hours) Vital Signs Temp Pulse Resp BP Pulse Ox O2 Del Method O2 Flow Rate 06/30/24 02:13 63 06/30/24 01:30 53 L 48 H 106/65 93 BiPAP 06/30/24 00:30 117/76 92 BiPAP 06/30/24 00:15 118/75 06/29/24 23:52 64 40 H 96 06/29/24 23:45 38 H 122/83 96 BiPAP 06/29/24 23:38 15 L Non-rebreather 06/29/24 23:24 75 06/29/24 23:20 36.6 C 65 38 H 139/63 98 Non-rebreather 15 06/29/24 23:20 Non-rebreather 15 06/29/24 23:06 Non-rebreather 15 FiO2 06/30/24 02:13 06/30/24 01:30 06/30/24 00:30 06/30/24 00:15 06/29/24 23:52 40 06/29/24 23:45 06/29/24 23:38 06/29/24 23:24 06/29/24 23:20 06/29/24 23:20 06/29/24 23:06 Laboratory Results Abnormal lab results 06/29/24 06/30/24 06/30/24 Range/Units 23:37 01:27 01:30 WBC 15.07 H (4.8-10.8) K/ul RBC 3.86 L (4.70-6.10) M/uL Hgb 11.6 L (14.0-18.0) g/dl POC Hgb (14.0-18.0) g/dl Hct 37.3 L (42.0-52.0) % POC Hct (42-52) % MCHC 31.1 L (32.0-36.0) g/dL RDW Std Deviation 55.6 H (36.4-46.3) fL RDW Coeff of Pascual 15.7 H (11.5-14.5) % Neut # (Auto) 12.68 H (1.40-6.50) K/uL [place] # (Auto) 0.78 H (0.11-0.59) K/uL POC pH (7.35-7.45) POC pCO2 (35-46) mmHg POC pO2 (80-95) mmHg POC HCO3 (19-24) claudia/L ABG pH (Temp Correct) (7.35-7.45) ABG pCO2 (Temp Corrct (35-46) mmHg VBG pH 7.14 L 7.16 L (7.36-7.41) VBG pCO2 71 H 69 H (38-50) mmHg POC Potassium (3.3-5.0) mmol/L Potassium 5.6 H (3.5-5.1) mmol/L BUN 83 H (6-23) mg/dl Creatinine 3.00 H (0.6-1.4) mg/dl BUN/Creatinine Ratio 27.7 H (10-20) Glucose 156 H (70-99(Fasting)) mg/dl Phosphorus 7.1 H (2.5-4.9) mg/dl Magnesium 2.6 H (1.7-2.4) mg/dl Troponin I High Sens 214.5 H* 76.8 H* D (0-20) pg/ml B-Natriuretic Peptide 1054 H (0-100) pg/ml Globulin 4.2 H (2.5-4.0) gm/dl Albumin/Globulin Ratio 0.8 L (0.9-2) Urine Protein (Negative) U Hyaline Cast (Auto) (0-2) /lpf U Epithel Cells (Auto) (0-2) /hpf 06/30/24 06/30/24 Range/Units 02:39 03:20 WBC (4.8-10.8) K/ul RBC (4.70-6.10) M/uL Hgb (14.0-18.0) g/dl POC Hgb 12.2 L (14.0-18.0) g/dl Hct (42.0-52.0) % POC Hct 36 L (42-52) % MCHC (32.0-36.0) g/dL RDW Std Deviation (36.4-46.3) fL RDW Coeff of Pascual (11.5-14.5) % Neut # (Auto) (1.40-6.50) K/uL [place] # (Auto) (0.11-0.59) K/uL POC pH 7.33 L (7.35-7.45) POC pCO2 50 H (35-46) mmHg POC pO2 78 L (80-95) mmHg POC HCO3 26 H (19-24) claudia/L ABG pH (Temp Correct) 7.330 L (7.35-7.45) ABG pCO2 (Temp Corrct 50 H (35-46) mmHg VBG pH (7.36-7.41) VBG pCO2 (38-50) mmHg POC Potassium 5.1 H (3.3-5.0) mmol/L Potassium (3.5-5.1) mmol/L BUN (6-23) mg/dl Creatinine (0.6-1.4) mg/dl BUN/Creatinine Ratio (10-20) Glucose (70-99(Fasting)) mg/dl Phosphorus (2.5-4.9) mg/dl Magnesium (1.7-2.4) mg/dl Troponin I High Sens (0-20) pg/ml B-Natriuretic Peptide (0-100) pg/ml Globulin (2.5-4.0) gm/dl Albumin/Globulin Ratio (0.9-2) Urine Protein 1+ H (Negative) U Hyaline Cast (Auto) 6-10 H (0-2) /lpf U Epithel Cells (Auto) 3-5 H (0-2) /hpf Diagnostic Findings Chest CT 06/30/24 00:24 Exam(s): CT CHEST Without Contrast EXAM: CT Chest Without Intravenous Contrast CLINICAL HISTORY: Reason for exam: PNA vs CHF. TECHNIQUE: Axial computed tomography images of the chest without intravenous contrast. CTDI is 38.96 mGy and DLP is 1282.42 mGy-cm. Automated exposure control was utilized for the study. A dose lowering technique was utilized adhering to the principles of ALARA. COMPARISON: 01/19/2023 FINDINGS: Lungs: Diffuse bilateral interstitial infiltrates extending and involving the right upper, middle and lower lobes and left lower lobe. No effusions. No mass. Pleural space: Unremarkable. No pneumothorax. No significant effusion. Heart: Unremarkable. No cardiomegaly. No significant pericardial effusion. No significant coronary artery calcifications. Bones/joints: Unremarkable. No acute fracture. No dislocation. Soft tissues: Unremarkable. Vasculature: Unremarkable. No thoracic aortic aneurysm. Lymph nodes: Unremarkable. No enlarged lymph nodes. IMPRESSION: Multifocal pneumonia Electronically signed by: Boby Amor MD 06/30/24 01:10 AM Medications Administered Fentanyl Citrate (Fentanyl Citrate) 2,500 mcg in 250 mls @ 7.5 mls/hr IV .[id number] [facility]; Protocol Stop: 07/14/24 02:14 Last Titration: 06/30/24 03:29 Dose: 75 mcg/hr, 7.5 mls/hr Documented By: SHEILA Co-signed By: [id number] Titration: 06/30/24 02:22 Dose: 50 mcg/hr, 5 mls/hr Documented By: BREEZY Co-signed By: IVANIA Admin: 06/30/24 02:15 Dose: 25 mcg/hr, 2.5 mls/hr Documented By: BREEZY Co-signed By: IVANIA Propofol (Diprivan) 1,000 mg in 100 mls @ 38.016 mls/hr IV .[id number] [facility]; Protocol Stop: 07/03/24 02:14 Last Titration: 06/30/24 02:22 Dose: 41.43 mcg/kg/min, 35 mls/hr Documented By: Admin: 06/30/24 02:19 Dose: 28.41 mcg/kg/min, 24 mls/hr Documented By: BREEZY Co-signed By: IVANIA Discontinued Medications Fentanyl Citrate (Fentanyl Citrate 2,500 Mcg/250 Ml Bag) Confirm Administered Dose 2,500 mcg IV .STK-MED ONE Stop: 06/30/24 02:10 Last Admin: 06/30/24 02:20 Dose: Not Given Documented By: BREEZY Ceftriaxone Sodium (Rocephin) 2,000 mg in 50 mls @ 100 mls/hr IV NOW [facility] Stop: 06/30/24 01:35 Last Infusion: 06/30/24 01:37 Dose: Infused Documented By: Admin: 06/30/24 01:11 Dose: 100 mls/hr Documented By: IVANIA Doxycycline Hyclate 100 mg/ (Dextrose) 100 mls @ 50 mls/hr IV Q12H [facility] Stop: 07/02/24 01:14 Last Infusion: 06/30/24 03:31 Dose: Infused Documented By: Admin: 06/30/24 01:26 Dose: 50 mls/hr Documented By: IVANIA Miscellaneous (Rapid Sequence Induction Bag) Confirm Administered Dose 1 each N/A .STK-MED ONE Stop: 06/30/24 01:54 Last Admin: 06/30/24 02:21 Dose: Not Given Documented By: BREEZY Propofol (Propofol Iv Emulsion 10 Mg/Ml 100 Ml Vial) Confirm Administered Dose 1,000 mg IV .STK-MED ONE Stop: 06/30/24 02:02 Last Admin: 06/30/24 02:20 Dose: Not Given Documented By: BREEZY Sodium Bicarbonate (Sodium Bicarb 8.4% Inj 50 Meq/50 Ml Syr) Confirm Administered Dose 100 meq IV .STK-MED ONE Stop: 06/30/24 01:56 Last Admin: 06/30/24 02:03 Dose: 100 meq Documented By: BREEZY Coding Level of Care Code 86403 CRITICAL CARE 1ST 30-74M Diagnoses Respiratory failure requiring intubation J96.90 Hypercarbia R06.89 Acute on chronic heart failure I50.9 ALEXIS (acute kidney injury) N17.9 Respiratory acidosis E87.29 Class 3 severe obesity due to excess calories with serious comorbidity and body mass index (BMI) of 45.0 to 49.9 in adult E66.01; Z68.42
[2024-06-30 03:10] LABS: Appearance Urine Clear (Clear); Bacteria Urine Automated None Seen (None Seen); Bilirubin Urine Negative (Negative); Blood Urine Negative (Negative); Color Urine Yellow; Glucose Urine UA Negative (Negative); Ketones Urine Negative (Negative); Leukocyte Esterase Urine Negative (Negative); Nitrite Urine Negative (Negative); Protein Urine 1+ (Negative); RBC Urine Automated 0-2 /hpf (0-2); Specific Gravity Urine 1.014 (1.000-1.030); Urobilinogen Urine Negative (Negative); WBC Urine Automated 0-5 /hpf (0-5)
[2024-06-30 03:31] LABS: iSTAT Allen Test Pass; iSTAT Art Bld Gas pCO2 Correct 50 mmHg (35-46); iSTAT Arterial Blood Gas HCO3 26 meg/L (19-24); iSTAT Arterial Blood Gas pCO2 50 mmHg (35-46); iSTAT Arterial Blood Gas pH 7.33 (7.35-7.45); iSTAT Arterial Blood Gas pO2 78 mmHg (80-95); iSTAT Arterial Blood Gas pO2 C 76; iSTAT Carbon Dioxide 28 mmol/L (24-31); iSTAT FiO2 50 %; iSTAT Hematocrit 36 % (42-52); iSTAT Hemoglobin 12.2 g/dl (14.0-18.0); iSTAT Potassium 5.1 mmol/L (3.3-5.0); iSTAT Site R Radial; iSTAT Sodium 138 mmol/L (135-144)
--- NOTE | 2024-06-30 04:01 | History & Physical Report ---
Date of Service June 30, 2024 Assessment & Plan (1) Respiratory failure requiring intubation: Plan: 68yo male with history of chronic respiratory failure with hypoxia and hypercarbia - on 3L supplemental O2 at baseline, MARIAJOSE and Obesity hypoventilation syndrome presenting with worsening SOB, cough and lethargy. Patient obtunded in the ER, failure of BiPAP requiring intubation and mechanical ventilation. Per nursing report - at baseline patient is AA&O and ambulatory. Patient's cousin visited him earlier today and reported that patient was quite somnolent. Patient has been on Ceftriaxone and Doxycycline at his facility since 06/29. Patient with elevation of troponin as well as BNP. Suspect current episode of respiratory failure is secondary to volume overload/pulmonary edema -Admit to MICU -Ventilator management -Lasix 60mg IV x 1 now -Intake and output -Daily weights -Protonix -Heparin -Empiric antibiotics for possible infection - Ceftriaxone and Doxycycline -No cultures sent from the ER -Check Procalcitonin (2) Acute on chronic heart failure: Plan: Suspect this is main cause for patient's respiratory failure -Lasix 60mg IV given -Monitor response (3) ALEXIS (acute kidney injury): Plan: Elevated BUN and Cr from baseline, K-5.6. Patient is on K supplement at home -Avoid nephrotoxic agents -Renal dosing where needed -Repeat BMP now (4) Schizophrenia: Plan: Patient is on Carbamazepine -Continue Carbamazepine Admission and Anticipated Discharge Date Admission Date: June 30, 2024 History of Present Illness Chief Complaint: acute on chronic respiratory failure with hypercarbia Primary Care Provider: Gentry Esparza DO Fabian Black is a 68yo male with history of Schizophrenia, HLP, HFpEF (EF 60- 65%, Grade I Diastolic dysfunction per echo 04/03/24), obesity hypoventilation syndrome and chronic respiratory failure with hypoxia and hypercapnia presenting from [facility] with SOB and lethargy as well as cough x 2 days. Upon arrival to the ER patient tachypneic with RR of 38 bpm, on supplemental O2 via NRB 15L. Saturations adequate. Patient was placed on BiPAP 12/5, 40% FiO2. VBG on these settings 7.14/71/110. During my encounter patient obtunded, minimal response to deep sternal rub. BiPAP mask appeared to be fitting well with no significant leak. TV 400-500's. Repeat VBG with 7.16/69/76. Due to patient's failure to improve on BiPAP and obtunded status he was intubated in the ER for acute on chronic respiratory failure with hypercarbia. ER Course: Ceftriaxone Doxycycline Allergies Allergy/AdvReac Type Severity Reaction Status Date / Time aspirin Allergy Verified 07/17/23 13:26 Penicillins Allergy Verified 07/17/23 13:26 Home Medications Medication Instructions Recorded Confirmed Type coenzyme Q10 10 mg capsule (Co 10 mg PO BID 11/05/20 06/30/24 History Q-10) dorzolamide 22.3 mg-timolol 6.8 1 drp ophthalmic (eye) BID #10 mL 07/27/22 06/30/24 Rx mg/mL eye drops latanoprost 0.005 % eye drops 1 drp ophthalmic (eye) HS #2.5 mL 07/27/22 06/30/24 Rx Portable Oxygen #1 ea 05/14/23 07/17/23 Rx trifluoperazine 5 mg tablet 5 mg PO DAILY #90 tabs 07/18/23 04/02/24 Rx carbamazepine 100 mg 100 mg PO BID 90 days #180 tabs 02/28/24 06/30/24 Rx tablet,extended release,12 hr (Tegretol XR) glucosamine-chondroitin 250 mg-200 2 tab PO DAILY 04/02/24 04/02/24 History mg tablet (Osteo Bi-Flex) saw palmetto 500 mg capsule 500 mg PO DAILY 04/02/24 04/02/24 History metoprolol succinate 25 mg 25 mg PO QAM #30 tabs 04/12/24 06/30/24 Rx tablet,extended release 24 hr modafinil 100 mg tablet 100 mg PO DAILY #30 tabs 04/12/24 Rx potassium chloride 20 mEq 20 meq PO QAM #30 tabs 04/12/24 Rx tablet,extended release Milk of Magnesia 30 ml PO Q OTHER DAY PRN 06/30/24 06/30/24 History constipation acetaminophen 500 mg tablet 1,000 mg PO Q8H PRN fever or pain 06/30/24 06/30/24 History (Tylenol Extra Strength) furosemide 40 mg tablet 60 mg PO QAM 06/30/24 06/30/24 History gabapentin 100 mg PO HS 06/30/24 06/30/24 History ipratropium-albuterol 3 ml Q4 PRN wheezing 06/30/24 06/30/24 History modafinil 100 mg PO DAILY PRN somnolence 06/30/24 06/30/24 History omeprazole 20 mg PO HS 06/30/24 06/30/24 History oxycodone 5 mg PO DAILY 06/30/24 06/30/24 History potassium chloride 20 meq PO DAILY 06/30/24 06/30/24 History prednisone 40 mg PO DAILY sob/congestion 06/30/24 06/30/24 History trifluoperazine 5 mg tablet 5 mg PO DAILY 06/30/24 History Past Med/Surg History Problem List Acute on chronic heart failure Hypercarbia Respiratory failure requiring intubation Aspiration pneumonitis Pneumonia Acute metabolic encephalopathy ALEXIS (acute kidney injury) Respiratory acidosis (Acute) Weakness (Acute) CHF (congestive heart failure) (Acute) Respiratory failure (Acute) Acute heart failure with preserved ejection fraction Acute on chronic respiratory failure with hypoxia and hypercapnia Acute respiratory failure with hypoxia and hypercapnia Class 3 severe obesity due to excess calories with serious comorbidity and body mass index (BMI) of 45.0 to 49.9 in adult Elevated IgE level Obesity hypoventilation syndrome Excessive daytime sleepiness History of behavioral and mental health problems Abnormal CT scan, chest Aspergillus fumigatus Dyspnea Chronic respiratory failure with hypoxia and hypercapnia Prediabetes Morbid obesity with BMI of 40.0-44.9, adult Hepatitis C antibody test positive Morbid obesity due to excess calories Medical History Schizophrenia Pulmonary edema Severe sepsis Elevated troponin Acute hyponatremia Multifocal pneumonia Hyperlipidemia Encounter for health maintenance examination in adult Surgical History S/P tooth extraction Family History Father Prostate cancer Mother Dementia Denies family history of Ovarian cancer Myocardial infarction Breast cancer Colorectal cancer Social History Smoking Status: Former smoker Tobacco Type: Cigarettes Age Started Using Tobacco: 25; packs per day: 0.5; Smoking End Date: 30-40 years ago; Second Hand Exposure: No; Do You Dip or Chew Tobacco: No; Hx Alcohol Use: No Hx Substance Use: No Preferred Language: Cypriot Communication Ability: Effective Communication Ability Comment: vision problems Communication Tools: Letter Board and Picture Board Visual Impairment: No Limitations Hearing Ability: Normal Group Counselor Required: No Beliefs That Will Affect Care: None marital status: Single Current Living Situation: Residential Current Living Situation Comment: [facility] current occupational status: disabled Feels Safe at Home: Yes Safety Concerns: Feels Safe At This Time Childhood Exposure to Second-Hand Smoke: Yes Diet: regular caffeine: Yes Dental Care, Regularly: No Physical Activity Frequency: Other Physical Activity Frequency Comment: walks Seatbelt Use: always Sunscreen Use: No Assistive Devices: Walker Review of Systems Review of Systems: All systems reviewed & are unremarkable except as noted in HPI & below Physical Exam Physical Exam: General: patient stuporous, minimal response to deep sternal rub Skin: warm, dry, intact, no rashes or lesions HEENT: NC/AT, PERRL, EOMI, anicteric sclera, conjunctiva without injection, external ear normal to inspection and nontender, nares patent, moist mucus membranes, dentition intact, no oropharyngeal lesions, neck supple, trachea midline, no LAD, no thyromegaly, no JVD Heart: +S1/S2, regular, no m/r/g Lungs: equal air entry bilaterally, coarse with no rales/rhonchi/wheezes Abd: +BS, soft, ND, no masses/organomegaly/ascites Ext: warm, 2+ pulses in UE/LE bilaterally, no clubbing/cyanosis or edema Neuro: obtunded Results & Data Results & Data Vital Signs (Past 12 Hours) Vital Signs Temp Pulse Pulse Resp BP BP Pulse Ox 06/30/24 03:45 49 L 24 96 06/30/24 03:33 51 L 24 96 06/30/24 03:29 06/30/24 03:29 51 L 06/30/24 03:21 59 L 24 97 06/30/24 03:01 176/110 H 06/30/24 03:00 63 24 95 06/30/24 03:00 36.6 C 60 24 176/93 H 94 06/30/24 02:58 176/93 H 06/30/24 02:30 181/112 H 06/30/24 02:30 181/112 H 06/30/24 02:24 62 10 L 100 06/30/24 02:20 187/108 H 06/30/24 02:20 187/108 H 06/30/24 02:13 63 06/30/24 02:10 147/83 H 06/30/24 02:09 61 9 L 93 06/30/24 02:08 142/88 H 06/30/24 02:06 64 29 H 100 06/30/24 02:06 36.6 C 06/30/24 02:03 61 18 97 06/30/24 02:02 172/99 H 06/30/24 02:02 172/99 H 06/30/24 01:45 56 L 27 H 95 06/30/24 01:30 53 L 48 H 106/65 93 06/30/24 00:30 117/76 92 06/30/24 00:15 118/75 06/29/24 23:52 64 40 H 96 06/29/24 23:45 38 H 122/83 96 06/29/24 23:38 15 L 06/29/24 23:24 75 06/29/24 23:20 36.6 C 65 38 H 139/63 98 06/29/24 23:20 06/29/24 23:06 Pulse Ox O2 Del Method O2 Del Method O2 Flow Rate O2 Flow Rate FiO2 06/30/24 03:45 06/30/24 03:33 06/30/24 03:29 96 Mechanical Vent 70 06/30/24 03:29 06/30/24 03:21 06/30/24 03:01 06/30/24 03:00 06/30/24 03:00 Mechanical Vent 60 06/30/24 02:58 06/30/24 02:30 06/30/24 02:30 06/30/24 02:24 06/30/24 02:20 06/30/24 02:20 06/30/24 02:13 06/30/24 02:10 06/30/24 02:09 06/30/24 02:08 06/30/24 02:06 06/30/24 02:06 06/30/24 02:03 06/30/24 02:02 06/30/24 02:02 06/30/24 01:45 06/30/24 01:30 BiPAP 06/30/24 00:30 BiPAP 06/30/24 00:15 06/29/24 23:52 40 06/29/24 23:45 BiPAP 06/29/24 23:38 Non-rebreather 06/29/24 23:24 06/29/24 23:20 Non-rebreather 15 06/29/24 23:20 Non-rebreather 15 06/29/24 23:06 Non-rebreather 15 Laboratory Results Laboratory Results WBC 15.07 K/ul (4.8-10.8) H 06/29/24 23:37 RBC 3.86 M/uL (4.70-6.10) L 06/29/24 23:37 Hgb 11.6 g/dl (14.0-18.0) L 06/29/24 23:37 POC Hgb 12.2 g/dl (14.0-18.0) L 06/30/24 03:20 Hct 37.3 % (42.0-52.0) L 06/29/24 23:37 POC Hct 36 % (42-52) L 06/30/24 03:20 MCV 96.6 fL (80.0-100.0) 06/29/24 23:37 MCH 30.1 pg (25.0-34.0) 06/29/24 23:37 MCHC 31.1 g/dL (32.0-36.0) L 06/29/24 23:37 RDW Std Deviation 55.6 fL (36.4-46.3) H 06/29/24 23:37 RDW Coeff of Pascual 15.7 % (11.5-14.5) H 06/29/24 23:37 Plt Count 205 K/uL (130-400) 06/29/24 23:37 MPV 10.3 fL (9.4-12.4) 06/29/24 23:37 Immature Gran % (Auto) 1.1 % 06/29/24 23:37 Neut % (Auto) 84.1 % 06/29/24 23:37 Lymph % (Auto) 9.3 % 06/29/24 23:37 [place] % (Auto) 5.2 % 06/29/24 23:37 Eos % (Auto) 0.0 % 06/29/24 23:37 Baso % (Auto) 0.3 % 06/29/24 23:37 Neut # (Auto) 12.68 K/uL (1.40-6.50) H 06/29/24 23:37 Lymph # (Auto) 1.40 K/uL (1.20-3.40) 06/29/24 23:37 [place] # (Auto) 0.78 K/uL (0.11-0.59) H 06/29/24 23:37 Eos # (Auto) 0.00 K/uL (0.00-0.50) 06/29/24 23:37 Baso # (Auto) 0.04 K/uL (0.00-0.20) 06/29/24 23:37 Immature Gran # (Auto) 0.17 K/uL (0.01-0.20) 06/29/24 23:37 Sample Site R Radial 06/30/24 03:20 POC pH 7.33 (7.35-7.45) L 06/30/24 03:20 POC pCO2 50 mmHg (35-46) H 06/30/24 03:20 POC pO2 78 mmHg (80-95) L 06/30/24 03:20 POC HCO3 26 claudia/L (19-24) H 06/30/24 03:20 POC Total CO2 28 mmol/L (24-31) 06/30/24 03:20 POC Base Excess 0.0 claudia/L (-9-1.8) 06/30/24 03:20 ABG pH (Temp Correct) 7.330 (7.35-7.45) L 06/30/24 03:20 ABG pCO2 (Temp Corrct 50 mmHg (35-46) H 06/30/24 03:20 POC ABG pO2 at Pt Temp 76 06/30/24 03:20 POC ABG O2 Sat 94.0 % (90-95) 06/30/24 03:20 José Test Pass 06/30/24 03:20 VBG pH 7.16 (7.36-7.41) L 06/30/24 01:30 VBG pCO2 69 mmHg (38-50) H 06/30/24 01:30 VBG pO2 76 mmHg 06/30/24 01:30 VBG HCO3 25 mmol/L 06/30/24 01:30 VBG O2 Saturation 96.7 % 06/30/24 01:30 VBG Base Excess -5.4 mEq/L 06/30/24 01:30 O2 Delivery Device Ventilator 06/30/24 03:20 POC O2 Rate 24 06/30/24 03:20 POC FiO2 50 % 06/30/24 03:20 Tidal Volume 510 06/30/24 03:20 PEEP 8 06/30/24 03:20 POC Sodium 138 mmol/L (135-144) 06/30/24 03:20 Sodium 136 mmol/L (136-145) 06/29/24 23:37 POC Potassium 5.1 mmol/L (3.3-5.0) H 06/30/24 03:20 Potassium 5.6 mmol/L (3.5-5.1) H 06/29/24 23:37 Chloride 101 mmol/L (98-107) 06/29/24 23:37 Carbon Dioxide 24 mmol/L (21-32) 06/29/24 23:37 Anion Gap 11 (3-11) 06/29/24 23:37 BUN 83 mg/dl (6-23) H 06/29/24 23:37 Creatinine 3.00 mg/dl (0.6-1.4) H 06/29/24 23:37 Est Cr Clr Drug Dosing 32.9 ml/min 06/29/24 23:37 eGFR 21.80 06/29/24 23:37 BUN/Creatinine Ratio 27.7 (10-20) H 06/29/24 23:37 Glucose 156 mg/dl (70-99(Fasting)) H 06/29/24 23:37 Calcium 8.7 mg/dl (8.6-10.3) 06/29/24 23:37 Phosphorus 7.1 mg/dl (2.5-4.9) H 06/30/24 01:27 Magnesium 2.6 mg/dl (1.7-2.4) H 06/30/24 01:27 Total Bilirubin 0.3 mg/dl (0.2-1.0) 06/29/24 23:37 AST 24 U/L (13-39) 06/29/24 23:37 ALT 23 U/L (7-52) 06/29/24 23:37 Alkaline Phosphatase 85 U/L (34-104) 06/29/24 23:37 Troponin I High Sens 76.8 pg/ml (0-20) H* D 06/30/24 01:27 B-Natriuretic Peptide 1054 pg/ml (0-100) H 06/29/24 23:37 Total Protein 7.6 gm/dl (6.0-8.3) 06/29/24 23:37 Albumin 3.4 gm/dl (3.4-5.0) 06/29/24 23:37 Globulin 4.2 gm/dl (2.5-4.0) H 06/29/24 23:37 Albumin/Globulin Ratio 0.8 (0.9-2) L 06/29/24 23:37 Procalcitonin Cancelled 06/30/24 01:30 Urine Color Yellow 06/30/24 02:39 Urine Appearance Clear (Clear) 06/30/24 02:39 Urine pH 5.0 (4.5-7.5) 06/30/24 02:39 Ur Specific [place] 1.014 (1.000-1.030) 06/30/24 02:39 Urine Protein 1+ (Negative) H 06/30/24 02:39 Urine Glucose (UA) Negative (Negative) 06/30/24 02:39 Urine Ketones Negative (Negative) 06/30/24 02:39 Urine Blood Negative (Negative) 06/30/24 02:39 Urine Nitrite Negative (Negative) 06/30/24 02:39 Urine Bilirubin Negative (Negative) 06/30/24 02:39 Urine Urobilinogen Negative (Negative) 06/30/24 02:39 Ur Leukocyte Esterase Negative (Negative) 06/30/24 02:39 Urine WBC (Auto) 0-5 /hpf (0-5) 06/30/24 02:39 Urine RBC (Auto) 0-2 /hpf (0-2) 06/30/24 02:39 U Hyaline Cast (Auto) 6-10 /lpf (0-2) H 06/30/24 02:39 U Epithel Cells (Auto) 3-5 /hpf (0-2) H 06/30/24 02:39 Urine Bacteria (Auto) None Seen (None Seen) 06/30/24 02:39 Adenovirus (PCR) Not Detected (NotDetected) 06/29/24 23:44 B. pertussis DNA (PCR) Not Detected (NotDetected) 06/29/24 23:44 B.parapertussis DNA PCR Not Detected (NotDetected) 06/29/24 23:44 C. pneumoniae DNA (PCR) Not Detected (NotDetected) 06/29/24 23:44 Coronavirus OC43 (PCR) Not Detected (NotDetected) 06/29/24 23:44 Coronavirus HKU1 (PCR) Not Detected (NotDetected) 06/29/24 23:44 Coronavirus 229E (PCR) Not Detected (NotDetected) 06/29/24 23:44 SARS-CoV-2 (PCR) Not Detected (NotDetected) 06/29/24 23:44 Coronavirus NL63 (PCR) Not Detected (NotDetected) 06/29/24 23:44 Human Metapneumovir PCR Not Detected (NotDetected) 06/29/24 23:44 Influenza Type A (PCR) Not Detected (NotDetected) 06/29/24 23:44 Influenza Type B (PCR) Not Detected (NotDetected) 06/29/24 23:44 M. pneumoniae (PCR) Not Detected (NotDetected) 06/29/24 23:44 Parainfluenza 1 (PCR) Not Detected (NotDetected) 06/29/24 23:44 Parainfluenza 2 (PCR) Not Detected (NotDetected) 06/29/24 23:44 Parainfluenza 3 (PCR) Not Detected (NotDetected) 06/29/24 23:44 Parainfluenza 4 (PCR) Not Detected (NotDetected) 06/29/24 23:44 RSV (PCR) Not Detected (NotDetected) 06/29/24 23:44 Entero/Rhino (PCR) Not Detected (NotDetected) 06/29/24 23:[address] 06/30/24 00:24 Exam(s): CT CHEST Without Contrast EXAM: CT Chest Without Intravenous Contrast CLINICAL HISTORY: Reason for exam: PNA vs CHF. TECHNIQUE: Axial computed tomography images of the chest without intravenous contrast. CTDI is 38.96 mGy and DLP is 1282.42 mGy-cm. Automated exposure control was utilized for the study. A dose lowering technique was utilized adhering to the principles of ALARA. COMPARISON: 01/19/2023 FINDINGS: Lungs: Diffuse bilateral interstitial infiltrates extending and involving the right upper, middle and lower lobes and left lower lobe. No effusions. No mass. Pleural space: Unremarkable. No pneumothorax. No significant effusion. Heart: Unremarkable. No cardiomegaly. No significant pericardial effusion. No significant coronary artery calcifications. Bones/joints: Unremarkable. No acute fracture. No dislocation. Soft tissues: Unremarkable. Vasculature: Unremarkable. No thoracic aortic aneurysm. Lymph nodes: Unremarkable. No enlarged lymph nodes. IMPRESSION: Multifocal pneumonia Electronically signed by: Boby Amor MD 06/30/24 01:10 AM Code Status & VTE Plan VTE Prophylaxis Plan VTE Prophylaxis will be ordered: Yes PG Care Time/CCT Total # of Minutes Spent Total Time Spent with Patient: Total time spent is greater than 50% in coordination of care (as documented) at patient's floor/unit and/or counseling patient: Coding Level of Care Code 57571 INT INP/OBS CARE 3/75MIN Diagnoses Respiratory failure requiring intubation J96.90 Acute on chronic heart failure I50.9 ALEXIS (acute kidney injury) N17.9 Schizophrenia F20.9
[2024-06-30] MEDS: FUROSEMIDE 40 MG/4 ML VIAL IV ONE (04:17)
[2024-06-30] MEDS: cefTRIAXone SODIUM 2,000 MG/50 ML BAG IV SCH (04:48)
[2024-06-30 04:50] LABS: Amphetamines+Metham, Urine Neg (Neg); Barbiturates, Urine Neg (Neg); Benzodiazepine, Urine Neg (Neg); Cocaine, Urine Neg (Neg); Fentanyl, Urine Neg (Neg); MDMA (Ecstacy), Urine Neg (Neg); Marijuana, Urine Neg (Neg); Methadone, Urine Neg (Neg); Opiate, Urine Neg (Neg); Phencyclidine, Urine Neg (Neg)
[2024-06-30] MEDS: HEPARIN SOD 5,000 UNIT/0.5 ML VIAL SQ SCH (06:10)
--- NOTE | 2024-06-30 07:59 | XRay Report ---
XR chest 1V portable CLINICAL HISTORY: Dyspnea TECHNIQUE: Single frontal radiograph of the chest was obtained. Comparison: Comparison is made to chest radiograph 04/02/2024 FINDINGS: Exam is limited by underpenetration. Cardiomegaly is noted. Prominence and cephalization of the vascu lature is seen. Interstitial thickening is seen. There are small bilateral pleural effusions. IMPRESSION: 1. Cardiomegaly and mild pulmonary edema. 2. Stable interstitial thickening. 3. Likely small bilateral pleural effusions. ACT 112: Negative or not required by law. Electronically signed by: Titi Hampton M.D. 06/30/2024 7:58 AM
--- NOTE | 2024-06-30 08:04 | XRay Report ---
XR chest 1V portable CLINICAL HISTORY: Post intubation TECHNIQUE: Single frontal radiograph of the chest was obtained. Comparison: Comparison is made to chest radiograph 06/29/2024 FINDINGS: Enteric and endotracheal tubes are seen. The endotracheal tube tip measures 4.5 cm from the rocky. E xam is limited by underpenetration. Cardiomegaly is noted. There is prominence and cephalization of t he vasculature with Tamiko B lines seen. Airspace opacities are more prominent than in the prior exam , particularly in the left lower lung. Pleural effusions cannot be excluded. IMPRESSION: 1. Cardiomegaly and moderate pulmonary edema. 2. Airspace opacities may represent atelectasis, pneumonia, aspiration, and/or alveolar edema. ACT 112: Negative or not required by law. Electronically signed by: Titi Hampton M.D. 06/30/2024 8:02 AM
[2024-06-30] MEDS ORDERED: PANTOprazole 40 MG TAB PO SCH (09:00)
[2024-06-30] MEDS: ICU Protocol for HYPERglycemia SCH (09:11)
[2024-06-30] MEDS: BUMETANIDE 2 MG in SYRINGE 0 ML IV SCH (09:19)
[2024-06-30] MEDS: carBAMazepine 100 MG CHEW TAB PO SCH (09:35)
[2024-06-30] MEDS: PANTOprazole 40 MG in SYRINGE 0 ML IV SCH (09:35)
[2024-06-30 10:03] LABS: Base Excess VBG 1.5 mEq/L; HCO3 VBG 26 mmol/L; Oxygen Saturation VBG 84.9 %; PCO2 VBG 39 mmHg (38-50); PO2 VBG 49 mmHg; pH VBG 7.43 (7.36-7.41)
--- NOTE | 2024-06-30 10:15 | Hospitalist Progress Note ---
Date of Service June 30, 2024 Assessment & Plan (1) Acute on chronic respiratory failure with hypoxia and hypercapnia: (2) Multifocal pneumonia: (3) Acute on chronic diastolic CHF (congestive heart failure): (4) Acute kidney injury superimposed on stage 3a chronic kidney disease: (5) Obesity hypoventilation syndrome: (6) Morbid obesity with BMI of 40.0-44.9, adult: (7) Schizophrenia: (8) Elevated troponin: (9) Type 2 diabetes mellitus: Plan 68-year-old male with past medical history of schizophrenia, chronic kidney disease stage III, chronic hypoxic and hypercapnic respiratory failure using 3 L of oxygen at baseline, chronic diastolic congestive heart failure with preserved ejection fraction, morbid obesity, obesity hypoventilation syndrome, type 2 diabetes mellitus, resident of [facility] who presented with somnolence and shortness of breath and found to be hypoxic, failed BiPAP in ED and required intubation and mechanical ventilation and admitted to the ICU #Acute on chronic hypoxic and hypercapnic respiratory failure Combination of multilobar pneumonia and CHF exacerbation 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 Live: Recommended continuing ceftriaxone plus doxycycline (day 1) #Acute on diastolic congestive heart failure with preserved ejection fraction #Elevated troponin: Likely type II [place] secondary demand ischemia in setting of pneumonia/CHF Echocardiogram from April 03, 2024 shows left ventricular systolic function is normal, EF is 60 to 65%, grade 1 diastolic dysfunction and no significant valv ular heart disease noted Patient is intubated and on mechanical ventilation Troponin is downtrending from 214 to 76 Patient on IV Bumex 2 mg twice daily per instructor of spanish Continue metoprolol I/O monitoring Daily weights #ALEXIS Patient is on diuresis IV Bumex Monitor renal function electrolytes Avoid nephrotoxic agents including NSAIDs #Type 2 diabetes mellitus #Morbid obesity, BMI 41.8 Check A1c Patient is on ICU hypoglycemia protocol #Schizophrenia Continue carbamazepine CODE STATUS: Full code DVT prophylaxis: Heparin subcutaneous 3 times daily Care plan discussed with nursing staff and instructor of spanish and ICU Admission and Anticipated Discharge Date Admission Date: June 30, 2024 Subjective Patient seen and examined H&P reviewed Labs reviewed Radiology reviewed Patient is intubated, on mechanical ventilation and sedated. Unable to get a full review of systems Sealing And Canceling Machine Operator managing patient's care in ICU Physical Exam Physical Exam: General: Patient intubated and on mechanical ventilation Psych: Patient sedated on mechanical ventilation HEENT: ET/OG tubes in place CVS: Regular rate and rhythm Lungs: Bilateral air entry with decreased breath sounds at the bases, no wheezing noted Abdomen: Soft, obese abdomen Ext: No lower extremity edema, no calf tenderness : Baer catheter in place Results & Data Results & Data Vital Signs (Past 12 Hours) Vital Signs Temp Pulse Pulse Resp BP BP Pulse Ox 06/30/24 07:39 24 96 06/30/24 06:09 59 L 24 97 06/30/24 06:00 177/97 H 06/30/24 05:54 47 L 18 97 06/30/24 05:48 48 L 21 96 06/30/24 05:30 46 L 24 97 06/30/24 05:21 49 L 24 96 06/30/24 05:18 48 L 24 96 06/30/24 05:06 48 L 24 96 06/30/24 04:51 50 L 24 97 06/30/24 04:34 06/30/24 04:33 47 L 24 98 06/30/24 04:27 06/30/24 04:06 47 L 24 98 06/30/24 04:00 167/87 H 06/30/24 04:00 36.7 C 06/30/24 04:00 06/30/24 04:00 06/30/24 03:45 49 L 24 96 06/30/24 03:33 51 L 24 96 06/30/24 03:29 06/30/24 03:29 51 L 06/30/24 03:21 59 L 24 97 06/30/24 03:01 176/110 H 06/30/24 03:00 63 24 95 06/30/24 03:00 36.6 C 60 24 176/93 H 94 06/30/24 02:58 176/93 H 06/30/24 02:30 181/112 H 06/30/24 02:30 181/112 H 06/30/24 02:24 62 10 L 100 06/30/24 02:20 187/108 H 06/30/24 02:20 187/108 H 06/30/24 02:13 63 06/30/24 02:10 66 18 99 06/30/24 02:10 147/83 H 06/30/24 02:09 61 9 L 93 06/30/24 02:08 142/88 H 06/30/24 02:06 64 29 H 100 06/30/24 02:06 36.6 C 06/30/24 02:03 61 18 97 06/30/24 02:02 172/99 H 06/30/24 02:02 172/99 H 06/30/24 01:45 56 L 27 H 95 06/30/24 01:30 53 L 48 H 106/65 93 06/30/24 00:30 117/76 92 06/30/24 00:15 118/75 06/29/24 23:52 64 40 H 96 06/29/24 23:45 38 H 122/83 96 06/29/24 23:38 15 L 06/29/24 23:24 75 06/29/24 23:20 36.6 C 65 38 H 139/63 98 06/29/24 23:20 06/29/24 23:06 Pulse Ox O2 Del Method O2 Del Method O2 Flow Rate O2 Flow Rate FiO2 06/30/24 07:39 40 06/30/24 06:09 06/30/24 06:00 06/30/24 05:54 06/30/24 05:48 06/30/24 05:30 06/30/24 05:21 06/30/24 05:18 06/30/24 05:06 06/30/24 04:51 06/30/24 04:34 Mechanical Vent 50 06/30/24 04:33 06/30/24 04:27 Mechanical Vent 50 06/30/24 04:06 06/30/24 04:00 06/30/24 04:00 06/30/24 04:00 50 06/30/24 04:00 96 Mechanical Vent 50 06/30/24 03:45 06/30/24 03:33 06/30/24 03:29 96 Mechanical Vent 70 06/30/24 03:29 06/30/24 03:21 06/30/24 03:01 06/30/24 03:00 06/30/24 03:00 Mechanical Vent 60 06/30/24 02:58 06/30/24 02:30 06/30/24 02:30 06/30/24 02:24 06/30/24 02:20 06/30/24 02:20 06/30/24 02:13 06/30/24 02:10 100 06/30/24 02:10 06/30/24 02:09 06/30/24 02:08 06/30/24 02:06 06/30/24 02:06 06/30/24 02:03 06/30/24 02:02 06/30/24 02:02 06/30/24 01:45 06/30/24 01:30 BiPAP 06/30/24 00:30 BiPAP 06/30/24 00:15 06/29/24 23:52 40 06/29/24 23:45 BiPAP 06/29/24 23:38 Non-rebreather 06/29/24 23:24 06/29/24 23:20 Non-rebreather 15 06/29/24 23:20 Non-rebreather 15 06/29/24 23:06 Non-rebreather 15 Laboratory Results Laboratory Results - last 24 hr 06/29/24 06/29/24 06/30/24 23:37 23:44 01:27 WBC 15.07 H RBC 3.86 L Hgb 11.6 L POC Hgb Hct 37.3 L POC Hct MCV 96.6 MCH 30.1 MCHC 31.1 L RDW Std Deviation 55.6 H RDW Coeff of Pascual 15.7 H Plt Count 205 MPV 10.3 Immature Gran % (Auto) 1.1 Neut % (Auto) 84.1 Lymph % (Auto) 9.3 [place] % (Auto) 5.2 Eos % (Auto) 0.0 Baso % (Auto) 0.3 Neut # (Auto) 12.68 H Lymph # (Auto) 1.40 [place] # (Auto) 0.78 H Eos # (Auto) 0.00 Baso # (Auto) 0.04 Immature Gran # (Auto) 0.17 Sample Site POC pH POC pCO2 POC pO2 POC HCO3 POC Total CO2 POC Base Excess ABG pH (Temp Correct) ABG pCO2 (Temp Corrct POC ABG pO2 at Pt Temp POC ABG O2 Sat José Test VBG pH 7.14 L VBG pCO2 71 H VBG pO2 110 VBG HCO3 24 VBG O2 Saturation 98.6 VBG Base Excess -6.2 O2 Delivery Device POC O2 Rate POC FiO2 Tidal Volume PEEP POC Sodium Sodium 136 POC Potassium Potassium 5.6 H Chloride 101 Carbon Dioxide 24 Anion Gap 11 BUN 83 H Creatinine 3.00 H Est Cr Clr Drug Dosing 32.9 eGFR 21.80 BUN/Creatinine Ratio 27.7 H Glucose 156 H POC Glucose Calcium 8.7 Phosphorus 7.1 H Magnesium 2.6 H Total Bilirubin 0.3 AST 24 ALT 23 Alkaline Phosphatase 85 Troponin I High Sens 214.5 H* 76.8 H* D B-Natriuretic Peptide 1054 H Total Protein 7.6 Albumin 3.4 Globulin 4.2 H Albumin/Globulin Ratio 0.8 L Procalcitonin Urine Color Urine Appearance Urine pH Ur Specific [place] Urine Protein Urine Glucose (UA) Urine Ketones Urine Blood Urine Nitrite Urine Bilirubin Urine Urobilinogen Ur Leukocyte Esterase Urine WBC (Auto) Urine RBC (Auto) U Hyaline Cast (Auto) U Epithel Cells (Auto) Urine Bacteria (Auto) Nasal Screen MRSA (PCR) Urine Opiates Screen Ur Methadone, Qual Urine Fentanyl Screen Urine Barbiturates Ur Phencyclidine (PCP) U Amphetamin/Meth Scrn MDMA (Ecstasy) Screen U Benzodiazepines Scrn Ur Cocaine Metabolite U Marijuana (THC) Screen Adenovirus (PCR) Not Detected B. pertussis DNA (PCR) Not Detected B.parapertussis DNA PCR Not Detected C. pneumoniae DNA (PCR) Not Detected Coronavirus OC43 (PCR) Not Detected Coronavirus HKU1 (PCR) Not Detected Coronavirus 229E (PCR) Not Detected SARS-CoV-2 (PCR) Not Detected Coronavirus NL63 (PCR) Not Detected Human Metapneumovir PCR Not Detected Influenza Type A (PCR) Not Detected Influenza Type B (PCR) Not Detected M. pneumoniae (PCR) Not Detected Parainfluenza 1 (PCR) Not Detected Parainfluenza 2 (PCR) Not Detected Parainfluenza 3 (PCR) Not Detected Parainfluenza 4 (PCR) Not Detected RSV (PCR) Not Detected Entero/Rhino (PCR) Not Detected Ref Lab Test Result 06/30/24 06/30/24 06/30/24 01:30 02:39 03:20 WBC RBC Hgb POC Hgb 12.2 L Hct POC Hct 36 L MCV MCH MCHC RDW Std Deviation RDW Coeff of [place] Plt Count MPV Immature Gran % (Auto) Neut % (Auto) Lymph % (Auto) [place] % (Auto) Eos % (Auto) Baso % (Auto) Neut # (Auto) Lymph # (Auto) [place] # (Auto) Eos # (Auto) Baso # (Auto) Immature Gran # (Auto) Sample Site R Radial POC pH 7.33 L POC pCO2 50 H POC pO2 78 L POC HCO3 26 H POC Total CO2 28 POC Base Excess 0.0 ABG pH (Temp Correct) 7.330 L ABG pCO2 (Temp Corrct 50 H POC ABG pO2 at Pt Temp 76 POC ABG O2 Sat 94.0 José Test Pass VBG pH 7.16 L VBG pCO2 69 H VBG pO2 76 VBG HCO3 25 VBG O2 Saturation 96.7 VBG Base Excess -5.4 O2 Delivery Device Ventilator POC O2 Rate 24 POC FiO2 50 Tidal Volume 510 PEEP 8 POC Sodium 138 Sodium POC Potassium 5.1 H Potassium Chloride Carbon Dioxide Anion Gap BUN Creatinine Est Cr Clr Drug Dosing eGFR BUN/Creatinine Ratio Glucose POC Glucose Calcium Phosphorus Magnesium Total Bilirubin AST ALT Alkaline Phosphatase Troponin I High Sens B-Natriuretic Peptide Total Protein Albumin Globulin Albumin/Globulin Ratio Procalcitonin Cancelled Urine Color Yellow Urine Appearance Clear Urine pH 5.0 Ur Specific [place] 1.014 Urine Protein 1+ H Urine Glucose (UA) Negative Urine Ketones Negative Urine Blood Negative Urine Nitrite Negative Urine Bilirubin Negative Urine Urobilinogen Negative Ur Leukocyte Esterase Negative Urine WBC (Auto) 0-5 Urine RBC (Auto) 0-2 U Hyaline Cast (Auto) 6-10 H U Epithel Cells (Auto) 3-5 H Urine Bacteria (Auto) None Seen Nasal Screen MRSA (PCR) Urine Opiates Screen Neg Ur Methadone, Qual Neg Urine Fentanyl Screen Neg Urine Barbiturates Neg Ur Phencyclidine (PCP) Neg U Amphetamin/Meth Scrn Neg MDMA (Ecstasy) Screen Neg U Benzodiazepines Scrn Neg Ur Cocaine Metabolite Neg U Marijuana (THC) Screen Neg Adenovirus (PCR) B. pertussis DNA (PCR) B.parapertussis DNA PCR C. pneumoniae DNA (PCR) Coronavirus OC43 (PCR) Coronavirus HKU1 (PCR) Coronavirus 229E (PCR) SARS-CoV-2 (PCR) Coronavirus NL63 (PCR) Human Metapneumovir PCR Influenza Type A (PCR) Influenza Type B (PCR) M. pneumoniae (PCR) Parainfluenza 1 (PCR) Parainfluenza 2 (PCR) Parainfluenza 3 (PCR) Parainfluenza 4 (PCR) RSV (PCR) Entero/Rhino (PCR) Ref Lab Test Result Pending 06/30/24 06/30/24 06/30/24 07:29 08:57 09:51 WBC RBC Hgb POC Hgb Hct POC Hct MCV MCH MCHC RDW Std Deviation RDW Coeff of [place]ual Plt Count MPV Immature Gran % (Auto) Neut % (Auto) Lymph % (Auto) [place] % (Auto) Eos % (Auto) Baso % (Auto) Neut # (Auto) Lymph # (Auto) [place] # (Auto) Eos # (Auto) Baso # (Auto) Immature Gran # (Auto) Sample Site POC pH POC pCO2 POC pO2 POC HCO3 POC Total CO2 POC Base Excess ABG pH (Temp Correct) ABG pCO2 (Temp Corrct POC ABG pO2 at Pt Temp POC ABG O2 Sat José Test VBG pH 7.43 H VBG pCO2 39 VBG pO2 49 VBG HCO3 26 VBG O2 Saturation 84.9 VBG Base Excess 1.5 O2 Delivery Device POC O2 Rate POC FiO2 Tidal Volume PEEP POC Sodium Sodium POC Potassium Potassium Chloride Carbon Dioxide Anion Gap BUN Creatinine Est Cr Clr Drug Dosing eGFR BUN/Creatinine Ratio Glucose POC Glucose 132 H Calcium Phosphorus Magnesium Total Bilirubin AST ALT Alkaline Phosphatase Troponin I High Sens 91.1 H* D B-Natriuretic Peptide Total Protein Albumin Globulin Albumin/Globulin Ratio Procalcitonin Urine Color Urine Appearance Urine pH Ur Specific [place] Urine Protein Urine Glucose (UA) Urine Ketones Urine Blood Urine Nitrite Urine Bilirubin Urine Urobilinogen Ur Leukocyte Esterase Urine WBC (Auto) Urine RBC (Auto) U Hyaline Cast (Auto) U Epithel Cells (Auto) Urine Bacteria (Auto) Nasal Screen MRSA (PCR) Urine Opiates Screen Ur Methadone, Qual Urine Fentanyl Screen Urine Barbiturates Ur Phencyclidine (PCP) U Amphetamin/Meth Scrn MDMA (Ecstasy) Screen U Benzodiazepines Scrn Ur Cocaine Metabolite U Marijuana (THC) Screen Adenovirus (PCR) B. pertussis DNA (PCR) B.parapertussis DNA PCR C. pneumoniae DNA (PCR) Coronavirus OC43 (PCR) Coronavirus HKU1 (PCR) Coronavirus 229E (PCR) SARS-CoV-2 (PCR) Coronavirus NL63 (PCR) Human Metapneumovir PCR Influenza Type A (PCR) Influenza Type B (PCR) M. pneumoniae (PCR) Parainfluenza 1 (PCR) Parainfluenza 2 (PCR) Parainfluenza 3 (PCR) Parainfluenza 4 (PCR) RSV (PCR) Entero/Rhino (PCR) Ref Lab Test Result 06/30/24 Unknown WBC RBC Hgb POC Hgb Hct POC Hct MCV MCH MCHC RDW Std Deviation RDW Coeff of [place]ual Plt Count MPV Immature Gran % (Auto) Neut % (Auto) Lymph % (Auto) [place] % (Auto) Eos % (Auto) Baso % (Auto) Neut # (Auto) Lymph # (Auto) [place] # (Auto) Eos # (Auto) Baso # (Auto) Immature Gran # (Auto) Sample Site POC pH POC pCO2 POC pO2 POC HCO3 POC Total CO2 POC Base Excess ABG pH (Temp Correct) ABG pCO2 (Temp Corrct POC ABG pO2 at Pt Temp POC ABG O2 Sat José Test VBG pH VBG pCO2 VBG pO2 VBG HCO3 VBG O2 Saturation VBG Base Excess O2 Delivery Device POC O2 Rate POC FiO2 Tidal Volume PEEP POC Sodium Sodium POC Potassium Potassium Chloride Carbon Dioxide Anion Gap BUN Creatinine Est Cr Clr Drug Dosing eGFR BUN/Creatinine Ratio Glucose POC Glucose Calcium Phosphorus Magnesium Total Bilirubin AST ALT Alkaline Phosphatase Troponin I High Sens B-Natriuretic Peptide Total Protein Albumin Globulin Albumin/Globulin Ratio Procalcitonin Urine Color Urine Appearance Urine pH Ur Specific [place] Urine Protein Urine Glucose (UA) Urine Ketones Urine Blood Urine Nitrite Urine Bilirubin Urine Urobilinogen Ur Leukocyte Esterase Urine WBC (Auto) Urine RBC (Auto) U Hyaline Cast (Auto) U Epithel Cells (Auto) Urine Bacteria (Auto) Nasal Screen MRSA (PCR) Positive A Urine Opiates Screen Ur Methadone, Qual Urine Fentanyl Screen Urine Barbiturates Ur Phencyclidine (PCP) U Amphetamin/Meth Scrn MDMA (Ecstasy) Screen U Benzodiazepines Scrn Ur Cocaine Metabolite U Marijuana (THC) Screen Adenovirus (PCR) B. pertussis DNA (PCR) B.parapertussis DNA PCR C. pneumoniae DNA (PCR) Coronavirus OC43 (PCR) Coronavirus HKU1 (PCR) Coronavirus 229E (PCR) SARS-CoV-2 (PCR) Coronavirus NL63 (PCR) Human Metapneumovir PCR Influenza Type A (PCR) Influenza Type B (PCR) M. pneumoniae (PCR) Parainfluenza 1 (PCR) Parainfluenza 2 (PCR) Parainfluenza 3 (PCR) Parainfluenza 4 (PCR) RSV (PCR) Entero/Rhino (PCR) Ref Lab Test Result Diagnostic Findings Chest X-Ray 06/29/24 23:38 XR chest 1V portable CLINICAL HISTORY: Dyspnea TECHNIQUE: Single frontal radiograph of the chest was obtained. Comparison: Comparison is made to chest radiograph 04/02/2024 FINDINGS: Exam is limited by underpenetration. Cardiomegaly is noted. Prominence and cephalization of the vasculature is seen. Interstitial thickening is seen. There are small bilateral pleural effusions. IMPRESSION: 1. Cardiomegaly and mild pulmonary edema. 2. Stable interstitial thickening. 3. Likely small bilateral pleural effusions. ACT 112: Negative or not required by law. Electronically signed by: Titi Hampton M.D. 06/30/2024 7:[address] 06/30/24 00:24 Exam(s): CT CHEST Without Contrast EXAM: CT Chest Without Intravenous Contrast CLINICAL HISTORY: Reason for exam: PNA vs CHF. TECHNIQUE: Axial computed tomography images of the chest without intravenous contrast. CTDI is 38.96 mGy and DLP is 1282.42 mGy-cm. Automated exposure control was utilized for the study. A dose lowering technique was utilized adhering to the principles of ALARA. COMPARISON: 01/19/2023 FINDINGS: Lungs: Diffuse bilateral interstitial infiltrates extending and involving the right upper, middle and lower lobes and left lower lobe. No effusions. No mass. Pleural space: Unremarkable. No pneumothorax. No significant effusion. Heart: Unremarkable. No cardiomegaly. No significant pericardial effusion. No significant coronary artery calcifications. Bones/joints: Unremarkable. No acute fracture. No dislocation. Soft tissues: Unremarkable. Vasculature: Unremarkable. No thoracic aortic aneurysm. Lymph nodes: Unremarkable. No enlarged lymph nodes. IMPRESSION: Multifocal pneumonia Electronically signed by: Boby Amor MD 06/30/24 01:10 AM Chest X-Ray 06/30/24 02:23 XR chest 1V portable CLINICAL HISTORY: Post intubation TECHNIQUE: Single frontal radiograph of the chest was obtained. Comparison: Comparison is made to chest radiograph 06/29/2024 FINDINGS: Enteric and endotracheal tubes are seen. The endotracheal tube tip measures 4.5 cm from the rocky. Exam is limited by underpenetration. Cardiomegaly is noted. There is prominence and cephalization of the vasculature with Tamiko B lines seen. Airspace opacities are more prominent than in the prior exam, particularly in the left lower lung. Pleural effusions cannot be excluded. IMPRESSION: 1. Cardiomegaly and moderate pulmonary edema. 2. Airspace opacities may represent atelectasis, pneumonia, aspiration, and/or alveolar edema. ACT 112: Negative or not required by law. Electronically signed by: Titi Hampton M.D. 06/30/2024 8:02 AM PG Care Time/CCT Total # of Minutes Spent Total Time Spent with Patient: Total time spent is greater than 50% in coordination of care (as documented) at patient's floor/unit and/or counseling patient: Coding Level of Care Code None Diagnoses Acute on chronic respiratory failure with hypoxia and hypercapnia J96.21; J96.22 Multifocal pneumonia J18.9 Acute on chronic diastolic CHF (congestive heart failure) I50.33 Acute kidney injury superimposed on stage 3a chronic kidney disease N17.9; N18.31 Obesity hypoventilation syndrome E66.2 Morbid obesity with BMI of 40.0-44.9, adult E66.01; Z68.41 Schizophrenia F20.9 Elevated troponin R77.8 Type 2 diabetes mellitus E11.9
[2024-06-30] MEDS: METOPROLOL TARTRATE 25 MG TAB PO SCH (11:13)
--- NOTE | 2024-06-30 16:02 | Electrocardiogram Report ---
Test Reason : Blood Pressure : */* mmHG Vent. Rate : 66 BPM Atrial Rate : 66 BPM P-R Int : 216 ms QRS Dur : 96 ms QT Int : 406 ms P-R-T Axes : 60 22 35 degrees QTcB Int : 425 ms Sinus rhythm with 1st degree A-V block Incomplete right bundle branch block Borderline ECG When compared with ECG of 02-Apr-2024 09:47, Incomplete right bundle branch block is now Present Confirmed by Geovany Licona ([id number]) on 06/30/2024 4:02:13 PM Referred By: [facility] Confirmed By: Geovany Licona
[2024-06-30] MEDS ORDERED: ETOMIDATE 2 MG/ML 20 ML VIAL IV ONE (16:19)
[2024-06-30] MEDS ORDERED: SUCCINYLCHOLINE CHLORIDE 20 MG/ML 10 ML VIAL IV ONE (16:19)
[2024-07-01 04:53] LABS: Calcium 8.8 mg/dl (8.6-10.3); Creatinine Clr Calc Pharmacy 35.7 ml/min; Magnesium 2.4 mg/dl (1.7-2.4); Phosphorus 3.6 mg/dl (2.5-4.9); Potassium 3.8 mmol/L (3.5-5.1)
[2024-07-01 04:55] LABS: Basophils # (auto) 0.03 K/uL (0.00-0.20); Basophils % (auto) 0.3 %; Eosinophils # (auto) 0.02 K/uL (0.00-0.50); Eosinophils % (auto) 0.2 %; Hematocrit (blood only) 37.2 % (42.0-52.0); Hemoglobin 12.2 g/dl (14.0-18.0); Immature Granulocytes # (auto) 0.24 K/uL (0.01-0.20); Immature Granulocytes % (auto) 2.1 %; Lymphocytes # (auto) 1.18 K/uL (1.20-3.40); Lymphocytes % (auto) 10.3 %; Mean Corpuscular Hemoglobin 29.9 pg (25.0-34.0); Mean Corpuscular Hgb Conc 32.8 g/dL (32.0-36.0); Mean Corpuscular Volume 91.2 fL (80.0-100.0); Mean Platelet Volume 10.1 fL (9.4-12.4); Monocytes # (auto) 0.61 K/uL (0.11-0.59); Monocytes % (auto) 5.3 %; Neutrophils # (auto) 9.41 K/uL (1.40-6.50); Neutrophils % (auto) 81.8 %; Nucleated RBC # (auto) 0.03 K/uL (0.00-0.12); Nucleated RBC % (auto) 0.3 %; Platelet Count 249 K/uL (130-400); RDW Coefficient of Variation 15.7 % (11.5-14.5); Red Blood Count 4.08 M/uL (4.70-6.10); White Blood Count 11.49 K/ul (4.8-10.8)
--- NOTE | 2024-07-01 07:41 | Critical Care Progress Note ---
Date of Service July 01, 2024 Assessment & Plan (1) Respiratory failure requiring intubation: (2) Hypercarbia: (3) Acute on chronic heart failure: (4) ALEXIS (acute kidney injury): (5) Respiratory acidosis: (6) Class 3 severe obesity due to excess calories with serious comorbidity and body mass index (BMI) of 45.0 to 49.9 in adult: Plan Reason Critically Ill: 68 YOM with morbid obesity COPD, and HfpEF- required emergent intubation in the ER for hypercarbic respiratory failure. CT chest 06/30/2024 personally reviewed: Patchy opacities appreciated bilaterally especially in the lower lobes Cardiomegaly Insignificant mediastinal lymphadenopathy Patient seems to have chronic interstitial changes, appreciated especially in the lower lobes as well as right middle lobe. Autoimmune workup has been negative 12/11/2022 Neuro - Schizophrenia CAM ICU: Negative - Convert Tegratol XR to scheduled dosing down OGT - Hold his modafinil while sedated Cardiac - HfpEF acute on chronic exacerbation, elevated HsCTNI - BNP 1054 on admission - Continue to diurese as renal indices as well as blood pressure support - ECG without acute STEMI changes - Elevated HsCTNI- likely demand type II from mismatch - Continue supportive care Respiratory - Acute on Chronic hypercarbic respiratory failure requiring intubation and mechanical ventilation - Failed NIPPV with no change in PH or CO2- now stuporous requiring intubation - Respiratory Biofire negative for viruses that are tested for -- MARIAJOSE/OHS Noncompliant with CPAP/BiPAP GI - Morbid Obesity, GERD - Continue PPI- IV - Weight loss would be recommended to prevent termite technician morbidity complications RENAL/LYTES - ARF on CKD, hyperkalemia, respiratory acidosis -- ALEXIS on CKD Multifactorial Responding well to diuretics Avoid nephrotoxic medication Monitor BUNs/creatinine - No acute needs - Baer catheter while intubated ENDO - DMII - ICU hyperglycemic protocol HEME - NO acute needs - See ID section below ID- - Elevated WBC, variable CXR, reported cough however no sputum noted, oxygen requirement minimal - will empirically continue Rocephin and Doxy for 5 days - can't exclude pneumonia however at this time favoring fluid vs infection - follow clinical course --Prophylaxis VTE: Heparin GI: Pantoprazole Lines: Peripheral Diet: Tube feeds Plan: In/out: -2.8 L, urine output 3650 Patient seems to have underlying ILD with possible CPFE. Continue with Bumex 2 mg twice daily Continue with antibiotics for total of 5 days, follow-up sputum culture It is very important for patient to be compliant with CPAP/BiPAP. If he will not be compliant that he will eventually get reintubated I will speak with the patient once he is extubated later today and get goals of care Trial of extubation today I have personally spent 38 minutes of critical care time in the direct management of this patient. This is a life/limb threatening event. This includes time spent evaluating patient, direct bedside care, chart review, placing orders, interpretation of diagnostic studies, discussion with consultants, patient, and family members, as well as other required patient management activities. This time is exclusive of all separately billable procedures, and teaching time and separate from and in addition to any other critical care service time. Please note the above document was generated using voice recognition software. It may contain grammatical, syntax or spelling errors. Admission and Anticipated Discharge Date Admission Date: June 30, 2024 Subjective Patient seen and examined at bedside. No acute distress, notable symptoms overnight Patient was weaned off of sedation as plan is to have SBT He denied any headache, no chest pain, no abdominal pain Diuresed well with Bumex Breathing over the vent Review of Systems 2 Review of Systems: All systems reviewed & are unremarkable except as noted in Subjective Physical Exam 2 Physical Exam: Constitutional: No acute distress HEENT: EOMI, PERRLA Respiratory system: Decreased air entry bilaterally, no wheeze, rhonchi, positive crackles bilateral lower lobes CVS: S1-S2 positive, no murmurs or gallops Abdomen: Soft, nontender, nondistended, positive bowel sounds x4, obese Extremities: +2 pulses bilaterally radialis/ dorsalis pedis, no cyanosis, +2 pitting edema bilateral lower extremities Neuro: RASS -1, following commands Psych: Normal mood and affect G/U: Positive Baer Skin: no rashes, warm and dry Lymphatic: no cervical or axillary lymphadenopathy Results & Data Results & Data Vital Signs (Past 12 Hours) Vital Signs Temp Pulse Resp BP Pulse Ox O2 Del Method FiO2 07/01/24 06:00 36.6 C 51 L 18 93 07/01/24 05:00 120/67 07/01/24 05:00 36.6 C 50 L 18 93 07/01/24 04:45 50 L 18 92 35 07/01/24 04:15 36.5 C 52 L 18 92 07/01/24 04:00 35 07/01/24 03:15 36.5 C 48 L 18 93 07/01/24 03:00 116/63 07/01/24 03:00 116/63 07/01/24 02:54 36.6 C 50 L 18 93 07/01/24 02:03 36.6 C 48 L 18 93 07/01/24 02:00 111/65 07/01/24 02:00 111/65 07/01/24 01:57 36.6 C 48 L 18 92 07/01/24 01:18 36.7 C 49 L 18 93 07/01/24 00:18 36.6 C 48 L 18 92 07/01/24 00:00 125/67 07/01/24 00:00 35 06/30/24 23:57 36.5 C 47 L 18 93 06/30/24 23:18 36.2 C L 46 L 18 93 06/30/24 23:10 49 L 18 93 35 06/30/24 23:00 109/62 06/30/24 23:00 109/62 06/30/24 22:38 36.2 C L 48 L 18 93 06/30/24 22:05 36.2 C L 48 L 18 93 06/30/24 21:00 36.2 C L 51 L 18 93 06/30/24 21:00 152/73 H 06/30/24 21:00 152/73 H 06/30/24 20:15 36.1 C L 54 L 18 94 06/30/24 20:01 162/82 H 06/30/24 20:00 35 06/30/24 20:00 Mechanical Vent 06/30/24 19:42 36.0 C L 56 L 20 94 Laboratory Results 07/01/24 04:00 07/01/24 04:00 Coding Level of Care Code 97565 CRITICAL CARE 1ST 30-74M Diagnoses Respiratory failure requiring intubation J96.90 Hypercarbia R06.89 Acute on chronic heart failure I50.9 ALEXIS (acute kidney injury) N17.9 Respiratory acidosis E87.29 Class 3 severe obesity due to excess calories with serious comorbidity and body mass index (BMI) of 45.0 to 49.9 in adult E66.01; Z68.42
[2024-07-01] MEDS: POTASSIUM CHLORIDE / WTR 10 MEQ/100 ML PLCT IV SCH (07:53)
--- NOTE | 2024-07-01 10:22 | Hospitalist Progress Note ---
Date of Service July 01, 2024 Assessment & Plan (1) Acute on chronic respiratory failure with hypoxia and hypercapnia: (2) Multifocal pneumonia: (3) Acute on chronic diastolic CHF (congestive heart failure): (4) Acute kidney injury superimposed on stage 3a chronic kidney disease: (5) Obesity hypoventilation syndrome: (6) Morbid obesity with BMI of 40.0-44.9, adult: (7) Schizophrenia: (8) Elevated troponin: (9) Type 2 diabetes mellitus: Plan 68-year-old male with past medical history of schizophrenia, chronic kidney disease stage III, chronic hypoxic and hypercapnic respiratory failure using 3 L of oxygen at baseline, chronic diastolic congestive heart failure with preserved ejection fraction, morbid obesity, obesity hypoventilation syndrome, type 2 diabetes mellitus, resident of [facility] who presented with somnolence and shortness of breath and found to be hypoxic, failed BiPAP in ED and required intubation and mechanical ventilation and admitted to the ICU. Patient was subsequently extubated on 07/01/2024 and transition to BiPAP #Acute on chronic hypoxic and hypercapnic respiratory failure #Suspected ILD Combination of multilobar pneumonia and CHF exacerbation Patient uses 3 L of oxygen at baseline Patient was intubated and placed on mechanical ventilation with sedation on admission and subsequently extubated on 07/01/2024 and transition to BiPAP Pulm/critical care physician reviewed CT scan results and believes patient may have underlying interstitial lung disease Patient on PPI for GI prophylaxis #Multilobar pneumonia MRSA is positive Patient had sputum culture from ventilator sent: Results preliminary growing light normal acrolina As per radar systems engineer Dr. Live: Recommended continuing ceftriaxone plus doxycycline (day 2/5) #Acute on diastolic congestive heart failure with preserved ejection fraction #Elevated troponin: Likely type II [place] secondary demand ischemia in setting of pneumonia/CHF Echocardiogram from April 03, 2024 shows left ventricular systolic function is normal, EF is 60 to 65%, grade 1 diastolic dysfunction and no significant valvular heart disease noted Patient was initially intubated and placed on mechanical ventilation and subsequently extubated on 07/01/2024 and currently on BiPAP support Troponin is downtrending from 214 Patient on IV Bumex 2 mg twice daily per radar systems engineer Continue metoprolol I/O monitoring Daily weights #ALEXIS superimposed on chronic kidney disease stage III Patient is on diuresis IV Bumex Renal function is slowly improving Monitor renal function electrolytes Avoid nephrotoxic agents including NSAIDs #Type 2 diabetes mellitus #Morbid obesity, BMI 41.8 Check A1c Patient is on ICU hypoglycemia protocol #Schizophrenia Continue carbamazepine CODE STATUS: Full code DVT prophylaxis: Heparin subcutaneous 3 times daily Care plan discussed with nursing staff and radar systems engineer Admission and Anticipated Discharge Date Admission Date: June 30, 2024 Subjective Patient seen and examined He was extubated this morning He is currently on BiPAP but is trying to pull BiPAP off. Unable to get a full review of systems as patient is confused Labs reviewed I/O reviewed Physical Exam Physical Exam: General: Patient with BiPAP mask in place Psych: Awake and oriented to self only HEENT: Anicteric sclera, BiPAP mask in place CVS: Regular rate and rhythm Lungs: Bilateral air entry with decreased breath sounds at the bases, no wheezing noted Abdomen: Soft, obese abdomen Ext: No lower extremity edema, no calf tenderness : Baer catheter in place Results & Data Results & Data Vital Signs (Past 12 Hours) Vital Signs Temp Pulse Pulse Resp BP BP Pulse Ox 07/01/24 08:00 37.1 C 66 25 H 135/74 90 07/01/24 07:30 56 L 24 93 07/01/24 06:00 36.6 C 51 L 18 93 07/01/24 05:00 120/67 07/01/24 05:00 36.6 C 50 L 18 93 07/01/24 04:45 50 L 18 92 07/01/24 04:15 36.5 C 52 L 18 92 07/01/24 04:00 07/01/24 03:15 36.5 C 48 L 18 93 07/01/24 03:00 116/63 07/01/24 03:00 116/63 07/01/24 02:54 36.6 C 50 L 18 93 07/01/24 02:03 36.6 C 48 L 18 93 07/01/24 02:00 111/65 07/01/24 02:00 111/65 07/01/24 01:57 36.6 C 48 L 18 92 07/01/24 01:18 36.7 C 49 L 18 93 07/01/24 00:18 36.6 C 48 L 18 92 07/01/24 00:00 125/67 07/01/24 00:00 06/30/24 23:57 36.5 C 47 L 18 93 06/30/24 23:18 36.2 C L 46 L 18 93 06/30/24 23:10 49 L 18 93 06/30/24 23:00 109/62 06/30/24 23:00 109/62 06/30/24 22:38 36.2 C L 48 L 18 93 O2 Del Method FiO2 07/01/24 08:00 Mechanical Vent 07/01/24 07:30 35 07/01/24 06:00 07/01/24 05:00 07/01/24 05:00 07/01/24 04:45 35 07/01/24 04:15 07/01/24 04:00 35 07/01/24 03:15 07/01/24 03:00 07/01/24 03:00 07/01/24 02:54 07/01/24 02:03 07/01/24 02:00 07/01/24 02:00 07/01/24 01:57 07/01/24 01:18 07/01/24 00:18 07/01/24 00:00 07/01/24 00:00 35 06/30/24 23:57 06/30/24 23:18 06/30/24 23:10 35 06/30/24 23:00 06/30/24 23:00 06/30/24 22:38 Laboratory Results Laboratory Results - last 24 hr 06/30/24 06/30/24 06/30/24 11:06 14:36 16:07 WBC RBC Hgb Hct MCV MCH MCHC RDW Std Deviation RDW Coeff of Pascual Plt Count MPV Immature Gran % (Auto) Neut % (Auto) Lymph % (Auto) Swain % (Auto) Eos % (Auto) Baso % (Auto) Neut # (Auto) Lymph # (Auto) Swain # (Auto) Eos # (Auto) Baso # (Auto) Immature Gran # (Auto) Absolute Nucleated RBC Nucleated RBC % (auto) Sodium Potassium Chloride Carbon Dioxide Anion Gap BUN Creatinine Est Cr Clr Drug Dosing eGFR BUN/Creatinine Ratio Glucose POC Glucose 123 H 104 H Calcium Phosphorus Magnesium Troponin I High Sens 87.8 H* 06/30/24 07/01/24 07/01/24 20:56 04:00 07:44 WBC 11.49 H RBC 4.08 L Hgb 12.2 L Hct 37.2 L MCV 91.2 D MCH 29.9 MCHC 32.8 RDW Std Deviation 52.0 H RDW Coeff of Pascual 15.7 H Plt Count 249 MPV 10.1 Immature Gran % (Auto) 2.1 Neut % (Auto) 81.8 Lymph % (Auto) 10.3 Swain % (Auto) 5.3 Eos % (Auto) 0.2 Baso % (Auto) 0.3 Neut # (Auto) 9.41 H Lymph # (Auto) 1.18 L Swain # (Auto) 0.61 H Eos # (Auto) 0.02 Baso # (Auto) 0.03 Immature Gran # (Auto) 0.24 H Absolute Nucleated RBC 0.03 Nucleated RBC % (auto) 0.3 Sodium 141 Potassium 3.8 D Chloride 100 Carbon Dioxide 28 Anion Gap 13 H BUN 96 H Creatinine 2.67 H D Est Cr Clr Drug Dosing 35.7 eGFR 25.07 BUN/Creatinine Ratio 36.0 H Glucose 123 H POC Glucose 114 H 129 H Calcium 8.8 Phosphorus 3.6 D Magnesium 2.4 Troponin I High Sens PG Care Time/CCT Total # of Minutes Spent Total Time Spent with Patient: Total time spent is greater than 50% in coordination of care (as documented) at patient's floor/unit and/or counseling patient: Coding Level of Care Code 65670 SUB INP/OBS CARE 2/35MIN Diagnoses Acute on chronic respiratory failure with hypoxia and hypercapnia J96.21; J96.22 Multifocal pneumonia J18.9 Acute on chronic diastolic CHF (congestive heart failure) I50.33 Acute kidney injury superimposed on stage 3a chronic kidney disease N17.9; N18.31 Obesity hypoventilation syndrome E66.2 Morbid obesity with BMI of 40.0-44.9, adult E66.01; Z68.41 Schizophrenia F20.9 Elevated troponin R77.8 Type 2 diabetes mellitus E11.9
[2024-07-02 04:59] LABS: BUN Creatinine Ratio 42.8 (10-20); Calcium 9.1 mg/dl (8.6-10.3); Magnesium 2.2 mg/dl (1.7-2.4); Potassium 4.1 mmol/L (3.5-5.1)
[2024-07-02 05:16] LABS: Basophils # (auto) 0.01 K/uL (0.00-0.20); Basophils % (auto) 0.1 %; Eosinophils # (auto) 0.04 K/uL (0.00-0.50); Eosinophils % (auto) 0.2 %; Hematocrit (blood only) 40.5 % (42.0-52.0); Hemoglobin 13.3 g/dl (14.0-18.0); Immature Granulocytes # (auto) 1.57 K/uL (0.01-0.20); Immature Granulocytes % (auto) 9.5 %; Lymphocytes # (auto) 1.88 K/uL (1.20-3.40); Lymphocytes % (auto) 11.4 %; Mean Corpuscular Hemoglobin 29.8 pg (25.0-34.0); Mean Corpuscular Hgb Conc 32.8 g/dL (32.0-36.0); Mean Corpuscular Volume 90.8 fL (80.0-100.0); Mean Platelet Volume 10.3 fL (9.4-12.4); Monocytes # (auto) 0.76 K/uL (0.11-0.59); Monocytes % (auto) 4.6 %; Neutrophils % (auto) 74.2 %; Nucleated RBC # (auto) 0.02 K/uL (0.00-0.12); Nucleated RBC % (auto) 0.1 %; Platelet Count 278 K/uL (130-400); RBC Morphology Unremarkable; RDW Coefficient of Variation 15.7 % (11.5-14.5); RDW Standard Deviation 51.8 fL (36.4-46.3); Red Blood Count 4.46 M/uL (4.70-6.10); White Blood Count 16.56 K/ul (4.8-10.8)
[2024-07-02 07:15] LABS: Estimated Average Glucose 148 mg/dl; Hemoglobin A1C 6.8 % (4.5-5.6)
--- NOTE | 2024-07-02 09:27 | Hospitalist Progress Note ---
Date of Service July 02, 2024 Assessment & Plan (1) Acute on chronic respiratory failure with hypoxia and hypercapnia: (2) Multifocal pneumonia: (3) Acute on chronic diastolic CHF (congestive heart failure): (4) Acute kidney injury superimposed on stage 3a chronic kidney disease: (5) Obesity hypoventilation syndrome: (6) Morbid obesity with BMI of 40.0-44.9, adult: (7) Schizophrenia: (8) Elevated troponin: (9) Type 2 diabetes mellitus: Plan 68-year-old male with past medical history of schizophrenia, chronic kidney disease stage III, chronic hypoxic and hypercapnic respiratory failure using 3 L of oxygen at baseline, chronic diastolic congestive heart failure with preserved ejection fraction, morbid obesity, obesity hypoventilation syndrome, type 2 diabetes mellitus, resident of [facility] who presented with somnolence and shortness of breath and found to be hypoxic, failed BiPAP in ED and required intubation and mechanical ventilation and admitted to the ICU. Patient was subsequently extubated on 07/01/2024 and transition to BiPAP #Acute on chronic hypoxic and hypercapnic respiratory failure #Suspected ILD #Obesity hypoventilation syndrome Combination of multilobar pneumonia and CHF exacerbation Patient uses 3 L of oxygen at baseline Patient was intubated and placed on mechanical ventilation with sedation on admission and subsequently extubated on 07/01/2024 and transition to BiPAP He is currently on 4 L of oxygen via oxime mask Continue BiPAP/CPAP at bedtime Pulm/critical care physician reviewed CT scan results and believes patient may have underlying interstitial lung disease Check two-view chest x-ray in a.m. Patient on PPI for GI prophylaxis #Multilobar pneumonia MRSA is positive Patient had sputum culture from ventilator sent: Results growing light normal [place] As per doctor of nurse anesthesia practice Dr. Live: Recommended continuing ceftriaxone plus doxycycline (day 3/5) Speech therapy consult #Acute on diastolic congestive heart failure with preserved ejection fraction #Elevated troponin: Likely type II [place] secondary demand ischemia in setting of pneumonia/CHF Echocardiogram from April 03, 2024 shows left ventricular systolic function is normal, EF is 60 to 65%, grade 1 diastolic dysfunction and no significant valvular heart disease noted Patient was initially intubated and placed on mechanical ventilation and subsequently extubated on 07/01/2024 and currently on BiPAP support Troponin is downtrending from 214 Patient on IV Bumex 2 mg twice daily per doctor of nurse anesthesia practice Continue metoprolol I/O monitoring Daily weights #ALEXIS superimposed on chronic kidney disease stage III Baseline creatinine is between 1.5-1.8 Patient is on diuresis IV Bumex Renal function is improving Monitor renal function electrolytes Avoid nephrotoxic agents including NSAIDs #Type 2 diabetes mellitus #Morbid obesity, BMI 41.8 A1C is 6.8 Patient is on ICU hypoglycemia protocol: Will switch to pharmacy glycemic protocol once patient is ready to downgrade out of ICU #Schizophrenia Continue carbamazepine Trifluoperazine has been held by doctor of nurse anesthesia practice for now CODE STATUS: Full code DVT prophylaxis: Heparin subcutaneous 3 times daily Speech therapy consult for swallow evaluation PT/OT consults for discharge planning. Patient is a resident of [facility] Care plan discussed with nursing staff and doctor of nurse anesthesia practice Admission and Anticipated Discharge Date Admission Date: June 30, 2024 Subjective Patient seen and examined Labs reviewed He was extubated yesterday, required BiPAP yesterday and is currently on oxime mask Mentation is improved, patient is aware he is in a hospital and is answering questions Patient reports feeling hungry Reports feeling much better with shortness of breath, denies any chest pain Denies any nausea or vomiting Physical Exam Physical Exam: General: No respiratory distress noted Psych: Awake and oriented to place and person HEENT: Anicteric sclera, oxy mask noted CVS: Regular rate and rhythm Lungs: Bilateral air entry with decreased breath sounds at the bases, no wheezing noted Abdomen: Soft, obese abdomen Ext: No lower extremity edema, no calf tenderness : Baer catheter in place Results & Data Results & Data Vital Signs (Past 12 Hours) Vital Signs Temp Pulse Resp BP Pulse Ox FiO2 07/02/24 08:09 37.1 C 63 34 H 07/02/24 07:26 64 26 H 96 40 07/02/24 07:09 37.0 C 58 L 26 H 97 07/02/24 07:00 126/62 07/02/24 07:00 126/62 07/02/24 05:02 155/69 H 07/02/24 05:02 155/69 H 07/02/24 05:00 37.0 C 62 20 97 07/02/24 04:09 37.1 C 69 12 94 07/02/24 03:06 37.1 C 64 23 97 07/02/24 03:00 153/72 H 07/02/24 03:00 153/72 H 07/02/24 03:00 153/72 H 07/02/24 02:51 37.2 C 66 21 96 07/02/24 02:30 65 40 H 94 40 07/02/24 02:09 37.3 C 64 19 96 07/02/24 02:00 125/60 07/02/24 02:00 125/60 07/02/24 02:00 125/60 07/02/24 01:45 37.2 C 67 17 96 07/02/24 01:00 37.3 C 64 29 H 96 07/02/24 00:18 37.3 C 67 17 94 07/02/24 00:09 37.3 C 66 20 96 07/02/24 00:00 145/64 H 07/01/24 23:39 37.4 C 62 24 97 07/01/24 23:15 65 34 H 93 40 07/01/24 23:12 37.6 C H 61 37 H 95 07/01/24 23:00 119/71 07/01/24 23:00 119/71 07/01/24 23:00 119/71 07/01/24 22:57 37.6 C H 62 21 96 07/01/24 22:00 37.5 C 63 25 H Laboratory Results Laboratory Results - last 24 hr 07/01/24 07/01/24 07/01/24 11:20 16:20 20:22 WBC RBC Hgb Hct MCV MCH MCHC RDW Std Deviation RDW Coeff of Pascual Plt Count MPV Immature Gran % (Auto) Neut % (Auto) Lymph % (Auto) [place] % (Auto) Eos % (Auto) Baso % (Auto) Neut # (Auto) Lymph # (Auto) [place] # (Auto) Eos # (Auto) Baso # (Auto) Immature Gran # (Auto) Absolute Nucleated RBC Nucleated RBC % (auto) RBC Morphology Sodium Potassium Chloride Carbon Dioxide Anion Gap BUN Creatinine Est Cr Clr Drug Dosing eGFR BUN/Creatinine Ratio Glucose POC Glucose 107 H 128 H 113 H Estimat Average Glucose Hemoglobin A1c Calcium Magnesium 07/02/24 04:16 WBC 16.56 H RBC 4.46 L Hgb 13.3 L Hct 40.5 L MCV 90.8 MCH 29.8 MCHC 32.8 RDW Std Deviation 51.8 H RDW Coeff of Pascual 15.7 H Plt Count 278 MPV 10.3 Immature Gran % (Auto) 9.5 Neut % (Auto) 74.2 Lymph % (Auto) 11.4 [place]ardo % (Auto) 4.6 Eos % (Auto) 0.2 Baso % (Auto) 0.1 Neut # (Auto) 12.30 H Lymph # (Auto) 1.88 [place]ajardo # (Auto) 0.76 H Eos # (Auto) 0.04 Baso # (Auto) 0.01 Immature Gran # (Auto) 1.57 H Absolute Nucleated RBC 0.02 Nucleated RBC % (auto) 0.1 RBC Morphology Unremarkable Sodium 144 Potassium 4.1 Chloride 103 Carbon Dioxide 27 Anion Gap 14 H BUN 80 H Creatinine 1.87 H D Est Cr Clr Drug Dosing 51.0 eGFR 38.44 BUN/Creatinine Ratio 42.8 H Glucose 141 H POC Glucose Estimat Average Glucose 148 Hemoglobin A1c 6.8 H Calcium 9.1 Magnesium 2.2 PG Care Time/CCT Total # of Minutes Spent Total Time Spent with Patient: Total time spent is greater than 50% in coordination of care (as documented) at patient's floor/unit and/or counseling patient: Coding Level of Care Code 27794 SUB INP/OBS CARE 3/50MIN Diagnoses Acute on chronic respiratory failure with hypoxia and hypercapnia J96.21; J96.22 Multifocal pneumonia J18.9 Acute on chronic diastolic CHF (congestive heart failure) I50.33 Acute kidney injury superimposed on stage 3a chronic kidney disease N17.9; N18.31 Obesity hypoventilation syndrome E66.2 Morbid obesity with BMI of 40.0-44.9, adult E66.01; Z68.41 Schizophrenia F20.9 Elevated troponin R77.8 Type 2 diabetes mellitus E11.9
[2024-07-02] MEDS ORDERED: PHARMACY GLYCEMIC MGMT CONSULT PRN (13:40)
[2024-07-02] MEDS ORDERED: GLUCOSE 40% GEL 15 GM TUBE PO PRN (14:00)
[2024-07-02] MEDS ORDERED: CARBOHYDRATES FOR HYPOGLYCEMIA PO PRN (14:00)
[2024-07-02] MEDS ORDERED: GLUCOSE 10 TAB/TUBE PO PRN (14:00)
[2024-07-02] MEDS ORDERED: GLUCAGON FOR INJ 1 MG VIAL SQ PRN (14:00)
[2024-07-02] MEDS ORDERED: DEXTROSE 50% 50 ML SYRINGE IV PRN (14:00)
--- NOTE | 2024-07-02 14:07 | Pharmacy Report ---
Pharmacy Glycemic Short Note 2 - Date of Service July 02, 2024 - Glycemic Short BSG Results (Last 24 hours): 07/01/24 07/01/24 07/02/24 16:20 20:22 04:16 Glucose 141 H POC Glucose 128 H 113 H OUTPATIENT ANTIDIABETIC REGIMEN: * No meds at home as previously was not diagnosed with diabetes * HbA1c: 6.8% (07/02/24) ASSESSMENT: * 68 yo M admitted on 06/29/24 secondary to respiratory failure. Was intubated f or about 36 hours then extubated yesterday and downgraded from ICU status today. Pharmacy has been consulted today to assist with inpatient glycemic management. Patient is a newly diagnosed Type 2 diabetic. * Fasting BSG today was 141 mg/dL. Has not received any insulin since admission. Will start bolus regimen only based on weight/stress of 1. Ordered a T2DM diet but not certain if patient actually eating at this time. Will follow up. Remains on 5 days of Ceftriaxone and Doxycycline for pneumonia. PLAN FOR INPATIENT GLYCEMIC CONTROL: * Basal insulin * None * Bolus insulin * NovoLog per scale ACHS or Q6hrs while NPO * Goal Range: Low 110 mg/dL - High 140 mg/dL * Correction Factor: 30 mg/dL/unit * Nutritional / Prandial insulin per carb ratio of 1 unit per 10 grams CHO consumed
[2024-07-02] MEDS: TRIFLUOPERAZINE HCL 5 MG TABLET PO SCH (15:31)
[2024-07-02] MEDS: PANTOprazole 40 MG TAB PO SCH (15:31)
[2024-07-02] MEDS: INSULIN ASPART PER UNIT CHARGE SC SCH (17:44)
[2024-07-02] MEDS: carBAMazepine XR 100 MG TABCR PO SCH (20:24)
[2024-07-02] MEDS: GABAPENTIN 100 MG CAP PO SCH (20:24)
[2024-07-03] MEDS: diphenhydrAMINE 50 MG/ML VIAL IV STA (01:28)
[2024-07-03 04:28] LABS: Albumin Level 3.4 gm/dl (3.4-5.0); Bilirubin,Total 0.4 mg/dl (0.2-1.0); Calcium 8.7 mg/dl (8.6-10.3); Magnesium 2.1 mg/dl (1.7-2.4); Potassium 4.1 mmol/L (3.5-5.1)
[2024-07-03 04:34] LABS: Albumin Globulin Ratio 0.8 (0.9-2); BUN Creatinine Ratio 43.7 (10-20); Globulin 4.1 gm/dl (2.5-4.0); Total Protein 7.5 gm/dl (6.0-8.3)
[2024-07-03 05:15] LABS: Hematocrit (blood only) 43.5 % (42.0-52.0); Mean Corpuscular Hemoglobin 29.7 pg (25.0-34.0); Mean Corpuscular Hgb Conc 32.2 g/dL (32.0-36.0); Mean Corpuscular Volume 92.2 fL (80.0-100.0); Mean Platelet Volume 9.9 fL (9.4-12.4); Nucleated RBC # (auto) 0.03 K/uL (0.00-0.12); Nucleated RBC % (auto) 0.2 %; Platelet Count 313 K/uL (130-400); RDW Coefficient of Variation 15.9 % (11.5-14.5); RDW Standard Deviation 53.4 fL (36.4-46.3); Red Blood Count 4.72 M/uL (4.70-6.10); White Blood Count 19.05 K/ul (4.8-10.8)
[2024-07-03 05:25] LABS: RBC Morphology Unremarkable
[2024-07-03 05:27] LABS: ALC (manual) 4.95 K/uL (1.2-3.4); ANC (manual) 8.38 K/uL (1.4-6.5); Eosinophils # (manual) 0.38 K/uL (0-0.50); Eosinophils % (manual) 2 %; Lymphocytes # (manual) 4.95 K/uL (1.2-3.4); Lymphocytes % (manual) 26 %; Metamyelocytes # (manual) 0.76 K/uL (0-0); Metamyelocytes % (manual) 4 %; Monocytes # (manual) 0.38 K/uL (0.11-0.59); Monocytes % (manual) 2 %; Myelocytes # (manual) 4.19 K/uL (0-0); Myelocytes % (manual) 22 %; Neutrophils # (manual) 8.38 K/uL (1.40-6.50); Neutrophils % (manual) 44 %
--- NOTE | 2024-07-03 07:07 | XRay Report ---
SINGLE VIEW CHEST CLINICAL HISTORY: Respiratory distress. FINDINGS: An AP, portable, semierect chest radiograph is compared to chest x-ray and chest CT dated . The examination is degraded by portable technique, apical lordotic positioning, and large b iglesia habitus. Endotracheal and enteric tubes have been removed. The heart is enlarged. There is pulmo nary vascular congestion with evidence of interstitial edema. There are layering pleural effusions wi th dependent consolidation. No pneumothorax is seen. The skeletal structures are osteopenic. The bony thorax is grossly intact. IMPRESSION: 1. Cardiomegaly with evidence of congestive failure and pulmonary edema. 2. Layering pleural effusions with dependent consolidation. ACT 112: Negative or not required by law. Electronically signed by: Salomón Neff M.D. 07/03/2024 7:05 AM
--- NOTE | 2024-07-03 07:53 | Pulmonology Progress Note ---
Date of Service July 03, 2024 Assessment & Plan (1) Hypercarbia: (2) Acute on chronic heart failure: (3) Respiratory acidosis: (4) Class 3 severe obesity due to excess calories with serious comorbidity and body mass index (BMI) of 45.0 to 49.9 in adult: (5) MARIAJOSE (obstructive sleep apnea): (6) ILD (interstitial lung disease): (7) Acute on chronic respiratory failure with hypoxia and hypercapnia: Plan Reason Critically Ill: 68 YOM with morbid obesity COPD, and HfpEF- required emergent intubation in the ER for hypercarbic respiratory failure. CT chest 06/30/2024 personally reviewed: Patchy opacities appreciated bilaterally especially in the lower lobes Cardiomegaly Insignificant mediastinal lymphadenopathy Patient seems to have chronic interstitial changes, appreciated especially in the lower lobes as well as right middle lobe. Autoimmune workup has been negative 12/11/2022 -- Acute on Chronic hypoxic hypercarbic respiratory failure Extubated 07/01/2024 - Respiratory Biofire negative for viruses that are tested for Usually on 3 L oxygen at home -- Interstitial lung disease Likely a combination of CPFE Autoimmune workup was negative for everything Follows up with Dr. Lutz as an outpatient -- MARIAJOSE/OHS Noncompliant with CPAP/BiPAP Plan: In/out: -830, urine output 1350 Patient's significant morbid obesity has resulted in a restrictive thoracic cage abnormality. Because of this patient does not fully expand her lungs for proper ventilation causing recurrent hypercapnic respiratory failure with a PaCo2 of 50. Multiple underlying comorbidities are noted with a weight of 229 kg. Patient would benefit greatly from noninvasive ventilation which would improve lung function and potentially reduce worsening of symptoms. A BiPAP would be ineffective as patient requires a volume targeted mode. Interruption of ventilator support would lead to a decline of health status. PFT 06/13/2023 shows TLC of 59% with FVC of 58% inclining towards moderate restrictive lung dysfunction with moderate decrease in DLCO NIMV settings should be AVAPS-AE; Breath rate: auto; Inspiratory time:auto; Sigh: off; Tidal Volume: 350-450, PS min: 4-10 PS max: 12-20; EPAP min: 6-10; EPAP max: 10-16; AVAPS rate: 14 during sleep and as needed Continue Brovana and budesonide Add Mucinex with flutter valve Complete the course of antibiotics Keep O2 saturation between 90-92% Please note the above document was generated using voice recognition software. It may contain grammatical, syntax or spelling errors.Any formal questions or concerns about the content, text or information contained within the body of this dictation should be directly addressed to the provider for clarification. Admission and Anticipated Discharge Date Admission Date: June 30, 2024 Subjective Patient seen and examined at bedside. No acute distress, no adverse events overnight He was saturating 96% on 6 L, I went down to 4 L Overall he says he is feeling better. Did use his BiPAP overnight Complaining of phlegm and difficulty bringing it up. Denies any nausea vomiting Fair appetite Review of Systems 2 Review of Systems: All systems reviewed & are unremarkable except as noted in Subjective Physical Exam 2 Physical Exam: Constitutional: No acute distress HEENT: EOMI, PERRLA Respiratory system: Decreased air entry bilaterally, no wheeze, rhonchi, positive crackles bilateral lower lobes CVS: S1-S2 positive, no murmurs or gallops Abdomen: Soft, nontender, nondistended, positive bowel sounds x4, obese Extremities: +2 pulses bilaterally radialis/ dorsalis pedis, no cyanosis, +1 pitting edema bilateral lower extremities Neuro: Awake alert oriented x 3 Psych: Normal mood and affect G/U: Positive Baer Skin: no rashes, warm and dry Lymphatic: no cervical or axillary lymphadenopathy Results & Data Results & Data Vital Signs (Past 12 Hours) Vital Signs Temp Pulse Pulse Resp BP BP Pulse Ox 07/03/24 07:12 36.9 C 07/03/24 04:00 59 L 30 H 158/91 H 95 07/03/24 03:09 61 31 H 95 07/03/24 02:25 67 30 H 94 07/03/24 02:06 63 31 H 94 07/03/24 01:03 68 22 95 07/03/24 00:12 33 H 92 07/03/24 00:00 37 C 65 28 H 175/80 H 94 07/02/24 23:00 37.3 C 64 34 H 175/80 H 79 L 07/02/24 22:45 86 30 H 96 07/02/24 22:09 37.4 C 70 21 86 L 07/02/24 21:06 37.3 C 71 32 H 79 L 07/02/24 20:03 36.9 C 64 22 100 07/02/24 20:00 O2 Del Method O2 Flow Rate FiO2 07/03/24 07:12 07/03/24 04:00 07/03/24 03:09 07/03/24 02:25 40 07/03/24 02:06 07/03/24 01:03 07/03/24 00:12 07/03/24 00:00 BiPAP 40 07/02/24 23:00 07/02/24 22:45 40 07/02/24 22:09 07/02/24 21:06 07/02/24 20:03 07/02/24 20:00 Oxymask 6 Laboratory Results 07/03/24 03:57 07/03/24 03:57 PG Care Time/CCT Total # of Minutes Spent Total Time Spent with Patient: Total time spent is greater than 50% in coordination of care (as documented) at patient's floor/unit and/or counseling patient: Coding Level of Care Code 66298 SUB INP/OBS CARE 3/50MIN Diagnoses Hypercarbia R06.89 Acute on chronic heart failure I50.9 Respiratory acidosis E87.29 Class 3 severe obesity due to excess calories with serious comorbidity and body mass index (BMI) of 45.0 to 49.9 in adult E66.01; Z68.42 MARIAJOSE (obstructive sleep apnea) G47.33 ILD (interstitial lung disease) J84.9 Acute on chronic respiratory failure with hypoxia and hypercapnia J96.21; J96.22
--- NOTE | 2024-07-03 07:53 | Critical Care Progress Note ---
Date of Service July 02, 2024 Assessment & Plan (1) Respiratory failure requiring intubation: (2) Hypercarbia: (3) Acute on chronic heart failure: (4) ALEXIS (acute kidney injury): (5) Respiratory acidosis: (6) Class 3 severe obesity due to excess calories with serious comorbidity and body mass index (BMI) of 45.0 to 49.9 in adult: Plan Reason Critically Ill: 68 YOM with morbid obesity COPD, and HfpEF- required emergent intubation in the ER for hypercarbic respiratory failure. CT chest 06/30/2024 personally reviewed: Patchy opacities appreciated bilaterally especially in the lower lobes Cardiomegaly Insignificant mediastinal lymphadenopathy Patient seems to have chronic interstitial changes, appreciated especially in the lower lobes as well as right middle lobe. Autoimmune workup has been negative 12/11/2022 Neuro - Schizophrenia CAM ICU: Negative - Convert Tegratol XR to scheduled dosing down OGT - Hold his modafinil while sedated Cardiac - HfpEF acute on chronic exacerbation, elevated HsCTNI - BNP 1054 on admission - Continue to diurese as renal indices as well as blood pressure support - ECG without acute STEMI changes - Elevated HsCTNI- likely demand type II from mismatch - Continue supportive care Respiratory - Acute on Chronic hypercarbic respiratory failure requiring intubation and mechanical ventilation - Failed NIPPV with no change in PH or CO2- now stuporous requiring intubation --> extubated 07/01/2024 - Respiratory Biofire negative for viruses that are tested for -- MARIAJOSE/OHS Noncompliant with CPAP/BiPAP GI - Morbid Obesity, GERD - Continue PPI- IV - Weight loss would be recommended to prevent 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 complications RENAL/LYTES - ARF on CKD, hyperkalemia, respiratory acidosis -- ALEXIS on CKD Multifactorial Responding well to diuretics Avoid nephrotoxic medication Monitor BUNs/creatinine - No acute needs - Baer catheter while intubated ENDO - DMII - ICU hyperglycemic protocol HEME - NO acute needs - See ID section below ID- - Elevated WBC, variable CXR, reported cough however no sputum noted, oxygen requirement minimal - will empirically continue Rocephin and Doxy for 5 days - can't exclude pneumonia however at this time favoring fluid vs infection - follow clinical course --Prophylaxis VTE: Heparin GI: Pantoprazole Lines: Peripheral Diet: Tube feeds Plan: Patient seems to have underlying ILD with possible CPFE. Continue with Bumex 2 mg twice daily, will change it to once a day as of tomorrow Continue with antibiotics for total of 5 days, follow-up sputum culture Importance of using BiPAP explained to the patient is willing to use it Hemodynamically stable to be downgraded Case was discussed with primary team Please note the above document was generated using voice recognition software. It may contain grammatical, syntax or spelling errors.Any formal questions or concerns about the content, text or information contained within the body of this dictation should be directly addressed to the provider for clarification. Admission and Anticipated Discharge Date Admission Date: June 30, 2024 Subjective Patient seen and examined at bedside. No acute distress, no adverse events overnight. Did use his BiPAP overnight Denies any headache or blurry vision Did complain of some back pain Asking for food Review of Systems Review of Systems: All systems reviewed & are unremarkable except as noted in Subjective Physical Exam Physical Exam: Constitutional: No acute distress HEENT: EOMI, PERRLA Respiratory system: Decreased air entry bilaterally, no wheeze, rhonchi, positive crackles bilateral lower lobes CVS: S1-S2 positive, no murmurs or gallops Abdomen: Soft, nontender, nondistended, positive bowel sounds x4, obese Extremities: +2 pulses bilaterally radialis/ dorsalis pedis, no cyanosis, +2 pitting edema bilateral lower extremities Neuro: Awake alert oriented x 3 Psych: Normal mood and affect G/U: Positive Baer Skin: no rashes, warm and dry Lymphatic: no cervical or axillary lymphadenopathy Results & Data Results & Data Vital Signs (Past 12 Hours) Vital Signs Temp Pulse Pulse Resp BP BP Pulse Ox 07/03/24 07:12 36.9 C 07/03/24 04:00 59 L 30 H 158/91 H 95 07/03/24 03:09 61 31 H 95 07/03/24 02:25 67 30 H 94 07/03/24 02:06 63 31 H 94 07/03/24 01:03 68 22 95 07/03/24 00:12 33 H 92 07/03/24 00:00 37 C 65 28 H 175/80 H 94 07/02/24 23:00 37.3 C 64 34 H 175/80 H 79 L 07/02/24 22:45 86 30 H 96 07/02/24 22:09 37.4 C 70 21 86 L 07/02/24 21:06 37.3 C 71 32 H 79 L 07/02/24 20:03 36.9 C 64 22 100 07/02/24 20:00 O2 Del Method O2 Flow Rate FiO2 07/03/24 07:12 07/03/24 04:00 07/03/24 03:09 07/03/24 02:25 40 07/03/24 02:06 07/03/24 01:03 07/03/24 00:12 07/03/24 00:00 BiPAP 40 07/02/24 23:00 07/02/24 22:45 40 07/02/24 22:09 07/02/24 21:06 07/02/24 20:03 07/02/24 20:00 Oxymask 6 Coding Level of Care Code 47383 SUB INP/OBS CARE 3/50MIN Diagnoses Respiratory failure requiring intubation J96.90 Hypercarbia R06.89 Acute on chronic heart failure I50.9 ALEXIS (acute kidney injury) N17.9 Respiratory acidosis E87.29 Class 3 severe obesity due to excess calories with serious comorbidity and body mass index (BMI) of 45.0 to 49.9 in adult E66.01; Z68.42
--- NOTE | 2024-07-03 07:58 | Pharmacy Report ---
Pharmacy Glycemic Sign Off Nt - Date of Service July 03, 2024 - Assessment & Plan ASSESSMENT: * Pharmacy was consulted by Dr. Saleh on 07/02/24 for glycemic control and to write orders per [facility] inpatient glycemic control protocol. * Major changes made by pharmacy to antidiabetic regimen include: * Adding bolus insulin * Patient has been receiving/requiring less than 5 units of insulin per day for adequate glycemic control * BSGs ranging 118-141 mg/dl * Regimen has required no adjustments * Do not anticipate further changes in patient status that would quickly deteriorate glycemic control (i.e. patient to be NPO for upcoming procedure, steroids tapering, starting tube feedings, etc). * Please see recommendations for outpatient antidiabetic regimen below. PLAN FOR INPATIENT GLYCEMIC CONTROL: No changes needed to current regimen. * No basal insulin necessary * Continue NovoLog per scale ACHS/Q6hrs while NPO * Goal range = 110-140 mg/dl * CF = 30 mg/dl/unit * CR = 1 unit for ever 10 g CHO consumed * Discharge Recommendations: * Given patient's age and A1c, believe it is reasonable to discharge with no new medications for diabetes. Continue with diet control. Also, would be concerned about starting Metformin given renal dysfunction. * Pharmacy is signing off of glycemic consult and will no longer be making adjustments to inpatient regimen. Please feel free to re-consult if needed. Thank you.
[2024-07-03] MEDS: METOPROLOL SUCC 25MG EXT REL TAB PO SCH (08:25)
[2024-07-03] MEDS: BUMETANIDE 1 MG TAB PO SCH (08:25)
[2024-07-03] MEDS: modafiniL 100 MG TAB PO SCH (08:33)
[2024-07-03] MEDS ORDERED: TRIFLUOPERAZINE HCL 5 MG TABLET PO SCH (11:00)
--- NOTE | 2024-07-03 11:02 | XRay Report ---
XR chest 1V portable CLINICAL HISTORY: routine COMPARISON STUDY: Chest CT June 30, 2024. Chest radiograph July 02, 2024. FINDINGS: No pneumothorax or pleural effusion is present. Cardiomegaly is unchanged. Mediastinal cont ours are stable. Interstitial thickening and bilateral opacities have slightly improved. IMPRESSION: 1. Slight improvement in interstitial thickening and bilateral opacities since prior exam. The findin gs could reflect pneumonia or pulmonary edema superimposed upon interstitial lung disease. 2. Cardiomegaly. ACT 112: Negative or not required by law. Electronically signed by: Theo Phan M.D. 07/03/2024 11:01 AM
--- NOTE | 2024-07-03 18:28 | Hospitalist Progress Note ---
Date of Service July 03, 2024 Assessment & Plan (1) Acute respiratory failure with hypoxia: Plan: 68-year-old male with past medical history of schizophrenia, chronic kidney disease stage III, chronic hypoxic and hypercapnic respiratory failure using 3 L of oxygen at baseline, chronic diastolic congestive heart failure with preserved ejection fraction, morbid obesity, obesity hypoventilation syndrome, type 2 diabetes mellitus, resident of [facility] who presented with somnolence and shortness of breath and found to be hypoxic, failed BiPAP in ED and required intubation and mechanical ventilation and admitted to the ICU. Patient was subsequently extubated on 07/01/2024 and transition to BiPAP Acute on chronic hypoxic/hypercapnic respiratory failure Combination of multilobar pneumonia, acute on chronic CHF, and underlying ILD Baseline oxygen requirement is 3 L, patient required BiPAP overnight weaned down to 6 L this morning. Requires ongoing hospitalization for increased oxygen requirements Continue BiPAP at bedtime, wean oxygen as tolerated to SpO2 goal 90% Will continue diuresis for evidence of volume overload, patient slowly improving and transitioned to Bumex 2 mg p.o. daily (2) Multifocal pneumonia: Plan: Multilobar pneumonia with MRSA positive nares Continue ceftriaxone/doxycycline. 5-day course complete 07/04/2024 (3) ILD (interstitial lung disease): Plan: ILD, RLD/OHS Pulmonology consulted. Patient with obesity and restrictive ventilation with hypercapnic respiratory failure. Additionally with interstitial lung disease suspected combination of emphysema/pulmonary fibrosis. Autoimmune workup unremarkable Continue PPV. Patient will require AVAPS discharge for volume targeted ventilation at night Continue Brovana, budesonide, Mucinex. Appreciate pulmonary recommendations (4) ALEXIS (acute kidney injury): Plan: ALEXIS, improved Baseline creatinine 1.51.8 Creatinine elevated on admission 2.67, this has been improving with diuresis consistent with volume overload Creatinine at baseline 1.74 today. Continue Bumex as noted (5) Acute on chronic diastolic CHF (congestive heart failure): Plan: Acute on chronic diastolic congestive heart failure Last echo 2023 EF 60 to 65%, grade 1 diastolic dysfunction Diuresing well remains volume up although progressing well. Continue Bumex 2 mg daily at this time (6) Type 2 diabetes mellitus: Plan: Type II DM BSG range 951 41 last 24 hours, adequately controlled Continue SSI CF 30/CR 10. (7) Schizophrenia: Plan: Schizophrenia Continue carbamazepine, trifluoperazine resumed. Continue 5mg daily Appears mentating near baseline at bedside visit Plan CODE STATUS: Full code DVT prophylaxis: Heparin subcutaneous 3 times daily PT/OT following. patient is a resident of [facility] and is currently a bed hold. Requires ongoing hospitalization for acute on chronic respiratory failure not yet back to baseline Admission and Anticipated Discharge Date Admission Date: June 30, 2024 Subjective Forrest is seen at the bedside this morning. He reports that he feels better but not yet at baseline. Patient was on BiPAP overnight with a respiratory rate of 30, transition to nasal cannula this morning remaining on 6 L. Patient notes he had congestion while using the BiPAP however this seemed to clear this morning once on nasal cannula. Denies shortness of breath, difficulty breathing at assessment. Denies fever chills sweats this morning. Denies chest pain or chest pressure. Physical Exam Physical Exam: General: Alert and oriented to name and place. Answers questions appropriately. HEENT: Atraumatic, normocephalic. Vision and hearing grossly intact Pulm: Crackles in dependent hernández bilaterally without rales/wheezing Cardiac: RRR, -mrg. Radial pulses intact and symmetrical. Abdominal: Nontender, nondistended, soft. BS present. Extremities: Bilateral 12+ pitting edema remains present Results & Data Results & Data Vital Signs (Past 12 Hours) Vital Signs Temp O2 Del Method O2 Flow Rate 07/03/24 15:19 36.5 C 07/03/24 10:54 36.6 C 07/03/24 09:33 Nasal Cannula 6 07/03/24 07:12 36.9 C PG Care Time/CCT Total # of Minutes Spent Total Time Spent with Patient: Total time spent is greater than 50% in coordination of care (as documented) at patient's floor/unit and/or counseling patient: Coding Level of Care Code 70907 SUB INP/OBS CARE 3/50MIN Diagnoses Acute respiratory failure with hypoxia J96.01 Multifocal pneumonia J18.9 ILD (interstitial lung disease) J84.9 ALEXIS (acute kidney injury) N17.9 Acute on chronic diastolic CHF (congestive heart failure) I50.33 Type 2 diabetes mellitus E11.9 Schizophrenia F20.9
[2024-07-03] MEDS: guaiFENesin 600 MG TABCR PO SCH (20:00)
[2024-07-04 06:30] LABS: Hematocrit (blood only) 41.6 % (42.0-52.0); Hemoglobin 13.5 g/dl (14.0-18.0); Mean Corpuscular Hgb Conc 32.5 g/dL (32.0-36.0); Mean Corpuscular Volume 92.4 fL (80.0-100.0); Mean Platelet Volume 10.3 fL (9.4-12.4); Platelet Count 358 K/uL (130-400); RDW Coefficient of Variation 15.9 % (11.5-14.5); RDW Standard Deviation 54.2 fL (36.4-46.3); White Blood Count 15.55 K/ul (4.8-10.8)
[2024-07-04 07:06] LABS: BUN Creatinine Ratio 42.1 (10-20); Calcium 8.9 mg/dl (8.6-10.3); Creatinine Clr Calc Pharmacy 47.6 ml/min; Potassium 4.4 mmol/L (3.5-5.1)
[2024-07-04 07:26] LABS: ANC (manual) 8.24 K/uL (1.4-6.5); Eosinophils # (manual) 0.93 K/uL (0-0.50); Eosinophils % (manual) 6 %; Lymphocytes # (manual) 2.64 K/uL (1.2-3.4); Lymphocytes % (manual) 17 %; Metamyelocytes # (manual) 1.71 K/uL (0-0); Metamyelocytes % (manual) 11 %; Monocytes # (manual) 1.09 K/uL (0.11-0.59); Monocytes % (manual) 7 %; Myelocytes # (manual) 0.78 K/uL (0-0); Myelocytes % (manual) 5 %; Neutrophils # (manual) 8.24 K/uL (1.40-6.50); Neutrophils % (manual) 53 %; Plasma Cells # (manual) 0.16 K/uL (0-0); Plasma Cells % (manual) 1 %; Toxic Granulation 1+
--- NOTE | 2024-07-04 07:34 | Hospitalist Progress Note ---
Date of Service July 04, 2024 Assessment & Plan (1) Acute respiratory failure with hypoxia: Plan: 68-year-old male with past medical history of schizophrenia, chronic kidney disease stage III, chronic hypoxic and hypercapnic respiratory failure using 3 L of oxygen at baseline, chronic diastolic congestive heart failure with preserved ejection fraction, morbid obesity, obesity hypoventilation syndrome, type 2 diabetes mellitus, resident of [facility] who presented with somnolence and shortness of breath and found to be hypoxic, failed BiPAP in ED and required intubation and mechanical ventilation and admitted to the ICU. Patient was subsequently extubated on 07/01/2024 and transition to BiPAP Acute on chronic hypoxic/hypercapnic respiratory failure Combination of multilobar pneumonia, acute on chronic CHF, and underlying ILD Baseline oxygen requirement is 3 L, patient required BiPAP overnight weaned down to 6 L. Requires ongoing hospitalization for increased oxygen requirements Patient was diuresing well with downtrending creatinine, 07/04 creatinine risen to 1.9 with transient hypotension. Bumex held AVAPS being delivered to patient today. Is a bed hold, [facility] is able to take patient on Sunday if medically stable at that time (2) Multifocal pneumonia: Plan: Multilobar pneumonia with MRSA positive nares Continue ceftriaxone/doxycycline. 5-day course Rocephin complete 07/04/2024 (3) ILD (interstitial lung disease): Plan: ILD, RLD/OHS Pulmonology consulted. Patient with obesity and restrictive ventilation with hypercapnic respiratory failure. Additionally with interstitial lung disease suspected combination of emphysema/pulmonary fibrosis. Autoimmune workup u nremarkable Formoterol substituted for formulary Brovana, budesonide continued Continue PPV. Patient will require AVAPS for volume targeted ventilation at night. This is being delivered 07/04/2024 Per Pulm Recs:" NIMV settings should be AVAPS-AE; Breath rate: auto; Inspiratory time:auto; Sigh: off; Tidal Volume: 350-450, PS min: 4-10 PS max: 12-20; EPAP min: 6-10; EPAP max: 10-16; AVAPS rate: 14 during sleep and as needed" appreciate recommendations. Will have this set up once AVAPS is delivered. (4) ALEXIS (acute kidney injury): Plan: ALEXIS, improved Baseline creatinine 1.51.8 Creatinine elevated on admission 2.67, this has been improving with diuresis consistent with volume overload however patient was mildly hypotensive this morning and with uptrending creatinine and tachycardia mucous membranes suggesting shift to hypovolemia. Diuretics held. Oral liquids encouraged. (5) Acute on chronic diastolic CHF (congestive heart failure): Plan: Acute on chronic diastolic congestive heart failure Last echo 2023 EF 60 to 65%, grade 1 diastolic dysfunction (6) Type 2 diabetes mellitus: Plan: Type II DM BSG range 951 41 last 24 hours, adequately controlled Continue SSI CF 30/CR 10. (7) Schizophrenia: Plan: Schizophrenia Continue carbamazepine, trifluoperazine resumed. Continue 5mg daily Appears mentating near baseline at bedside visit Plan CODE STATUS: Full code DVT prophylaxis: Heparin subcutaneous 3 times daily PT/OT following. patient is a resident of [facility] and is currently a bed hold, if medically stable they would be able to take patient 07/07 Admission and Anticipated Discharge Date Admission Date: June 30, 2024 Subjective Seen the bedside this morning. Reports he is thirsty. Otherwise no acute complaints. Reports he still feels a little short of breath and weak but much better than he did previously. No chest pain chest pressure fever chills or sweats last night. Reports he would like to have some more water otherwise no questions or concerns at bedside Physical Exam Physical Exam: General: Alert and oriented to name and place. Answers questions appropriately. HEENT: Atraumatic, normocephalic. Vision and hearing grossly intact Pulm:Grossly CTAB without rales/wheezing Cardiac: RRR, -mrg. Radial pulses intact and symmetrical. Abdominal: Nontender, nondistended, soft. BS present. Extremities: Bilateral 1+ pitting edema remains present Results & Data Results & Data Vital Signs (Past 12 Hours) Vital Signs Temp Pulse Pulse Resp BP Pulse Ox O2 Del Method 07/04/24 02:34 36.6 C 56 L 18 97/55 L 96 Oxymask 07/04/24 00:00 62 07/03/24 22:53 60 28 H 93 07/03/24 22:45 36.5 C 56 L 18 123/65 96 BiPAP 07/03/24 20:00 Nasal Cannula O2 Flow Rate 07/04/24 02:34 6 07/04/24 00:00 07/03/24 22:53 3 07/03/24 22:45 07/03/24 20:00 6 PG Care Time/CCT Total # of Minutes Spent Total Time Spent with Patient: Total time spent is greater than 50% in coordination of care (as documented) at patient's floor/unit and/or counseling patient: Coding Level of Care Code 63869 SUB INP/OBS CARE 3/50MIN Diagnoses Acute respiratory failure with hypoxia J96.01 Multifocal pneumonia J18.9 ILD (interstitial lung disease) J84.9 ALEXIS (acute kidney injury) N17.9 Acute on chronic diastolic CHF (congestive heart failure) I50.33 Type 2 diabetes mellitus E11.9 Schizophrenia F20.9
--- NOTE | 2024-07-04 08:28 | Pulmonology Progress Note ---
Date of Service July 04, 2024 Assessment & Plan (1) Hypercarbia: (2) Acute on chronic heart failure: (3) Respiratory acidosis: (4) Class 3 severe obesity due to excess calories with serious comorbidity and body mass index (BMI) of 45.0 to 49.9 in adult: (5) MARIAJOSE (obstructive sleep apnea): (6) ILD (interstitial lung disease): (7) Acute on chronic respiratory failure with hypoxia and hypercapnia: Plan 68 YOM with morbid obesity COPD, and HfpEF- required emergent intubation in the ER for hypercarbic respiratory failure. CT chest 06/30/2024 personally reviewed: Patchy opacities appreciated bilaterally especially in the lower lobes Cardiomegaly Insignificant mediastinal lymphadenopathy Patient seems to have chronic interstitial changes, appreciated especially in the lower lobes as well as right middle lobe. Autoimmune workup has been negative 12/11/2022 -- Acute on Chronic hypoxic hypercarbic respiratory failure Extubated 07/01/2024 - Respiratory Biofire negative for viruses that are tested for Usually on 3 L oxygen at home Patient's significant morbid obesity has resulted in a restrictive thoracic cage abnormality. Because of this patient does not fully expand her lungs for proper ventilation causing recurrent hypercapnic respiratory failure with a PaCo2 of 50. Multiple underlying comorbidities are noted with a weight of 229 kg. Patient would benefit greatly from noninvasive ventilation which would improve lung function and potentially reduce worsening of symptoms. A BiPAP would be ineffective as patient requires a volume targeted mode. Interruption of ventilator support would lead to a decline of health status. PFT 06/13/2023 shows TLC of 59% with FVC of 58% inclining towards moderate restrictive lung dysfunction with moderate decrease in DLCO NIMV settings should be AVAPS-AE; Breath rate: auto; Inspiratory time:auto; Sigh: off; Tidal Volume: 350-450, PS min: 4-10 PS max: 12-20; EPAP min: 6-10; EPAP max: 10-16; AVAPS rate: 14 during sleep and as needed -- Interstitial lung disease Likely a combination of CPFE Autoimmune workup was negative for everything Follows up with Dr. Lutz as an outpatient -- MARIAJOSE/OHS Noncompliant with CPAP/BiPAP Plan: Patient's creatinine started to trend up. Recommend to hold diuretics and can go back to his home dose tomorrow Continue Brovana and budesonide Add Mucinex with flutter valve Complete the course of antibiotics Keep O2 saturation between 90-92% Recommend discontinuing Baer catheter Case was discussed with RN at bedside Please note the above document was generated using voice recognition software. It may contain grammatical, syntax or spelling errors.Any formal questions or concerns about the content, text or information contained within the body of this dictation should be directly addressed to the provider for clarification. Admission and Anticipated Discharge Date Admission Date: June 30, 2024 Subjective Patient seen and examined at bedside. No acute distress, no adverse events overnight Patient did use his BiPAP overnight He was saturating 93% on 2 L nasal cannula Denies any abdominal pain No headache, blurry vision Has been afebrile Diuresing well Review of Systems 2 Review of Systems: All systems reviewed & are unremarkable except as noted in Subjective Physical Exam 2 Physical Exam: Constitutional: No acute distress HEENT: EOMI, PERRLA Respiratory system: Decreased air entry bilaterally, no wheeze, rhonchi, positive crackles bilateral lower lobes CVS: S1-S2 positive, no murmurs or gallops Abdomen: Soft, nontender, nondistended, positive bowel sounds x4, obese Extremities: +2 pulses bilaterally radialis/ dorsalis pedis, no cyanosis, +1 pitting edema bilateral lower extremities Neuro: Awake alert oriented x 3 Psych: Normal mood and affect G/U: Positive Baer Skin: no rashes, warm and dry Lymphatic: no cervical or axillary lymphadenopathy Results & Data Results & Data Vital Signs (Past 12 Hours) Vital Signs Temp Pulse Pulse Resp BP Pulse Ox O2 Del Method 07/04/24 07:27 36.5 C 61 20 90/45 L 96 Oxymask 07/04/24 02:34 36.6 C 56 L 18 97/55 L 96 Oxymask 07/04/24 00:00 62 07/03/24 22:53 60 28 H 93 07/03/24 22:45 36.5 C 56 L 18 123/65 96 BiPAP O2 Flow Rate 07/04/24 07:27 07/04/24 02:34 6 07/04/24 00:00 07/03/24 22:53 3 07/03/24 22:45 Laboratory Results 07/04/24 05:30 07/04/24 05:30 PG Care Time/CCT Total # of Minutes Spent Total Time Spent with Patient: Total time spent is greater than 50% in coordination of care (as documented) at patient's floor/unit and/or counseling patient: Coding Level of Care Code 08859 SUB INP/OBS CARE 2/35MIN Diagnoses Hypercarbia R06.89 Acute on chronic heart failure I50.9 Respiratory acidosis E87.29 Class 3 severe obesity due to excess calories with serious comorbidity and body mass index (BMI) of 45.0 to 49.9 in adult E66.01; Z68.42 MARIAJOSE (obstructive sleep apnea) G47.33 ILD (interstitial lung disease) J84.9 Acute on chronic respiratory failure with hypoxia and hypercapnia J96.21; J96.22
[2024-07-04] MEDS ORDERED: FORMOTEROL 20 MCG/2 ML VIAL NEB SCH (09:00)
[2024-07-04] MEDS: FORMOTEROL 20 MCG/2 ML VIAL NEB SCH (10:15)
[2024-07-04] MEDS: BUDESONIDE 0.25 MG/2 ML VIAL (PULMICORT) NEB SCH (10:21)
[2024-07-04] MEDS: SODIUM BICARB 8.4% INJ 50 MEQ/50 ML SYR IV ONE (13:59)
[2024-07-05 08:02] LABS: Hemoglobin 13.6 g/dl (14.0-18.0); Mean Corpuscular Hemoglobin 30.4 pg (25.0-34.0); Mean Corpuscular Volume 89.3 fL (80.0-100.0); Platelet Count 359 K/uL (130-400); RDW Coefficient of Variation 15.5 % (11.5-14.5); RDW Standard Deviation 50.9 fL (36.4-46.3); Red Blood Count 4.48 M/uL (4.70-6.10); White Blood Count 13.93 K/ul (4.8-10.8)
--- NOTE | 2024-07-05 08:04 | Pulmonology Progress Note ---
Date of Service July 05, 2024 Assessment & Plan (1) Hypercarbia: (2) Acute on chronic heart failure: (3) Respiratory acidosis: (4) Class 3 severe obesity due to excess calories with serious comorbidity and body mass index (BMI) of 45.0 to 49.9 in adult: (5) MARIAJOSE (obstructive sleep apnea): (6) ILD (interstitial lung disease): (7) Acute on chronic respiratory failure with hypoxia and hypercapnia: Plan 68 YOM with morbid obesity COPD, and HfpEF- required emergent intubation in the ER for hypercarbic respiratory failure. CT chest 06/30/2024 personally reviewed: Patchy opacities appreciated bilaterally especially in the lower lobes Cardiomegaly Insignificant mediastinal lymphadenopathy Patient seems to have chronic interstitial changes, appreciated especially in the lower lobes as well as right middle lobe. Autoimmune workup has been negative 12/11/2022 -- Acute on Chronic hypoxic hypercarbic respiratory failure Extubated 07/01/2024 - Respiratory Biofire negative for viruses that are tested for Usually on 3 L oxygen at home Patient's significant morbid obesity has resulted in a restrictive thoracic cage abnormality. Because of this patient does not fully expand her lungs for proper ventilation causing recurrent hypercapnic respiratory failure with a PaCo2 of 50. Multiple underlying comorbidities are noted with a weight of 229 kg. Patient would benefit greatly from noninvasive ventilation which would improve lung function and potentially reduce worsening of symptoms. A BiPAP would be ineffective as patient requires a volume targeted mode. Interruption of ventilator support would lead to a decline of health status. PFT 06/13/2023 shows TLC of 59% with FVC of 58% inclining towards moderate restrictive lung dysfunction with moderate decrease in DLCO NIMV settings should be AVAPS-AE; Breath rate: auto; Inspiratory time:auto; Sigh: off; Tidal Volume: 350-450, PS min: 4-10 PS max: 12-20; EPAP min: 6-10; EPAP max: 10-16; AVAPS rate: 14 during sleep and as needed -- Interstitial lung disease Likely a combination of CPFE Autoimmune workup was negative for everything Follows up with Dr. Lutz as an outpatient -- MARAIJOSE/OHS Noncompliant with CPAP/BiPAP Plan: In/out: -9.1 L since coming to the hospital Continue Brovana and budesonide recommend the same regimen even on discharge Continue Mucinex with flutter valve S/p antibiotics Keep O2 saturation between 90-92% Recommend discontinuing Baer catheter Case was discussed with primary team No further recommendation from pulmonary perspective, will sign off Please call directly with any questions Please note the above document was generated using voice recognition software. It may contain grammatical, syntax or spelling errors.Any formal questions or concerns about the content, text or information contained within the body of this dictation should be directly addressed to the provider for clarification. Admission and Anticipated Discharge Date Admission Date: June 30, 2024 Review of Systems 2 Review of Systems: All systems reviewed & are unremarkable except as noted in Subjective Physical Exam 2 Physical Exam: Constitutional: No acute distress HEENT: EOMI, PERRLA Respiratory system: Decreased air entry bilaterally, no wheeze, rhonchi, positive crackles bilateral lower lobes CVS: S1-S2 positive, no murmurs or gallops Abdomen: Soft, nontender, nondistended, positive bowel sounds x4, obese Extremities: +2 pulses bilaterally radialis/ dorsalis pedis, no cyanosis, +1 pitting edema bilateral lower extremities Neuro: Awake alert oriented x 3 Psych: Normal mood and affect G/U: Positive Baer Skin: no rashes, warm and dry Lymphatic: no cervical or axillary lymphadenopathy Results & Data Results & Data Vital Signs (Past 12 Hours) Vital Signs Temp Pulse Pulse Resp BP BP Pulse Ox 07/05/24 07:00 36.6 C 62 18 156/93 H 95 07/05/24 04:00 36.6 C 58 L 18 158/88 H 97 07/05/24 00:00 67 07/05/24 00:00 36.6 C 60 19 138/88 97 07/04/24 21:21 36.4 C L 64 20 150/97 H 94 O2 Del Method O2 Flow Rate 07/05/24 07:00 Nasal Cannula 07/05/24 04:00 BiPAP 07/05/24 00:00 07/05/24 00:00 BiPAP 07/04/24 21:21 Room Air 2 Laboratory Results 07/05/24 07:26 PG Care Time/CCT Total # of Minutes Spent Total Time Spent with Patient: Total time spent is greater than 50% in coordination of care (as documented) at patient's floor/unit and/or counseling patient: Coding Level of Care Code 27470 SUB INP/OBS CARE 2/35MIN Diagnoses Hypercarbia R06.89 Acute on chronic heart failure I50.9 Respiratory acidosis E87.29 Class 3 severe obesity due to excess calories with serious comorbidity and body mass index (BMI) of 45.0 to 49.9 in adult E66.01; Z68.42 MARIAJOSE (obstructive sleep apnea) G47.33 ILD (interstitial lung disease) J84.9 Acute on chronic respiratory failure with hypoxia and hypercapnia J96.21; J96.22
[2024-07-05 08:13] LABS: Calcium 8.9 mg/dl (8.6-10.3); Creatinine Clr Calc Pharmacy 62.9 ml/min; Potassium 4.4 mmol/L (3.5-5.1)
[2024-07-05 08:20] LABS: ALC (manual) 1.39 K/uL (1.2-3.4); ANC (manual) 9.47 K/uL (1.4-6.5); Eosinophils # (manual) 0.56 K/uL (0-0.50); Eosinophils % (manual) 4 %; Lymphocytes # (manual) 1.25 K/uL (1.2-3.4); Lymphocytes % (manual) 9 %; Metamyelocytes # (manual) 0.98 K/uL (0-0); Metamyelocytes % (manual) 7 %; Monocytes # (manual) 0.56 K/uL (0.11-0.59); Monocytes % (manual) 4 %; Myelocytes # (manual) 0.98 K/uL (0-0); Myelocytes % (manual) 7 %; Neutrophils # (manual) 9.47 K/uL (1.40-6.50); Neutrophils % (manual) 68 %; Plasma Cells # (manual) 0.14 K/uL (0-0); Plasma Cells % (manual) 1 %; Polychromasia 1+
[2024-07-05] MEDS: ACETAMINOPHEN 500 MG TAB PO PRN (09:21)
--- NOTE | 2024-07-05 11:55 | Hospitalist Progress Note ---
Date of Service July 05, 2024 Assessment & Plan (1) Acute respiratory failure with hypoxia: Plan: 68-year-old male with past medical history of schizophrenia, chronic kidney disease stage III, chronic hypoxic and hypercapnic respiratory failure using 3 L of oxygen at baseline, chronic diastolic congestive heart failure with preserved ejection fraction, morbid obesity, obesity hypoventilation syndrome, type 2 diabetes mellitus, resident of [facility] who presented with somnolence and shortness of breath and found to be hypoxic, failed BiPAP in ED and required intubation and mechanical ventilation and admitted to the ICU. Patient was subsequently extubated on 07/01/2024 and transition to BiPAP Acute on chronic hypoxic/hypercapnic respiratory failure Combination of multilobar pneumonia, acute on chronic CHF, and underlying ILD Baseline oxygen requirement is 3 L, patient required BiPAP overnight weaned down to 6 L. Requires ongoing hospitalization for increased oxygen requirements Patient was diuresing well with downtrending creatinine, 07/04 creatinine risen to 1.9 with transient hypotension. Bumex held. Creatinine subsequently downtrending and near baseline, will resume home Bumex 07/06 if renal function stable. Patient tolerated AVAPS last night although reports he does not like not like the feeling of the positive pressure mask. Oxygen is back down to his baseline requirement of 2-3 L on 07/05 Medically stable for discharge, pending placement back to [facility] anticipate this is available 07/07 (2) Multifocal pneumonia: Plan: Multilobar pneumonia with MRSA positive nares Continue ceftriaxone/doxycycline. 5-day course of antibiotics are complete with clinical improvement, patient remains afebrile (3) ILD (interstitial lung disease): Plan: ILD, RLD/OHS Pulmonology consulted. Patient with obesity and restrictive ventilation with hypercapnic respiratory failure. Additionally with interstitial lung disease suspected combination of emphysema/pulmonary fibrosis. Autoimmune workup unremarkable Formoterol substituted for formulary Brovana, budesonide continued Continue PPV. Patient will require AVAPS for volume targeted ventilation at night. Has been delivered to the patient Per Pulm Recs:" NIMV settings should be AVAPS-AE; Breath rate: auto; Inspiratory time:auto; Sigh: off; Tidal Volume: 350-450, PS min: 4-10 PS max: 12-20; EPAP min: 6-10; EPAP max: 10-16; AVAPS rate: 14 during sleep and as needed" gerard reciate recommendations. Will have this set up once AVAPS is delivered. (4) ALEXIS (acute kidney injury): Plan: ALEXIS, improved Baseline creatinine 1.51.8 Creatinine elevated on admission 2.67, this has been improving with diuresis consistent with volume overload, volume status improved and creatinine subsequently started to increase again. Bumex was held, creatinine is now improving. If remaining stable will resume home Bumex dosing for maintenance 07/06 (5) Acute on chronic diastolic CHF (congestive heart failure): Plan: Acute on chronic diastolic congestive heart failure Last echo 2023 EF 60 to 65%, grade 1 diastolic dysfunction (6) Type 2 diabetes mellitus: Plan: Type II DM BSG range 951 41 last 24 hours, adequately controlled Continue SSI CF 30/CR 10. (7) Schizophrenia: Plan: Schizophrenia Continue carbamazepine, trifluoperazine resumed. Continue 5mg daily Appears mentating near baseline at bedside visit Plan CODE STATUS: Full code DVT prophylaxis: Heparin subcutaneous 3 times daily PT/OT following. Oxygen is now back to baseline requirements. Anticipate back to [facility] bed available 07/07/2024 per CM Admission and Anticipated Discharge Date Admission Date: June 30, 2024 Subjective Seen at the bedside. Reports he feels well and relatively normal this morning. Use the AVAPS last night, felt like this was frustrating and slightly suffocating to him but reports he was able to tolerate it overnight. Breathing feels like it is back to his normal baseline. Denies fever chills sweats, denies difficulty breathing. Has been weaned down to 2-3 L of nasal cannula this morning which she reports is his baseline. Is aware he is waiting placement back to [facility] likely in available Sunday, no concerns at time of visit Physical Exam Physical Exam: General: Alert and oriented to name and place. Answers questions appropriately. HEENT: Atraumatic, normocephalic. Vision and hearing grossly intact Pulm: Lungs are clear to oscillation bilaterally, no wheezes/rales. Trace bibasilar crackles which improved slightly on deep breathing Cardiac: RRR, -mrg. Radial pulses intact and symmetrical. Abdominal: Nontender, nondistended, soft. BS present. Extremities: Bilateral 1+ pitting edema remains present Results & Data Results & Data Vital Signs (Past 12 Hours) Vital Signs Temp Pulse Pulse Resp BP Pulse Ox O2 Del Method 10/12/24 11:06 Room Air 07/05/24 10:36 36.6 C 78 20 111/61 98 Nasal Cannula 07/05/24 08:00 59 L 07/05/24 07:00 36.6 C 62 18 156/93 H 95 Nasal Cannula 07/05/24 04:00 36.6 C 58 L 18 158/88 H 97 BiPAP 07/05/24 00:00 67 07/05/24 00:00 36.6 C 60 19 138/88 97 BiPAP PG Care Time/CCT Total # of Minutes Spent Total Time Spent with Patient: Total time spent is greater than 50% in coordination of care (as documented) at patient's floor/unit and/or counseling patient: Coding Level of Care Code 55006 SUB INP/OBS CARE 2/35MIN Diagnoses Acute respiratory failure with hypoxia J96.01 Multifocal pneumonia J18.9 ILD (interstitial lung disease) J84.9 ALEXIS (acute kidney injury) N17.9 Acute on chronic diastolic CHF (congestive heart failure) I50.33 Type 2 diabetes mellitus E11.9 Schizophrenia F20.9
[2024-07-06 07:09] LABS: BUN Creatinine Ratio 42.9 (10-20); Calcium 8.6 mg/dl (8.6-10.3); Creatinine Clr Calc Pharmacy 63.8 ml/min; Potassium 4.4 mmol/L (3.5-5.1)
[2024-07-06 07:29] LABS: ANC (manual) 6.42 K/uL (1.4-6.5); Eosinophils # (manual) 0.47 K/uL (0-0.50); Eosinophils % (manual) 4 %; Hematocrit (blood only) 39.9 % (42.0-52.0); Hemoglobin 12.9 g/dl (14.0-18.0); Lymphocytes % (manual) 24 %; Mean Corpuscular Hemoglobin 29.5 pg (25.0-34.0); Mean Corpuscular Hgb Conc 32.3 g/dL (32.0-36.0); Mean Corpuscular Volume 91.1 fL (80.0-100.0); Mean Platelet Volume 10.4 fL (9.4-12.4); Metamyelocytes # (manual) 0.82 K/uL (0-0); Metamyelocytes % (manual) 7 %; Monocytes # (manual) 0.35 K/uL (0.11-0.59); Monocytes % (manual) 3 %; Myelocytes # (manual) 0.82 K/uL (0-0); Myelocytes % (manual) 7 %; Neutrophils # (manual) 6.42 K/uL (1.40-6.50); Neutrophils % (manual) 55 %; Platelet Count 365 K/uL (130-400); Polychromasia 1+; RDW Coefficient of Variation 15.2 % (11.5-14.5); RDW Standard Deviation 50.4 fL (36.4-46.3); Red Blood Count 4.38 M/uL (4.70-6.10); White Blood Count 11.67 K/ul (4.8-10.8)
--- NOTE | 2024-07-06 12:17 | Hospitalist Progress Note ---
Date of Service July 06, 2024 Assessment & Plan (1) Acute respiratory failure with hypoxia: Plan: 68-year-old male with past medical history of schizophrenia, chronic kidney disease stage III, chronic hypoxic and hypercapnic respiratory failure using 3 L of oxygen at baseline, chronic diastolic congestive heart failure with preserved ejection fraction, morbid obesity, obesity hypoventilation syndrome, type 2 diabetes mellitus, resident of [facility] who presented with somnolence and shortness of breath and found to be hypoxic, failed BiPAP in ED and required intubation and mechanical ventilation and admitted to the ICU. Patient was subsequently extubated on 07/01/2024 and transition to BiPAP Acute on chronic hypoxic/hypercapnic respiratory failure Combination of multilobar pneumonia, acute on chronic CHF, and underlying ILD Baseline oxygen requirement is 3 L, patient required BiPAP overnight weaned down to 6 L. Requires ongoing hospitalization for increased oxygen requirements Patient was diuresing well with downtrending creatinine, 07/04 creatinine risen to 1.9 with transient hypotension. Bumex held. Creatinine subsequently downtrending and near baseline, will resume home Bumex 07/06 if renal function stable. Tolerates AVAPS, although finds this uncomfortable. Continue AVAPS with settings as recommended by pulmonary below Oxygen is back down to his baseline requirement of 2-3 L on 07/05. May titrate oxygen as needed to maintain saturations 90-94%. If rising oxygen requirements, please notify provider. AVAPS at bedtime. Medically stable for discharge, pending placement back to [facility] anticipate this is available 07/07 Downgraded to MSO (2) Multifocal pneumonia: Plan: Multilobar pneumonia with MRSA positive nares Continue ceftriaxone/doxycycline. 5-day course of antibiotics are complete with clinical improvement, patient remains afebrile (3) ILD (interstitial lung disease): Plan: ILD, RLD/OHS Pulmonology consulted. Patient with obesity and restrictive ventilation with hypercapnic respiratory failure. Additionally with interstitial lung disease suspected combination of emphysema/pulmonary fibrosis. Autoimmune workup unremarkable Formoterol substituted for formulary Brovana, budesonide continued Continue PPV. Patient will require AVAPS for volume targeted ventilation at night. Has been delivered to the patient Per Pulm Recs:" NIMV settings should be AVAPS-AE; Breath rate: auto; Inspiratory time:auto; Sigh: off; Tidal Volume: 350-450, PS min: 4-10 PS max: 12-20; EPAP min: 6-10; EPAP max: 10-16; AVAPS rate: 14 during sleep and as needed" appreciate recommendations. Will have this set up once AVAPS is delivered. (4) ALEXIS (acute kidney injury): Plan: ALEXIS, improved Baseline creatinine 1.51.8 Creatinine elevated on admission 2.67, this has been improving with diuresis consistent with volume overload, volume status improved and creatinine subsequently started to increase again. Bumex was held, creatinine is now i mproving. Creatinine remained stable 07/06 now at 1.47. Home maintenance Bumex resumed (5) Acute on chronic diastolic CHF (congestive heart failure): Plan: Acute on chronic diastolic congestive heart failure Last echo 2023 EF 60 to 65%, grade 1 diastolic dysfunction Appears near euvolemic with the addition of some lower extremity stasis chronic superimposed on his CHF (6) Type 2 diabetes mellitus: Plan: Type II DM BSG range 951 41 last 24 hours, adequately controlled Continue SSI CF 30/CR 10. (7) Schizophrenia: Plan: Schizophrenia Continue carbamazepine, trifluoperazine resumed. Continue 5mg daily Appears mentating near baseline at bedside visit Plan CODE STATUS: Full code DVT prophylaxis: Heparin subcutaneous 3 times daily PT/OT following. Oxygen is now back to baseline requirements. Anticipate back to [facility] bed available 07/07/2024 per CM. Downgraded to MSO Admission and Anticipated Discharge Date Admission Date: June 30, 2024 Rory Shrestha seen at the bedside. Reports an uneventful night. No fevers chills or sweats.. Reports that he finds the mask suffocating and uncomfortable, but did tolerate this overnight. Feels ready to go back to [facility]. Is a bed hold with bed availability ready tomorrow, no questions or concerns at bedside Physical Exam Physical Exam: General: Alert and oriented to name and place. Answers questions appropriately. HEENT: Atraumatic, normocephalic. Vision and hearing grossly intact Pulm: Diminished but grossly clear without wheezes/rales Cardiac: RRR, -mrg. Radial pulses intact and symmetrical. Abdominal: Nontender, nondistended, soft. BS present. Extremities: Bilateral 1+ pitting edema remains present Results & Data Results & Data Vital Signs (Past 12 Hours) Vital Signs Temp Pulse Resp BP Pulse Ox O2 Del Method O2 Flow Rate 07/06/24 10:36 36.7 C 62 14 127/88 3 L Nasal Cannula 07/06/24 07:55 Nasal Cannula 3 07/06/24 04:00 36.6 C 74 20 125/68 97 Nasal Cannula 3 PG Care Time/CCT Total # of Minutes Spent Total Time Spent with Patient: Total time spent is greater than 50% in coordination of care (as documented) at patient's floor/unit and/or counseling patient: Coding Level of Care Code 85198 SUB INP/OBS CARE 2/35MIN Diagnoses Acute respiratory failure with hypoxia J96.01 Multifocal pneumonia J18.9 ILD (interstitial lung disease) J84.9 ALEXIS (acute kidney injury) N17.9 Acute on chronic diastolic CHF (congestive heart failure) I50.33 Type 2 diabetes mellitus E11.9 Schizophrenia F20.9
[2024-07-06] MEDS: ARTIFICIAL TEARS OPB PRN (21:03)
[2024-07-06] MEDS: DORZOLAMIDE/TIMOLOL 22.3/6.8MG/ML 10 ML BTL OP SCH (22:59)
[2024-07-07 06:44] LABS: Hematocrit (blood only) 37.6 % (42.0-52.0); Hemoglobin 12.7 g/dl (14.0-18.0); Mean Corpuscular Hemoglobin 30.4 pg (25.0-34.0); Mean Corpuscular Hgb Conc 33.8 g/dL (32.0-36.0); Mean Platelet Volume 9.9 fL (9.4-12.4); Platelet Count 353 K/uL (130-400); RDW Standard Deviation 50.2 fL (36.4-46.3); Red Blood Count 4.18 M/uL (4.70-6.10); White Blood Count 12.78 K/ul (4.8-10.8)
[2024-07-07 07:07] LABS: BUN Creatinine Ratio 35.1 (10-20); Calcium 8.5 mg/dl (8.6-10.3); Creatinine Clr Calc Pharmacy 54.6 ml/min; Potassium 4.2 mmol/L (3.5-5.1)
[2024-07-07 07:51] LABS: ALC (manual) 1.79 K/uL (1.2-3.4); ANC (manual) 8.95 K/uL (1.4-6.5); Eosinophils # (manual) 0.38 K/uL (0-0.50); Eosinophils % (manual) 3 %; Lymphocytes # (manual) 1.79 K/uL (1.2-3.4); Lymphocytes % (manual) 14 %; Metamyelocytes # (manual) 0.64 K/uL (0-0); Metamyelocytes % (manual) 5 %; Monocytes # (manual) 0.89 K/uL (0.11-0.59); Monocytes % (manual) 7 %; Myelocytes # (manual) 0.13 K/uL (0-0); Myelocytes % (manual) 1 %; Neutrophils # (manual) 8.95 K/uL (1.40-6.50); Neutrophils % (manual) 70 %; RBC Morphology Unremarkable
[2024-07-07 07:59] VITALS: TEMP 98.2; O2SAT 93
[2024-07-07 08:00] VITALS: RESP 20
[2024-07-07] MEDS ORDERED: ALBUT/IPRATROP 3MG/0.5MG NEB 3 ML VIAL NEB PRN (08:22)
--- NOTE | 2024-07-07 11:05 | Discharge Summary ---
Discharge Summary Date of Service July 07, 2024 Principal Dx & Hospital Course #1 = Principal Diagnosis (1) Acute respiratory failure with hypoxia: Presented with acute on chronic respiratory failure with hypoxia and hypercapnia from exacerbation of diastolic CHF and possible pneumonia. He is now back to his baseline 3 L of oxygen per nasal cannula. (2) Multifocal pneumonia: Suspected on admission. He was treated with intravenous antibiotics while hospitalized and has completed his antibiotic course (3) ILD (interstitial lung disease): Chronic. Pulmonology consultation and recommendations appreciated. (4) ALEXIS (acute kidney injury): Acute on chronic kidney disease stage III present on admission. Now resolved. Monitor intake and output. (5) Acute on chronic diastolic CHF (congestive heart failure): . Treated with parenteral diuretic therapy. His usual Lasix 60 mg daily will be increased to 80 mg twice daily at discharge. (6) Type 2 diabetes mellitus: ADA diet. Sliding scale coverage. (7) Schizophrenia: Stable. Continue current medical management Plan Return to [facility] today, July 07 Admission HPI Per Admitting Provider Fabian lBack is a 68yo male with history of Schizophrenia, HLP, HFpEF (EF 60- 65%, Grade I Diastolic dysfunction per echo 04/03/24), obesity hypoventilation syndrome and chronic respiratory failure with hypoxia and hypercapnia presenting from [facility] with SOB and lethargy as well as cough x 2 days. Upon arrival to the ER patient tachypneic with RR of 38 bpm, on supplemental O2 via NRB 15L. Saturations adequate. Patient was placed on BiPAP 12/5, 40% FiO2. VBG on these settings 7.14/71/110. During my encounter patient obtunded, minimal response to deep sternal rub. BiPAP mask appeared to be fitting well with no significant leak. TV 400-500's. Repeat VBG with 7.16/69/76. Due to patient's failure to improve on BiPAP and obtunded status he was intubated in the ER for acute on chronic respiratory failure with hypercarbia. ER Course: Ceftriaxone Doxycycline Discharge Exam General-alert and oriented x3, no fever. Obese HEENT-head atraumatic and normocephalic, pupils equal and reactive to light, extraocular muscles intact Neck-no lymphadenopathy or thyromegaly, trachea midline Chest-bibasilar inspiratory rales. No wheezing Cardiac-regular rate and rhythm, normal S1 and S2 Abdomen-normal bowel sounds, no hepatosplenomegaly Extremities-1+ pitting edema bilateral lower extremities below the knees Neuro-cranial nerves II through XII intact, motor and sensory function within normal limits, strength symmetrical with generalized weakness, no focal deficits Psych-flat affect Discharge Plan Discharge Items Patient Disposition: Transfer Group Home Fac Reason For Visit: ACUTE ON CHRONIC RESPIRATORY FAILURE W/ HYPERCARBI Discharge Diagnosis: Acute on chronic hypoxic/hypercapnic respiratory failure, acute on chronic diastolic CHF, possible pneumonia Activity: Resume your previous activity Non-emergency contact: Primary Care Provider Call non-emergency contact if: your symptoms worsen Follow-up/Referrals: Gentry Esparza, [Primary Care Provider] - Diet: Carb Consistent or DM2 and Heart Healthy Addtl Attending Provider Instructions: Lasix dosage has been increased to 80 mg twice daily Pending Studies at Discharge: No Stand-Alone Forms: My [facility] Skilled Items Patient informed of condition?: Yes DNR: Yes Discharge Level of Care: Skilled Communicable Disease: No Discharge Prognosis: Stable Lines: None Urinary Catheter: No Medications and DC Order Prescriptions: New furosemide [Lasix] 80 mg tablet 80 mg PO BID Qty: 60 0RF Continued trifluoperazine 5 mg tablet 5 mg PO DAILY Qty: 90 3RF carbamazepine [Tegretol XR] 100 mg tablet extended release 12 hr 100 mg PO BID 90 Days Qty: 180 3RF coenzyme Q10 [Co Q-10] 10 mg capsule 10 mg PO BID Rx Instructions: Unable to verify OTC meds at this date/time (DME) Portable Oxygen Misc See Rx Instructions .Route Qty: 1 0RF Rx Instructions: 3 LPM dorzolamide-timolol 22.3-6.8 mg/mL Drops 1 drp ophthalmic (eye) BID Qty: 10 0RF latanoprost 0.005 % Drops 1 drp ophthalmic (eye) HS Qty: 2.5 0RF acetaminophen [Tylenol Extra Strength] 500 mg tablet 1,000 mg PO Q8H PRN (Reason: fever or pain) Rx Instructions: max 3000mg in 24 hours trifluoperazine 5 mg tablet 5 mg PO DAILY prednisone 40 mg PO DAILY MDD 5days potassium chloride 20 meq PO DAILY oxycodone 5 mg PO DAILY omeprazole 20 mg PO HS modafinil 100 mg PO DAILY PRN (Reason: somnolence ) Milk of [employer]comesia 30 ml PO Q OTHER DAY PRN (Reason: constipation ) ipratropium-albuterol 3 ml Q4 PRN (Reason: wheezing ) gabapentin 100 mg PO HS saw palmetto 500 mg Capsule 500 mg PO DAILY Rx Instructions: Unable to verify OTC meds at this date/time glucosamine-chondroitin [Osteo Bi-Flex] 250-200 mg Tablet 2 tab PO DAILY Rx Instructions: Unable to verify OTC meds at this date/time metoprolol succinate 25 mg Tablet Extended Release 24 Hr 25 mg PO QAM Qty: 30 5RF modafinil 100 mg Tablet 100 mg PO DAILY Qty: 30 2RF potassium chloride 20 mEq tablet extended release 20 meq PO QAM Qty: 30 2RF Rx Instructions: start 04/13/24. Discontinued furosemide 40 mg tablet 60 mg PO QAM Rx Instructions: start 04/13/24. Discharge Orders: Discharge Order- CHF (Routine); Ordered 07/07/24 Ordered By: Gomez Hernandez Admission Data Admit Date/Time: 06/30/24 02:03 Attending Provider: Gomez Hernandez Admit Provider: Natalia Lee Primary Care Provider: Gentry Esparza Other Providers: Natalia Lee; Frank [facility] Stay Data Consultations 06/30/24 01:32 ED Decision to Admit Stat 06/30/24 03:29 Consult Tile Layer Supervisor Routine Diagnostic Imagining Performed 06/30/24 00:24 CT chest diagnostic wo con Stat Pending Results Patient Have Any Pending Studies at Discharge: No Discharge Instructions Given to Patient (Per Discharging Provider) Lasix dosage has been increased to 80 mg twice daily Total Time Total Time Spent Total Time Spent (In Minutes): 45 minutes Coding Level of Care Code 99147 INP/OBS DISCH >30 MIN Diagnoses Acute respiratory failure with hypoxia J96.01 Multifocal pneumonia J18.9 ILD (interstitial lung disease) J84.9 ALEXIS (acute kidney injury) N17.9 Acute on chronic diastolic CHF (congestive heart failure) I50.33 Type 2 diabetes mellitus E11.9 Schizophrenia F20.9
[2024-07-07 13:05] VITALS: BP 150/97; PULSE 62
[2024-07-07] MEDS ORDERED: LATANOPROST 0.005% OP SOLN 2.5 ML BTL OP SCH (21:00)
== END 2024-07-07 15:25 | DRG 208 ==
LOC: ED 23:13 → 1E 06-30 02:03 → SUATTDRO 06-30 02:03 → 1E 06-30 02:37 → 2E 07-03 18:47 → 3E 07-06 12:18